=== PATIENT | female | born 1945 | race American Indian/Alaskan Native ===

== ENCOUNTER 2017-02-20 12:32 | Emergency (ER) | payer MEDICARE ==
[2017-02-20 12:32] VITALS: PULSE 91
[2017-02-20] MEDS ORDERED: Tetracaine 0.5% Ophth (OR ONLY) OD ONE (13:25)
[2017-02-20] MEDS ORDERED: Fluorescein 1 mg Ophthalmic Strip OD ONE (13:25)
[2017-02-20] MEDS ORDERED: Digoxin 125 mcg (0.125 mg) Tab PO STA (13:29)
[2017-02-20] MEDS ORDERED: diltiaZEM 60 mg ER Cap PO STA (13:30)
[2017-02-20] MEDS ORDERED: Fluorescein 1 mg Ophthalmic Strip ONE (13:34)
[2017-02-20] MEDS ORDERED: Tetracaine 0.5% Ophth (OR ONLY) ONE (13:34)
[2017-02-20 13:51] LABS: BASO % 0.3 % (0.0-2.0); EOS % 0.6 % (0.0-4.0); HEMATOCRIT 33.3 % (34.0-47.0); LYMPH # 0.8 K/uL (1.0-4.3); LYMPH % 18.2 % (20.0-40.0); MEAN CELL VOLUME 88.6 fL (81.0-99.0); MEAN CORPUSCULAR HEMOGLOBIN 28.8 pg (27.0-31.0); MEAN CORPUSCULAR HGB CONC 32.5 g/dL (33.0-37.0); MEAN PLATELET VOLUME 7.4 fL (7.2-11.7); MONO # 0.5 K/uL (0.0-0.8); MONO % 12.6 % (0.0-10.0); NRBC % 0.1 % (0.0-2.0); RED CELL DISTRIBUTION WIDTH 18.6 % (11.5-14.5); WHITE BLOOD COUNT 4.2 K/uL (4.8-10.8)
[2017-02-20 14:03] LABS: INR 1.2
[2017-02-20 14:04] LABS: CHLORIDE 86 mmol/L (98-107); POTASSIUM 4.8 mmol/L (3.6-5.2); SODIUM 134 mmol/L (132-148)
[2017-02-20 14:06] LABS: GFR AFRICAN-AMERICAN > 60
[2017-02-20 14:07] LABS: ALKALINE PHOSPHATASE 85 U/L (38-126); ALT/SGPT 16 U/L (9-52); AST/SGOT 21 U/L (14-36); BILIRUBIN,TOTAL 0.7 mg/dL (0.2-1.3); BLOOD UREA NITROGEN 20 mg/dL (7-17); CARBON DIOXIDE 37 mmol/L (22-30); GLUCOSE,RANDOM 124 mg/dL (65-105); TOTAL PROTEIN 8.1 g/dL (6.3-8.3)
[2017-02-20] MEDS ORDERED: Digoxin 125 mcg (0.125 mg) Tab ONE (14:26)
[2017-02-20 14:33] VITALS: O2SAT 98
--- NOTE | 2017-02-20 15:07 | C.PDOC ---
History Of Present Illness 72 y/o female presents to the ED accompanied by daughter for evaluation of 1 episode of nausea/ vomiting which occurred last night. As per daughter, patient has also been experiencing right eye pain. Patient has h/o bilateral cataracts and underwent surgery "many years ago." Patient also states she initially was using eye drops but discontinued use because her insurance no longer covered the cost. Patient does not recall the name of her mangle catcher. Patient has a history of Alzheimer's Dementia; as per daughter, she is currently at her baseline mental status. Daughter states patient did not receive her medications this morning. She denies fever/chills, cough, chest pain, shortness of breath, abdominal pain, dysuria/hematuria. Time Seen by Provider: 02/20/17 13:03 Chief Complaint (Nursing): Abdominal Pain History Per: Patient, Family History/Exam Limitations: no limitations Onset/Duration Of Symptoms: Hrs Current Symptoms Are (Timing): Better Severity: Mild Radiation Of Pain To:: None Associated Symptoms: Nausea, Vomiting. denies: Fever, Chills, Chest Pain, Urinary Symptoms (dysuria ) Exacerbating Factors: denies: Cough Last Bowel Movement: Today Additional History Per: Family Abnormal Vaginal Bleeding: No Past Medical History Reviewed: Historical Data, Nursing Documentation, Vital Signs Vital Signs: Last Vital Signs Temp 97.9 F 02/20/17 16:05 Pulse 100 H 02/20/17 16:05 Resp 16 02/20/17 16:05 BP 171/87 H 02/20/17 16:05 Pulse Ox 98 02/22/17 09:20 - Medical History PMH: Anemia, Atrial Fibrillation, Dementia, Emphysema, HTN, Hypercholesterolemia Surgical History: No Surg Hx - [facility] Procedures VACCINATION NEC (03/13/15) Family History: States: No Known Family Hx - Social History Hx Tobacco Use: No Hx Alcohol Use: No Hx Substance Use: No - Immunization History Hx Tetanus Toxoid Vaccination: No Hx Influenza Vaccination: Yes Hx Pneumococcal Vaccination: Yes Review Of Systems Except As Marked, All Systems Reviewed And Found Negative. Constitutional: Negative for: Fever, Chills Eyes: Positive for: Pain (right ) ENT: Positive for: Ear Pain Cardiovascular: Negative for: Chest Pain, Palpitations Respiratory: Negative for: Cough, Shortness of Breath Gastrointestinal: Positive for: Nausea, Vomiting. Negative for: Abdominal Pain , Diarrhea Genitourinary: Negative for: Dysuria Physical Exam - Physical Exam Appears: Non-toxic, No Acute Distress, Other (comfortable) Skin: Normal Color, Warm, Dry Head: Atraumatic, Normacephalic Eye(s): bilateral: Other (right eye: +scleral injection. pupil is 3-4mm and mildly sluggish. +cataracts bilaterally ), left: PERRL, EOMI Oral Mucosa: Moist Neck: Supple Cardiovascular: Rhythm Irregular, Other (+mildly tachycardic) Respiratory: Normal Breath Sounds, No Rales, No Rhonchi, No Wheezing Gastrointestinal/Abdominal: Normal Exam, Bowel Sounds, Soft, No Tenderness Back: Normal Inspection, No Vertebral Tenderness, No Paraspinal Tenderness Extremity: Normal ROM, No Pedal Edema, No Calf Tenderness Extremity: Bilateral: Atraumatic, Normal Color And Temperature, Normal ROM Neurological/Psych: Other (awake, alert, mildly confused ) Gait: Steady ED Course And Treatment - Laboratory Results Result Diagrams: 02/20/17 13:47 02/20/17 13:47 ECG: Interpreted By Me, Viewed By Me (NSR 100bpm, left axis deviation, no acute ST/T wave changes) ECG Interpretation: No Acute Changes O2 Sat by Pulse Oximetry: 98 (on RA) Pulse Ox Interpretation: Normal Progress Note: Blood work and EKG were ordered and reviewed. Patient given her PO meds - Caridizem, Digoxin, Zestril, Tetracaine instilled into B/L eyes, and fluorescein stain applied by me. Eyes examined under Wood's lamp. Pt has two corneal abrasions in right eye at 9 o'clock and 3 o'clock positions. Eye pressures are 21-22mmHg B/L. Patient unable to follow instructions for visual acuity test due to her baseline confusion. Reevaluation Time: 16:10 Reassessment Condition: Improved (On reassessment, patient is resting comfortably, in no current pain/distress. Daughter given Rx for Ofloxacin eye drops and Zofran ODT. She ws instructed to bring mother to PMD in 1-2 days, and see eye doctor within 1 week. Patient to be brought back to ED if symptoms return/worsen. Vitals improved with patient's usual PO meds.) Disposition Counseled Patient/Family Regarding: Diagnosis, Need For Followup, Rx Given - Disposition Referrals: Claritza Balderrama MD [Staff Provider] - Macho Horn MD [Staff Provider] - Disposition: HOME/ ROUTINE Disposition Time: 16:10 Condition: STABLE Additional Instructions: FOLLOW UP WITH EYE DOCTOR IN 1-2 DAYS RETURN TO ER IF SYMPTOMS WORSEN Prescriptions: Ofloxacin Ophth 0.3% [Ocuflox Ophth 0.3%] 1 drop GT Q4 #1 bottle Ondansetron [Zofran Odt] 4 mg PO Q8 PRN #10 odt PRN Reason: Nausea/Vomiting Instructions: Corneal Abrasion (ED) Print Language: IRISH - POA Present On Arrival: None - Clinical Impression Clinical Impression: Nausea & vomiting, Corneal abrasion, Cataract - Scribe Statement The provider has reviewed the documentation as recorded by the Scribe (Tiff Washington) Provider Attestation: All medical record entries made by the Scribe were at my direction and personally dictated by me. I have reviewed the chart and agree that the record accurately reflects my personal performance of the history, physical exam, medical decision making, and the department course for this patient. I have also personally directed, reviewed, and agree with the discharge instructions and disposition.
[2017-02-20] MEDS ORDERED: Ofloxacin 0.3% Ophth Soln OD STA (15:40)
[2017-02-20 16:17] VITALS: BP 171/87; PULSE 100; RESP 16; TEMP 97.9
--- NOTE | 2017-02-22 12:05 | CARD ---
APPROVED REPORT EKG Measurement Heart [id number] <Conclusion> Normal sinus rhythm Possible Left atrial enlargement Left axis deviation Abnormal ECG
== END 2017-02-20 16:42 | disposition home or self-care (01) ==
LOC: C.ER 12:32
DX: S05.01XA Injury of conjunctiva and corneal abrasion without foreign body, right eye, initial encounter (principal); X58.XXXA Exposure to other specified factors, initial encounter; R11.2 Nausea with vomiting, unspecified

== ENCOUNTER 2017-04-21 21:19 | Inpatient (IN) | payer MEDICARE ==
[2017-04-21 21:28] VITALS: BMI 17.7
[2017-04-21 21:52] LABS: BASO % 0.4 % (0.0-2.0); EOS % 0.1 % (0.0-4.0); HEMOGLOBIN 9.7 g/dL (11.0-16.0); LYMPH # 0.4 K/uL (1.0-4.3); LYMPH % 11.9 % (20.0-40.0); MEAN CELL VOLUME 89.2 fL (81.0-99.0); MEAN CORPUSCULAR HEMOGLOBIN 28.3 pg (27.0-31.0); MEAN CORPUSCULAR HGB CONC 31.7 g/dL (33.0-37.0); MEAN PLATELET VOLUME 7.6 fL (7.2-11.7); MONO # 0.3 K/uL (0.0-0.8); MONO % 9.2 % (0.0-10.0); NEUT # 2.7 K/uL (1.8-7.0); NEUT % 78.4 % (50.0-75.0); RBC 3.41 Mil/uL (3.80-5.20); RED CELL DISTRIBUTION WIDTH 18.4 % (11.5-14.5); WHITE BLOOD COUNT 3.4 K/uL (4.8-10.8)
[2017-04-21 21:59] LABS: ALBUMIN 3.9 g/dL (3.5-5.0)
[2017-04-21 22:00] LABS: INR 1.3; PROTHROMBIN TIME 14.9 SECONDS (9.7-12.2)
[2017-04-21 22:11] LABS: CK-MB 1.29 ng/mL (0.0-3.38)
[2017-04-21 22:15] LABS: TROPONIN I 0.054 ng/mL (0.00-0.120)
--- NOTE | 2017-04-21 22:23 | C.PDOC ---
History Of Present Illness 72 year old female was brought to the ED by ambulance for evaluation of abdominal pain, generalized weakness, and decreased PO intake beginning today ( as per daughter). Patient denies chest pain, SOB, fever, cough, vomiting, diarrhea, dysuria/hematruia. PMHx of anemia, atrial fibrillation, hyperlipidemia, HTN, COPD. Time Seen by Provider: 04/21/17 21:40 Chief Complaint (Nursing): Abdominal Pain History Per: Patient, Family (daughter ) History/Exam Limitations: no limitations Onset/Duration Of Symptoms: Hrs Current Symptoms Are (Timing): Still Present Severity: Mild Location Of Pain/Discomfort: Diffuse Radiation Of Pain To:: None Associated Symptoms: Other (generalized weakness and decreased PO intake ). denies: Fever, Chills, Nausea, Vomiting, Diarrhea Recent travel outside of the [place]: No Past Medical History Reviewed: Historical Data, Nursing Documentation, Vital Signs Vital Signs: Last Vital Signs Temp 98.4 F 04/29/17 04:00 Pulse 105 H 04/29/17 05:20 Resp 18 04/29/17 05:20 BP 113/70 04/29/17 04:14 Pulse Ox 100 04/29/17 05:20 - Medical History PMH: Anemia, Atrial Fibrillation, Dementia, Emphysema, HTN, Hypercholesterolemia - [facility] Procedures VACCINATION NEC (03/13/15) Family History: States: No Known Family Hx - Social History Hx Tobacco Use: No Hx Alcohol Use: No Hx Substance Use: No - Immunization History Hx Tetanus Toxoid Vaccination: No Hx Influenza Vaccination: Yes Hx Pneumococcal Vaccination: Yes Review Of Systems Except As Marked, All Systems Reviewed And Found Negative. Constitutional: Negative for: Fever, Chills Cardiovascular: Negative for: Chest Pain, Palpitations Respiratory: Negative for: Cough, Shortness of Breath Gastrointestinal: Positive for: Abdominal Pain. Negative for: Nausea, Vomiting , Diarrhea Genitourinary: Negative for: Dysuria, Hematuria Physical Exam - Physical Exam Appears: Non-toxic, No Acute Distress, Chronically Ill Skin: Normal Color, Warm, Dry Eye(s): bilateral: Normal Inspection Oral Mucosa: Moist Cardiovascular: Rhythm Irregular, Other (Mildly tachycardic, irregular occasionally ) Respiratory: No Decreased Breath Sounds, No Accessory Muscle Use, Rales (mild at bases B/L), No Rhonchi, No Wheezing, Other (mildly tachypnic) Gastrointestinal/Abdominal: Normal Exam, Bowel Sounds, Soft, No Tenderness, No Distention, No Guarding, No Rebound Extremity: Normal ROM, No Tenderness, No Pedal Edema, No Calf Tenderness, Other (+2 pitting edema of the legs bilaterally ) Neurological/Psych: Other (awake, alert, moving all 4 extremities spontaneously , slow to respond to questions, at baseline mental status as per daughter) ED Course And Treatment - Laboratory Results Result Diagrams: 04/29/17 06:46 04/29/17 06:46 ECG: Interpreted By Me, Viewed By Me (sinus tachycardia 113bpm, L axis deviation , LAFB, no acute ST/t wave changes) ECG Interpretation: Abnormal O2 Sat by Pulse Oximetry: 88 (RA) Pulse Ox Interpretation: Abnormal (COPD history) - Radiology CXR: Interpreted by Me, Viewed By Me CXR Interpretation: Yes: No Acute Disease. No: Infiltrates - CT Scan/US CT ABDOMEN/PELVIS WO Other Rad Studies (CT/US): Read By Radiologist, Radiology Report Reviewed CT/US Interpretation: IMPRESSION: Extremely limited study, noting that limitations are greatly increased by apparent anasarca and congestive failure, absence of intravenous contrast greatly limits evaluation of the parenchymal organs. The absence of oral contrast limits evaluation of the gastrointestinal tract. Correlation for biliary etiology of symptoms is recommended noting suggestion of ascites surrounding the gallbladder out of proportion to ascites elsewhere. Noting apparent large fibroid with limited visualization of the remainder of the uterus, depending on location of pain acute symptoms related to torsion of a fibroid in the differential. CT Head Without Intravenous Contrast Other Rad Studies (CT/US): Read By Radiologist, Radiology Report Reviewed CT/US Interpretation: IMPRESSION: No intracranial hemorrhage. In the absence of comparison, bilateral poor visualization of the basal ganglia is suspicious for acute stroke with embolic etiology possible. Left maxillary sinusitis. Please compare to previous regarding possibility of hydrocephalus. Note that basal cisterns and. fourth ventricle are patent. There no previous studies available for direct comparison, noting that previous reports indicate extensive white matter pathology and the findings on the study are not excluded to be chronic for this patient. Progress Note: Blood work, CXR, EKG, CT abd/pelvis, UA ordered and reviewed. IV Lasix given for elevated BNP, rales, edema on exam. K noted to be elevated - repeated and hyperkalemia persists. Hyperkalemia cocktail given - Calcium gluconate, albuterol, D50 + insulin. 12:30PM- called to bedside on admitted patient, she is nonverbal and not moving arms, mildly drooling (? due to removal of dentures). Concerned for CVA vs hypercapnic respiratory failure, code stroke called & CT head ordered. ABG drawn by me to evaluate CO2. 1:00am - Patient's CO2 critically high, she is drowsy and nonverbal - not Bipap candidate. As per roseann, patient's wishes are unknown and to her knowledge patient is full code. Patient emergently intubated by me - IV rocuronium and etomidte given. OG tube placed by me. ET tube and OG tube placement confirmed via postitubation CXR. Supervisor [employer] spoken with and agrees with ICU admission. Call placed to Dr. Balderrama to notify her of patient being upgraded to ICU. - Physician Consult Information Physician Contacted: Claritza Balderrama Critical Care Time - Critical Care Note Total Time (in mins): 50 Documented critical care: time excludes all time spent performing seperately billable procedures. NIHSS Stroke Scale - Date/Time Evaluation Performed Date Performed: 04/22/17 Time Performed: 00:20 When Was NIHSS Performed: Baseline - How Severe is the Stoke Level of Consciousness: 1=Drowsy LOC to Questions: 2=Neither correct LOC to commands: 2=Neither correct Best Gaze: 0=Normal Visual: 0=No visual loss Facial: 0=Normal Motor Arm - Left: 3=No effort against gravity (falls immediately) Motor Arm - Right: 2=Falls before 10 sec Motor Leg - Left: 1=Drift before 5 sec Motor Leg - Right: 1=Drift before 5 sec Limb Ataxia: 0=Absent Sensory: 0=Normal Best Language: 0=No aphasia Dysarthia: 0=Normal articulation Extinction & Inattention (Neglect): 0=Normal, no object Score: 12 Severity Of Stroke: 5-15= Moderate Stroke (patient drowsy and unable to respond to questions or follow commands) Disposition - Disposition Disposition: HOSPITALIZED Disposition Time: 01:18 Condition: CRITICAL - Clinical Impression Clinical Impression: CHF exacerbation, Hypercapnic respiratory failure, Hyperkalemia, Abdominal pain - Scribe Statement The provider has reviewed the documentation as recorded by the Scribrodrick Camargo All medical record entries made by the Scribe were at my direction and personally dictated by me. I have reviewed the chart and agree that the record accurately reflects my personal performance of the history, physical exam, medical decision making, and the department course for this patient. I have also personally directed, reviewed, and agree with the discharge instructions and disposition. Procedure: Intubation - Consent Obtained Consent obtained: Emergent consent implied - Performed By Performed by: Attending Physician - Indications Indication(s):: Respiratory failure, Hypercarbia - Method Method:: Oral-Laryngoscopy - Rapid Sequence Intubation Anesthetic:: Etomidate Paralytic:: Rocuronium - Tube type Tube type:: Endotracheal tube Tube size:: Cuffed Number of attempts:: 1 Depth measured at lip: cm: 22 - Confirmation Confirmation: Direct visual.of intubate, End-tidal CO2 positive, Bilat. breath sounds - Post-intubation CXR Post-intubation CXR: CM above [place] - Post-intubation O2 sat % Post-intubation O2 sat%:: 98
[2017-04-21 22:27] LABS: HCG,QUALITATIVE URINE NEGATIVE (NEGATIVE)
[2017-04-21 22:44] LABS: SQUAMOUS EPITHIAL 1 /hpf (0-5); URINE AMORPHOUS SEDIMENT FEW /ul (<OCC); URINE BACTERIA OCC (<OCC); URINE BILIRUBIN NEGATIVE (NEGATIVE); URINE BLOOD 1+ (NEGATIVE); URINE CLARITY Hazy (Clear); URINE COLOR Amber (YELLOW); URINE GLUCOSE (UA) 1+ mg/dL (Normal); URINE HYALINE CAST >20 /lpf (0-2); URINE LEUKOCYTE ESTERASE NEG Leu/uL (Negative); URINE NITRATE NEGATIVE (NEGATIVE); URINE PROTEIN 3+ mg/dL (NEGATIVE)
--- NOTE | 2017-04-21 23:22 | CT ---
EXAM: CT Abdomen and Pelvis Without Intravenous Contrast CLINICAL HISTORY: 72 years old, female; Pain; Abdominal pain; Generalized; Additional info: Severe abd pain, vomiting/diarrhea TECHNIQUE: Axial computed tomography images of the abdomen and pelvis without intravenous contrast. This CT exam was performed using one or more of the following dose reduction techniques: automated exposure control, adjustment of the mA and/or kV according to patient size, and/or use of iterative reconstruction technique. Coronal and sagittal reformatted images were created and reviewed. EXAM DATE/TIME: Exam ordered 04/21/2017 10:32 PM COMPARISON: No relevant prior studies available. FINDINGS: Lower thorax: There is severe cardiomegaly, it appears that this represents at least the right atrium and both ventricles, noting that the left atrium is minimally included and is evaluated. There are calcifications in keeping with coronary artery disease. Calcification adjacent to the aortic valve not clearly localized regarding whether it relates to the aortic valve and coronary arteries. Small right and trace left left pleural effusion. Marked prominence of the pulmonary vessels suggesting failure. Patchy groundglass opacity at the lung basis, this may also be related to failure or noting a slight central predominance, with other causes including infection/atelectatic change is not excluded as contributing factors. There is pelvic ascites, this may be related to heart failure and the overall edema, with other causes possibly contributing on this limited study. ABDOMEN: Liver: Unremarkable. Gallbladder and bile ducts: The gallbladder is poorly distinguished from adjacent structures, with no evidence of calcified stones. No ductal dilation. Pancreas: The pancreas is poorly distinguished from adjacent structures comment the duct cannot be evaluated. Spleen: Unremarkable. No splenomegaly. Adrenals: Unremarkable. No mass. Kidneys and ureters: There are bilateral renal calculi particularly within the left lower pole, noting the severe limitations of this study it is favored that there are no obstructing ureteral calculi and there is no obvious hydronephrosis. Stomach and bowel: It is not possible to evaluate the wall of the majority of small bowel comment noting absence of obvious dilatation, the noting very poor distinction of loops from one another and adjacent infiltrative fat. There are no definite dilated fluid-filled loops. The large intestine contains moderate formed fecal material. No mucosal thickening. Appendix: No findings to suggest acute appendicitis. PELVIS: Bladder: Bladder is partly collapsed limiting evaluation, noting further sagittal image 56 that it may be thickwalled and may contain some debris, correlation for infection is recommended. No stones. Reproductive: Enlarged uterus with multiple coarse calcifications favored to be related to fibroids, noting suggestion that there may be a dominant fibroid better appreciated sagittal image 50 and adjacent of approximately 5.5 cm, with poor visualization of the lower uterine segment, not excluded that this finding could be of non-gynecologic origin. ABDOMEN and PELVIS: Intraperitoneal space: See above. Bones/joints: Bony structures with no displaced fractures , minimal degenerative change of the spine. No dislocation. Soft tissues: There is extensive body wall edema in keeping with anasarca. Vasculature: There are scattered atherosclerotic calcifications. No abdominal aortic aneurysm. Lymph nodes: Unremarkable. No enlarged lymph nodes. Other findings: No prior images, no prior reports available. IMPRESSION: Extremely limited study, noting that limitations are greatly increased by apparent anasarca and congestive failure, absence of intravenous contrast greatly limits evaluation of the parenchymal organs. The absence of oral contrast limits evaluation of the gastrointestinal tract. Correlation for biliary etiology of symptoms is recommended noting suggestion of ascites surrounding the gallbladder out of proportion to ascites elsewhere. Noting apparent large fibroid with limited visualization of the remainder of the uterus, depending on location of pain acute symptoms related to torsion of a fibroid in the differential. Renal calculi. There is no definite pathology of bowel within the severe limitations of this examination, and laboratory correlation and consideration of repeat study with oral contrast and if patient can tolerate with intravenous contrast is recommended for better evaluation. Collapsed bladder with question debris, please correlate for urinary tract infection. Severe cardiomegaly, with changes of congestive failure in the lungs, severe anasarca, possibility of superimposed airspace disease.
[2017-04-21] MEDS ORDERED: Calcium Gluconate 4.65 MEQ in Dextrose 5% In Water 100 ML IV STA (23:26)
[2017-04-21] MEDS ORDERED: Dextrose 50% SYRINGE Inj (50 ml) IVP STA (23:27)
[2017-04-21] MEDS ORDERED: (Novolin R) Insulin Human Regular 100 units/ml vial IV STA (23:27)
[2017-04-21] MEDS ORDERED: Albuterol 0.083% Inhal Sol (2.5 mg/3 mL) UD IH STA (23:27)
[2017-04-21] MEDS ORDERED: Calcium Gluconate 4.65 mEq/10 ml Inj ONE (23:32)
[2017-04-21] MEDS ORDERED: Dextrose 50% SYRINGE Inj (50 ml) ONE (23:33)
[2017-04-21] MEDS ORDERED: (Novolin R) Insulin Human Regular 100 units/ml vial ONE (23:34)
[2017-04-22] MEDS ORDERED: Albuterol 0.083% Inhal Sol (2.5 mg/3 mL) UD ONE
[2017-04-22] MEDS ORDERED: Sod Polystyrene Sulf 15 gm/60 ml Oral Susp ONE (00:19)
[2017-04-22] MEDS ORDERED: Sod Polystyrene Sulf 15 gm/60 ml Oral Susp PO ONE (00:19)
[2017-04-22 00:46] LABS: ARTERIAL BLOOD GAS HCO3 29.3 mmol/L (21-28); ARTERIAL BLOOD GAS HEMOGLOBIN 9.3 g/dL (11.7-17.4); ARTERIAL BLOOD GAS O2 SAT 98.2 % (95-98); ARTERIAL BLOOD GAS PCO2 121 mm/Hg (35-45); ARTERIAL BLOOD GAS PO2 95 mm/Hg (80-100); ARTERIAL BLOOD GAS TCO2 41.3 mmol/L (22-28)
--- NOTE | 2017-04-22 01:03 | CT ---
EXAM: CT Head Without Intravenous Contrast CLINICAL HISTORY: 72 years old, female; Pain; Other: Not respond; Patient HX: 5-22-15; Additional info: R/O bleed TECHNIQUE: Axial computed tomography images of the head/brain without intravenous contrast. This CT exam was performed using one or more of the following dose reduction techniques: automated exposure control, adjustment of the mA and/or kV according to patient size, and/or use of iterative reconstruction technique. EXAM DATE/TIME: Exam ordered 04/22/2017 12:28 AM COMPARISON: No relevant prior studies available. FINDINGS: Brain: There is bilateral obscuration of the basal ganglia and acute stroke is a consideration in this context. There is no intracranial hemorrhage. Severe extensive white matter disease. Ventricles: The ventricles are prominent, but there are no previous for comparison, noting that the basal cisterns and fourth ventricle are patent. Bones/joints: The mastoid air cells are clear. There are no fractures of the calvarium. Soft tissues: Unremarkable. Sinuses: There is an air-fluid level in the left maxillary sinus, please correlate for trauma versus acute sinusitis. Other paranasal sinuses show no air-fluid levels. Mastoid air cells: Unremarkable as visualized. No mastoid effusion. IMPRESSION: No intracranial hemorrhage. In the absence of comparison, bilateral poor visualization of the basal ganglia is suspicious for acute stroke with embolic etiology possible. Left maxillary sinusitis. Please compare to previous regarding possibility of hydrocephalus. Note that basal cisterns and fourth ventricle are patent. There no previous studies available for direct comparison, noting that previous reports indicate extensive white matter pathology and the findings on the study are not excluded to be chronic for this patient.
[2017-04-22] MEDS ORDERED: Sod Polystyrene Sulf 15 gm/60 ml Oral Susp GT ONE (02:04)
[2017-04-22] MEDS ORDERED: Sodium Bicarbonate (8.4%) 50 Meq Syringe IVP STA (02:17)
[2017-04-22 02:48] LABS: ARTERIAL BLOOD GAS HCO3 29.8 mmol/L (21-28); ARTERIAL BLOOD GAS HEMOGLOBIN 9.1 g/dL (11.7-17.4); ARTERIAL BLOOD GAS O2 SAT 100.8 % (95-98); ARTERIAL BLOOD GAS PCO2 53 mm/Hg (35-45); ARTERIAL BLOOD GAS PH 7.39 (7.35-7.45); ARTERIAL BLOOD GAS PO2 276 mm/Hg (80-100); ARTERIAL BLOOD GAS TCO2 33.7 mmol/L (22-28)
--- NOTE | 2017-04-22 05:06 | CP.PCM.CON ---
History of Present Illness - History of Present Illness History of Present Illness: 72 year old female with h/o atrial fibrillation, HTN,Anemia,dementia,emphysema, hyperlipidemia was brought to the ED by ambulance with complaints of abdominal pain, generalized weakness, and decreased oral intake beginning today as per daughter. Patient denies chest pain, SOB, fever, cough, vomiting, and diarrhea. n Er patient found to be lethargic ,hypercapneic,intubated patient alert,Denies abdominal pain history from family,ER notes,patient Review of Systems - Review of Systems Systems not reviewed;Unavailable: Altered Mental Status - Constitutional Constitutional: Anorexia, Weakness - EENT Eyes: absent: Change in Vision Ears: absent: Dizziness - Cardiovascular Cardiovascular: Irregular Heart Rhythm, Leg Edema. absent: Chest Pain, Dyspnea - Respiratory Respiratory: absent: Dyspnea - Gastrointestinal Gastrointestinal: Abdominal Pain. absent: Change in Bowel Habits, Nausea, Vomiting - Genitourinary Genitourinary: Difficulty Urinating - Musculoskeletal Musculoskeletal: absent: Numbness - Integumentary Integumentary: absent: Bleeding Lesions - Neurological Neurological: Weakness. absent: Abnormal Movements - Endocrine Endocrine: absent: Excessive Sweating Past Patient History - Infectious Disease Hx of Infectious Diseases: None - Past Medical History & Family History Past Medical History?: Yes - Past Social History Smoking Status: Former Smoker Alcohol: None Drugs: Denies - CARDIAC Hx Atrial Fibrillation: Yes Hx Hypercholesterolemia: Yes Hx Hypertension: Yes - PULMONARY Hx Emphysema: Yes - NEUROLOGICAL Hx Dementia: Yes - HEENT Hx HEENT Problems: Yes Hx Cataracts: Yes (both eyes) - RENAL Hx Chronic Kidney Disease: No - ENDOCRINE/METABOLIC Hx Endocrine Disorders: No - HEMATOLOGICAL/ONCOLOGICAL Hx Anemia: Yes - INTEGUMENTARY Hx Dermatological Problems: No - MUSCULOSKELETAL/RHEUMATOLOGICAL Hx Falls: Yes - GASTROINTESTINAL Hx Gastrointestinal Disorders: No - GENITOURINARY/GYNECOLOGICAL Hx Genitourinary Disorders: Yes - PSYCHIATRIC Hx Substance Use: No - SURGICAL HISTORY Hx Surgeries: Yes Hx Cataract Extraction: Yes (2013) - ANESTHESIA Hx Anesthesia: Yes Hx Anesthesia Reactions: No Hx Malignant Hyperthermia: No Has any member of the family had a problem w/ anesthesia?: No Meds Allergies/Adverse Reactions: Allergies Allergy/AdvReac Type Severity Reaction Status Date / Time No Known Allergies Allergy Verified 04/21/17 21:24 - Medications Medications: Current Medications Digoxin (Lanoxin) 0.125 mg PO DAILY@1800 LEE Diltiazem HCl (Cardizem Cd) 120 mg PO DAILY [facility] Furosemide (Lasix) 40 mg IVP BID [facility] Calcium Gluconate 4.65 meq/ (Dextrose) 110 mls @ 1 drops/min IV STAT STA Stop: 04/23/17 02:55 Last Admin: 04/21/17 23:36 Dose: 1 drops/min Rivaroxaban (Xarelto) 15 mg PO DAILY [facility] Physical Exam - Constitutional Additional comments: orally intubated,comfortable at rest - Head Exam Head Exam: ATRAUMATIC, NORMOCEPHALIC - Eye Exam Eye Exam: EOMI, Normal appearance - ENT Exam ENT Exam: Mucous Membranes Moist - Neck Exam Neck exam: Positive for: Normal Inspection. Negative for: Lymphadenopathy - Respiratory Exam Respiratory Exam: Clear to Auscultation Bilateral - Cardiovascular Exam Cardiovascular Exam: Irregular Rhythm - GI/Abdominal Exam GI & Abdominal Exam: Normal Bowel Sounds, Soft. absent: Tenderness - Extremities Exam Extremities exam: Positive for: normal inspection, pedal edema - Back Exam Back exam: absent: CVA tenderness (L) - Neurological Exam Neurological exam: Alert - Skin Skin Exam: Dry, Normal Color Results - Vital Signs Recent Vital Signs: Last Vital Signs Temp 98.2 F 04/22/17 02:30 Pulse 79 04/22/17 04:10 Resp 18 04/22/17 04:10 BP 158/98 H 04/22/17 03:44 Pulse Ox 94 L 04/22/17 04:10 - Labs Result Diagrams: 04/21/17 21:48 04/21/17 23:01 Labs: Laboratory Results - last 24 hr 04/22/17 04/22/17 04/22/17 00:32 00:41 02:15 Puncture Site Na drawn by dr Oscar lopez pCO2 121 H* 53 H pO2 95 276 H HCO3 29.3 H 29.8 H ABG pH 7.10 L* 7.39 ABG Total CO2 41.3 H 33.7 H ABG O2 Saturation 98.2 H 100.8 H ABG Base Excess 5.7 H 6.2 H ABG Hemoglobin 9.3 L 9.1 L ABG Carboxyhemoglobin 2.7 H 2.1 H POC ABG HHb (Measured) 1.7 -0.8 L ABG Methemoglobin 1.1 0.8 Yaniv Test Na Na A-a O2 Difference 86.0 Respiratory Index 0.3 Hgb O2 Saturation 94.5 L 97.9 Mechanical Rate 18 FiO2 60.0 Tidal Volume 350 PEEP 5 Crit Value Called To Dr ellison Crit Value Called By Mónica schwartz rt Crit Value Read Back Y Blood Gas Notified Time 46 POC Glucose (mg/dL) 258 H - EKG Data EKG Interpreted by: Myself - Imaging and Cardiology Chest x-ray Status: Image reviewed by me Assessment & Plan - Assessment and Plan (Free Text) Assessment: 1Hypercapneic Respiratory failure on mechanical ventilation ?eitiology.H/O emphysema weanas tolerated 2.Electrolyte imbalance-hyponatremia and hyperkalemia-repeat lytes Hyperkalemia treated in ER 3.H/o HTN/Atrial fibrillation/?CHF-on Cardizem,digoxin and lasix 4.Elevated LFT/Abdominal pain -US to r/o Gallbladder pathology 5.Leucopenia and anemia-h/o anemia-f/u CBC stool occult blood
[2017-04-22 05:34] LABS: ABG ALLEN TEST POS; ARTERIAL BLOOD GAS HCO3 35.7 mmol/L (21-28); ARTERIAL BLOOD GAS HEMOGLOBIN 8.4 g/dL (11.7-17.4); ARTERIAL BLOOD GAS O2 SAT 100.3 % (95-98); ARTERIAL BLOOD GAS PCO2 48 mm/Hg (35-45); ARTERIAL BLOOD GAS PH 7.51 (7.35-7.45); ARTERIAL BLOOD GAS PO2 266 mm/Hg (80-100); ARTERIAL BLOOD GAS TCO2 39.8 mmol/L (22-28)
[2017-04-22 07:04] LABS: IRON 64 ug/dL (37-170); MAGNESIUM 2.1 mg/dL (1.6-2.3)
[2017-04-22 07:06] LABS: ALBUMIN 3.4 g/dL (3.5-5.0)
[2017-04-22 07:10] LABS: ALB/GLOB RATIO 0.9 (1.0-2.1)
[2017-04-22 07:14] LABS: % IRON SATURATION 22 (20-55); TOTAL IRON BINDING CAPACITY 290 ug/dL (250-450)
[2017-04-22 07:15] LABS: BASO % 0.4 % (0.0-2.0); EOS % 0.1 % (0.0-4.0); HEMOGLOBIN 8.7 g/dL (11.0-16.0); LYMPH # 0.8 K/uL (1.0-4.3); MEAN CELL VOLUME 88.5 fL (81.0-99.0); MEAN CORPUSCULAR HEMOGLOBIN 28.2 pg (27.0-31.0); MEAN CORPUSCULAR HGB CONC 31.9 g/dL (33.0-37.0); MEAN PLATELET VOLUME 7.9 fL (7.2-11.7); MONO # 0.6 K/uL (0.0-0.8); MONO % 11.4 % (0.0-10.0); NEUT # 3.5 K/uL (1.8-7.0); NEUT % 71.1 % (50.0-75.0); NRBC % 0.1 % (0.0-2.0); RBC 3.08 Mil/uL (3.80-5.20); RED CELL DISTRIBUTION WIDTH 18.5 % (11.5-14.5); WHITE BLOOD COUNT 4.9 K/uL (4.8-10.8)
--- NOTE | 2017-04-22 08:11 | CP.PCM.HP ---
History of Present Illness - History of Present Illness History of Present Illness: Admitted this 89 years old female from the ER because of "abdominal pains" which according to the daughter started today. Apparently when the patient was in the ER she was found to be lethargic with respiratory difficulty. patient is a known case of atrial fibrillation on Xarelto 15 mgm daily. Cat scan of the abdomen was suspicious of imflammatory process around the gallbladder area. patient blood dianne showed a very high CO2 and was intubated. Present on Admission - Present on Admission Any Indicators Present on Admission: No Review of Systems - Review of Systems Systems not reviewed;Unavailable: Acuity of Condition, Respiratory Distress, Altered Mental Status - Constitutional Constitutional: Lethargy, Weakness - Cardiovascular Cardiovascular: Irregular Heart Rhythm - Respiratory Respiratory: Dyspnea - Gastrointestinal Gastrointestinal: Abdominal Pain - Reproductive: Female Reproductive:Female: Menopausal - Menstruation Menstruation: Menopausal - Neurological Neurological: Weakness Past Patient History - Infectious Disease Hx of Infectious Diseases: None - Past Medical History & Family History Past Medical History?: Yes - Past Social History Smoking Status: Former Smoker Alcohol: None Drugs: Denies Home Situation {Lives}: With Family - CARDIAC Hx Atrial Fibrillation: Yes Hx Hypercholesterolemia: Yes Hx Hypertension: Yes - PULMONARY Hx Respiratory Disorders: Yes Hx Emphysema: Yes - NEUROLOGICAL Hx Dementia: Yes - HEENT Hx HEENT Problems: Yes Hx Cataracts: Yes (both eyes) - RENAL Hx Chronic Kidney Disease: No - ENDOCRINE/METABOLIC Hx Endocrine Disorders: No - HEMATOLOGICAL/ONCOLOGICAL Hx Blood Disorders: Yes Hx Anemia: Yes - INTEGUMENTARY Hx Dermatological Problems: No - MUSCULOSKELETAL/RHEUMATOLOGICAL Hx Falls: Yes - GASTROINTESTINAL Hx Gastrointestinal Disorders: No - GENITOURINARY/GYNECOLOGICAL Hx Genitourinary Disorders: No - PSYCHIATRIC Hx Psychophysiologic Disorder: No Hx Substance Use: No - SURGICAL HISTORY Hx Surgeries: Yes Hx Cataract Extraction: Yes (2013) - ANESTHESIA Hx Anesthesia: Yes Hx Anesthesia Reactions: No Hx Malignant Hyperthermia: No Has any member of the family had a problem w/ anesthesia?: No Meds Allergies/Adverse Reactions: Allergies Allergy/AdvReac Type Severity Reaction Status Date / Time No Known Allergies Allergy Verified 04/21/17 21:24 Physical Exam - Constitutional Appears: In Acute Distress Additional comments: Intubated. - ENT Exam ENT Exam: Normal External Ear Exam - Neck Exam Neck exam: Positive for: Normal Inspection - Respiratory Exam Respiratory Exam: Rales, Rhonchi - Cardiovascular Exam Cardiovascular Exam: Irregular Rhythm, +S1, +S2 - GI/Abdominal Exam GI & Abdominal Exam: Soft - Rectal Exam Rectal Exam: Deferred - Neurological Exam Neurological exam: Altered - Skin Skin Exam: Dry, Intact, Normal Color, Warm Results - Vital Signs Recent Vital Signs: Last Vital Signs Temp 98.2 F 04/22/17 02:30 Pulse 90 04/22/17 06:20 Resp 18 04/22/17 06:20 BP 144/85 04/22/17 06:14 Pulse Ox 100 04/22/17 06:20 - Labs Result Diagrams: 04/22/17 06:35 04/22/17 06:35 Labs: Laboratory Results - last 24 hr 04/22/17 04/22/17 04/22/17 00:32 00:41 02:15 WBC RBC Hgb Hct MCV MCH MCHC RDW Plt Count MPV Neut % (Auto) Lymph % (Auto) Lewis % (Auto) Eos % (Auto) Baso % (Auto) Neut # Lymph # Lewis # Eos # Baso # Puncture Site Na drawn by dr Oscar lopez pCO2 121 H* 53 H pO2 95 276 H HCO3 29.3 H 29.8 H ABG pH 7.10 L* 7.39 ABG Total CO2 41.3 H 33.7 H ABG O2 Saturation 98.2 H 100.8 H ABG Base Excess 5.7 H 6.2 H ABG Hemoglobin 9.3 L 9.1 L ABG Carboxyhemoglobin 2.7 H 2.1 H POC ABG HHb (Measured) 1.7 -0.8 L ABG Methemoglobin 1.1 0.8 Yaniv Test Na Na A-a O2 Difference 86.0 Respiratory Index 0.3 Hgb O2 Saturation 94.5 L 97.9 Mechanical Rate 18 FiO2 60.0 Tidal Volume 350 PEEP 5 Crit Value Called To Dr ellison Crit Value Called By Mónica schwartz rt Crit Value Read Back Y Blood Gas Notified Time 46 Sodium Potassium Chloride Carbon Dioxide Anion Gap BUN Creatinine Est GFR ( Amer) Est GFR (Non-Af Amer) POC Glucose (mg/dL) 258 H Random Glucose Calcium Phosphorus Magnesium Iron TIBC % Saturation Total Bilirubin AST ALT Alkaline Phosphatase Total Protein Albumin Globulin Albumin/Globulin Ratio Triglycerides Cholesterol LDL Cholesterol Direct HDL Cholesterol Digoxin 04/22/17 04/22/1717 03:25 06:35 06:35 WBC 4.9 RBC 3.08 L Hgb 8.7 L Hct 27.3 L MCV 88.5 MCH 28.2 MCHC 31.9 L RDW 18.5 H Plt Count 196 MPV 7.9 Neut % (Auto) 71.1 Lymph % (Auto) 17.0 L Lewis % (Auto) 11.4 H Eos % (Auto) 0.1 Baso % (Auto) 0.4 Neut # 3.5 Lymph # 0.8 L Lewis # 0.6 Eos # 0.0 Baso # 0.0 Puncture Site R rad pCO2 48 H pO2 266 H HCO3 35.7 H ABG pH 7.51 H ABG Total CO2 39.8 H ABG O2 Saturation 100.3 H ABG Base Excess 13.8 H ABG Hemoglobin 8.4 L ABG Carboxyhemoglobin 1.5 POC ABG HHb (Measured) -0.3 L ABG Methemoglobin 1.2 Yaniv Test Pos A-a O2 Difference 102.0 Respiratory Index 0.4 Hgb O2 Saturation 97.6 Mechanical Rate 18 FiO2 60.0 Tidal Volume 350 PEEP 5 Crit Value Called To Crit Value Called By Crit Value Read Back Blood Gas Notified Time Sodium 132 Potassium 5.5 H Chloride 87 L Carbon Dioxide 34 H Anion Gap 17 BUN 24 H Creatinine 1.3 H Est GFR ( Amer) 49 Est GFR (Non-Af Amer) 40 POC Glucose (mg/dL) Random Glucose 125 H Calcium 9.0 Phosphorus Magnesium Iron TIBC % Saturation Total Bilirubin 0.9 AST 324 H D ALT 199 H D Alkaline Phosphatase 100 Total Protein 7.2 Albumin 3.4 L Globulin 3.8 Albumin/Globulin Ratio 0.9 L Triglycerides Cholesterol LDL Cholesterol Direct HDL Cholesterol Digoxin 04/22/17 04/22/17 04/22/17 06:35 06:35 06:35 WBC RBC Hgb Hct MCV MCH MCHC RDW Plt Count MPV Neut % (Auto) Lymph % (Auto) Lewis % (Auto) Eos % (Auto) Baso % (Auto) Neut # Lymph # Lewis # Eos # Baso # Puncture Site pCO2 pO2 HCO3 ABG pH ABG Total CO2 ABG O2 Saturation ABG Base Excess ABG Hemoglobin ABG Carboxyhemoglobin POC ABG HHb (Measured) ABG Methemoglobin Yaniv Test A-a O2 Difference Respiratory Index Hgb O2 Saturation Mechanical Rate FiO2 Tidal Volume PEEP Crit Value Called To Crit Value Called By Crit Value Read Back Blood Gas Notified Time Sodium Potassium Chloride Carbon Dioxide Anion Gap BUN Creatinine Est GFR ( Amer) Est GFR (Non-Af Amer) POC Glucose (mg/dL) Random Glucose Calcium Phosphorus 4.9 H Magnesium 2.1 Iron 64 TIBC 290 % Saturation 22 Total Bilirubin AST ALT Alkaline Phosphatase Total Protein Albumin Globulin Albumin/Globulin Ratio Triglycerides 73 D Cholesterol 166 LDL Cholesterol Direct 69 HDL Cholesterol 61 Digoxin < 0.4 L Assessment & Plan (1) Abdominal pain Status: Acute (2) Hypercapnic respiratory failure Status: Acute (3) Hyperkalemia Status: Acute (4) Congestive heart failure (CHF) Status: Acute (5) Coronary heart disease Status: Acute (6) Cerebral embolism Status: Acute (7) Atrial fibrillation Status: Chronic - Assessment and Plan (Free Text) Plan: Plan: Respiratory Support. Continue iv Ca gluconate infusion for the hyperkalemia. Cardiology consult and neurology consult. Will start on IV antibiotics. Continue xarelto.
[2017-04-22] MEDS: MethylPREDNISolone 40 mg Vial IVP SCH (09:43)
[2017-04-22] MEDS: metroNIDAZOLE IV 500 mg/100 ml 500 MG/100 ML BAG IVPB SCH (09:43)
--- NOTE | 2017-04-22 09:58 | RAD ---
PROCEDURE: CHEST RADIOGRAPH, 1 VIEW HISTORY: Tachycardia COMPARISON: 10/18/2016. FINDINGS: LUNGS: The lungs are well inflated and clear. PLEURA: No pneumothorax or pleural fluid seen. CARDIOVASCULAR: There is persistent moderate cardiomegaly. Atherosclerotic aortic arch calcifications are present. . OSSEOUS STRUCTURES: No significant abnormalities. VISUALIZED UPPER ABDOMEN: Normal. OTHER FINDINGS: None. IMPRESSION: No active pulmonary disease.
[2017-04-22] MEDS ORDERED: diltiaZEM 120 mg/24 Hours CD Cap PO SCH (10:00)
[2017-04-22] MEDS ORDERED: Sod Polystyrene Sulf 15 gm/60 ml Oral Susp PO SCH (10:00)
--- NOTE | 2017-04-22 10:10 | RAD ---
HISTORY: post intubation, tube placement COMPARISON: 04/21/2017 FINDINGS: LUNGS: The endotracheal tube terminates approximately 1 cm proximal to the [place]. The nasogastric tube terminates in the stomach. There is pulmonary venous congestion and prominent central vasculature. PLEURA: Question of left pleural effusion. No pneumothorax. CARDIOVASCULAR: The heart is enlarged. OSSEOUS STRUCTURES: No significant abnormalities. VISUALIZED UPPER ABDOMEN: Normal. OTHER FINDINGS: None. IMPRESSION: Findings are most compatible with mild congestive heart failure with small left pleural effusion.
--- NOTE | 2017-04-22 10:16 | RAD ---
HISTORY: vented COMPARISON: 04/22/2017 at 1:21 a.m.. FINDINGS: The endotracheal tube terminates 2 cm proximal to the [place]. The nasogastric tube terminates in the stomach. LUNGS: The lungs are hyperinflated and there is peribronchial thickening with chronic changes in both lungs. There is also mild pulmonary venous congestion. No focal consolidation. PLEURA: Question of small left pleural effusion. No large pleural effusion. No pneumothorax. CARDIOVASCULAR: Normal. OSSEOUS STRUCTURES: No significant abnormalities. VISUALIZED UPPER ABDOMEN: Normal. OTHER FINDINGS: None. IMPRESSION: Endotracheal tube terminates 2 cm proximal to the [place]. The nasogastric tube terminates in the stomach. Question of mild congestive heart failure and small left pleural effusion. Background of COPD.
[2017-04-22] MEDS: Albuterol-Ipratrop 3 mg / 0.5 (3 ml) UD INH SCH ×2 (13:34→20:10)
[2017-04-22] MEDS ORDERED: Digoxin 250 mcg (0.25 mg) Tab PO SCH (18:00)
--- NOTE | 2017-04-22 20:14 | US ---
HISTORY: cholecystitis COMPARISON: None. TECHNIQUE: Grayscale and duplex Doppler imaging was performed. FINDINGS: LIVER: Measures 19.7 cm. There is diffuse increased echogenicity of the liver parenchyma. No mass. No intrahepatic bile duct dilatation. There is normal direction of flow and spectral waveform in the hepatic and portal veins. GALLBLADDER: Unremarkable. No gallstones. COMMON BILE DUCT: Measures 5.7 mm. No stones. No dilatation. PANCREAS: Unremarkable as visualized. No mass. No ductal dilatation. RIGHT KIDNEY: Measures 9.6cm. There is diffuse increased echogenicity. No calculus, mass, or hydronephrosis. LEFT KIDNEY: Measures 8.3cm. There is diffuse increased echogenicity. There is a 5 mm nonobstructing stone in the lower pole. No mass, or hydronephrosis. SPLEEN: Normal in size and contour. No mass. AORTA: No aneurysmal dilatation. IVC: Unremarkable. OTHER FINDINGS: There is small amount of free fluid in the Morison's pouch. IMPRESSION: Mild hepatomegaly. Diffuse increased echogenicity in the liver may reflect hepatic steatosis however parenchymal infectious/ inflammatory etiologies cannot be entirely excluded. Clinical and laboratory correlation is advised. . 5 mm nonobstructing stone in the lower pole of the left kidney. Medical renal disease. No cholelithiasis.
--- NOTE | 2017-04-22 21:27 | CP.PCM.CON ---
History of Present Illness - History of Present Illness History of Present Illness: 72 yo female was brought to the ED at complaining of abdominal pain. Subsequently, she developed a respiratory failure and had to be intubated and put on respirator. CXR revealed cardiomegaly and CHF. The patient is being treated for a chronic atrial fibrillation, with Digoxin and Xarelto. Review of the Echocardiogram done on 10/2015 revealed a normal LV systolic function with grade I diastolic dysfunction, mild MR, TR, AI and a mild pulmonary hypertension. Telemetry today discloses a multifocal atrial tachycardia. Hgb: 8.7 Pro-BNP and liver enzymes elevated and normal serum TNI.She is known to have an emphysema and is a former cigarette smoker. Review of Systems - Gastrointestinal Gastrointestinal: Abdominal Pain - Neurological Additional comments: Lethargy. Past Patient History - Infectious Disease Hx of Infectious Diseases: None - Past Medical History & Family History Past Medical History?: Yes - Past Social History Smoking Status: Former Smoker Alcohol: None Drugs: Denies Home Situation {Lives}: With Family - CARDIAC Hx Atrial Fibrillation: Yes Hx Hypercholesterolemia: Yes Hx Hypertension: Yes - PULMONARY Hx Respiratory Disorders: Yes Hx Emphysema: Yes - NEUROLOGICAL Hx Dementia: Yes - HEENT Hx HEENT Problems: Yes Hx Cataracts: Yes (both eyes) - RENAL Hx Chronic Kidney Disease: No - ENDOCRINE/METABOLIC Hx Endocrine Disorders: No - HEMATOLOGICAL/ONCOLOGICAL Hx Blood Disorders: Yes Hx Anemia: Yes - INTEGUMENTARY Hx Dermatological Problems: No - MUSCULOSKELETAL/RHEUMATOLOGICAL Hx Falls: Yes - GASTROINTESTINAL Hx Gastrointestinal Disorders: No - GENITOURINARY/GYNECOLOGICAL Hx Genitourinary Disorders: No - PSYCHIATRIC Hx Psychophysiologic Disorder: No Hx Substance Use: No - SURGICAL HISTORY Hx Surgeries: Yes Hx Cataract Extraction: Yes (2013) - ANESTHESIA Hx Anesthesia: Yes Hx Anesthesia Reactions: No Hx Malignant Hyperthermia: No Has any member of the family had a problem w/ anesthesia?: No Meds Allergies/Adverse Reactions: Allergies Allergy/AdvReac Type Severity Reaction Status Date / Time No Known Allergies Allergy Verified 04/21/17 21:24 - Medications Medications: Current Medications Albuterol/Ipratropium (Duoneb 3 Mg/0.5 Mg (3 Ml) Ud) 3 ml INH RQ6 [facility] Last Admin: 04/22/17 13:34 Dose: 3 ml Digoxin (Lanoxin) 0.125 mg PO DAILY@1800 [facility] Famotidine (Pepcid) 20 mg IVP Q12 [facility] Last Admin: 04/22/17 09:43 Dose: 20 mg Furosemide (Lasix) 40 mg IVP DAILY [facility] Last Admin: 04/22/17 09:42 Dose: 40 mg Calcium Gluconate 4.65 meq/ (Dextrose) 110 mls @ 1 drops/min IV STAT STA Stop: 04/23/17 02:55 Last Admin: 04/21/17 23:36 Dose: 1 drops/min Metronidazole (Flagyl) 500 mg in 100 mls @ 100 mls/hr IVPB Q8H [facility] Last Admin: 04/22/17 09:43 Dose: 100 mls/hr Methylprednisolone (Solu-Medrol) 40 mg IVP DAILY [facility] Last Admin: 04/22/17 09:43 Dose: 40 mg Rivaroxaban (Xarelto) 15 mg PO DAILY [facility] Last Admin: 04/22/17 09:43 Dose: 15 mg Physical Exam - Constitutional Appears: Chronically Ill - Head Exam Head Exam: NORMAL INSPECTION - Eye Exam Eye Exam: Normal appearance - ENT Exam ENT Exam: Normal Exam - Neck Exam Neck exam: Positive for: Normal Inspection - Respiratory Exam Additional comments: Rhonchi heard bilaterally. - Cardiovascular Exam Cardiovascular Exam: Irregular Rhythm, Systolic Murmur - GI/Abdominal Exam GI & Abdominal Exam: Normal Bowel Sounds, Soft - Rectal Exam Rectal Exam: Deferred - Extremities Exam Extremities exam: Positive for: normal inspection - Back Exam Back exam: NORMAL INSPECTION - Neurological Exam Additional comments: sedated. - Skin Skin Exam: Dry, Intact, Normal Color, Warm Results - Vital Signs Recent Vital Signs: Last Vital Signs Temp 99.6 F 04/22/17 20:00 Pulse 105 H 04/22/17 21:14 Resp 18 04/22/17 21:14 BP 107/67 04/22/17 21:14 Pulse Ox 100 04/22/17 21:14 - Labs Result Diagrams: 04/22/17 06:35 04/22/17 06:35 Labs: Laboratory Results - last 24 hr 04/22/17 04/22/17 04/22/17 00:32 00:41 02:15 WBC RBC Hgb Hct MCV MCH MCHC RDW Plt Count MPV Neut % (Auto) Lymph % (Auto) Mccreary % (Auto) Eos % (Auto) Baso % (Auto) Neut # Lymph # Mccreary # Eos # Baso # Puncture Site Na drawn by dr Oscar lopez pCO2 121 H* 53 H pO2 95 276 H HCO3 29.3 H 29.8 H ABG pH 7.10 L* 7.39 ABG Total CO2 41.3 H 33.7 H ABG O2 Saturation 98.2 H 100.8 H ABG Base Excess 5.7 H 6.2 H ABG Hemoglobin 9.3 L 9.1 L ABG Carboxyhemoglobin 2.7 H 2.1 H POC ABG HHb (Measured) 1.7 -0.8 L ABG Methemoglobin 1.1 0.8 Yaniv Test Na Na A-a O2 Difference 86.0 Respiratory Index 0.3 Hgb O2 Saturation 94.5 L 97.9 Mechanical Rate 18 FiO2 60.0 Tidal Volume 350 PEEP 5 Crit Value Called To Dr ellison Crit Value Called By Mónica schwartz rt Crit Value Read Back Y Blood Gas Notified Time 46 Sodium Potassium Chloride Carbon Dioxide Anion Gap BUN Creatinine Est GFR ( Amer) Est GFR (Non-Af Amer) POC Glucose (mg/dL) 258 H Random Glucose Calcium Phosphorus Magnesium Iron TIBC % Saturation Total Bilirubin AST ALT Alkaline Phosphatase Total Protein Albumin Globulin Albumin/Globulin Ratio Triglycerides Cholesterol LDL Cholesterol Direct HDL Cholesterol Procalcitonin Digoxin 04/22/17 04/22/17 04/22/17 03:25 06:35 06:35 WBC 4.9 RBC 3.08 L Hgb 8.7 L Hct 27.3 L MCV 88.5 MCH 28.2 MCHC 31.9 L RDW 18.5 H Plt Count 196 MPV 7.9 Neut % (Auto) 71.1 Lymph % (Auto) 17.0 L Mccreary % (Auto) 11.4 H Eos % (Auto) 0.1 Baso % (Auto) 0.4 Neut # 3.5 Lymph # 0.8 L Mccreary # 0.6 Eos # 0.0 Baso # 0.0 Puncture Site R rad pCO2 48 H pO2 266 H HCO3 35.7 H ABG pH 7.51 H ABG Total CO2 39.8 H ABG O2 Saturation 100.3 H ABG Base Excess 13.8 H ABG Hemoglobin 8.4 L ABG Carboxyhemoglobin 1.5 POC ABG HHb (Measured) -0.3 L ABG Methemoglobin 1.2 Yaniv Test Pos A-a O2 Difference 102.0 Respiratory Index 0.4 Hgb O2 Saturation 97.6 Mechanical Rate 18 FiO2 60.0 Tidal Volume 350 PEEP 5 Crit Value Called To Crit Value Called By Crit Value Read Back Blood Gas Notified Time Sodium 132 Potassium 5.5 H Chloride 87 L Carbon Dioxide 34 H Anion Gap 17 BUN 24 H Creatinine 1.3 H Est GFR ( Amer) 49 Est GFR (Non-Af Amer) 40 POC Glucose (mg/dL) Random Glucose 125 H Calcium 9.0 Phosphorus Magnesium Iron TIBC % Saturation Total Bilirubin 0.9 AST 324 H D ALT 199 H D Alkaline Phosphatase 100 Total Protein 7.2 Albumin 3.4 L Globulin 3.8 Albumin/Globulin Ratio 0.9 L Triglycerides Cholesterol LDL Cholesterol Direct HDL Cholesterol Procalcitonin Digoxin 04/22/17 04/22/17 04/22/17 06:35 06:35 06:35 WBC RBC Hgb Hct MCV MCH MCHC RDW Plt Count MPV Neut % (Auto) Lymph % (Auto) Mccreary % (Auto) Eos % (Auto) Baso % (Auto) Neut # Lymph # Mccreary # Eos # Baso # Puncture Site pCO2 pO2 HCO3 ABG pH ABG Total CO2 ABG O2 Saturation ABG Base Excess ABG Hemoglobin ABG Carboxyhemoglobin POC ABG HHb (Measured) ABG Methemoglobin Yaniv Test A-a O2 Difference Respiratory Index Hgb O2 Saturation Mechanical Rate FiO2 Tidal Volume PEEP Crit Value Called To Crit Value Called By Crit Value Read Back Blood Gas Notified Time Sodium Potassium Chloride Carbon Dioxide Anion Gap BUN Creatinine Est GFR ( Amer) Est GFR (Non-Af Amer) POC Glucose (mg/dL) Random Glucose Calcium Phosphorus 4.9 H Magnesium 2.1 Iron 64 TIBC 290 % Saturation 22 Total Bilirubin AST ALT Alkaline Phosphatase Total Protein Albumin Globulin Albumin/Globulin Ratio Triglycerides 73 D Cholesterol 166 LDL Cholesterol Direct 69 HDL Cholesterol 61 Procalcitonin Digoxin < 0.4 L 04/22/17 11:27 WBC RBC Hgb Hct MCV MCH MCHC RDW Plt Count MPV Neut % (Auto) Lymph % (Auto) Mccreary % (Auto) Eos % (Auto) Baso % (Auto) Neut # Lymph # Mccreary # Eos # Baso # Puncture Site pCO2 pO2 HCO3 ABG pH ABG Total CO2 ABG O2 Saturation ABG Base Excess ABG Hemoglobin ABG Carboxyhemoglobin POC ABG HHb (Measured) ABG Methemoglobin Yaniv Test A-a O2 Difference Respiratory Index Hgb O2 Saturation Mechanical Rate FiO2 Tidal Volume PEEP Crit Value Called To Crit Value Called By Crit Value Read Back Blood Gas Notified Time Sodium Potassium Chloride Carbon Dioxide Anion Gap BUN Creatinine Est GFR ( Amer) Est GFR (Non-Af Amer) POC Glucose (mg/dL) Random Glucose Calcium Phosphorus Magnesium Iron TIBC % Saturation Total Bilirubin AST ALT Alkaline Phosphatase Total Protein Albumin Globulin Albumin/Globulin Ratio Triglycerides Cholesterol LDL Cholesterol Direct HDL Cholesterol Procalcitonin 0.19 Digoxin Assessment & Plan (1) Acute diastolic (congestive) heart failure Assessment and Plan: To continue IV Lasix. Reorder an echocardiogram to assess LV function and cardiac valves. Status: Acute (2) CHF exacerbation Status: Acute (3) Acute respiratory failure Assessment and Plan: To continue vent support. Status: Acute
[2017-04-23] MEDS: Albuterol-Ipratrop 3 mg / 0.5 (3 ml) UD INH SCH ×4 (01:58→20:08)
[2017-04-23] MEDS: metroNIDAZOLE IV 500 mg/100 ml 500 MG/100 ML BAG IVPB SCH ×3 (02:30→17:30)
[2017-04-23 05:53] LABS: ABG ALLEN TEST POS; ARTERIAL BLOOD GAS O2 SAT 99.9 % (95-98); ARTERIAL BLOOD GAS PCO2 41 mm/Hg (35-45); ARTERIAL BLOOD GAS PH 7.57 (7.35-7.45); ARTERIAL BLOOD GAS PO2 188 mm/Hg (80-100); ARTERIAL BLOOD GAS TCO2 38.9 mmol/L (22-28)
[2017-04-23 06:30] LABS: BASO % 0.2 % (0.0-2.0); EOS % 0.1 % (0.0-4.0); HEMOGLOBIN 8.8 g/dL (11.0-16.0); LYMPH # 0.8 K/uL (1.0-4.3); LYMPH % 11.8 % (20.0-40.0); MEAN CELL VOLUME 87.3 fL (81.0-99.0); MEAN CORPUSCULAR HEMOGLOBIN 27.9 pg (27.0-31.0); MEAN CORPUSCULAR HGB CONC 31.9 g/dL (33.0-37.0); MEAN PLATELET VOLUME 8.1 fL (7.2-11.7); MONO # 0.5 K/uL (0.0-0.8); MONO % 8.1 % (0.0-10.0); NEUT # 5.4 K/uL (1.8-7.0); NEUT % 79.8 % (50.0-75.0); RBC 3.17 Mil/uL (3.80-5.20); RED CELL DISTRIBUTION WIDTH 18.3 % (11.5-14.5); WHITE BLOOD COUNT 6.7 K/uL (4.8-10.8)
[2017-04-23 06:44] LABS: ALBUMIN 2.9 g/dL (3.5-5.0)
[2017-04-23 06:47] LABS: ALB/GLOB RATIO 0.9 (1.0-2.1); CALCIUM 7.8 mg/dl (8.6-10.4); MAGNESIUM 1.8 mg/dL (1.6-2.3)
[2017-04-23] MEDS: MethylPREDNISolone 40 mg Vial IVP SCH (09:19)
--- NOTE | 2017-04-23 09:29 | CP.CCUPN ---
CCU Subjective - Physician Review Events Since Last Encounter (Free Text): 04/23/17 09:29 71-year-old female with history of atrial fibrillation hypertension dementia anemia emphysema hyperlipidemia admitted to the hospital after an abdominal pain , and general is to weakness, just decreased to poor intake. Patient developed lethargic, hypercapnia, and intubated. Acute respiratory failure with hypercapnic. Patient after the intubation, become more awake and responsive. Patient is not having any advanced directives Patient is currently agitated at times, otherwise comfortable. On ventilator. No distress noted. On examination: Vital signs reviewed No neck vein distention noted Chest good air entry bilaterally, no wheezing or rales noted CVS regular heart sound, no murmur noted Abdomen soft, nontender. Extremities no pedal edema Sedated Labs reviewed in X-ray reviewed Currently x-ray report pending Assessment and recommendation: 71-year-old female with history of atrial fibrillation hypertension anemia dementia emphysema hyperlipidemia admitted with hypercapnic respiratory failure , possible underlying COPD exacerbation. Currently on antibiotic broncho-dilators and corticosteroids. Continue the current treatment. Weaning process. We'll follow the patient. DVT and GI prophylaxis CCU Objective - Vital Signs / Intake & Output Vital Signs (Last 4 hours): Vital Signs Temp Pulse Resp BP Pulse Ox 04/23/17 09:19 155/85 H 04/23/17 09:00 140 H 17 100 04/23/17 08:55 141 H 13 148/88 99 04/23/17 08:50 123 H 97 04/23/17 08:40 112 H 18 96 04/23/17 08:30 108 H 18 95 04/23/17 08:20 112 H 19 99 04/23/17 08:14 113 H 17 149/82 93 L 04/23/17 08:10 129 H 18 99 04/23/17 08:00 98.1 F 104 H 18 97 04/23/17 07:50 112 H 18 99 04/23/17 07:44 96 H 18 148/92 H 97 04/23/17 07:40 101 H 17 100 04/23/17 07:30 112 H 18 97 04/23/17 07:20 123 H 16 98 04/23/17 07:14 131 H 18 153/90 H 100 04/23/17 07:10 102 H 18 99 04/23/17 07:00 103 H 17 99 04/23/17 06:50 102 H 18 98 04/23/17 06:45 106 H 18 133/80 99 04/23/17 06:40 100 H 18 100 04/23/17 06:30 112 H 18 100 04/23/17 06:20 124 H 18 100 04/23/17 06:13 115 H 137/99 H 04/23/17 06:10 111 H 04/23/17 06:00 123 H 13 04/23/17 05:50 92 H 18 04/23/17 05:43 110 H 19 147/90 04/23/17 05:40 103 H 17 04/23/17 05:30 95 H 18 Intake and Output (Last 8hrs): Intake & Output 04/22/17 04/23/17 04/23/17 22:59 06:59 14:59 Intake Total 0 100 70 Output Total 170 300 360 Balance -170 -200 -290 Intake: Intake, IV Amount 0 100 0 Right Antecubital 0 100 0 Tube Feeding 70 Output: Urine 170 300 360 Urethral (Brown) 170 300 360 - Medications Active Medications: Active Medications Generic Name Dose Route Start Last Admin Trade Name Freq PRN Reason Stop Dose Admin Albuterol/Ipratropium 3 ml 04/22/17 14:00 04/23/17 07:50 Duoneb 3 Mg/0.5 Mg (3 Ml) Ud INH 3 ml RQ6 [facility] Administration Digoxin 0.125 mg 04/22/17 18:00 Lanoxin PO DAILY@1800 [facility] Famotidine 20 mg 04/22/17 10:00 04/23/17 09:19 Pepcid IVP 20 mg Q12 [facility] Administration Furosemide 40 mg 04/22/17 10:00 04/23/17 09:19 Lasix IVP 40 mg DAILY [facility] Administration Metronidazole 500 mg in 100 mls @ 100 mls/hr 04/22/17 10:00 04/23/17 09:18 Flagyl IVPB 100 mls/hr Q8H [facility] Administration Methylprednisolone 40 mg 04/22/17 10:00 04/23/17 09:19 Solu-Medrol IVP 40 mg DAILY [facility] Administration Rivaroxaban 15 mg 04/22/17 10:00 04/23/17 09:19 Xarelto PO 15 mg DAILY [facility] Administration - Patient Studies Lab Studies: Lab Studies 04/23/17 04/23/1704/23/17 Range/Units 06:15 06:15 05:20 WBC 6.7 (4.8-10.8) K/uL RBC 3.17 L (3.80-5.20) Mil/uL Hgb 8.8 L (11.0-16.0) g/dL Hct 27.7 L (34.0-47.0) % MCV 87.3 (81.0-99.0) fL MCH 27.9 (27.0-31.0) pg MCHC 31.9 L (33.0-37.0) g/dL RDW 18.3 H (11.5-14.5) % Plt Count 218 (130-400) K/uL MPV 8.1 (7.2-11.7) fL Neut % (Auto) 79.8 H (50.0-75.0) % Lymph % (Auto) 11.8 L (20.0-40.0) % Boyd % (Auto) 8.1 (0.0-10.0) % Eos % (Auto) 0.1 (0.0-4.0) % Baso % (Auto) 0.2 (0.0-2.0) % Neut # 5.4 (1.8-7.0) K/uL Lymph # 0.8 L (1.0-4.3) K/uL Boyd # 0.5 (0.0-0.8) K/uL Eos # 0.0 (0.0-0.7) K/uL Baso # 0.0 (0.0-0.2) K/uL Puncture Site Rradial pCO2 41 (35-45) mm/Hg pO2 188 H (80-100) mm/Hg HCO3 36.0 H (21-28) mmol/L ABG pH 7.57 H (7.35-7.45) ABG Total CO2 38.9 H (22-28) mmol/L ABG O2 Saturation 99.9 H (95-98) % ABG Base Excess 14.1 H (-2.0-3.0) mmol/L Yaniv Test Pos A-a O2 Difference 117.0 mm/Hg Respiratory Index 0.6 Mechanical Rate 18 FiO2 50.0 % Tidal Volume 380 PEEP 5 Sodium 134 (132-148) mmol/L Potassium 3.7 (3.6-5.2) mmol/L Chloride 88 L (98-107) mmol/L Carbon Dioxide 31 H (22-30) mmol/L Anion Gap 19 (10-20) BUN 35 H (7-17) mg/dL Creatinine 1.6 H (0.7-1.2) MG/DL Est GFR ( Amer) 38 Est GFR (Non-Af Amer) 32 Random Glucose 136 H (65-105) mg/dL Calcium 7.8 L (8.6-10.4) mg/dl Phosphorus 4.3 (2.5-4.5) mg/dL Magnesium 1.8 (1.6-2.3) mg/dL Total Bilirubin 0.7 (0.2-1.3) mg/dL AST 232 H D (14-36) U/L ALT 229 H (9-52) U/L Alkaline Phosphatase 96 (38-126) U/L Total Protein 6.2 L (6.3-8.3) g/dL Albumin 2.9 L (3.5-5.0) g/dL Globulin 3.3 (2.2-3.9) gm/dL Albumin/Globulin Ratio 0.9 L (1.0-2.1) Procalcitonin (0.19-0.49) NG/ML 04/22/17 Range/Units 11:27 WBC (4.8-10.8) K/uL RBC (3.80-5.20) Mil/uL Hgb (11.0-16.0) g/dL Hct (34.0-47.0) % MCV (81.0-99.0) fL MCH (27.0-31.0) pg MCHC (33.0-37.0) g/dL RDW (11.5-14.5) % Plt Count (130-400) K/uL MPV (7.2-11.7) fL Neut % (Auto) (50.0-75.0) % Lymph % (Auto) (20.0-40.0) % Boyd % (Auto) (0.0-10.0) % Eos % (Auto) (0.0-4.0) % Baso % (Auto) (0.0-2.0) % Neut # (1.8-7.0) K/uL Lymph # (1.0-4.3) K/uL Boyd # (0.0-0.8) K/uL Eos # (0.0-0.7) K/uL Baso # (0.0-0.2) K/uL Puncture Site pCO2 (35-45) mm/Hg pO2 (80-100) mm/Hg HCO3 (21-28) mmol/L ABG pH (7.35-7.45) ABG Total CO2 (22-28) mmol/L ABG O2 Saturation (95-98) % ABG Base Excess (-2.0-3.0) mmol/L Yaniv Test A-a O2 Difference mm/Hg Respiratory Index Mechanical Rate FiO2 % Tidal Volume PEEP Sodium (132-148) mmol/L Potassium (3.6-5.2) mmol/L Chloride (98-107) mmol/L Carbon Dioxide (22-30) mmol/L Anion Gap (10-20) BUN (7-17) mg/dL Creatinine (0.7-1.2) MG/DL Est GFR ( Amer) Est GFR (Non-Af Amer) Random Glucose (65-105) mg/dL Calcium (8.6-10.4) mg/dl Phosphorus (2.5-4.5) mg/dL Magnesium (1.6-2.3) mg/dL Total Bilirubin (0.2-1.3) mg/dL AST (14-36) U/L ALT (9-52) U/L Alkaline Phosphatase (38-126) U/L Total Protein (6.3-8.3) g/dL Albumin (3.5-5.0) g/dL Globulin (2.2-3.9) gm/dL Albumin/Globulin Ratio (1.0-2.1) Procalcitonin 0.19 (0.19-0.49) NG/ML Laboratory Results - last 24 hr 04/22/17 04/23/17 04/23/17 11:27 05:20 06:15 WBC 6.7 RBC 3.17 L Hgb 8.8 L Hct 27.7 L MCV 87.3 MCH 27.9 MCHC 31.9 L RDW 18.3 H Plt Count 218 MPV 8.1 Neut % (Auto) 79.8 H Lymph % (Auto) 11.8 L Boyd % (Auto) 8.1 Eos % (Auto) 0.1 Baso % (Auto) 0.2 Neut # 5.4 Lymph # 0.8 L Boyd # 0.5 Eos # 0.0 Baso # 0.0 Puncture Site Rradial pCO2 41 pO2 188 H HCO3 36.0 H ABG pH 7.57 H ABG Total CO2 38.9 H ABG O2 Saturation 99.9 H ABG Base Excess 14.1 H Yaniv Test Pos A-a O2 Difference 117.0 Respiratory Index 0.6 Mechanical Rate 18 FiO2 50.0 Tidal Volume 380 PEEP 5 Sodium Potassium Chloride Carbon Dioxide Anion Gap BUN Creatinine Est GFR ( Amer) Est GFR (Non-Af Amer) Random Glucose Calcium Phosphorus Magnesium Total Bilirubin AST ALT Alkaline Phosphatase Total Protein Albumin Globulin Albumin/Globulin Ratio Procalcitonin 0.19 04/23/17 06:15 WBC RBC Hgb Hct MCV MCH MCHC RDW Plt Count MPV Neut % (Auto) Lymph % (Auto) Boyd % (Auto) Eos % (Auto) Baso % (Auto) Neut # Lymph # Boyd # Eos # Baso # Puncture Site pCO2 pO2 HCO3 ABG pH ABG Total CO2 ABG O2 Saturation ABG Base Excess Yaniv Test A-a O2 Difference Respiratory Index Mechanical Rate FiO2 Tidal Volume PEEP Sodium 134 Potassium 3.7 Chloride 88 L Carbon Dioxide 31 H Anion Gap 19 BUN 35 H Creatinine 1.6 H Est GFR ( Amer) 38 Est GFR (Non-Af Amer) 32 Random Glucose 136 H Calcium 7.8 L Phosphorus 4.3 Magnesium 1.8 Total Bilirubin 0.7 AST 232 H D ALT 229 H Alkaline Phosphatase 96 Total Protein 6.2 L Albumin 2.9 L Globulin 3.3 Albumin/Globulin Ratio 0.9 L Procalcitonin Fingerstick Blood Sugar Results: 258 Critical Care Progress Note - Nutrition Nutrition: Nutrition Category Date Time Status NPO Diet [DIET] Diets 04/22/17 Breakfast Active
[2017-04-23] MEDS ORDERED: Potassium Chloride 20 mEq/15 ml LIQ UD PO ONE ×2 (09:30→12:06)
--- NOTE | 2017-04-23 11:01 | RAD ---
HISTORY: intubated COMPARISON: 04/22/2017 FINDINGS: The endotracheal tube terminates 10 mm proximal to the [place]. The nasogastric tube terminates in the stomach. LUNGS: The lungs are hyperinflated and there is peribronchial thickening with chronic changes in both lungs. No focal consolidation. PLEURA: No significant pleural effusion identified, no pneumothorax apparent. CARDIOVASCULAR: Normal. OSSEOUS STRUCTURES: No significant abnormalities. VISUALIZED UPPER ABDOMEN: Normal. OTHER FINDINGS: None. IMPRESSION: No active pulmonary disease. COPD.
--- NOTE | 2017-04-23 15:04 | CP.PCM.PN ---
Subjective - Date & Time of Evaluation Date of Evaluation: 04/23/17 Time of Evaluation: 11:55 - Subjective Subjective: patient seen and examined. Afebrile. Intubated. On CPAP. Sleeping. HR 104/min. Diuresing vey well. Objective - Vital Signs/Intake and Output Vital Signs (last 24 hours): Temp Pulse Resp BP Pulse Ox 97.4 F L 143 H 22 103/79 100 04/23/17 12:00 04/23/17 12:20 04/23/17 12:20 04/23/17 12:13 04/23/17 12:20 Intake and Output: 04/23/17 04/23/17 06:59 18:59 Intake Total 100 285 Output Total 470 1060 Balance -370 -775 - Medications Medications: Current Medications Albuterol/Ipratropium (Duoneb 3 Mg/0.5 Mg (3 Ml) Ud) 3 ml INH RQ6 [facility] Last Admin: 04/23/17 13:20 Dose: 3 ml Digoxin (Lanoxin) 0.125 mg PO DAILY@1800 [facility] Famotidine (Pepcid) 20 mg IVP Q12 [facility] Last Admin: 04/23/17 09:19 Dose: 20 mg Furosemide (Lasix) 40 mg IVP DAILY [facility] Last Admin: 04/23/17 09:19 Dose: 40 mg Metronidazole (Flagyl) 500 mg in 100 mls @ 100 mls/hr IVPB Q8H [facility] Last Admin: 04/23/17 09:18 Dose: 100 mls/hr Methylprednisolone (Solu-Medrol) 40 mg IVP DAILY [facility] Last Admin: 04/23/17 09:19 Dose: 40 mg Rivaroxaban (Xarelto) 15 mg PO DAILY [facility] Last Admin: 04/23/17 09:19 Dose: 15 mg - Labs Labs: 04/23/17 06:15 04/23/17 06:15 PT 14.9 SECONDS (9.7-12.2) H 04/21/17 21:48 INR 1.3 04/21/17 21:48 APTT 35 SECONDS (21-34) H 04/21/17 21:48 - Constitutional Appears: Chronically Ill - Head Exam Head Exam: ATRAUMATIC, NORMAL INSPECTION, NORMOCEPHALIC - Eye Exam Eye Exam: Normal appearance Pupil Exam: PERRL - Respiratory Exam Respiratory Exam: Rales, Rhonchi - Cardiovascular Exam Cardiovascular Exam: Tachycardia, +S1, +S2 - GI/Abdominal Exam GI & Abdominal Exam: Soft - Rectal Exam Rectal Exam: Deferred - Neurological Exam Neurological Exam: Reflexes Normal Assessment and Plan (1) Abdominal pain Status: Acute (2) Hypercapnic respiratory failure Status: Acute (3) Hyperkalemia Status: Acute (4) Congestive heart failure (CHF) Status: Acute (5) Coronary heart disease Status: Acute (6) Cerebral embolism Status: Acute (7) Atrial fibrillation Status: Chronic - Assessment and Plan (Free Text) Plan: Plan: Continue respiratory support MRI IV F;lagyl.
[2017-04-23] MEDS: Digoxin 125 mcg (0.125 mg) Tab PO SCH (17:29)
[2017-04-24] MEDS: metroNIDAZOLE IV 500 mg/100 ml 500 MG/100 ML BAG IVPB SCH ×3 (01:12→18:16)
[2017-04-24 06:12] LABS: ABG ALLEN TEST POS; ARTERIAL BLOOD GAS O2 SAT 99.8 % (95-98); ARTERIAL BLOOD GAS PCO2 34 mm/Hg (35-45); ARTERIAL BLOOD GAS PH 7.65 (7.35-7.45); ARTERIAL BLOOD GAS PO2 164 mm/Hg (80-100); ARTERIAL BLOOD GAS TCO2 38.5 mmol/L (22-28)
[2017-04-24 06:50] LABS: ALBUMIN 2.7 g/dL (3.5-5.0)
[2017-04-24 06:53] LABS: ALB/GLOB RATIO 0.8 (1.0-2.1)
[2017-04-24 07:03] LABS: BASO % 0.3 % (0.0-2.0); HEMOGLOBIN 8.6 g/dL (11.0-16.0); LYMPH # 0.4 K/uL (1.0-4.3); LYMPH % 5.8 % (20.0-40.0); MEAN CELL VOLUME 86.5 fL (81.0-99.0); MEAN CORPUSCULAR HEMOGLOBIN 28.7 pg (27.0-31.0); MEAN CORPUSCULAR HGB CONC 33.1 g/dL (33.0-37.0); MEAN PLATELET VOLUME 8.5 fL (7.2-11.7); MONO # 0.7 K/uL (0.0-0.8); MONO % 10.1 % (0.0-10.0); NEUT # 6.2 K/uL (1.8-7.0); NEUT % 83.8 % (50.0-75.0); NRBC % 0.1 % (0.0-2.0); PLATELET COUNT 208 K/uL (130-400); RBC 3.01 Mil/uL (3.80-5.20); RED CELL DISTRIBUTION WIDTH 18.8 % (11.5-14.5); WHITE BLOOD COUNT 7.4 K/uL (4.8-10.8)
--- NOTE | 2017-04-24 07:20 | CP.PCM.PN ---
Objective - Vital Signs/Intake and Output Vital Signs (last 24 hours): Temp Pulse Resp BP Pulse Ox 98 F 97 H 21 122/83 100 04/24/17 04:00 04/24/17 06:10 04/24/17 06:10 04/24/17 05:43 04/24/17 06:10 Intake and Output: 04/24/17 04/24/17 06:59 18:59 Intake Total 420 Output Total 550 Balance -130 - Medications Medications: Current Medications Albuterol/Ipratropium (Duoneb 3 Mg/0.5 Mg (3 Ml) Ud) 3 ml INH RQ6 [facility] Last Admin: 04/23/17 20:08 Dose: 3 ml Digoxin (Lanoxin) 0.125 mg PO DAILY@1800 [facility] Last Admin: 04/23/17 17:29 Dose: 0.125 mg Famotidine (Pepcid) 20 mg IVP Q12 [facility] Last Admin: 04/23/17 22:02 Dose: 20 mg Furosemide (Lasix) 40 mg IVP DAILY [facility] Last Admin: 04/23/17 09:19 Dose: 40 mg Metronidazole (Flagyl) 500 mg in 100 mls @ 100 mls/hr IVPB Q8H [facility] Last Admin: 04/24/17 01:12 Dose: 100 mls/hr Methylprednisolone (Solu-Medrol) 40 mg IVP DAILY [facility] Last Admin: 04/23/17 09:19 Dose: 40 mg Rivaroxaban (Xarelto) 15 mg PO DAILY [facility] Last Admin: 04/23/17 09:19 Dose: 15 mg - Labs Labs: 04/24/17 06:33 04/24/17 06:33 PT 14.9 SECONDS (9.7-12.2) H 04/21/17 21:48 INR 1.3 04/21/17 21:48 APTT 35 SECONDS (21-34) H 04/21/17 21:48
--- NOTE | 2017-04-24 07:21 | CP.CCUPN ---
<Rebekah Demarco - Last Filed: 04/24/17 13:26> CCU Subjective - Physician Review Subjective (Free Text): 04/24/17 13:09 Patient examined at beside in the AM. Patient is on ventilator. No distress currently noted. CCU Objective - Vital Signs / Intake & Output Vital Signs (Last 4 hours): Vital Signs Temp Pulse Resp BP Pulse Ox 04/24/17 06:10 97 H 21 100 04/24/17 06:00 79 18 100 04/24/17 05:50 78 18 100 04/24/17 05:43 79 18 122/83 100 04/24/17 05:40 75 18 100 04/24/17 05:30 86 18 100 04/24/17 05:20 100 H 15 04/24/17 05:13 115 H 20 142/94 H 89 L 04/24/17 05:10 104 H 18 96 04/24/17 05:00 92 H 18 95 04/24/17 04:50 85 18 100 04/24/17 04:43 85 18 135/78 99 04/24/17 04:40 74 18 100 04/24/17 04:30 91 H 18 100 04/24/17 04:20 102 H 19 100 04/24/17 04:13 79 18 128/87 100 04/24/17 04:10 71 18 100 04/24/17 04:00 98 F 64 18 100 04/24/17 03:50 70 18 100 04/24/17 03:43 89 18 130/77 100 04/24/17 03:40 74 18 100 04/24/17 03:30 104 H 18 100 Intake and Output (Last 8hrs): Intake & Output 04/23/17 04/24/17 04/24/17 22:59 06:59 14:59 Intake Total 280 280 Output Total 370 380 Balance -90 -100 Intake: Tube Feeding 280 280 Output: Urine 370 380 Urethral (Brown) 370 380 Other: # Bowel Movements 0 - Physical Exam Physical Exam Limitations: Positive for: Other (Patient is currently on ventilator) Mouth: Positive for: Moist Mucous Membranes Respiratory/Chest: Positive for: Clear to Auscultation. Negative for: Rales Cardiovascular: Positive for: Regular Rate and Rhythm, Normal S1, S2 Abdomen: Positive for: Normal Bowel Sounds. Negative for: Distention Skin: Positive for: Warm, Dry, Normal Color Psychiatric: Positive for: Alert. Negative for: Oriented x 3 - Medications Active Medications: Active Medications Generic Name Dose Route Start Last Admin Trade Name Jyothi PRN Reason Stop Dose Admin Albuterol/Ipratropium 3 ml 04/22/17 14:00 04/23/17 20:08 Duoneb 3 Mg/0.5 Mg (3 Ml) Ud INH 3 ml RQ6 LEE Administration Digoxin 0.125 mg 04/23/17 18:00 04/23/17 17:29 Lanoxin PO 0.125 mg DAILY@1800 LEE Administration Famotidine 20 mg 04/22/17 10:00 04/23/17 22:02 Pepcid IVP 20 mg Q12 LEE Administration Furosemide 40 mg 04/22/17 10:00 04/23/17 09:19 Lasix IVP 40 mg DAILY LEE Administration Metronidazole 500 mg in 100 mls @ 100 mls/hr 04/22/17 10:00 04/24/17 01:12 Flagyl IVPB 100 mls/hr Q8H LEE Administration Methylprednisolone 40 mg 04/22/17 10:00 04/23/17 09:19 Solu-Medrol IVP 40 mg DAILY LEE Administration Rivaroxaban 15 mg 04/22/17 10:00 04/23/17 09:19 Xarelto PO 15 mg DAILY LEE Administration - Patient Studies Lab Studies: Microbiology Studies 04/22/17 02:37 MRSA Culture (Admit) - Final Nose MRSA NOT DETECTED Lab Studies 04/24/17 04/24/17 04/24/17 Range/Units 06:33 06:33 05:40 WBC 7.4 (4.8-10.8) K/uL RBC 3.01 L (3.80-5.20) Mil/uL Hgb 8.6 L (11.0-16.0) g/dL Hct 26.0 L (34.0-47.0) % MCV 86.5 (81.0-99.0) fL MCH 28.7 (27.0-31.0) pg MCHC 33.1 (33.0-37.0) g/dL RDW 18.8 H (11.5-14.5) % Plt Count 208 (130-400) K/uL MPV 8.5 (7.2-11.7) fL Neut % (Auto) 83.8 H (50.0-75.0) % Lymph % (Auto) 5.8 L (20.0-40.0) % [place] % (Auto) 10.1 H (0.0-10.0) % Eos % (Auto) 0.0 (0.0-4.0) % Baso % (Auto) 0.3 (0.0-2.0) % Neut # 6.2 (1.8-7.0) K/uL Lymph # 0.4 L (1.0-4.3) K/uL [place] # 0.7 (0.0-0.8) K/uL Eos # 0.0 (0.0-0.7) K/uL Baso # 0.0 (0.0-0.2) K/uL Puncture Site Rradial pCO2 34 L (35-45) mm/Hg pO2 164 H (80-100) mm/Hg HCO3 37.0 H (21-28) mmol/L ABG pH 7.65 H* (7.35-7.45) ABG Total CO2 38.5 H (22-28) mmol/L ABG O2 Saturation 99.8 H (95-98) % ABG Base Excess 15.5 H (-2.0-3.0) mmol/L ABG Hemoglobin 8.0 L (11.7-17.4) g/dL ABG Carboxyhemoglobin 1.3 (0.5-1.5) % POC ABG HHb (Measured) 0.2 (0.0-5.0) % ABG Methemoglobin 1.2 (0.0-3.0) % Yaniv Test Pos A-a O2 Difference 79.0 mm/Hg Respiratory Index 0.5 Hgb O2 Saturation 97.3 (95.0-98.0) % Mechanical Rate 18 FiO2 40.0 % Tidal Volume 380 PEEP 5 Crit Value Called To Dr. rojas Crit Value Called By Maggy nunez rcp Crit Value Read Back Y Blood Gas Notified Time 612 Sodium 136 (132-148) mmol/L Potassium 3.5 L (3.6-5.2) mmol/L Chloride 91 L (98-107) mmol/L Carbon Dioxide 36 H (22-30) mmol/L Anion Gap 13 (10-20) BUN 50 H (7-17) mg/dL Creatinine 1.7 H (0.7-1.2) MG/DL Est GFR ( Amer) 36 Est GFR (Non-Af Amer) 29 Random Glucose 190 H (65-105) mg/dL Hemoglobin A1c (4.2-6.5) % Calcium 8.0 L (8.6-10.4) mg/dl Phosphorus 3.7 (2.5-4.5) mg/dL Magnesium 2.0 (1.6-2.3) mg/dL Total Bilirubin 0.4 (0.2-1.3) mg/dL AST 169 H D (14-36) U/L ALT 242 H (9-52) U/L Alkaline Phosphatase 115 (38-126) U/L Total Protein 6.0 L (6.3-8.3) g/dL Albumin 2.7 L (3.5-5.0) g/dL Globulin 3.3 (2.2-3.9) gm/dL Albumin/Globulin Ratio 0.8 L (1.0-2.1) 04/22/17 Range/Units 06:35 WBC (4.8-10.8) K/uL RBC (3.80-5.20) Mil/uL Hgb (11.0-16.0) g/dL Hct (34.0-47.0) % MCV (81.0-99.0) fL MCH (27.0-31.0) pg MCHC (33.0-37.0) g/dL RDW (11.5-14.5) % Plt Count (130-400) K/uL MPV (7.2-11.7) fL Neut % (Auto) (50.0-75.0) % Lymph % (Auto) (20.0-40.0) % [place] % (Auto) (0.0-10.0) % Eos % (Auto) (0.0-4.0) % Baso % (Auto) (0.0-2.0) % Neut # (1.8-7.0) K/uL Lymph # (1.0-4.3) K/uL [place] # (0.0-0.8) K/uL Eos # (0.0-0.7) K/uL Baso # (0.0-0.2) K/uL Puncture Site pCO2 (35-45) mm/Hg pO2 (80-100) mm/Hg HCO3 (21-28) mmol/L ABG pH (7.35-7.45) ABG Total CO2 (22-28) mmol/L ABG O2 Saturation (95-98) % ABG Base Excess (-2.0-3.0) mmol/L ABG Hemoglobin (11.7-17.4) g/dL ABG Carboxyhemoglobin (0.5-1.5) % POC ABG HHb (Measured) (0.0-5.0) % ABG Methemoglobin (0.0-3.0) % Yaniv Test A-a O2 Difference mm/Hg Respiratory Index Hgb O2 Saturation (95.0-98.0) % Mechanical Rate FiO2 % Tidal Volume PEEP Crit Value Called To Crit Value Called By Crit Value Read Back Blood Gas Notified Time Sodium (132-148) mmol/L Potassium (3.6-5.2) mmol/L Chloride (98-107) mmol/L Carbon Dioxide (22-30) mmol/L Anion Gap (10-20) BUN (7-17) mg/dL Creatinine (0.7-1.2) MG/DL Est GFR ( Amer) Est GFR (Non-Af Amer) Random Glucose (65-105) mg/dL Hemoglobin A1c 6.8 H (4.2-6.5) % Calcium (8.6-10.4) mg/dl Phosphorus (2.5-4.5) mg/dL Magnesium (1.6-2.3) mg/dL Total Bilirubin (0.2-1.3) mg/dL AST (14-36) U/L ALT (9-52) U/L Alkaline Phosphatase (38-126) U/L Total Protein (6.3-8.3) g/dL Albumin (3.5-5.0) g/dL Globulin (2.2-3.9) gm/dL Albumin/Globulin Ratio (1.0-2.1) Laboratory Results - last 24 hr 04/22/17 04/24/17 04/24/17 06:35 05:40 06:33 WBC 7.4 RBC 3.01 L Hgb 8.6 L Hct 26.0 L MCV 86.5 MCH 28.7 MCHC 33.1 RDW 18.8 H Plt Count 208 MPV 8.5 Neut % (Auto) 83.8 H Lymph % (Auto) 5.8 L [place] % (Auto) 10.1 H Eos % (Auto) 0.0 Baso % (Auto) 0.3 Neut # 6.2 Lymph # 0.4 L [place] # 0.7 Eos # 0.0 Baso # 0.0 Puncture Site Rradial pCO2 34 L pO2 164 H HCO3 37.0 H ABG pH 7.65 H* ABG Total CO2 38.5 H ABG O2 Saturation 99.8 H ABG Base Excess 15.5 H ABG Hemoglobin 8.0 L ABG Carboxyhemoglobin 1.3 POC ABG HHb (Measured) 0.2 ABG Methemoglobin 1.2 Yaniv Test Pos A-a O2 Difference 79.0 Respiratory Index 0.5 Hgb O2 Saturation 97.3 Mechanical Rate 18 FiO2 40.0 Tidal Volume 380 PEEP 5 Crit Value Called To Dr. rojas Crit Value Called By Maggy nunez rcp Crit Value Read Back Y Blood Gas Notified Time 612 Sodium Potassium Chloride Carbon Dioxide Anion Gap BUN Creatinine Est GFR ( Amer) Est GFR (Non-Af Amer) Random Glucose Hemoglobin A1c 6.8 H Calcium Phosphorus Magnesium Total Bilirubin AST ALT Alkaline Phosphatase Total Protein Albumin Globulin Albumin/Globulin Ratio 04/24/17 06:33 WBC RBC Hgb Hct MCV MCH MCHC RDW Plt Count MPV Neut % (Auto) Lymph % (Auto) [place] % (Auto) Eos % (Auto) Baso % (Auto) Neut # Lymph # [place] # Eos # Baso # Puncture Site pCO2 pO2 HCO3 ABG pH ABG Total CO2 ABG O2 Saturation ABG Base Excess ABG Hemoglobin ABG Carboxyhemoglobin POC ABG HHb (Measured) ABG Methemoglobin Yaniv Test A-a O2 Difference Respiratory Index Hgb O2 Saturation Mechanical Rate FiO2 Tidal Volume PEEP Crit Value Called To Crit Value Called By Crit Value Read Back Blood Gas Notified Time Sodium 136 Potassium 3.5 L Chloride 91 L Carbon Dioxide 36 H Anion Gap 13 BUN 50 H Creatinine 1.7 H Est GFR ( Amer) 36 Est GFR (Non-Af Amer) 29 Random Glucose 190 H Hemoglobin A1c Calcium 8.0 L Phosphorus 3.7 Magnesium 2.0 Total Bilirubin 0.4 AST 169 H D ALT 242 H Alkaline Phosphatase 115 Total Protein 6.0 L Albumin 2.7 L Globulin 3.3 Albumin/Globulin Ratio 0.8 L Fingerstick Blood Sugar Results: 258 Review of Systems - Review of Systems Systems not reviewed;Unavailable: Intubated (patient is currently on ventilator) Critical Care Progress Note - Nutrition Nutrition: Nutrition Category Date Time Status NPO Diet [DIET] Diets 04/22/17 Breakfast Active Assessment/Plan - Assessment and Plan (Free Text) Assessment: 71-year-old female with history of atrial fibrillation hypertension dementia anemia emphysema hyperlipidemia admitted to the hospital after an abdominal pain , and general is to weakness, just decreased to poor intake. Plan: Neuro: - No acute issues - Alert not oriented - On Ventilator - f/u brain MRI without contrast - CPAP Procedure - Neurology Consult: Dr. Pérez Arce: - On ventilator - Methylprednisolone 20mg IVP daily - Chest X-ray CV: - Digoxin 0.125mg PO daily - Digoxin level (04/24/17): 0.7 - Cardiology Consult: Dr. Tyler - f/u ECHO Heme: - H/H (04/24): 8.6/26.0 - Xarelto 15mg PO Daily Renal: BUN/Cr: 50/1.7 GI: - Pepcid 20mg PO daily - Tube Feeding - f/u occult blood stool ID: - Metronidazole 500mg started on 04/22/17 - f/u blood culture - urine culture: no growth - Nose: MRSA not detected DVT proph - SCDs, Xarelto 15mg PO Daily GI proph - Pepcid 20mg PO daily PT Code status - full code Case discussed with Dr. Virginia Demarco PGY-1 <Oksana Coleman - Last Filed: 05/01/17 19:35> CCU Objective - Vital Signs / Intake & Output Intake and Output (Last 8hrs): Intake & Output 05/01/17 05/01/17 05/01/17 06:59 14:59 22:59 Intake Total 240 300 Balance 240 300 Intake: Oral 240 300 - Medications Active Medications: Active Medications Generic Name Dose Route Start Last Admin Trade Name Freq PRN Reason Stop Dose Admin Albuterol/Ipratropium 3 ml 04/22/17 14:00 05/01/17 07:47 Duoneb 3 Mg/0.5 Mg (3 Ml) Ud INH 3 ml RQ6 LEE Administration Digoxin 0.125 mg 04/26/17 18:00 05/01/17 18:29 Lanoxin PO 0.125 mg DAILY@1800 LEE Administration Famotidine 20 mg 05/01/17 12:30 05/01/17 13:02 Pepcid PO Not Given DAILY LEE Furosemide 20 mg 04/26/17 10:00 05/01/17 10:55 Lasix PO 20 mg DAILY LEE Administration Hydralazine HCl 10 mg 04/27/17 10:00 05/01/17 18:29 Apresoline PO 10 mg BID LEE Administration Lorazepam 0.5 mg 04/28/17 11:37 04/30/17 11:18 Ativan IVP 0.5 mg Q6H PRN Administration Anxiety Zolpidem Tartrate 5 mg 04/29/17 16:09 04/29/17 21:15 Ambien PO 5 mg HS PRN Administration Insomnia Critical Care Progress Note - Nutrition Nutrition: Nutrition Category Date Time Status Pureed [Dysphagia/Modified Consistency Diet] [DIET] Diets 04/26/17 Lunch Active Attending/Attestation - Attestation I have personally seen and examined this patient.: Yes I have fully participated in the care of the patient.: Yes I have reviewed all pertinent clinical information: Yes Notes (Text): 05/01/17 19:35 agree with above note during rounds in the am pt was examined and clinical decision was made and discussed with icu team
[2017-04-24] MEDS: Albuterol-Ipratrop 3 mg / 0.5 (3 ml) UD INH SCH ×3 (07:36→19:37)
[2017-04-24 08:14] LABS: ANISOCYTOSIS SLIGHT; BANDS 1 % (0-2); HYPOCHROMIC SLIGHT; LYMPHOCYTE 7 % (20-40); MONOCYTE 5 % (0-10); NEUTROPHIL 87 % (50-75); PLATELET ESTIMATE NORMAL (NORMAL); TOTAL CELLS COUNTED 100
[2017-04-24 08:15] LABS: POIKILOCYTOSIS SLIGHT
[2017-04-24] MEDS: MethylPREDNISolone 40 mg Vial IVP SCH (09:12)
--- NOTE | 2017-04-24 10:32 | RAD ---
HISTORY: vented COMPARISON: 04/23/2017 FINDINGS: LUNGS: No pulmonary infiltrate. PLEURA: No significant pleural effusion identified, no pneumothorax apparent. CARDIOVASCULAR: Normal heart size. Endotracheal tube unchanged in position, approximately 2 cm above the tracheal [place]. Nasogastric tube unchanged, extending to left abdomen. OSSEOUS STRUCTURES: No significant abnormalities. VISUALIZED UPPER ABDOMEN: Normal. OTHER FINDINGS: None. IMPRESSION: No acute infiltrate. Lines and tubes unchanged.
[2017-04-24 11:48] LABS: ABG ALLEN TEST POS; ARTERIAL BLOOD GAS HCO3 33.9 mmol/L (21-28); ARTERIAL BLOOD GAS HEMOGLOBIN 8.3 g/dL (11.7-17.4); ARTERIAL BLOOD GAS O2 SAT 99.7 % (95-98); ARTERIAL BLOOD GAS PCO2 41 mm/Hg (35-45); ARTERIAL BLOOD GAS PH 7.54 (7.35-7.45); ARTERIAL BLOOD GAS PO2 175 mm/Hg (80-100); ARTERIAL BLOOD GAS TCO2 36.4 mmol/L (22-28)
--- NOTE | 2017-04-24 12:27 | CP.PCM.PN ---
Subjective - Date & Time of Evaluation Date of Evaluation: 04/24/17 Time of Evaluation: 12:25 - Subjective Subjective: Awake. Intubated. Patient non verbal. Does not seem to recognize me. Output is goos. HGG. 8. Objective - Vital Signs/Intake and Output Vital Signs (last 24 hours): Temp Pulse Resp BP Pulse Ox 98 F 148 H 16 135/85 100 04/24/17 04:00 04/24/17 11:20 04/24/17 11:20 04/24/17 11:14 04/24/17 11:20 Intake and Output: 04/24/17 04/24/17 06:59 18:59 Intake Total 420 70 Output Total 550 745 Balance -130 -675 - Medications Medications: Current Medications Albuterol/Ipratropium (Duoneb 3 Mg/0.5 Mg (3 Ml) Ud) 3 ml INH RQ6 [facility] Last Admin: 04/24/17 07:36 Dose: 3 ml Digoxin (Lanoxin) 0.125 mg PO DAILY@1800 [facility] Last Admin: 04/23/17 17:29 Dose: 0.125 mg Famotidine (Pepcid) 20 mg IVP Q12 [facility] Last Admin: 04/24/17 09:12 Dose: 20 mg Metronidazole (Flagyl) 500 mg in 100 mls @ 100 mls/hr IVPB Q8H [facility] Last Admin: 04/24/17 09:12 Dose: 100 mls/hr Methylprednisolone (Solu-Medrol) 20 mg IVP DAILY [facility] Rivaroxaban (Xarelto) 15 mg PO DAILY [facility] Last Admin: 04/24/17 09:11 Dose: 15 mg - Labs Labs: 04/24/17 06:33 04/24/17 06:33 PT 14.9 SECONDS (9.7-12.2) H 04/21/17 21:48 INR 1.3 04/21/17 21:48 APTT 35 SECONDS (21-34) H 04/21/17 21:48 - Constitutional Appears: Non-toxic - Head Exam Head Exam: ATRAUMATIC, NORMAL INSPECTION, NORMOCEPHALIC - Eye Exam Pupil Exam: PERRL - Neck Exam Neck Exam: Tenderness - Respiratory Exam Respiratory Exam: Clear to Ausculation Bilateral, Rhonchi - Cardiovascular Exam Cardiovascular Exam: Tachycardia, +S1, +S2 - GI/Abdominal Exam GI & Abdominal Exam: Soft - Extremities Exam Extremities Exam: Normal Inspection - Back Exam Back Exam: Full ROM - Skin Skin Exam: Dry, Intact, Warm Assessment and Plan (1) Abdominal pain Status: Acute (2) Hypercapnic respiratory failure Status: Acute (3) Hyperkalemia Status: Acute (4) Congestive heart failure (CHF) Status: Acute (5) Coronary heart disease Status: Acute (6) Cerebral embolism Status: Acute (7) Atrial fibrillation Status: Chronic (8) Anemia Status: Chronic - Assessment and Plan (Free Text) Plan: Plan: For extubation today. MRI brain. Continue Lasia,digoxin and IV Flagyl.
--- NOTE | 2017-04-24 14:05 | CARD ---
APPROVED REPORT EKG Measurement Heart [id number] <Conclusion> Sinus tachycardia with premature atrial complexes Left anterior fascicular block Anterior infarct, age undetermined Abnormal ECG
[2017-04-24] MEDS ORDERED: Digoxin 500 mcg/2ml (0.5 mg/2ml) Inj IVP ONE (14:08)
--- NOTE | 2017-04-24 14:20 | CARD ---
APPROVED REPORT EXAM: Two-dimensional and M-mode echocardiogram with Doppler and color Doppler. Other Information Quality : GoodRhythm : NSR INDICATION Dyspnea Atrial Fibrillation Congestive Heart Failure Hyperkalemia RISK FACTORS Hypertension M-Mode DIMENSIONS RVDd2.09 (2.1-3.2cm)Left Atrium (MM)2.28 (2.5-4.0cm) IVSd0.93 (0.7-1.1cm)Aortic Root3.05 (2.2-3.7cm) LVDd4.03 (4.0-5.6cm)Aortic Cusp Exc.1.49 (1.5-2.0cm) PWd1.10 (0.7-1.1cm)FS (%) 21 % LVDs3.19 (2.0-3.8cm)LVEF (%)43 (>50%) Aortic Valve AI P 1/2 [id number] Mitral Valve MV E Tryztvvf938.1cm/sE/A ratio0.0 TDI E/Lateral E'0.0E/Medial E'0.0 Tricuspid Valve TR Peak [id number]/sTR Peak [id number] LEFT VENTRICLE The left ventricle is normal size. There is normal left ventricular wall thickness. The left ventricular function is markedly reduced, with diffuse hypokinesis. The left ventricular ejection fraction is about 30%. No regional wall motion abnormalities noted. No left ventricle thrombus noted on this study. There is no ventricular septal defect visualized. There is no left ventricular aneurysm. There is no mass noted in the left ventricle. RIGHT VENTRICLE The right ventricle is normal size. There is normal right ventricular wall thickness. The right ventricular systolic function is markedly reduced. ATRIA The left atrial size was not measured by volume.. Normal AP diameter. The right atrium size is normal. The interatrial septum is intact with no evidence for an atrial septal defect. AORTIC VALVE The aortic valve is normal in structure and function. Mild aortic regurgitation is present. There is no aortic valvular stenosis. There is no aortic valvular vegetation. MITRAL VALVE The mitral valve is normal in structure and function. There is no evidence of mitral valve prolapse. There is no mitral valve stenosis. There is mild mitral valve regurgitation noted. TRICUSPID VALVE The tricuspid valve is normal in structure and function. There is nmild tricuspid valve regurgitation noted. Estiamted PA systolic pressure is 65 mm Hg. There is no tricuspid valve prolapse or vegetation. There is no tricuspid valve stenosis. PULMONIC VALVE The pulmonary valve is normal in structure and function. There is mild pulmonic valvular regurgitation. There is no pulmonic valvular stenosis. GREAT VESSELS The aortic root is normal in size. The ascending aorta is normal in size. The pulmonary artery is normal. The IVC is dilated and collapses <50% with inspiration. PERICARDIAL EFFUSION The pericardium appears normal. There is a left pleural effusion. <Conclusion> Mmarkedly reduced LV systolic function, diffuse. There is a left pleural effusion. Moderate pulmonary HTN Small RV, with markedly reduced RV function. Mild MR, mild AI.
[2017-04-24] MEDS: Digoxin 125 mcg (0.125 mg) Tab PO SCH (18:17)
[2017-04-25] MEDS: metroNIDAZOLE IV 500 mg/100 ml 500 MG/100 ML BAG IVPB SCH ×3 (01:07→17:04)
[2017-04-25] MEDS: Albuterol-Ipratrop 3 mg / 0.5 (3 ml) UD INH SCH ×4 (01:24→20:04)
[2017-04-25 06:56] LABS: BASO % 0.1 % (0.0-2.0); HEMOGLOBIN 8.5 g/dL (11.0-16.0); LYMPH # 0.2 K/uL (1.0-4.3); LYMPH % 2.9 % (20.0-40.0); MEAN CELL VOLUME 88.9 fL (81.0-99.0); MEAN CORPUSCULAR HEMOGLOBIN 28.4 pg (27.0-31.0); MEAN CORPUSCULAR HGB CONC 31.9 g/dL (33.0-37.0); MEAN PLATELET VOLUME 8.3 fL (7.2-11.7); MONO # 0.7 K/uL (0.0-0.8); NEUT # 7.2 K/uL (1.8-7.0); PLATELET COUNT 213 K/uL (130-400); RED CELL DISTRIBUTION WIDTH 18.9 % (11.5-14.5); WHITE BLOOD COUNT 8.2 K/uL (4.8-10.8)
[2017-04-25 07:09] LABS: ALBUMIN 2.9 g/dL (3.5-5.0)
[2017-04-25 07:12] LABS: ALB/GLOB RATIO 0.8 (1.0-2.1); CALCIUM 8.4 mg/dl (8.6-10.4); MAGNESIUM 2.1 mg/dL (1.6-2.3)
[2017-04-25 08:16] LABS: ABG ALLEN TEST POS; ARTERIAL BLOOD GAS HCO3 35.5 mmol/L (21-28); ARTERIAL BLOOD GAS HEMOGLOBIN 9.3 g/dL (11.7-17.4); ARTERIAL BLOOD GAS O2 SAT 99.5 % (95-98); ARTERIAL BLOOD GAS PCO2 69 mm/Hg (35-45); ARTERIAL BLOOD GAS PH 7.38 (7.35-7.45); ARTERIAL BLOOD GAS PO2 129 mm/Hg (80-100); ARTERIAL BLOOD GAS TCO2 42.9 mmol/L (22-28)
[2017-04-25] MEDS: MethylPREDNISolone 40 mg Vial IVP SCH (09:43)
[2017-04-25 10:06] LABS: LYMPHOCYTE 3 % (20-40); MONOCYTE 8 % (0-10); NEUTROPHIL 89 % (50-75); PLATELET ESTIMATE NORMAL (NORMAL); TOTAL CELLS COUNTED 100
[2017-04-25 10:07] LABS: ANISOCYTOSIS MODERATE; HYPOCHROMIC SLIGHT; OVALOCYTES SLIGHT; POIKILOCYTOSIS SLIGHT; POLYCHROMIC SLIGHT; SCHISTOCYTES SLIGHT
[2017-04-25 10:08] LABS: BURR CELLS SLIGHT; TARGET CELLS SLIGHT; TOXIC GRANULATION PRESENT
[2017-04-25 10:09] LABS: LARGE PLATELETS PRESENT
--- NOTE | 2017-04-25 10:11 | CP.PCM.PN ---
Subjective - Date & Time of Evaluation Date of Evaluation: 04/25/17 Time of Evaluation: 10:05 - Subjective Subjective: Patient was extubated. Awake, alert. Does not remember what happened to her and why she is in the hospital. Vital signs stable expect foe a high pulse rate. Objective - Vital Signs/Intake and Output Vital Signs (last 24 hours): Temp Pulse Resp BP Pulse Ox 98.3 F 92 H 16 140/71 73 L 04/25/17 08:00 04/25/17 10:00 04/25/17 10:00 04/25/17 09:44 04/25/17 10:00 Intake and Output: 04/25/17 04/25/17 06:59 18:59 Intake Total 300 440 Output Total 490 195 Balance -190 245 - Medications Medications: Current Medications Albuterol/Ipratropium (Duoneb 3 Mg/0.5 Mg (3 Ml) Ud) 3 ml INH RQ6 [facility] Last Admin: 04/25/17 07:13 Dose: 3 ml Digoxin (Lanoxin) 0.125 mg PO DAILY@1800 [facility] Last Admin: 04/24/17 18:17 Dose: 0.125 mg Famotidine (Pepcid) 20 mg IVP Q12 [facility] Last Admin: 04/25/17 09:43 Dose: 20 mg Metronidazole (Flagyl) 500 mg in 100 mls @ 100 mls/hr IVPB Q8H [facility] Last Admin: 04/25/17 09:44 Dose: 100 mls/hr Methylprednisolone (Solu-Medrol) 20 mg IVP DAILY [facility] Last Admin: 04/25/17 09:43 Dose: 20 mg Rivaroxaban (Xarelto) 15 mg PO DAILY [facility] Last Admin: 04/25/17 09:43 Dose: 15 mg - Labs Labs: 04/25/17 06:51 04/25/17 06:51 PT 14.9 SECONDS (9.7-12.2) H 04/21/17 21:48 INR 1.3 04/21/17 21:48 APTT 35 SECONDS (21-34) H 04/21/17 21:48 - Constitutional Appears: No Acute Distress, Cachectic - Head Exam Head Exam: ATRAUMATIC, NORMAL INSPECTION, NORMOCEPHALIC - Eye Exam Pupil Exam: PERRL - ENT Exam ENT Exam: Mucous Membranes Moist - Neck Exam Neck Exam: Full ROM, Normal Inspection - Respiratory Exam Respiratory Exam: Clear to Ausculation Bilateral, NORMAL BREATHING PATTERN - Cardiovascular Exam Cardiovascular Exam: Tachycardia, +S1, +S2 - GI/Abdominal Exam GI & Abdominal Exam: Soft - Rectal Exam Rectal Exam: Deferred - Back Exam Back Exam: Full ROM, NORMAL INSPECTION - Neurological Exam Neurological Exam: Alert, Awake, CN II-XII Intact - Psychiatric Exam Psychiatric exam: Normal Affect, Normal Mood - Skin Skin Exam: Dry, Intact, Normal Color, Warm Assessment and Plan (1) Abdominal pain Status: Resolved (2) Hypercapnic respiratory failure Status: Resolved (3) Hyperkalemia Status: Resolved (4) Congestive heart failure (CHF) Status: Acute (5) Coronary heart disease Status: Chronic (6) Cerebral embolism Status: Acute (7) Atrial fibrillation Status: Chronic (8) Anemia Status: Chronic - Assessment and Plan (Free Text) Plan: Plan: Will transfer to telemetry. Well rsume digoxin Cotinue Lasix PO
--- NOTE | 2017-04-25 15:31 | CP.CCUPN ---
CCU Subjective - Physician Review Events Since Last Encounter (Free Text): 04/25/17 15:29 patient seen and examined in the intensive care unit. Case discussed with house staff in the morning rounds. 71-year-old female with history of atrial fibrillation hypertension dementia anemia emphysema hyperlipidemia admitted to the hospital after an abdominal pain , and weakness. Extubated yesterday in no respiratory distress Patient is awake but confused Seen by neurology CCU Objective - Vital Signs / Intake & Output Vital Signs (Last 4 hours): Vital Signs Temp Pulse Resp BP Pulse Ox 04/25/17 15:20 101 H 15 95 04/25/17 15:10 96 H 23 97 04/25/17 15:04 94 H 20 139/74 98 04/25/17 15:00 99 H 21 100 04/25/17 14:50 92 H 20 100 04/25/17 14:40 94 H 20 100 04/25/17 14:30 93 H 21 100 04/25/17 14:20 105 H 22 100 04/25/17 14:10 87 20 98 04/25/17 14:00 101 H 26 H 100 04/25/17 13:50 126 H 22 97 04/25/17 13:40 94 H 28 H 04/25/17 13:30 107 H 22 100 04/25/17 13:20 110 H 20 04/25/17 13:10 102 H 15 99 04/25/17 13:00 85 15 100 04/25/17 12:50 76 14 100 04/25/17 12:43 78 13 133/74 100 04/25/17 12:40 72 12 100 04/25/17 12:30 77 13 100 04/25/17 12:20 80 15 100 04/25/17 12:13 72 13 132/66 100 04/25/17 12:10 80 13 100 04/25/17 12:00 97.3 F L 70 14 98 04/25/17 11:50 86 15 100 04/25/17 11:44 98 H 21 130/75 99 04/25/17 11:40 77 20 100 04/25/17 11:30 78 20 100 Intake and Output (Last 8hrs): Intake & Output 04/25/17 04/25/17 04/25/17 06:59 14:59 22:59 Intake Total 200 620 Output Total 305 345 Balance -105 275 Intake: Intake, IV Amount 100 100 Left Forearm 100 Right Antecubital 100 Oral 100 520 Output: Urine 305 345 Urethral (Brown) 305 195 Urine, Voided 150 Other: # Bowel Movements 0 0 - Physical Exam Head: Positive for: Atraumatic, Normocephalic Mouth: Positive for: Moist Mucous Membranes Respiratory/Chest: Positive for: Clear to Auscultation. Negative for: Rales Cardiovascular: Positive for: Regular Rate and Rhythm, Normal S1, S2 Abdomen: Positive for: Normal Bowel Sounds. Negative for: Distention Skin: Positive for: Warm, Dry, Normal Color Psychiatric: Positive for: Alert. Negative for: Oriented x 3 - Medications Active Medications: Active Medications Generic Name Dose Route Start Last Admin Trade Name Freq PRN Reason Stop Dose Admin Albuterol/Ipratropium 3 ml 04/22/17 14:00 04/25/17 13:31 Duoneb 3 Mg/0.5 Mg (3 Ml) Ud INH 3 ml RQ6 [facility] Administration Digoxin 0.125 mg 04/25/17 18:00 Lanoxin PO DAILY@1800 [facility] Famotidine 20 mg 04/22/17 10:00 04/25/17 09:43 Pepcid IVP 20 mg Q12 [facility] Administration Furosemide 20 mg 04/26/17 10:00 Lasix PO DAILY [facility] Metronidazole 500 mg in 100 mls @ 100 mls/hr 04/22/17 10:00 04/25/17 09:44 Flagyl IVPB 100 mls/hr Q8H [facility] Administration Methylprednisolone 20 mg 04/24/17 10:14 04/25/17 09:43 Solu-Medrol IVP 20 mg DAILY [facility] Administration Rivaroxaban 15 mg 04/22/17 10:00 04/25/17 09:43 Xarelto PO 15 mg DAILY [facility] Administration - Patient Studies Lab Studies: Lab Studies 04/25/17 04/25/17 04/25/17 Range/Units 08:13 06:51 06:51 WBC 8.2 (4.8-10.8) K/uL RBC 3.00 L (3.80-5.20) Mil/uL Hgb 8.5 L (11.0-16.0) g/dL Hct 26.7 L (34.0-47.0) % MCV 88.9 D (81.0-99.0) fL MCH 28.4 (27.0-31.0) pg MCHC 31.9 L (33.0-37.0) g/dL RDW 18.9 H (11.5-14.5) % Plt Count 213 (130-400) K/uL MPV 8.3 (7.2-11.7) fL Neut % (Auto) 88.0 H (50.0-75.0) % Lymph % (Auto) 2.9 L (20.0-40.0) % Whitman % (Auto) 9.0 (0.0-10.0) % Eos % (Auto) 0.0 (0.0-4.0) % Baso % (Auto) 0.1 (0.0-2.0) % Neut # 7.2 H (1.8-7.0) K/uL Lymph # 0.2 L (1.0-4.3) K/uL [place] # 0.7 (0.0-0.8) K/uL Eos # 0.0 (0.0-0.7) K/uL Baso # 0.0 (0.0-0.2) K/uL Neutrophils % (Manual) 89 H (50-75) % Lymphocytes % (Manual) 3 L (20-40) % Monocytes % (Manual) 8 (0-10) % Toxic Granulation Present Platelet Estimate Normal (NORMAL) Large Platelets Present Polychromasia Slight Hypochromasia (manual) Slight Poikilocytosis (manual Slight Anisocytosis (manual) Moderate Target Cells Slight Ovalocytes Slight Earle Cells Slight Schistocytes Slight Puncture Site Rr pCO2 69 H (35-45) mm/Hg pO2 129 H (80-100) mm/Hg HCO3 35.5 H (21-28) mmol/L ABG pH 7.38 (7.35-7.45) ABG Total CO2 42.9 H (22-28) mmol/L ABG O2 Saturation 99.5 H (95-98) % ABG Base Excess 13.6 H (-2.0-3.0) mmol/L ABG Hemoglobin 9.3 L (11.7-17.4) g/dL ABG Carboxyhemoglobin 1.7 H (0.5-1.5) % POC ABG HHb (Measured) 0.5 (0.0-5.0) % ABG Methemoglobin 1.1 (0.0-3.0) % Yaniv Test Pos A-a O2 Difference -1.0 mm/Hg Respiratory Index 0 Hgb O2 Saturation 96.7 (95.0-98.0) % Liter Flow 3.0 FiO2 30.0 % Sodium 139 (132-148) mmol/L Potassium 4.3 (3.6-5.2) mmol/L Chloride 92 L (98-107) mmol/L Carbon Dioxide 39 H (22-30) mmol/L Anion Gap 12 (10-20) BUN 50 H (7-17) mg/dL Creatinine 1.4 H (0.7-1.2) MG/DL Est GFR ( Amer) 45 Est GFR (Non-Af Amer) 37 Random Glucose 153 H (65-105) mg/dL Calcium 8.4 L (8.6-10.4) mg/dl Phosphorus 5.7 H (2.5-4.5) mg/dL Magnesium 2.1 (1.6-2.3) mg/dL Total Bilirubin 0.6 (0.2-1.3) mg/dL AST 118 H D (14-36) U/L ALT 224 H (9-52) U/L Alkaline Phosphatase 86 (38-126) U/L Total Protein 6.5 (6.3-8.3) g/dL Albumin 2.9 L (3.5-5.0) g/dL Globulin 3.5 (2.2-3.9) gm/dL Albumin/Globulin Ratio 0.8 L (1.0-2.1) Laboratory Results - last 24 hr 04/25/17 04/25/17 04/25/17 06:51 06:51 08:13 WBC 8.2 RBC 3.00 L Hgb 8.5 L Hct 26.7 L MCV 88.9 D MCH 28.4 MCHC 31.9 L RDW 18.9 H Plt Count 213 MPV 8.3 Neut % (Auto) 88.0 H Lymph % (Auto) 2.9 L [place] % (Auto) 9.0 Eos % (Auto) 0.0 Baso % (Auto) 0.1 Neut # 7.2 H Lymph # 0.2 L [place] # 0.7 Eos # 0.0 Baso # 0.0 Neutrophils % (Manual) 89 H Lymphocytes % (Manual) 3 L Monocytes % (Manual) 8 Toxic Granulation Present Platelet Estimate Normal Large Platelets Present Polychromasia Slight Hypochromasia (manual) Slight Poikilocytosis (manual Slight Anisocytosis (manual) Moderate Target Cells Slight Ovalocytes Slight Earle Cells Slight Schistocytes Slight Puncture Site Rr pCO2 69 H pO2 129 H HCO3 35.5 H ABG pH 7.38 ABG Total CO2 42.9 H ABG O2 Saturation 99.5 H ABG Base Excess 13.6 H ABG Hemoglobin 9.3 L ABG Carboxyhemoglobin 1.7 H POC ABG HHb (Measured) 0.5 ABG Methemoglobin 1.1 Yaniv Test Pos A-a O2 Difference -1.0 Respiratory Index 0 Hgb O2 Saturation 96.7 Liter Flow 3.0 FiO2 30.0 Sodium 139 Potassium 4.3 Chloride 92 L Carbon Dioxide 39 H Anion Gap 12 BUN 50 H Creatinine 1.4 H Est GFR ( Amer) 45 Est GFR (Non-Af Amer) 37 Random Glucose 153 H Calcium 8.4 L Phosphorus 5.7 H Magnesium 2.1 Total Bilirubin 0.6 AST 118 H D ALT 224 H Alkaline Phosphatase 86 Total Protein 6.5 Albumin 2.9 L Globulin 3.5 Albumin/Globulin Ratio 0.8 L Fingerstick Blood Sugar Results: 258 Review of Systems - Review of Systems Systems not reviewed;Unavailable: Altered Mental Status Critical Care Progress Note - Nutrition Nutrition: Nutrition Category Date Time Status Mechanically altered [Dysphagia/Modified Consistency Diets 04/24/17 Dinner Active Diet] [DIET] Assessment/Plan (1) Acute respiratory failure Current Visit: Yes Status: Acute Comment: acute respiratory failure secondary to CHF and COPD extubated in no respiratory distress Continue nebulizer treatment Continue diuretics as needed Followup ABG Consider BiPAP at night and as needed for shortness of breath Neurology followup For MRI of brain (2) CHF exacerbation Current Visit: Yes Status: Acute (3) Atrial fibrillation Current Visit: Yes Status: Chronic
[2017-04-25] MEDS: Digoxin 125 mcg (0.125 mg) Tab PO SCH (17:04)
--- NOTE | 2017-04-25 20:50 | CP.PCM.PN ---
Subjective - Date & Time of Evaluation Date of Evaluation: 04/25/17 Time of Evaluation: 20:46 - Subjective Subjective: Patient extubated, alert, slightly confused, in no respiratory distress. Echo reveals a global LV hypokinesia, with LVRF: 30%, and a moderate pulmonary hypertension. Objective - Vital Signs/Intake and Output Vital Signs (last 24 hours): Temp Pulse Resp BP Pulse Ox 99 F 130 H 28 H 131/97 H 100 04/25/17 20:00 04/25/17 20:30 04/25/17 20:30 04/25/17 20:04 04/25/17 20:30 Intake and Output: 04/25/17 04/26/17 18:59 06:59 Intake Total 920 Output Total 495 Balance 425 - Medications Medications: Current Medications Albuterol/Ipratropium (Duoneb 3 Mg/0.5 Mg (3 Ml) Ud) 3 ml INH RQ6 [facility] Last Admin: 04/25/17 20:04 Dose: 3 ml Digoxin (Lanoxin) 0.125 mg PO DAILY@1800 [facility] Last Admin: 04/25/17 17:04 Dose: 0.125 mg Famotidine (Pepcid) 20 mg IVP Q12 [facility] Last Admin: 04/25/17 09:43 Dose: 20 mg Furosemide (Lasix) 20 mg PO DAILY [facility] Metronidazole (Flagyl) 500 mg in 100 mls @ 100 mls/hr IVPB Q8H [facility] Last Admin: 04/25/17 17:04 Dose: 100 mls/hr Methylprednisolone (Solu-Medrol) 20 mg IVP DAILY [facility] Last Admin: 04/25/17 09:43 Dose: 20 mg Rivaroxaban (Xarelto) 15 mg PO DAILY [facility] Last Admin: 04/25/17 09:43 Dose: 15 mg - Labs Labs: 04/25/17 06:51 04/25/17 06:51 PT 14.9 SECONDS (9.7-12.2) H 04/21/17 21:48 INR 1.3 04/21/17 21:48 APTT 35 SECONDS (21-34) H 04/21/17 21:48 - Constitutional Appears: Chronically Ill - Head Exam Head Exam: NORMAL INSPECTION - Eye Exam Eye Exam: Normal appearance - ENT Exam ENT Exam: Normal Exam - Neck Exam Neck Exam: Normal Inspection - Respiratory Exam Respiratory Exam: Clear to Ausculation Bilateral - Cardiovascular Exam Cardiovascular Exam: Irregular Rhythm - GI/Abdominal Exam GI & Abdominal Exam: Soft, Normal Bowel Sounds - Rectal Exam Rectal Exam: Deferred - Extremities Exam Extremities Exam: Calf Tenderness - Back Exam Back Exam: NORMAL INSPECTION - Neurological Exam Neurological Exam: Alert, Awake - Psychiatric Exam Psychiatric exam: Agitated - Skin Skin Exam: Dry, Intact, Normal Color, Warm Assessment and Plan (1) Acute diastolic (congestive) heart failure Status: Acute (2) CHF exacerbation Status: Acute (3) Acute respiratory failure Status: Resolved
[2017-04-26] MEDS: Albuterol-Ipratrop 3 mg / 0.5 (3 ml) UD INH SCH ×4 (01:42→19:33)
[2017-04-26] MEDS: metroNIDAZOLE IV 500 mg/100 ml 500 MG/100 ML BAG IVPB SCH ×2 (02:05→09:39)
[2017-04-26 06:41] LABS: BASO % 0.2 % (0.0-2.0); HEMOGLOBIN 8.2 g/dL (11.0-16.0); LYMPH # 0.4 K/uL (1.0-4.3); LYMPH % 7.4 % (20.0-40.0); MEAN CELL VOLUME 89.9 fL (81.0-99.0); MEAN CORPUSCULAR HEMOGLOBIN 28.6 pg (27.0-31.0); MEAN CORPUSCULAR HGB CONC 31.9 g/dL (33.0-37.0); MEAN PLATELET VOLUME 8.3 fL (7.2-11.7); MONO # 0.6 K/uL (0.0-0.8); MONO % 10.1 % (0.0-10.0); NEUT # 4.8 K/uL (1.8-7.0); NEUT % 82.3 % (50.0-75.0); NRBC % 0.1 % (0.0-2.0); PLATELET COUNT 221 K/uL (130-400); RBC 2.88 Mil/uL (3.80-5.20); RED CELL DISTRIBUTION WIDTH 18.8 % (11.5-14.5); WHITE BLOOD COUNT 5.8 K/uL (4.8-10.8)
[2017-04-26 06:46] LABS: ALBUMIN 2.8 g/dL (3.5-5.0)
[2017-04-26 06:49] LABS: ALB/GLOB RATIO 0.8 (1.0-2.1); CALCIUM 8.3 mg/dl (8.6-10.4)
[2017-04-26 06:50] LABS: MAGNESIUM 2.3 mg/dL (1.6-2.3)
[2017-04-26 07:12] LABS: IRON 38 ug/dL (37-170)
[2017-04-26 07:21] LABS: % IRON SATURATION 16 (20-55); TOTAL IRON BINDING CAPACITY 238 ug/dL (250-450)
[2017-04-26 07:25] LABS: FERRITIN 61.8 ng/mL
[2017-04-26 07:59] LABS: ANISOCYTOSIS SLIGHT; BANDS 1 % (0-2); HYPOCHROMIC SLIGHT; LYMPHOCYTE 13 % (20-40); MONOCYTE 3 % (0-10); NEUTROPHIL 83 % (50-75); PLATELET ESTIMATE NORMAL (NORMAL); POLYCHROMIC SLIGHT; TARGET CELLS SLIGHT; TOTAL CELLS COUNTED 100
[2017-04-26 08:00] LABS: OVALOCYTES SLIGHT
[2017-04-26] MEDS: MethylPREDNISolone 40 mg Vial IVP SCH (09:40)
[2017-04-26] MEDS ORDERED: Magnesium Hydroxide Susp 30 ml UD PO ONE ×2 (10:36→19:15)
--- NOTE | 2017-04-26 10:47 | CP.PCM.PN ---
Subjective - Date & Time of Evaluation Date of Evaluation: 04/26/17 Time of Evaluation: 10:40 - Subjective Subjective: Patient is awake but confused. She is alert, and not eating. Her pco is increasing. Chest x-ray showed sere severe COPD. CHF have receded.HGb is 8.2, Iron is normal, Ferritine level is normal, TIBC is normal Iron is low, Retic count is 2.2. B12 is normal This is myelodysplasia . She will be transfused with 2 units of PRBC 1 today and 1 in AM. Objective - Vital Signs/Intake and Output Vital Signs (last 24 hours): Temp Pulse Resp BP Pulse Ox 98.2 F 99 H 14 165/88 H 100 04/26/17 07:47 04/26/17 07:50 04/26/17 07:50 04/26/17 10:04 04/26/17 07:50 Intake and Output: 04/26/17 04/26/17 06:59 18:59 Intake Total 440 Output Total 300 200 Balance 140 -200 - Medications Medications: Current Medications Albuterol/Ipratropium (Duoneb 3 Mg/0.5 Mg (3 Ml) Ud) 3 ml INH RQ6 [facility] Last Admin: 04/26/17 07:32 Dose: 3 ml Digoxin (Lanoxin) 0.125 mg PO DAILY@1800 [facility] Last Admin: 04/25/17 17:04 Dose: 0.125 mg Digoxin (Lanoxin) 0.125 mg PO DAILY@1800 [facility] Famotidine (Pepcid) 20 mg IVP Q12 [facility] Last Admin: 04/26/17 09:41 Dose: 20 mg Furosemide (Lasix) 20 mg PO DAILY [facility] Last Admin: 04/26/17 10:04 Dose: 20 mg Metronidazole (Flagyl) 500 mg in 100 mls @ 100 mls/hr IVPB Q8H [facility] Last Admin: 04/26/17 09:39 Dose: 100 mls/hr Methylprednisolone (Solu-Medrol) 20 mg IVP DAILY [facility] Last Admin: 04/26/17 09:40 Dose: 20 mg Rivaroxaban (Xarelto) 15 mg PO DAILY [facility] Last Admin: 04/26/17 09:41 Dose: 15 mg - Labs Labs: 04/26/17 06:27 04/26/17 06:27 PT 14.9 SECONDS (9.7-12.2) H 04/21/17 21:48 INR 1.3 04/21/17 21:48 APTT 35 SECONDS (21-34) H 04/21/17 21:48 - Constitutional Appears: Non-toxic, Confused, Chronically Ill - Head Exam Head Exam: ATRAUMATIC, NORMAL INSPECTION, NORMOCEPHALIC - Eye Exam Pupil Exam: PERRL - ENT Exam ENT Exam: Mucous Membranes Moist - Neck Exam Neck Exam: Full ROM, Normal Inspection - Respiratory Exam Respiratory Exam: Decreased Breath Sounds, Prolonged Expiratory Phase - Cardiovascular Exam Cardiovascular Exam: Tachycardia, Irregular Rhythm, +S1, +S2 - GI/Abdominal Exam GI & Abdominal Exam: Soft - Rectal Exam Rectal Exam: Deferred - Back Exam Back Exam: Full ROM, NORMAL INSPECTION - Neurological Exam Neurological Exam: Alert, Awake - Psychiatric Exam Psychiatric exam: Flat Affect - Skin Skin Exam: Dry, Intact, Normal Color Assessment and Plan (1) Abdominal pain Status: Resolved (2) Hypercapnic respiratory failure Status: Resolved (3) Hyperkalemia Status: Resolved (4) Congestive heart failure (CHF) Status: Acute (5) Coronary heart disease Status: Chronic (6) Cerebral embolism Status: Acute (7) Atrial fibrillation Status: Chronic (8) Anemia Status: Chronic (9) COPD (chronic obstructive pulmonary disease) Status: Chronic - Assessment and Plan (Free Text) Plan: Plan: Continue Lasix, digoxin. MRI today. For blood transfusion 1 unit today and 1 unit in AM.
[2017-04-26 11:00] LABS: ABG ALLEN TEST POS; ARTERIAL BLOOD GAS HCO3 20.5 mmol/L (21-28); ARTERIAL BLOOD GAS HEMOGLOBIN 11.9 g/dL (11.7-17.4); ARTERIAL BLOOD GAS O2 SAT 99.2 % (95-98); ARTERIAL BLOOD GAS PCO2 29 mm/Hg (35-45); ARTERIAL BLOOD GAS PO2 165 mm/Hg (80-100); ARTERIAL BLOOD GAS TCO2 18.9 mmol/L (22-28)
[2017-04-26] MEDS ORDERED: Metoprolol 1 mg/ml Inj IVP ONE (12:26)
[2017-04-26] MEDS: Digoxin 125 mcg (0.125 mg) Tab PO SCH ×3 (12:46→18:00)
--- NOTE | 2017-04-26 17:28 | CP.PCM.CON ---
History of Present Illness - History of Present Illness History of Present Illness: Reason for consultation: hypercapnic respiratory failure/shortness of breath 72 year old female with h/o atrial fibrillation, HTN,Anemia,dementia,emphysema, hyperlipidemia was brought to the ED with complaints of abdominal pain, generalized weakness, and decreased oral intake.Patient was intubated in the emergency room for lethargy and hypercapnic respiratory failure and put on ventilatory support. Patient was extubated after weaning trial. Complaining off on and off shortness of breathand cough. Today patient went into flutter fib. Review of Systems - Review of Systems All systems: reviewed and no additional remarkable complaints except (shortness of breath and cough) Past Patient History - Infectious Disease Hx of Infectious Diseases: None - Past Medical History & Family History Past Medical History?: Yes - Past Social History Smoking Status: Former Smoker Alcohol: None Drugs: Denies Home Situation {Lives}: With Family - CARDIAC Hx Hypercholesterolemia: Yes Hx Hypertension: Yes - PULMONARY Hx Respiratory Disorders: Yes Hx Emphysema: Yes - NEUROLOGICAL Hx Dementia: Yes - HEENT Hx HEENT Problems: Yes Hx Cataracts: Yes (both eyes) - RENAL Hx Chronic Kidney Disease: No - ENDOCRINE/METABOLIC Hx Endocrine Disorders: No - HEMATOLOGICAL/ONCOLOGICAL Hx Blood Disorders: Yes Hx Anemia: Yes - INTEGUMENTARY Hx Dermatological Problems: No - MUSCULOSKELETAL/RHEUMATOLOGICAL Hx Falls: Yes - GASTROINTESTINAL Hx Gastrointestinal Disorders: No - GENITOURINARY/GYNECOLOGICAL Hx Genitourinary Disorders: No - PSYCHIATRIC Hx Psychophysiologic Disorder: No Hx Substance Use: No - SURGICAL HISTORY Hx Surgeries: Yes Hx Cataract Extraction: Yes (2013) - ANESTHESIA Hx Anesthesia: Yes Hx Anesthesia Reactions: No Hx Malignant Hyperthermia: No Has any member of the family had a problem w/ anesthesia?: No Meds Allergies/Adverse Reactions: Allergies Allergy/AdvReac Type Severity Reaction Status Date / Time No Known Allergies Allergy Verified 04/21/17 21:24 - Medications Medications: Current Medications Albuterol/Ipratropium (Duoneb 3 Mg/0.5 Mg (3 Ml) Ud) 3 ml INH RQ6 [facility] Last Admin: 04/26/17 13:04 Dose: 3 ml Digoxin (Lanoxin) 0.125 mg PO DAILY@1800 [facility] Last Admin: 04/26/17 12:46 Dose: 0.125 mg Digoxin (Lanoxin) 0.125 mg PO DAILY@1800 [facility] Famotidine (Pepcid) 20 mg IVP DAILY [facility] Furosemide (Lasix) 20 mg PO DAILY [facility] Last Admin: 04/26/17 10:04 Dose: 20 mg Methylprednisolone (Solu-Medrol) 20 mg IVP DAILY [facility] Last Admin: 04/26/17 09:40 Dose: 20 mg Rivaroxaban (Xarelto) 15 mg PO DAILY [facility] Last Admin: 04/26/17 09:41 Dose: 15 mg Physical Exam - Head Exam Head Exam: ATRAUMATIC, NORMOCEPHALIC - Eye Exam Eye Exam: Normal appearance - ENT Exam ENT Exam: Mucous Membranes Moist - Neck Exam Neck exam: Positive for: Normal Inspection - Respiratory Exam Respiratory Exam: Decreased Breath Sounds - Cardiovascular Exam Cardiovascular Exam: Irregular Rhythm - GI/Abdominal Exam GI & Abdominal Exam: Normal Bowel Sounds, Soft - Extremities Exam Extremities exam: Positive for: normal inspection Results - Vital Signs Recent Vital Signs: Last Vital Signs Temp 98.1 F 04/26/17 17:16 Pulse 98 H 04/26/17 17:16 Resp 166 H 04/26/17 17:16 BP 115/74 04/26/17 17:16 Pulse Ox 98 04/26/17 16:20 - Labs Result Diagrams: 04/26/17 06:27 04/26/17 06:27 Labs: Laboratory Results - last 24 hr 04/26/17 04/26/17 04/26/17 06:27 06:27 06:27 WBC 5.8 RBC 2.88 L Hgb 8.2 L Hct 25.9 L MCV 89.9 MCH 28.6 MCHC 31.9 L RDW 18.8 H Plt Count 221 MPV 8.3 Neut % (Auto) 82.3 H Lymph % (Auto) 7.4 L [place] % (Auto) 10.1 H Eos % (Auto) 0.0 Baso % (Auto) 0.2 Neut # 4.8 Lymph # 0.4 L [place] # 0.6 Eos # 0.0 Baso # 0.0 Neutrophils % (Manual) 83 H Band Neutrophils % 1 Lymphocytes % (Manual) 13 L Monocytes % (Manual) 3 Platelet Estimate Normal Polychromasia Slight Hypochromasia (manual) Slight Anisocytosis (manual) Slight Target Cells Slight Ovalocytes Slight Retic Count Puncture Site pCO2 pO2 HCO3 ABG pH ABG Total CO2 ABG O2 Saturation ABG Base Excess ABG Hemoglobin ABG Carboxyhemoglobin POC ABG HHb (Measured) ABG Methemoglobin Yaniv Test A-a O2 Difference Respiratory Index Hgb O2 Saturation Liter Flow FiO2 Sodium 140 Potassium 4.7 Chloride 95 L Carbon Dioxide 40 H* Anion Gap 10 BUN 49 H Creatinine 1.4 H Est GFR ( Amer) 45 Est GFR (Non-Af Amer) 37 Random Glucose 150 H Calcium 8.3 L Phosphorus 3.7 Magnesium 2.3 Iron 38 TIBC 238 L % Saturation 16 L Ferritin 61.8 Total Bilirubin 0.5 AST 62 H D ALT 179 H D Alkaline Phosphatase 84 Total Protein 6.3 Albumin 2.8 L Globulin 3.5 Albumin/Globulin Ratio 0.8 L Vitamin B12 561 Blood Type Antibody Screen 04/26/17 04/26/17 04/26/17 06:27 10:55 12:15 WBC RBC Hgb Hct MCV MCH MCHC RDW Plt Count MPV Neut % (Auto) Lymph % (Auto) [place] % (Auto) Eos % (Auto) Baso % (Auto) Neut # Lymph # [place] # Eos # Baso # Neutrophils % (Manual) Band Neutrophils % Lymphocytes % (Manual) Monocytes % (Manual) Platelet Estimate Polychromasia Hypochromasia (manual) Anisocytosis (manual) Target Cells Ovalocytes Retic Count 2.2 H Puncture Site Ra pCO2 29 L pO2 165 H HCO3 20.5 L ABG pH 7.40 ABG Total CO2 18.9 L ABG O2 Saturation 99.2 H ABG Base Excess -5.7 L ABG Hemoglobin 11.9 ABG Carboxyhemoglobin 1.4 POC ABG HHb (Measured) 0.8 ABG Methemoglobin 1.0 Yaniv Test Pos A-a O2 Difference 55.0 Respiratory Index 0.3 Hgb O2 Saturation 96.7 Liter Flow 4.0 FiO2 36.0 Sodium Potassium Chloride Carbon Dioxide Anion Gap BUN Creatinine Est GFR ( Amer) Est GFR (Non-Af Amer) Random Glucose Calcium Phosphorus Magnesium Iron TIBC % Saturation Ferritin Total Bilirubin AST ALT Alkaline Phosphatase Total Protein Albumin Globulin Albumin/Globulin Ratio Vitamin B12 Blood Type O POSITIVE Antibody Screen Negative Assessment & Plan (1) Acute respiratory failure Assessment and Plan: secondary to COPD/CHF Continue IV steroids, nebulizer treatment and diuretics as needed Continue digoxin BiPAP as needed Status: Resolved (2) CHF exacerbation Status: Acute (3) Atrial fibrillation Status: Chronic
--- NOTE | 2017-04-26 21:27 | CP.PCM.PN ---
Subjective - Date & Time of Evaluation Date of Evaluation: 04/26/17 Time of Evaluation: 20:00 - Subjective Subjective: Patient awake, confused, in no respiratory distress. Has no complaint now. BP: 120/60 HR 77 irregular. Telemetry : RSR with frequent PAC's. BUN: 49 creatinine:1.4 Objective - Vital Signs/Intake and Output Vital Signs (last 24 hours): Temp Pulse Resp BP Pulse Ox 98.2 F 79 19 127/70 100 04/26/17 18:11 04/26/17 20:00 04/26/17 20:00 04/26/17 20:00 04/26/17 20:00 Intake and Output: 04/26/17 04/27/17 18:59 06:59 Intake Total 325 Output Total 720 Balance -395 - Medications Medications: Current Medications Albuterol/Ipratropium (Duoneb 3 Mg/0.5 Mg (3 Ml) Ud) 3 ml INH RQ6 [facility] Last Admin: 04/26/17 19:33 Dose: 3 ml Digoxin (Lanoxin) 0.125 mg PO DAILY@1800 [facility] Last Admin: 04/26/17 18:00 Dose: Not Given Famotidine (Pepcid) 20 mg IVP DAILY [facility] Furosemide (Lasix) 20 mg PO DAILY [facility] Last Admin: 04/26/17 10:04 Dose: 20 mg Methylprednisolone (Solu-Medrol) 20 mg IVP DAILY [facility] Last Admin: 04/26/17 09:40 Dose: 20 mg Rivaroxaban (Xarelto) 15 mg PO DAILY [facility] Last Admin: 04/26/17 09:41 Dose: 15 mg - Labs Labs: 04/26/17 06:27 04/26/17 06:27 PT 14.9 SECONDS (9.7-12.2) H 04/21/17 21:48 INR 1.3 04/21/17 21:48 APTT 35 SECONDS (21-34) H 04/21/17 21:48 - Constitutional Appears: No Acute Distress, Chronically Ill - Head Exam Head Exam: NORMAL INSPECTION - Eye Exam Eye Exam: Normal appearance - ENT Exam ENT Exam: Normal Exam - Neck Exam Neck Exam: Normal Inspection - Respiratory Exam Respiratory Exam: Clear to Ausculation Bilateral - Cardiovascular Exam Cardiovascular Exam: Irregular Rhythm - GI/Abdominal Exam GI & Abdominal Exam: Soft, Normal Bowel Sounds - Rectal Exam Rectal Exam: Deferred - Extremities Exam Extremities Exam: Normal Inspection - Back Exam Back Exam: NORMAL INSPECTION - Neurological Exam Neurological Exam: Alert, Awake - Psychiatric Exam Psychiatric exam: Anxious - Skin Skin Exam: Dry, Intact, Normal Color, Warm Assessment and Plan (1) Acute diastolic (congestive) heart failure Status: Resolved (2) CHF exacerbation Assessment & Plan: Add Hydralazine. Status: Resolved (3) Acute respiratory failure Status: Resolved
[2017-04-27] MEDS: Albuterol-Ipratrop 3 mg / 0.5 (3 ml) UD INH SCH ×4 (01:14→19:19)
--- NOTE | 2017-04-27 11:10 | CP.PCM.PN ---
Subjective - Date & Time of Evaluation Date of Evaluation: 04/27/17 Time of Evaluation: 11:05 - Subjective Subjective: Patient awake and confused. Undergoing blood transfusion. For MRI post transfusion. More comfortable today. Objective - Vital Signs/Intake and Output Vital Signs (last 24 hours): Temp Pulse Resp BP Pulse Ox 97.6 F 92 H 16 126/63 100 04/27/17 09:30 04/27/17 09:30 04/27/17 09:30 04/27/17 09:30 04/27/17 04:00 Intake and Output: 04/27/17 04/27/17 06:59 18:59 Intake Total 0 Output Total 150 Balance -150 0 - Medications Medications: Current Medications Albuterol/Ipratropium (Duoneb 3 Mg/0.5 Mg (3 Ml) Ud) 3 ml INH RQ6 [facility] Last Admin: 04/27/17 07:52 Dose: 3 ml Alprazolam (Xanax) 0.25 mg PO STAT [facility] Stop: 04/27/17 11:05 Digoxin (Lanoxin) 0.125 mg PO DAILY@1800 [facility] Last Admin: 04/26/17 18:00 Dose: Not Given Famotidine (Pepcid) 20 mg IVP DAILY [facility] Furosemide (Lasix) 20 mg PO DAILY [facility] Last Admin: 04/26/17 10:04 Dose: 20 mg Hydralazine HCl (Apresoline) 10 mg PO BID [facility] Rivaroxaban (Xarelto) 15 mg PO DAILY [facility] Last Admin: 04/26/17 09:41 Dose: 15 mg - Labs Labs: 04/26/17 06:27 04/26/17 06:27 PT 14.9 SECONDS (9.7-12.2) H 04/21/17 21:48 INR 1.3 04/21/17 21:48 APTT 35 SECONDS (21-34) H 04/21/17 21:48 - Constitutional Appears: Non-toxic, No Acute Distress, Chronically Ill - Head Exam Head Exam: ATRAUMATIC, NORMAL INSPECTION, NORMOCEPHALIC - Eye Exam Eye Exam: Normal appearance Pupil Exam: PERRL - ENT Exam ENT Exam: Normal Exam - Neck Exam Neck Exam: Full ROM, Normal Inspection - Respiratory Exam Respiratory Exam: Decreased Breath Sounds, Prolonged Expiratory Phase, NORMAL BREATHING PATTERN - Cardiovascular Exam Cardiovascular Exam: Irregular Rhythm, +S1, +S2 - GI/Abdominal Exam GI & Abdominal Exam: Soft, Normal Bowel Sounds - Rectal Exam Rectal Exam: Deferred - Neurological Exam Neurological Exam: Altered, Awake - Skin Skin Exam: Dry, Intact, Normal Color, Warm Assessment and Plan (1) Abdominal pain Status: Resolved (2) Hypercapnic respiratory failure Status: Resolved (3) Hyperkalemia Status: Resolved (4) Congestive heart failure (CHF) Status: Acute (5) Coronary heart disease Status: Chronic (6) Cerebral embolism Status: Acute (7) Atrial fibrillation Status: Chronic (8) Anemia Status: Chronic (9) COPD (chronic obstructive pulmonary disease) Status: Chronic - Assessment and Plan (Free Text) Assessment: Status : Acute Assessment: Acute respiratory failure Acute congestive heart failure Coronary heart disease. Atrial fibrillation Anemia. Possible cerebral embolism/infarction. COPD HTN Plan: Plan: MRI.of the head. Continue respiratory support Continue Lasix, Hydralazine, Digoxin.
--- NOTE | 2017-04-27 11:52 | CP.PCM.PN ---
Subjective - Date & Time of Evaluation Date of Evaluation: 04/27/17 Time of Evaluation: 10:30 - Subjective Subjective: patient seen and examined. denies shortness of breath, denies cough Patient depressed and crying Getting packed RED BLOOD CELLS Objective - Vital Signs/Intake and Output Vital Signs (last 24 hours): Temp Pulse Resp BP Pulse Ox 97.9 F 84 16 149/98 H 100 04/27/17 11:44 04/27/17 11:44 04/27/17 11:44 04/27/17 11:44 04/27/17 04:00 Intake and Output: 04/27/17 04/27/17 06:59 18:59 Intake Total 335 Output Total 150 Balance -150 335 - Medications Medications: Current Medications Albuterol/Ipratropium (Duoneb 3 Mg/0.5 Mg (3 Ml) Ud) 3 ml INH RQ6 [facility] Last Admin: 04/27/17 07:52 Dose: 3 ml Digoxin (Lanoxin) 0.125 mg PO DAILY@1800 [facility] Last Admin: 04/26/17 18:00 Dose: Not Given Famotidine (Pepcid) 20 mg IVP DAILY [facility] Last Admin: 04/27/17 11:21 Dose: 20 mg Furosemide (Lasix) 20 mg PO DAILY [facility] Last Admin: 04/27/17 11:20 Dose: 20 mg Hydralazine HCl (Apresoline) 10 mg PO BID [facility] Last Admin: 04/27/17 11:21 Dose: 10 mg Rivaroxaban (Xarelto) 15 mg PO DAILY [facility] Last Admin: 04/27/17 11:21 Dose: 15 mg - Labs Labs: 04/26/17 06:27 04/26/17 06:27 PT 14.9 SECONDS (9.7-12.2) H 04/21/17 21:48 INR 1.3 04/21/17 21:48 APTT 35 SECONDS (21-34) H 04/21/17 21:48 - Head Exam Head Exam: ATRAUMATIC, NORMOCEPHALIC - ENT Exam ENT Exam: Mucous Membranes Moist - Neck Exam Neck Exam: Normal Inspection - Respiratory Exam Respiratory Exam: Decreased Breath Sounds - Cardiovascular Exam Cardiovascular Exam: REGULAR RHYTHM - GI/Abdominal Exam GI & Abdominal Exam: Soft Assessment and Plan (1) COPD (chronic obstructive pulmonary disease) Assessment & Plan: CONTINUE NEBULIZER TREATMEN< Followup ABG, steroids Getting PRBCs and follow up CBC Status: Chronic (2) CHF exacerbation Status: Resolved (3) Atrial fibrillation Status: Chronic
--- NOTE | 2017-04-27 14:20 | MRI ---
PROCEDURE: MRI BRAIN WITHOUT CONTRAST HISTORY: Altered mental status COMPARISON: Noncontrast head CT from 04/22/2017 seen and MRI brain from 03/14/2015 TECHNIQUE: Multiplanar, multisequence MR images of the brain were obtained without intravenous contrast enhancement. FINDINGS: HEMORRHAGE: None DWI: No evidence of an acute or early subacute infarction. BRAIN PARENCHYMA: There are severe chronic microangiopathic changes. There is an old lacunar infarction in the right very frontal white matter. There is no mass, mass effect or abnormal extra-axial fluid collection. The midline sagittal structures are normal. VENTRICLES: There is moderate age-related global parenchymal volume loss and proportionate enlargement of the ventricles and cortical sulci. CRANIUM: There is normal bone marrow signal pattern. ORBITS: Grossly unremarkable. PARANASAL SINUSES/MASTOIDS: There is fluid level in the left maxillary sinus. The remaining included paranasal sinuses are clear. There is a right mastoid effusion. The left mastoid air cells are predominantly clear. VASCULAR SYSTEM: There are normal signal voids in the larger intracranial arteries. OTHER FINDINGS: None. IMPRESSION: 1. No acute intracranial abnormality. 2. Severe chronic microangiopathic changes and moderate age-related global parenchymal volume loss. 3. Fluid level in the left maxillary sinus could represent acute sinusitis in the appropriate clinical setting.
[2017-04-27] MEDS: Digoxin 125 mcg (0.125 mg) Tab PO SCH (17:47)
[2017-04-27 18:12] LABS: BASO % 0.3 % (0.0-2.0); EOS # 0.1 K/uL (0.0-0.7); HEMOGLOBIN 12.6 g/dL (11.0-16.0); LYMPH # 0.8 K/uL (1.0-4.3); LYMPH % 11.4 % (20.0-40.0); MEAN CELL VOLUME 87.4 fL (81.0-99.0); MEAN CORPUSCULAR HEMOGLOBIN 27.7 pg (27.0-31.0); MEAN CORPUSCULAR HGB CONC 31.7 g/dL (33.0-37.0); MEAN PLATELET VOLUME 7.8 fL (7.2-11.7); MONO # 0.8 K/uL (0.0-0.8); MONO % 11.2 % (0.0-10.0); NEUT # 5.6 K/uL (1.8-7.0); NEUT % 76.1 % (50.0-75.0); RBC 4.54 Mil/uL (3.80-5.20); RED CELL DISTRIBUTION WIDTH 18.6 % (11.5-14.5); WHITE BLOOD COUNT 7.4 K/uL (4.8-10.8)
[2017-04-27 18:18] LABS: ALBUMIN 3.4 g/dL (3.5-5.0)
[2017-04-27 18:21] LABS: ALB/GLOB RATIO 0.9 (1.0-2.1)
[2017-04-27 18:22] LABS: CALCIUM 9.5 mg/dl (8.6-10.4); MAGNESIUM 2.4 mg/dL (1.6-2.3)
[2017-04-27] MEDS ORDERED: Sod Polystyrene Sulf 15 gm/60 ml Oral Susp PO ONE (18:45)
--- NOTE | 2017-04-27 19:29 | CP.PCM.CON ---
History of Present Illness - History of Present Illness History of Present Illness: This is a case of 72 yr old female admited for exacerbation of CHF and hyperkalemia. Patient has hx of dementia and has been constantly calling staff asking to go home and aslo looking fo rher family. Patient referred by Dr. Balderrama. Patient currently in ICU bed #17 and looking fo her daughter to take her home. Patient cannot remember if her family did visit her today. Staff reports her BP gets elevated when she gets anxious and asking for this MD to give her mild sedative to calm her down. Past psych hx- hx of dementia Medical hx- hx of CHF, Respiratory failure, HTN, Drug and alcohol hx- denies any Psychosocial hx- pt lives with family. MSE_ frail looking female, skinny looking, oriented x person only, still confused and wants to go home. Mood is anxious, restless, affect is reactive. sppech is spontaneous. TP- confused. TC- no si or hi, no psychosis. Attention/ Memory- limited. Insight and Judgment limited. Impulse control guarded. Review of Systems - Review of Systems Systems not reviewed;Unavailable: Dementia, Altered Mental Status, Uncooperative - Constitutional Constitutional: Weakness - EENT Additional comments: no headache or blurring of vision - Cardiovascular Additional comments: no chest pain - Respiratory Additional comments: no dyspnea - Gastrointestinal Additional comments: no abdominal pain, no nausea - Genitourinary Additional comments: no dysuria - Neurological Neurological: Behavioral Changes, Weakness - Psychiatric Psychiatric: Anxiety, Behavioral Changes, Confusion, Memory Loss Past Patient History - Infectious Disease Hx of Infectious Diseases: None - Past Medical History & Family History Past Medical History?: Yes - Past Social History Smoking Status: Former Smoker Alcohol: None Drugs: Denies Home Situation {Lives}: With Family - CARDIAC Hx Hypercholesterolemia: Yes Hx Hypertension: Yes - PULMONARY Hx Respiratory Disorders: Yes Hx Emphysema: Yes - NEUROLOGICAL Hx Dementia: Yes - HEENT Hx HEENT Problems: Yes Hx Cataracts: Yes (both eyes) - RENAL Hx Chronic Kidney Disease: No - ENDOCRINE/METABOLIC Hx Endocrine Disorders: No - HEMATOLOGICAL/ONCOLOGICAL Hx Blood Disorders: Yes Hx Anemia: Yes - INTEGUMENTARY Hx Dermatological Problems: No - MUSCULOSKELETAL/RHEUMATOLOGICAL Hx Falls: Yes - GASTROINTESTINAL Hx Gastrointestinal Disorders: No - GENITOURINARY/GYNECOLOGICAL Hx Genitourinary Disorders: No - PSYCHIATRIC Hx Psychophysiologic Disorder: No Hx Substance Use: No - SURGICAL HISTORY Hx Surgeries: Yes Hx Cataract Extraction: Yes (2013) - ANESTHESIA Hx Anesthesia: Yes Hx Anesthesia Reactions: No Hx Malignant Hyperthermia: No Has any member of the family had a problem w/ anesthesia?: No Meds Allergies/Adverse Reactions: Allergies Allergy/AdvReac Type Severity Reaction Status Date / Time No Known Allergies Allergy Verified 04/21/17 21:24 - Medications Medications: Current Medications Albuterol/Ipratropium (Duoneb 3 Mg/0.5 Mg (3 Ml) Ud) 3 ml INH RQ6 [facility] Last Admin: 04/27/17 19:19 Dose: 3 ml Alprazolam (Xanax) 0.25 mg PO Q8H PRN PRN Reason: Anxiety Stop: 05/04/17 19:22 Digoxin (Lanoxin) 0.125 mg PO DAILY@1800 [facility] Last Admin: 04/27/17 17:47 Dose: 0.125 mg Famotidine (Pepcid) 20 mg IVP DAILY [facility] Last Admin: 04/27/17 11:21 Dose: 20 mg Furosemide (Lasix) 20 mg PO DAILY [facility] Last Admin: 04/27/17 11:20 Dose: 20 mg Hydralazine HCl (Apresoline) 10 mg PO BID [facility] Last Admin: 04/27/17 17:47 Dose: 10 mg Rivaroxaban (Xarelto) 15 mg PO DAILY [facility] Last Admin: 04/27/17 11:21 Dose: 15 mg Results - Vital Signs Recent Vital Signs: Last Vital Signs Temp 97.9 F 04/27/17 11:44 Pulse 84 04/27/17 11:44 Resp 16 04/27/17 11:44 BP 149/98 H 04/27/17 11:44 Pulse Ox 100 04/27/17 07:30 - Labs Result Diagrams: 04/27/17 18:07 04/27/17 18:07 Labs: Laboratory Results - last 24 hr 04/26/17 04/26/17 04/27/17 09:53 12:15 18:07 WBC 7.4 RBC 4.54 Hgb 12.6 D Hct 39.6 MCV 87.4 D MCH 27.7 MCHC 31.7 L RDW 18.6 H Plt Count 295 MPV 7.8 Neut % (Auto) 76.1 H Lymph % (Auto) 11.4 L [place] % (Auto) 11.2 H Eos % (Auto) 1.0 Baso % (Auto) 0.3 Neut # 5.6 Lymph # 0.8 L [place] # 0.8 Eos # 0.1 Baso # 0.0 Sodium Potassium Chloride Carbon Dioxide Anion Gap BUN Creatinine Est GFR ( Amer) Est GFR (Non-Af Amer) Random Glucose Calcium Phosphorus Magnesium Total Bilirubin AST ALT Alkaline Phosphatase Total Protein Albumin Globulin Albumin/Globulin Ratio RBC Folate 334 Blood Type O POSITIVE Antibody Screen Negative 04/27/17 18:07 WBC RBC Hgb Hct MCV MCH MCHC RDW Plt Count MPV Neut % (Auto) Lymph % (Auto) [place] % (Auto) Eos % (Auto) Baso % (Auto) Neut # Lymph # [place] # Eos # Baso # Sodium 142 Potassium 5.3 H Chloride 95 L Carbon Dioxide 41 H* Anion Gap 12 BUN 45 H Creatinine 1.1 Est GFR ( Amer) 59 Est GFR (Non-Af Amer) 49 Random Glucose 119 H Calcium 9.5 Phosphorus 1.9 L Magnesium 2.4 H Total Bilirubin 0.7 AST 33 ALT 149 H Alkaline Phosphatase 105 Total Protein 7.4 Albumin 3.4 L D Globulin 4.0 H Albumin/Globulin Ratio 0.9 L RBC Folate Blood Type Antibody Screen Assessment & Plan - Assessment and Plan (Free Text) Assessment: Dementia Metabolic encephalopathy Delirium Respiratory failure CHF Plan: May have Xanax 0.25 mg po q 8h prn for anxiety. Continue tx plan as ordered. - Date & Time Date: 04/27/17 Time: 19:37
[2017-04-27] MEDS ORDERED: Digoxin 500 mcg/2ml (0.5 mg/2ml) Inj IVP ONE (23:20)
[2017-04-28] MEDS ORDERED: Metoprolol 1 mg/ml Inj IVP ONE ×2 (00:06→00:10)
[2017-04-28] MEDS: Albuterol-Ipratrop 3 mg / 0.5 (3 ml) UD INH SCH ×4 (02:38→19:29)
[2017-04-28 07:21] LABS: ALBUMIN 3.1 g/dL (3.5-5.0)
[2017-04-28 07:24] LABS: ALB/GLOB RATIO 0.8 (1.0-2.1); AST/SGOT 41 U/L (14-36); GFR AFRICAN-AMERICAN > 60; GFR NON-AFRICAN AMERICAN > 60
[2017-04-28 07:25] LABS: ALT/SGPT 106 U/L (9-52); BLOOD UREA NITROGEN 37 mg/dL (7-17); CALCIUM 8.7 mg/dl (8.6-10.4)
[2017-04-28 07:26] LABS: MAGNESIUM 2.3 mg/dL (1.6-2.3)
[2017-04-28 07:46] LABS: BASO % 0.2 % (0.0-2.0); EOS # 0.1 K/uL (0.0-0.7); HEMOGLOBIN 12.3 g/dL (11.0-16.0); LYMPH # 0.5 K/uL (1.0-4.3); MEAN CORPUSCULAR HEMOGLOBIN 28.2 pg (27.0-31.0); MEAN PLATELET VOLUME 7.9 fL (7.2-11.7); MONO # 0.7 K/uL (0.0-0.8); MONO % 10.5 % (0.0-10.0); NEUT # 5.4 K/uL (1.8-7.0); NEUT % 81.3 % (50.0-75.0); PLATELET COUNT 276 K/uL (130-400); RBC 4.36 Mil/uL (3.80-5.20); RED CELL DISTRIBUTION WIDTH 18.5 % (11.5-14.5); WHITE BLOOD COUNT 6.6 K/uL (4.8-10.8)
[2017-04-28 08:34] LABS: BANDS 1 % (0-2); EOSINOPHIL 1 % (0-4); LYMPHOCYTE 10 % (20-40); MONOCYTE 11 % (0-10); NEUTROPHIL 76 % (50-75); PLATELET ESTIMATE NORMAL (NORMAL); REACTIVE LYMPHOCYTES 1 % (0-0); TOTAL CELLS COUNTED 100
[2017-04-28 08:35] LABS: ANISOCYTOSIS SLIGHT
--- NOTE | 2017-04-28 11:10 | CP.PCM.PN ---
Subjective - Date & Time of Evaluation Date of Evaluation: 04/28/17 Time of Evaluation: 11:05 - Subjective Subjective: Patient was very confused and disoriented yesterday. Given Xana, the Haldol, and fially Ativan 0.5 mgm which helped her anxiety. MRI of the brain did not show an acute infacrt, but showed chronic angiopathic changes and an old lacunar infarct. Hgb done post transfusion with 2 units of PRBC was 12 from 8? K was elevated again and given Kayexelate whiich dropped the K to 4. Objective - Vital Signs/Intake and Output Vital Signs (last 24 hours): Temp Pulse Resp BP Pulse Ox 98.8 F 88 20 131/89 99 04/28/17 08:00 04/28/17 08:20 04/28/17 08:00 04/28/17 08:00 04/28/17 08:00 Intake and Output: 04/28/17 04/28/17 06:59 18:59 Intake Total 20 Output Total 250 Balance -250 20 - Medications Medications: Current Medications Albuterol/Ipratropium (Duoneb 3 Mg/0.5 Mg (3 Ml) Ud) 3 ml INH RQ6 [facility] Last Admin: 04/28/17 07:38 Dose: 3 ml Alprazolam (Xanax) 0.25 mg PO Q8H PRN PRN Reason: Anxiety Stop: 05/04/17 19:22 Last Admin: 04/27/17 20:30 Dose: 0.25 mg Digoxin (Lanoxin) 0.125 mg PO DAILY@1800 [facility] Last Admin: 04/27/17 17:47 Dose: 0.125 mg Famotidine (Pepcid) 20 mg IVP DAILY [facility] Last Admin: 04/28/17 09:57 Dose: 20 mg Furosemide (Lasix) 20 mg PO DAILY [facility] Last Admin: 04/27/17 11:20 Dose: 20 mg Hydralazine HCl (Apresoline) 10 mg PO BID [facility] Last Admin: 04/27/17 17:47 Dose: 10 mg Rivaroxaban (Xarelto) 15 mg PO DAILY [facility] Last Admin: 04/27/17 11:21 Dose: 15 mg - Labs Labs: 04/28/17 07:42 04/28/17 06:45 PT 14.9 SECONDS (9.7-12.2) H 04/21/17 21:48 INR 1.3 04/21/17 21:48 APTT 35 SECONDS (21-34) H 04/21/17 21:48 - Constitutional Appears: No Acute Distress, Agitated, Confused, Chronically Ill - Head Exam Head Exam: ATRAUMATIC, NORMAL INSPECTION, NORMOCEPHALIC - Eye Exam Eye Exam: EOMI, Normal appearance Pupil Exam: NORMAL ACCOMODATION, PERRL - ENT Exam ENT Exam: Mucous Membranes Moist - Neck Exam Neck Exam: Full ROM - Respiratory Exam Respiratory Exam: Decreased Breath Sounds, Prolonged Expiratory Phase - Cardiovascular Exam Cardiovascular Exam: Tachycardia, Irregular Rhythm, +S1, +S2 - GI/Abdominal Exam GI & Abdominal Exam: Soft, Normal Bowel Sounds - Rectal Exam Rectal Exam: Deferred - Extremities Exam Extremities Exam: Full ROM - Back Exam Back Exam: NORMAL INSPECTION - Neurological Exam Neurological Exam: Altered - Psychiatric Exam Psychiatric exam: Agitated, Anxious - Skin Skin Exam: Dry, Intact, Normal Color Assessment and Plan (1) Abdominal pain Status: Resolved (2) Hypercapnic respiratory failure Status: Resolved (3) Hyperkalemia Status: Resolved (4) Congestive heart failure (CHF) Status: Acute (5) Coronary heart disease Status: Chronic (6) Cerebral embolism Status: Acute (7) Atrial fibrillation Status: Chronic (8) Anemia Status: Chronic (9) COPD (chronic obstructive pulmonary disease) Status: Chronic (10) Dementia Status: Acute - Assessment and Plan (Free Text) Assessment: Status---Acute Assessment: Acute respiratory failure CAD Acute diastolic heart failure. COPD, severe Hypertension. Pre diabetes Anemia. Atrial fibrillation Dementia. Plan: plan: Respiratory support. Xanax PRN. Continue Xarelto, Digoxin, Lasix .
--- NOTE | 2017-04-28 13:37 | CP.PCM.PN ---
Subjective - Date & Time of Evaluation Date of Evaluation: 04/28/17 Time of Evaluation: 13:34 - Subjective Subjective: Patient noted to be very drowsy today after being given Ativan 0.5 mg IV x 1 and Ambien 5 mg x 1 lst night. Patient still confused. MSE- elderly female, still confused , drowsy, oriented x 1. speech is slow. affect is restricted. mood is calm. TP- confused. TC- no si or hi, no psychosis. Attention/ Memory limited. Insight and judgment limited. Impulse control guarded. Objective - Vital Signs/Intake and Output Vital Signs (last 24 hours): Temp Pulse Resp BP Pulse Ox 97.7 F 84 17 123/70 98 04/28/17 12:00 04/28/17 12:00 04/28/17 12:00 04/28/17 12:00 04/28/17 12:00 Intake and Output: 04/28/17 04/28/17 06:59 18:59 Intake Total 20 Output Total 250 Balance -250 20 - Medications Medications: Current Medications Albuterol/Ipratropium (Duoneb 3 Mg/0.5 Mg (3 Ml) Ud) 3 ml INH RQ6 [facility] Last Admin: 04/28/17 13:33 Dose: 3 ml Digoxin (Lanoxin) 0.125 mg PO DAILY@1800 [facility] Last Admin: 04/27/17 17:47 Dose: 0.125 mg Famotidine (Pepcid) 20 mg IVP DAILY [facility] Last Admin: 04/28/17 09:57 Dose: 20 mg Furosemide (Lasix) 20 mg PO DAILY [facility] Last Admin: 04/28/17 10:00 Dose: Not Given Hydralazine HCl (Apresoline) 10 mg PO BID [facility] Last Admin: 04/28/17 10:00 Dose: Not Given Lorazepam (Ativan) 0.5 mg IVP Q6H PRN PRN Reason: Anxiety Rivaroxaban (Xarelto) 15 mg PO DAILY [facility] Last Admin: 04/28/17 10:00 Dose: Not Given - Labs Labs: 04/28/17 07:42 04/28/17 06:45 PT 14.9 SECONDS (9.7-12.2) H 04/21/17 21:48 INR 1.3 04/21/17 21:48 APTT 35 SECONDS (21-34) H 04/21/17 21:48 - Constitutional Appears: No Acute Distress, Confused, Cachectic - Head Exam Head Exam: NORMOCEPHALIC - Eye Exam Eye Exam: Normal appearance - ENT Exam ENT Exam: Normal Exam - Neck Exam Neck Exam: Full ROM - Respiratory Exam Respiratory Exam: NORMAL BREATHING PATTERN - Cardiovascular Exam Additional comments: no chest pain - GI/Abdominal Exam Additional comments: no abdominal pain - Exam Additional comments: no dysuria - Extremities Exam Extremities Exam: Full ROM - Neurological Exam Additional comments: very drowsy - Psychiatric Exam Psychiatric exam: Normal Affect, Normal Mood - Skin Skin Exam: Normal Color Assessment and Plan - Assessment and Plan (Free Text) Assessment: Dementia Delirium CHF COPD Plan: D/c Xanax prn May have Ativan 0.5 mg IV q 6hrs prn agitation Continue tx plan
--- NOTE | 2017-04-28 17:25 | CP.PCM.PN ---
Subjective - Date & Time of Evaluation Date of Evaluation: 04/28/17 Time of Evaluation: 10:00 - Subjective Subjective: Patient seen and examined. Status post transfusion of 2 units packed RBCs MRI showed no acute infarct Breathing better Objective - Vital Signs/Intake and Output Vital Signs (last 24 hours): Temp Pulse Resp BP Pulse Ox 97.8 F 86 18 125/84 100 04/28/17 16:00 04/28/17 16:58 04/28/17 16:00 04/28/17 16:00 04/28/17 16:00 Intake and Output: 04/28/17 04/28/17 06:59 18:59 Intake Total 20 Output Total 250 Balance -250 20 - Medications Medications: Current Medications Albuterol/Ipratropium (Duoneb 3 Mg/0.5 Mg (3 Ml) Ud) 3 ml INH RQ6 [facility] Last Admin: 04/28/17 13:33 Dose: 3 ml Digoxin (Lanoxin) 0.125 mg PO DAILY@1800 [facility] Last Admin: 04/27/17 17:47 Dose: 0.125 mg Famotidine (Pepcid) 20 mg IVP DAILY [facility] Last Admin: 04/28/17 09:57 Dose: 20 mg Furosemide (Lasix) 20 mg PO DAILY [facility] Last Admin: 04/28/17 10:00 Dose: Not Given Hydralazine HCl (Apresoline) 10 mg PO BID [facility] Last Admin: 04/28/17 10:00 Dose: Not Given Lorazepam (Ativan) 0.5 mg IVP Q6H PRN PRN Reason: Anxiety Rivaroxaban (Xarelto) 15 mg PO DAILY [facility] Last Admin: 04/28/17 10:00 Dose: Not Given - Labs Labs: 04/28/17 07:42 04/28/17 06:45 PT 14.9 SECONDS (9.7-12.2) H 04/21/17 21:48 INR 1.3 04/21/17 21:48 APTT 35 SECONDS (21-34) H 04/21/17 21:48 - Head Exam Head Exam: ATRAUMATIC, NORMOCEPHALIC - Eye Exam Eye Exam: Normal appearance - ENT Exam ENT Exam: Mucous Membranes Moist - Neck Exam Neck Exam: Normal Inspection - Respiratory Exam Respiratory Exam: Decreased Breath Sounds - Cardiovascular Exam Cardiovascular Exam: REGULAR RHYTHM Assessment and Plan (1) COPD (chronic obstructive pulmonary disease) Assessment & Plan: Continue nebulizer treatment Follow-up ABG Status post transfusion of packed RBCs with normal H&H Continues XARELTO Status: Chronic (2) CHF exacerbation Status: Resolved (3) Atrial fibrillation Status: Chronic
[2017-04-28] MEDS: Digoxin 125 mcg (0.125 mg) Tab PO SCH (18:15)
[2017-04-29] MEDS: Albuterol-Ipratrop 3 mg / 0.5 (3 ml) UD INH SCH ×4 (01:15→19:11)
[2017-04-29 06:54] LABS: BASO # 0.1 K/uL (0.0-0.2); BASO % 1.8 % (0.0-2.0); EOS # 0.1 K/uL (0.0-0.7); EOS % 1.7 % (0.0-4.0); HEMOGLOBIN 12.2 g/dL (11.0-16.0); LYMPH # 0.4 K/uL (1.0-4.3); LYMPH % 7.7 % (20.0-40.0); MEAN CELL VOLUME 88.7 fL (81.0-99.0); MEAN CORPUSCULAR HEMOGLOBIN 27.9 pg (27.0-31.0); MEAN CORPUSCULAR HGB CONC 31.4 g/dL (33.0-37.0); MEAN PLATELET VOLUME 7.8 fL (7.2-11.7); MONO # 0.5 K/uL (0.0-0.8); MONO % 9.2 % (0.0-10.0); NEUT # 4.1 K/uL (1.8-7.0); NEUT % 79.6 % (50.0-75.0); NRBC % 0.1 % (0.0-2.0); PLATELET COUNT 263 K/uL (130-400); RBC 4.37 Mil/uL (3.80-5.20); RED CELL DISTRIBUTION WIDTH 18.3 % (11.5-14.5); WHITE BLOOD COUNT 5.2 K/uL (4.8-10.8)
[2017-04-29 07:05] LABS: ALBUMIN 2.8 g/dL (3.5-5.0)
[2017-04-29 07:08] LABS: ALB/GLOB RATIO 0.8 (1.0-2.1); ALT/SGPT 87 U/L (9-52); AST/SGOT 22 U/L (14-36); BLOOD UREA NITROGEN 38 mg/dL (7-17); GFR AFRICAN-AMERICAN > 60; GFR NON-AFRICAN AMERICAN 54
[2017-04-29 07:09] LABS: CALCIUM 8.4 mg/dl (8.6-10.4); MAGNESIUM 2.3 mg/dL (1.6-2.3)
--- NOTE | 2017-04-29 07:40 | CP.PCM.PN ---
Subjective - Date & Time of Evaluation Date of Evaluation: 04/29/17 Time of Evaluation: 07:35 - Subjective Subjective: Very agitated. Patient has to be given Ativan 0.5 mgm to calm her down. Very confused, and agitated. Objective - Vital Signs/Intake and Output Vital Signs (last 24 hours): Temp Pulse Resp BP Pulse Ox 98.4 F 105 H 18 113/70 100 04/29/17 04:00 04/29/17 05:20 04/29/17 05:20 04/29/17 04:14 04/29/17 05:20 Intake and Output: 04/29/17 04/29/17 06:59 18:59 Intake Total 420 Output Total 350 Balance 70 - Medications Medications: Current Medications Albuterol/Ipratropium (Duoneb 3 Mg/0.5 Mg (3 Ml) Ud) 3 ml INH RQ6 [facility] Last Admin: 04/29/17 01:15 Dose: Not Given Digoxin (Lanoxin) 0.125 mg PO DAILY@1800 [facility] Last Admin: 04/28/17 18:15 Dose: Not Given Famotidine (Pepcid) 20 mg IVP DAILY [facility] Last Admin: 04/28/17 09:57 Dose: 20 mg Furosemide (Lasix) 20 mg PO DAILY [facility] Last Admin: 04/28/17 10:00 Dose: Not Given Hydralazine HCl (Apresoline) 10 mg PO BID [facility] Last Admin: 04/28/17 18:15 Dose: Not Given Lorazepam (Ativan) 0.5 mg IVP Q6H PRN PRN Reason: Anxiety Last Admin: 04/28/17 23:52 Dose: 0.5 mg Rivaroxaban (Xarelto) 15 mg PO DAILY [facility] Last Admin: 04/28/17 10:00 Dose: Not Given - Labs Labs: 04/29/17 06:46 04/29/17 06:46 PT 14.9 SECONDS (9.7-12.2) H 04/21/17 21:48 INR 1.3 04/21/17 21:48 APTT 35 SECONDS (21-34) H 04/21/17 21:48 - Constitutional Appears: No Acute Distress, Chronically Ill - Head Exam Head Exam: ATRAUMATIC, NORMAL INSPECTION, NORMOCEPHALIC - Eye Exam Pupil Exam: PERRL - Neck Exam Neck Exam: Full ROM - Respiratory Exam Respiratory Exam: Decreased Breath Sounds, Prolonged Expiratory Phase - Cardiovascular Exam Cardiovascular Exam: Tachycardia, +S1, +S2 - GI/Abdominal Exam GI & Abdominal Exam: Normal Bowel Sounds - Rectal Exam Rectal Exam: Deferred - Extremities Exam Extremities Exam: Full ROM - Back Exam Back Exam: NORMAL INSPECTION - Neurological Exam Neurological Exam: Altered, Awake - Psychiatric Exam Psychiatric exam: Agitated, Anxious - Skin Skin Exam: Dry, Intact, Normal Color, Warm Assessment and Plan (1) Abdominal pain Status: Resolved (2) Hypercapnic respiratory failure Status: Resolved (3) Hyperkalemia Status: Resolved (4) Congestive heart failure (CHF) Status: Acute (5) Coronary heart disease Status: Chronic (6) Cerebral embolism Status: Acute (7) Atrial fibrillation Status: Chronic (8) Anemia Status: Chronic (9) COPD (chronic obstructive pulmonary disease) Status: Chronic (10) Dementia Status: Acute - Assessment and Plan (Free Text) Assessment: Status--Acute. Plan: Plan: Continue Lasix, Ativan, Digoxin, Cardiac monitoring.
[2017-04-29 08:46] LABS: ANISOCYTOSIS SLIGHT; EOSINOPHIL 1 % (0-4); HYPOCHROMIC SLIGHT; LYMPHOCYTE 9 % (20-40); MICROCYTOSIS SLIGHT; MONOCYTE 8 % (0-10); NEUTROPHIL 81 % (50-75); PLATELET ESTIMATE NORMAL (NORMAL); POIKILOCYTOSIS SLIGHT; REACTIVE LYMPHOCYTES 1 % (0-0); TOTAL CELLS COUNTED 100
[2017-04-29 08:47] LABS: OVALOCYTES SLIGHT
--- NOTE | 2017-04-29 16:05 | CP.PCM.PN ---
Subjective - Date & Time of Evaluation Date of Evaluation: 04/29/17 Time of Evaluation: 16:01 - Subjective Subjective: Patient seen in ICU, still very confused and wants to go home. Patient cannot even remember her own name when asked. She is looking for her daughter. Patient was given Ativan prn for control of agitation. MSE_ elderly female, still very confused and screaming, oriented only to person , affect is restricted, mood is dysphoric, anxious, speech is spontaneous. TP- still very confused TC- no si or hi. wants to go home. Attention and memory limited. Insight and Judgment limited. Impulse control guarded. Objective - Vital Signs/Intake and Output Vital Signs (last 24 hours): Temp Pulse Resp BP Pulse Ox 98.1 F 93 H 32 H 129/84 100 04/29/17 12:00 04/29/17 15:00 04/29/17 13:00 04/29/17 12:14 04/29/17 15:00 Intake and Output: 04/29/17 04/29/17 06:59 18:59 Intake Total 420 Output Total 350 Balance 70 - Medications Medications: Current Medications Albuterol/Ipratropium (Duoneb 3 Mg/0.5 Mg (3 Ml) Ud) 3 ml INH RQ6 [facility] Last Admin: 04/29/17 13:10 Dose: 3 ml Digoxin (Lanoxin) 0.125 mg PO DAILY@1800 [facility] Last Admin: 04/28/17 18:15 Dose: Not Given Famotidine (Pepcid) 20 mg IVP DAILY [facility] Last Admin: 04/29/17 10:52 Dose: 20 mg Furosemide (Lasix) 20 mg PO DAILY [facility] Last Admin: 04/29/17 10:42 Dose: 20 mg Hydralazine HCl (Apresoline) 10 mg PO BID [facility] Last Admin: 04/29/17 10:42 Dose: 10 mg Lorazepam (Ativan) 0.5 mg IVP Q6H PRN PRN Reason: Anxiety Last Admin: 04/28/17 23:52 Dose: 0.5 mg - Labs Labs: 04/29/17 06:46 04/29/17 06:46 PT 14.9 SECONDS (9.7-12.2) H 04/21/17 21:48 INR 1.3 04/21/17 21:48 APTT 35 SECONDS (21-34) H 04/21/17 21:48 - Constitutional Appears: No Acute Distress, Agitated, Confused, Chronically Ill - Head Exam Head Exam: NORMOCEPHALIC - Eye Exam Eye Exam: Normal appearance Pupil Exam: NORMAL ACCOMODATION - ENT Exam ENT Exam: Normal Exam - Neck Exam Neck Exam: Full ROM - Respiratory Exam Respiratory Exam: NORMAL BREATHING PATTERN - Cardiovascular Exam Additional comments: no chest pain - GI/Abdominal Exam Additional comments: no abdominal pain, appetite is variable - Exam Additional comments: no dysuria - Extremities Exam Extremities Exam: Full ROM - Back Exam Additional comments: no back pain - Neurological Exam Neurological Exam: Abnormal Gait, Altered - Psychiatric Exam Psychiatric exam: Agitated, Anxious - Skin Skin Exam: Normal Color Assessment and Plan - Assessment and Plan (Free Text) Assessment: Dementia Delirium metabolic encephalopathy CHF, COPD Plan: May continue Ativan prn as ordered for agitation. May have Ambien 5 mg po hs prn for insomnia. Continue tx plan as outlined.
[2017-04-29] MEDS: Digoxin 125 mcg (0.125 mg) Tab PO SCH (18:00)
[2017-04-30] MEDS: Albuterol-Ipratrop 3 mg / 0.5 (3 ml) UD INH SCH ×4 (01:51→19:18)
[2017-04-30 06:32] LABS: BASO % 0.2 % (0.0-2.0); EOS # 0.1 K/uL (0.0-0.7); EOS % 3.2 % (0.0-4.0); HEMOGLOBIN 11.6 g/dL (11.0-16.0); LYMPH # 0.4 K/uL (1.0-4.3); LYMPH % 11.6 % (20.0-40.0); MEAN CELL VOLUME 88.2 fL (81.0-99.0); MEAN CORPUSCULAR HEMOGLOBIN 28.2 pg (27.0-31.0); MEAN PLATELET VOLUME 7.7 fL (7.2-11.7); MONO # 0.5 K/uL (0.0-0.8); MONO % 14.4 % (0.0-10.0); NEUT # 2.6 K/uL (1.8-7.0); NEUT % 70.6 % (50.0-75.0); NRBC % 0.1 % (0.0-2.0); RBC 4.13 Mil/uL (3.80-5.20); RED CELL DISTRIBUTION WIDTH 17.6 % (11.5-14.5); WHITE BLOOD COUNT 3.7 K/uL (4.8-10.8)
[2017-04-30 06:35] LABS: ALBUMIN 2.7 g/dL (3.5-5.0)
[2017-04-30 06:38] LABS: ALB/GLOB RATIO 0.8 (1.0-2.1); CALCIUM 8.5 mg/dl (8.6-10.4)
[2017-04-30 06:39] LABS: MAGNESIUM 2.3 mg/dL (1.6-2.3)
--- NOTE | 2017-04-30 11:07 | CP.PCM.DIS ---
Provider - Provider Date of Admission: 04/22/17 00:00 Attending physician: Claritza Balderrama MD Time Spent in preparation of Discharge (in minutes): 60 Diagnosis - Discharge Diagnosis (1) Abdominal pain Status: Resolved (2) Hypercapnic respiratory failure Status: Resolved (3) Hyperkalemia Status: Resolved (4) Congestive heart failure (CHF) Status: Acute (5) Coronary heart disease Status: Chronic (6) Cerebral embolism Status: Acute (7) Atrial fibrillation Status: Chronic (8) Anemia Status: Chronic (9) COPD (chronic obstructive pulmonary disease) Status: Chronic (10) Dementia Status: Acute Hospital Course - Lab Results Lab Results: Micro Results 04/22/17 02:37 Nose MRSA Culture (Admit) - Final MRSA NOT DETECTED Most Recent Lab Values WBC 3.7 K/uL (4.8-10.8) L 04/30/17 06:15 RBC 4.13 Mil/uL (3.80-5.20) 04/30/17 06:15 Hgb 11.6 g/dL (11.0-16.0) 04/30/17 06:15 Hct 36.4 % (34.0-47.0) 04/30/17 06:15 MCV 88.2 fL (81.0-99.0) 04/30/17 06:15 MCH 28.2 pg (27.0-31.0) 04/30/17 06:15 MCHC 32.0 g/dL (33.0-37.0) L 04/30/17 06:15 RDW 17.6 % (11.5-14.5) H 04/30/17 06:15 Plt Count 269 K/uL (130-400) 04/30/17 06:15 MPV 7.7 fL (7.2-11.7) 04/30/17 06:15 Neut % (Auto) 70.6 % (50.0-75.0) 04/30/17 06:15 Lymph % (Auto) 11.6 % (20.0-40.0) L 04/30/17 06:15 Geary % (Auto) 14.4 % (0.0-10.0) H 04/30/17 06:15 Eos % (Auto) 3.2 % (0.0-4.0) 04/30/17 06:15 Baso % (Auto) 0.2 % (0.0-2.0) 04/30/17 06:15 Neut # 2.6 K/uL (1.8-7.0) 04/30/17 06:15 Lymph # 0.4 K/uL (1.0-4.3) L 04/30/17 06:15 Geary # 0.5 K/uL (0.0-0.8) 04/30/17 06:15 Eos # 0.1 K/uL (0.0-0.7) 04/30/17 06:15 Baso # 0.0 K/uL (0.0-0.2) 04/30/17 06:15 Neutrophils % (Manual) 81 % (50-75) H 04/29/17 06:46 Band Neutrophils % 1 % (0-2) 04/28/17 07:42 Lymphocytes % (Manual) 9 % (20-40) L 04/29/17 06:46 Reactive Lymphs % 1 % (0-0) H 04/29/17 06:46 Monocytes % (Manual) 8 % (0-10) 04/29/17 06:46 Eosinophils % (Manual) 1 % (0-4) 04/29/17 06:46 Toxic Granulation Present 04/25/17 06:51 Platelet Estimate Normal (NORMAL) 04/29/17 06:46 Large Platelets Present 04/25/17 06:51 Polychromasia Slight 04/26/17 06:27 Hypochromasia (manual) Slight 04/29/17 06:46 Poikilocytosis (manual Slight 04/29/17 06:46 Anisocytosis (manual) Slight 04/29/17 06:46 Microcytosis (manual) Slight 04/29/17 06:46 Macrocytosis (manual) Slight 04/29/17 06:46 Target Cells Slight 04/26/17 06:27 Ovalocytes Slight 04/29/17 06:46 Racheal Cells Slight 04/25/17 06:51 Schistocytes Slight 04/25/17 06:51 Retic Count 2.2 % (0.5-1.5) H 04/26/17 06:27 PT 14.9 SECONDS (9.7-12.2) H 04/21/17 21:48 INR 1.3 04/21/17 21:48 APTT 35 SECONDS (21-34) H 04/21/17 21:48 Puncture Site Ra 04/26/17 10:55 pCO2 29 mm/Hg (35-45) L 04/26/17 10:55 pO2 165 mm/Hg (80-100) H 04/26/17 10:55 HCO3 20.5 mmol/L (21-28) L 04/26/17 10:55 ABG pH 7.40 (7.35-7.45) 04/26/17 10:55 ABG Total CO2 18.9 mmol/L (22-28) L 04/26/17 10:55 ABG O2 Saturation 99.2 % (95-98) H 04/26/17 10:55 ABG Base Excess -5.7 mmol/L (-2.0-3.0) L 04/26/17 10:55 ABG Hemoglobin 11.9 g/dL (11.7-17.4) 04/26/17 10:55 ABG Carboxyhemoglobin 1.4 % (0.5-1.5) 04/26/17 10:55 POC ABG HHb (Measured) 0.8 % (0.0-5.0) 04/26/17 10:55 ABG Methemoglobin 1.0 % (0.0-3.0) 04/26/17 10:55 Yaniv Test Pos 04/26/17 10:55 A-a O2 Difference 55.0 mm/Hg 04/26/17 10:55 Respiratory Index 0.3 04/26/17 10:55 Hgb O2 Saturation 96.7 % (95.0-98.0) 04/26/17 10:55 Liter Flow 4.0 04/26/17 10:55 Mechanical Rate 18 04/24/17 05:40 FiO2 36.0 % 04/26/17 10:55 Tidal Volume 380 04/24/17 05:40 PEEP 5 04/24/17 05:40 Pressure Support 15 04/24/17 11:40 CPAP 5 04/24/17 11:40 Crit Value Called To Dr. rojas 04/24/17 05:40 Crit Value Called By Maggy nunez rcp 04/24/17 05:40 Crit Value Read Back Y 04/24/17 05:40 Blood Gas Notified Time 612 04/24/17 05:40 Sodium 140 mmol/L (132-148) 04/30/17 06:15 Potassium 3.8 mmol/L (3.6-5.2) 04/30/17 06:15 Chloride 91 mmol/L (98-107) L 04/30/17 06:15 Carbon Dioxide 45 mmol/L (22-30) H* 04/30/17 06:15 Anion Gap 8 (10-20) L 04/30/17 06:15 BUN 41 mg/dL (7-17) H 04/30/17 06:15 Creatinine 1.1 MG/DL (0.7-1.2) 04/30/17 06:15 Est GFR ( Amer) 59 04/30/17 06:15 Est GFR (Non-Af Amer) 49 04/30/17 06:15 POC Glucose (mg/dL) 258 mg/dL (65-110) H 04/22/17 00:32 Random Glucose 111 mg/dL (65-105) H 04/30/17 06:15 Hemoglobin A1c 6.8 % (4.2-6.5) H 04/29/17 06:46 Calcium 8.5 mg/dl (8.6-10.4) L 04/30/17 06:15 Phosphorus 3.9 mg/dL (2.5-4.5) 04/30/17 06:15 Magnesium 2.3 mg/dL (1.6-2.3) 04/30/17 06:15 Iron 38 ug/dL (37-170) 04/26/17 06:27 TIBC 238 ug/dL (250-450) L 04/26/17 06:27 % Saturation 16 (20-55) L 04/26/17 06:27 Ferritin 61.8 ng/mL 04/26/17 06:27 Total Bilirubin 0.5 mg/dL (0.2-1.3) 04/30/17 06:15 AST 18 U/L (14-36) 04/30/17 06:15 ALT 70 U/L (9-52) H 04/30/17 06:15 Alkaline Phosphatase 78 U/L (38-126) 04/30/17 06:15 Total Creatine Kinase 43 U/L (30-135) 04/21/17 21:48 CK-MB (Mass) 1.29 ng/mL (0.0-3.38) 04/21/17 21:48 Troponin I 0.0540 ng/mL (0.00-0.120) 04/21/17 21:48 NT-Pro-B Natriuret Pep 08134 pg/mL (0-900) H 04/21/17 21:48 Total Protein 6.0 g/dL (6.3-8.3) L 04/30/17 06:15 Albumin 2.7 g/dL (3.5-5.0) L 04/30/17 06:15 Globulin 3.3 gm/dL (2.2-3.9) 04/30/17 06:15 Albumin/Globulin Ratio 0.8 (1.0-2.1) L 04/30/17 06:15 Triglycerides 73 mg/dL (0-149) D 04/22/17 06:35 Cholesterol 166 mg/dL (0-199) 04/22/17 06:35 LDL Cholesterol Direct 69 mg/dL (0-129) 04/22/17 06:35 HDL Cholesterol 61 mg/dL (30-70) 04/22/17 06:35 Lipase 113 U/L (23-300) 04/21/17 21:48 Vitamin B12 561 pg/mL (239-931) 04/26/17 06:27 RBC Folate 334 ng/mL RBC (>280) 04/26/17 09:53 Procalcitonin 0.19 NG/ML (0.19-0.49) 04/22/17 11:27 Urine Color Wilma (YELLOW) 04/21/17 22:22 Urine Clarity Hazy (Clear) 04/21/17 22:22 Urine pH 5.0 (5.0-8.0) 04/21/17 22:22 Ur Specific [place] 1.024 (1.003-1.030) 04/21/17 22:22 Urine Protein 3+ mg/dL (NEGATIVE) H 04/21/17 22:22 Urine Glucose (UA) 1+ mg/dL (Normal) 04/21/17 22:22 Urine Ketones Negative mg/dL (NEGATIVE) 04/21/17 22:22 Urine Blood 1+ (NEGATIVE) H 04/21/17 22:22 Urine Nitrate Negative (NEGATIVE) 04/21/17 22:22 Urine Bilirubin Negative (NEGATIVE) 04/21/17 22:22 Urine Urobilinogen 4.0 mg/dL (0.2-1.0) H 04/21/17 22:22 Ur Leukocyte Esterase Neg Jose/uL (Negative) 04/21/17 22:22 Urine RBC (Auto) 9 /hpf (0-3) H 04/21/17 22:22 Ur Squamous Epith Cells 1 /hpf (0-5) 04/21/17 22:22 Amorphous Sediment Few /ul (<OCC) H 04/21/17 22:22 Urine Bacteria Occ (<OCC) H 04/21/17 22:22 Hyaline Casts >20 /lpf (0-2) H 04/21/17 22:22 Urine HCG, Qual Negative (NEGATIVE) 04/21/17 22:22 Digoxin 0.7 ng/mL (0.8-2.0) L 04/24/17 11:21 Blood Type O POSITIVE 04/26/17 12:15 Antibody Screen Negative 04/26/17 12:15 - Hospital Course Hospital Course: Patient is very confused. Wants to go home. SOB is better. Heart rate is still in the 80's and 90's. BP is stable. Patient can be discharged today and to have PT as an outpatient. and to see me in the office and DR. Orantes and Dr. Dr. Gomez. - Date & Time of H&P Date of H&P: 04/30/17 Time of H&P: 11:05 Discharge Exam - Head Exam Head Exam: ATRAUMATIC, NORMOCEPHALIC - Eye Exam Eye Exam: Normal appearance Pupil Exam: NORMAL ACCOMODATION, PERRL - Neck Exam Neck exam: Full Rom - Respiratory Exam Respiratory Exam: Decreased Breath Sounds, Prolonged Expiratory Phase, NORMAL BREATHING PATTERN - Cardiovascular Exam Cardiovascular Exam: Tachycardia, Irregular Rhythm, +S1, +S2 - GI/Abdominal Exam GI & Abdominal Exam: Normal Bowel Sounds, Unremarkable - Rectal Exam Rectal Exam: Deferred - Extremities Exam Extremities exam: full ROM - Neurological Exam Neurological exam: Altered - Psychiatric Exam Psychiatric exam: Agitated, Anxious - Skin Skin Exam: Dry, Intact Discharge Plan - Follow Up Plan Condition: FAIR Disposition: HOME/ ROUTINE Patient education suggested?: No Clinical Quality Measures - CQM - Stroke Antithrombotic Prescribed: Yes Anticoagulation Prescribed for Atrial Flutter, Atrial Fibrillation and History of:: Yes Statin prescribed: Yes - CQM - VTE Did patient receive overlap therapy during hosptialization?: No - CQM - Heart Failure Ejection Fraction: 40 % or Greater Left Ventricular Function to be assessed after discharge: Yes SHARMILA Inhibitor Prescribed: Yes Beta-Stepan Prescribed: None Contraindication/Reason for not providing: Patient on Digoxin and cardizem Angiotensin II Receptor Stepan Prescribed: Yes AnticoagulationTherapy for Atrial Fibrillation/Atrialflutter: Yes Aldosterone Antagonist Prescribed: No Contraindication/Reason for not providing: Patient on Lasix and hydralazine. Hydralazine Nitrate Prescribed: Yes Implantable Cardioverter Defibrillator Therapy: No Contraindication/Reason for not providing: No need for this. Cardiac Resynchronization Therapy Prescribed: No Contraindication/Reason for not providing: Patient not a candidate. Will be discharged to: Home Follow Up Date (must be within 7 days from discharge): 04/30/17 Follow Up Time: 09:00
[2017-04-30] MEDS: Digoxin 125 mcg (0.125 mg) Tab PO SCH (17:50)
[2017-05-01] MEDS: Albuterol-Ipratrop 3 mg / 0.5 (3 ml) UD INH SCH ×2 (01:47→07:47)
--- NOTE | 2017-05-01 15:21 | CP.PCM.PN ---
Subjective - Date & Time of Evaluation Date of Evaluation: 05/01/17 Time of Evaluation: 15:17 - Subjective Subjective: Patient seen for follow-up.Patient's family refusing to take pt home and refusing to answer phone calls from staff. Still confused and restless and now transferred to . MSE- elderly female seen in her room, drowsy but still confused, oriented x 1 ( person) only. Speech is slow. Affect is reactive. Mood is dysphoric. TP- still confused off and on. TC- no si or hi, no overt psychosis. Attention and memory limited. Insight and Judgment limited. Impulse control guarded. Objective - Vital Signs/Intake and Output Vital Signs (last 24 hours): Temp Pulse Resp BP Pulse Ox 98.9 F 112 H 18 149/90 95 05/01/17 09:13 05/01/17 12:28 05/01/17 09:13 05/01/17 10:56 05/01/17 12:28 Intake and Output: 05/01/17 05/01/17 06:59 18:59 Intake Total 240 Balance 240 - Medications Medications: Current Medications Albuterol/Ipratropium (Duoneb 3 Mg/0.5 Mg (3 Ml) Ud) 3 ml INH RQ6 [facility] Last Admin: 05/01/17 07:47 Dose: 3 ml Digoxin (Lanoxin) 0.125 mg PO DAILY@1800 [facility] Last Admin: 04/30/17 17:50 Dose: 0.125 mg Famotidine (Pepcid) 20 mg PO DAILY [facility] Last Admin: 05/01/17 13:02 Dose: Not Given Furosemide (Lasix) 20 mg PO DAILY [facility] Last Admin: 05/01/17 10:55 Dose: 20 mg Hydralazine HCl (Apresoline) 10 mg PO BID [facility] Last Admin: 05/01/17 10:55 Dose: 10 mg Lorazepam (Ativan) 0.5 mg IVP Q6H PRN PRN Reason: Anxiety Last Admin: 04/30/17 11:18 Dose: 0.5 mg Zolpidem Tartrate (Ambien) 5 mg PO HS PRN PRN Reason: Insomnia Last Admin: 04/29/17 21:15 Dose: 5 mg - Labs Labs: 04/30/17 06:15 04/30/17 06:15 PT 14.9 SECONDS (9.7-12.2) H 04/21/17 21:48 INR 1.3 04/21/17 21:48 APTT 35 SECONDS (21-34) H 04/21/17 21:48 - Constitutional Appears: No Acute Distress, Agitated, Confused, Cachectic, Chronically Ill - Head Exam Head Exam: NORMOCEPHALIC - Eye Exam Eye Exam: Normal appearance - ENT Exam ENT Exam: Normal Exam - Neck Exam Neck Exam: Full ROM - Respiratory Exam Respiratory Exam: NORMAL BREATHING PATTERN - Cardiovascular Exam Cardiovascular Exam: REGULAR RHYTHM - GI/Abdominal Exam Additional comments: appetite is variable, no abdominal pain - Extremities Exam Extremities Exam: Full ROM - Back Exam Additional comments: no back pain - Neurological Exam Neurological Exam: Altered - Psychiatric Exam Psychiatric exam: Normal Affect, Normal Mood - Skin Skin Exam: Dry, Normal Color Assessment and Plan - Assessment and Plan (Free Text) Assessment: Delirium Metabolic encephalopathy CHF, COPD, HTN, AF Dementia Plan: Put pt in a 4 bedded room for closer monitoring as pt gets confused at night and maybe . Continue Ativan prn and Ambien prn as ordered. Patient may need TALI if pt's family will not take her home as pt has dementia and delirium and will need 24 hour care if sent home.Patient may benefit from TALI for reconditioning
--- NOTE | 2017-05-01 17:55 | CP.PCM.PN ---
Subjective - Date & Time of Evaluation Date of Evaluation: 05/01/17 Time of Evaluation: 08:30 - Subjective Subjective: Patient seen and examined. Lying comfortably in no acute distress Poor appetite denies cough, denies fever clls, denies chest pain Continue nebulizer treatment Objective - Vital Signs/Intake and Output Vital Signs (last 24 hours): Temp Pulse Resp BP Pulse Ox 98.9 F 112 H 18 149/90 95 05/01/17 09:13 05/01/17 12:28 05/01/17 09:13 05/01/17 10:56 05/01/17 12:28 Intake and Output: 05/01/17 05/01/17 06:59 18:59 Intake Total 240 300 Balance 240 300 - Medications Medications: Current Medications Albuterol/Ipratropium (Duoneb 3 Mg/0.5 Mg (3 Ml) Ud) 3 ml INH RQ6 [facility] Last Admin: 05/01/17 07:47 Dose: 3 ml Digoxin (Lanoxin) 0.125 mg PO DAILY@1800 [facility] Last Admin: 04/30/17 17:50 Dose: 0.125 mg Famotidine (Pepcid) 20 mg PO DAILY [facility] Last Admin: 05/01/17 13:02 Dose: Not Given Furosemide (Lasix) 20 mg PO DAILY [facility] Last Admin: 05/01/17 10:55 Dose: 20 mg Hydralazine HCl (Apresoline) 10 mg PO BID [facility] Last Admin: 05/01/17 10:55 Dose: 10 mg Lorazepam (Ativan) 0.5 mg IVP Q6H PRN PRN Reason: Anxiety Last Admin: 04/30/17 11:18 Dose: 0.5 mg Zolpidem Tartrate (Ambien) 5 mg PO HS PRN PRN Reason: Insomnia Last Admin: 04/29/17 21:15 Dose: 5 mg - Labs Labs: 04/30/17 06:15 04/30/17 06:15 PT 14.9 SECONDS (9.7-12.2) H 04/21/17 21:48 INR 1.3 04/21/17 21:48 APTT 35 SECONDS (21-34) H 04/21/17 21:48 Assessment and Plan (1) COPD (chronic obstructive pulmonary disease) Status: Chronic (2) CHF exacerbation Status: Resolved (3) Atrial fibrillation Status: Chronic
[2017-05-01 18:19] VITALS: BP 164/97; PULSE 94; RESP 20; TEMP 98; O2SAT 98
[2017-05-01 18:29] VITALS: PULSE 94
[2017-05-01] MEDS: Digoxin 125 mcg (0.125 mg) Tab PO SCH (18:29)
--- NOTE | 2017-05-01 19:10 | PCM.HF ---
Heart Failure Core Measure - Heart Failure Ejection Fraction: 40 % or Greater (ef 43%) SHARMILA Inhibitor Prescribed: Yes Beta-Stepan Prescribed: None Contraindication/Reason for not providing: copd Angiotensin II Receptor Stepan Prescribed: No Contraindication/Reason for not providing: on sharmila AnticoagulationTherapy for Atrial Fibrillation/Atrialflutter: Yes Aldosterone Antagonist Prescribed: No Contraindication/Reason for not providing: renal dysfunction Hydralazine Nitrate Prescribed: No Contraindication/Reason for not providing: ef >40% Implantable Cardioverter Defibrillator Therapy: No Contraindication/Reason for not providing: ef >40% Cardiac Resynchronization Therapy Prescribed: No Contraindication/Reason for not providing: ef >40% - Follow up Will be discharged to: Home Follow Up Date (must be within 7 days from discharge): 05/05/17 Follow Up Time: 09:00
== END 2017-05-01 20:20 | disposition home or self-care (01) | DRG 291 ==
LOC: C.ER 21:19 → C.6T 04-22 → C.9E 04-22 → C.9I 04-22 01:18 → C.6T 04-30 21:17 → C.3T 05-01 14:14
PROVIDERS: ADMIT Legal Medicine; ATTEND Legal Medicine
PROC: 5A1945Z Respiratory Ventilation, 24-96 Consecutive Hours (ICD-10-PCS; 2017-04-22)
PROC: 0BH17EZ Insertion of Endotracheal Airway into Trachea, Via Natural or Artificial Opening (ICD-10-PCS; 2017-04-22)
PROC: 5A09457 Assistance with Respiratory Ventilation, 24-96 Consecutive Hours, Continuous Positive Airway Pressure (ICD-10-PCS; principal; 2017-04-26)
DX: I11.0 Hypertensive heart disease with heart failure (principal); J96.02 Acute respiratory failure with hypercapnia; G93.41 Metabolic encephalopathy; J44.9 Chronic obstructive pulmonary disease, unspecified; E87.1 Hypo-osmolality and hyponatremia; F05 Delirium due to known physiological condition; I47.1 Supraventricular tachycardia; I50.31 Acute diastolic (congestive) heart failure; E87.5 Hyperkalemia; R10.9 Unspecified abdominal pain; I48.2 Chronic atrial fibrillation; D64.9 Anemia, unspecified; F03.90 Unspecified dementia, unspecified severity, without behavioral disturbance, psychotic disturbance, mood disturbance, and anxiety; E78.5 Hyperlipidemia, unspecified; Z87.891 Personal history of nicotine dependence; I25.10 Atherosclerotic heart disease of native coronary artery without angina pectoris; I27.2 Other secondary pulmonary hypertension; R74.8 Abnormal levels of other serum enzymes; E78.00 Pure hypercholesterolemia, unspecified; F41.9 Anxiety disorder, unspecified; R73.03 Prediabetes; Z86.73 Personal history of transient ischemic attack (TIA), and cerebral infarction without residual deficits

== ENCOUNTER 2017-06-27 14:38 | Inpatient (IN) | payer MEDICARE ==
[2017-06-27 15:02] VITALS: BMI 17.2
[2017-06-27] MEDS ORDERED: Sodium Chloride 0.9% 1,000 ML IV ONE ×2 (15:45→19:59)
--- NOTE | 2017-06-27 15:50 | C.PDOC ---
History Of Present Illness 72 y/o female brought in by family members with c/o declining mental status and health for 2 weeks. Patient has reportedly not been taking PO fluids or food. Denies cough. Patient is reportedly very confused at baseline mental status. Time Seen by Provider: 06/27/17 15:13 Chief Complaint (Nursing): Weakness/Neurological Deficit History Per: Family History/Exam Limitations: clinical condition Current Symptoms Are (Timing): Still Present Fall Associated With With Symptoms: No Recent travel outside of the [place]: No Past Medical History Reviewed: Historical Data, Nursing Documentation, Vital Signs Vital Signs: Last Vital Signs Temp 97.8 F 06/27/17 18:53 Pulse 74 06/27/17 18:53 Resp 18 06/27/17 18:53 BP 112/67 06/27/17 18:53 Pulse Ox 99 06/27/17 18:53 - Medical History PMH: Anemia, Atrial Fibrillation, Dementia, Emphysema, HTN, Hypercholesterolemia - [facility] Procedures ASSISTANCE WITH RESPIRATORY VENTILATION, 24-96 HRS, CPAP (04/22/17) INSERTION OF ENDOTRACHEAL AIRWAY INTO TRACHEA, VIA OPENING (04/22/17) RESPIRATORY VENTILATION, 24-96 CONSECUTIVE HOURS (04/22/17) VACCINATION NEC (03/13/15) Family History: States: Unknown Family Hx - Social History Hx Tobacco Use: No Hx Alcohol Use: No Hx Substance Use: No - Immunization History Hx Tetanus Toxoid Vaccination: No Hx Influenza Vaccination: Yes (2016) Hx Pneumococcal Vaccination: No Review Of Systems Except As Marked, All Systems Reviewed And Found Negative. Constitutional: Negative for: Fever Respiratory: Negative for: Cough, Shortness of Breath Gastrointestinal: Negative for: Vomiting, Diarrhea Skin: Negative for: Rash Neurological: Positive for: Confusion, Altered Mental Status Physical Exam - Physical Exam Appears: Chronically Ill, Other (skeletal, cachectic) Skin: Warm, Dry, Other ((+) skin tenting) Head: Atraumatic, Normacephalic Teeth: Edentulous Chest: Symmetrical Cardiovascular: Rhythm Regular Respiratory: Normal Breath Sounds, No Accessory Muscle Use, No Rales, No Rhonchi , No Wheezing Gastrointestinal/Abdominal: Soft, No Tenderness, No Guarding, No Rebound Back: Normal Inspection Extremity: Normal ROM, Capillary Refill (< 2 sec.) ED Course And Treatment - Laboratory Results Result Diagrams: 06/27/17 16:18 06/27/17 16:18 Lab Interpretation: Abnormal (hyperkalemia, elev bun/creat,glu) ECG: Interpreted By Me ECG Rhythm: Sinus Rhythm ECG Interpretation: Normal (no peaked T^'s) O2 Sat by Pulse Oximetry: 97 (RA) Pulse Ox Interpretation: Normal - Radiology CXR: Interpreted by Me CXR Interpretation: Yes: No Acute Disease Progress Note: CT Head, EKG, CxR, bloodwork ordered. Treated with IV fluids. Kayexylate, insulin, D50 Reevaluation Time: 20:00 Reassessment Condition: Improved - Physician Consult Information Outcome Of Conversation: 1899: d/w Dr. Conchis huerta to tele obs Medical Decision Making Medical Decision Making: prob prerenal renal insufficiency, hyperkalemia empirically treated with Kayexylate, insulin/D50, no acute EKG changes. Disposition Doctor Will See Patient In The: Hospital Counseled Patient/Family Regarding: Studies Performed, Diagnosis - Disposition Disposition: HOSPITALIZED Disposition Time: 20:01 Condition: GOOD - Clinical Impression Clinical Impression: Acute renal insufficiency, Dehydration, Hyperkalemia - Scribe Statement The provider has reviewed the documentation as recorded by the Scribe SM All medical record entries made by the Scribe were at my direction and personally dictated by me. I have reviewed the chart and agree that the record accurately reflects my personal performance of the history, physical exam, medical decision making, and the department course for this patient. I have also personally directed, reviewed, and agree with the discharge instructions and disposition.
[2017-06-27 16:24] LABS: BASO % 0.2 % (0.0-2.0); EOS % 0.3 % (0.0-4.0); HEMATOCRIT 36.7 % (34.0-47.0); LYMPH # 0.7 K/uL (1.0-4.3); LYMPH % 14.8 % (20.0-40.0); MEAN CELL VOLUME 86.6 fL (81.0-99.0); MEAN CORPUSCULAR HEMOGLOBIN 29.1 pg (27.0-31.0); MEAN CORPUSCULAR HGB CONC 33.6 g/dL (33.0-37.0); MEAN PLATELET VOLUME 7.7 fL (7.2-11.7); MONO # 0.3 K/uL (0.0-0.8); NRBC % 0.1 % (0.0-2.0); RED CELL DISTRIBUTION WIDTH 21.5 % (11.5-14.5); WHITE BLOOD COUNT 4.7 K/uL (4.8-10.8)
--- NOTE | 2017-06-27 16:42 | RAD ---
HISTORY: SOB COMPARISON: Chest x-ray performed 04/24/17 TECHNIQUE: Chest, one view. FINDINGS: LUNGS: Hyperinflation. No focal consolidation. Bilateral hilar adenopathy. Biapical pleural thickening. PLEURA: No significant pleural effusion identified. No definite pneumothorax . CARDIOVASCULAR: Borderline cardiomegaly. Atherosclerotic calcifications of the aortic knob. OSSEOUS STRUCTURES: No acute osseous abnormality identified. VISUALIZED UPPER ABDOMEN: Unremarkable. OTHER FINDINGS: None. IMPRESSION: Hyperinflation may be seen in the setting of COPD. Bilateral hilar prominence. Biapical pleural thickening. Borderline cardiomegaly. Atherosclerotic calcifications.
[2017-06-27 16:48] LABS: POTASSIUM 5.8 mmol/L (3.6-5.2)
[2017-06-27 16:49] LABS: BILIRUBIN,TOTAL 0.5 mg/dL (0.2-1.3)
[2017-06-27 16:50] LABS: ALB/GLOB RATIO 0.9 (1.0-2.1); CALCIUM 8.8 mg/dl (8.6-10.4); TOTAL PROTEIN 7.8 g/dL (6.3-8.3)
[2017-06-27 17:00] LABS: TROPONIN I 0.018 ng/mL (0.00-0.120)
[2017-06-27] MEDS ORDERED: Dextrose 50% SYRINGE Inj (50 ml) IV STA (17:53)
[2017-06-27] MEDS ORDERED: (Novolin R) Insulin Human Regular 100 units/ml vial IV STA (17:53)
[2017-06-27] MEDS ORDERED: Sod Polystyrene Sulf 15 gm/60 ml Oral Susp PO ONE (17:53)
--- NOTE | 2017-06-27 17:58 | CT ---
PROCEDURE: CT HEAD WITHOUT CONTRAST. HISTORY: change of MS, AF COMPARISON: None available. TECHNIQUE: Axial computed tomography images were obtained through the head/brain without intravenous contrast. Radiation dose: Total exam DLP = 927.00 mGy-cm. This CT exam was performed using one or more of the following dose reduction techniques: Automated exposure control, adjustment of the mA and/or kV according to patient size, and/or use of iterative reconstruction technique. FINDINGS: HEMORRHAGE: No intracranial hemorrhage. BRAIN: There are mild chronic microangiopathic changes. There is no mass, mass effect or abnormal extra-axial fluid collection.There are coarse atherosclerotic calcifications in the cavernous carotid arteries. VENTRICLES: There is moderate age-related global parenchymal volume loss and proportionate enlargement of the ventricles and cortical sulci. CALVARIUM: The skull base and calvarium are normal. PARANASAL SINUSES: Predominantly clear. MASTOID AIR CELLS: Predominantly clear. OTHER FINDINGS: None. IMPRESSION: No acute intracranial abnormality. Mild chronic microangiopathic changes and moderate age-related global parenchymal volume loss.
[2017-06-27] MEDS ORDERED: Sod Polystyrene Sulf 15 gm/60 ml Oral Susp ONE (18:16)
[2017-06-27] MEDS ORDERED: (Novolin R) Insulin Human Regular 100 units/ml vial ONE (18:17)
[2017-06-27] MEDS ORDERED: Dextrose 50% SYRINGE Inj (50 ml) ONE (18:18)
[2017-06-27] MEDS ORDERED: Sodium Chloride 0.9% 1,000 ML ONE ×2 (20:43→21:53)
[2017-06-27] MEDS: Sodium Chloride 0.9% 1,000 ML IV SCH (20:50)
[2017-06-27 22:31] LABS: RBC URINE 28 /hpf (0-3); URINE BACTERIA MANY (<OCC); URINE BILIRUBIN NEGATIVE (NEGATIVE); URINE BLOOD 2+ (NEGATIVE); URINE COLOR Yellow (YELLOW); URINE GLUCOSE (UA) 2+ mg/dL (Normal); URINE KETONE NEGATIVE (NEGATIVE); URINE LEUKOCYTE ESTERASE 3+ Leu/uL (Negative); URINE PROTEIN 2+ mg/dL (NEGATIVE); URINE UROBILINOGEN NORMAL mg/dL (0.2-1.0); WBC CLUMPS MANY /hpf; WBC URINE 4595 /hpf (0-5)
[2017-06-28] MEDS: Sodium Chloride 0.9% 1,000 ML IV SCH ×5 (00:15→16:00)
[2017-06-28 07:59] LABS: BASO % 0.2 % (0.0-2.0); EOS % 0.1 % (0.0-4.0); HEMATOCRIT 32.2 % (34.0-47.0); LYMPH # 0.7 K/uL (1.0-4.3); LYMPH % 12.1 % (20.0-40.0); MEAN CELL VOLUME 85.9 fL (81.0-99.0); MEAN CORPUSCULAR HEMOGLOBIN 28.2 pg (27.0-31.0); MEAN CORPUSCULAR HGB CONC 32.8 g/dL (33.0-37.0); MEAN PLATELET VOLUME 8.4 fL (7.2-11.7); MONO # 0.3 K/uL (0.0-0.8); MONO % 6.3 % (0.0-10.0); RED CELL DISTRIBUTION WIDTH 21.3 % (11.5-14.5); WHITE BLOOD COUNT 5.4 K/uL (4.8-10.8)
[2017-06-28 08:18] LABS: POTASSIUM 3.9 mmol/L (3.6-5.2)
[2017-06-28 08:21] LABS: CALCIUM 7.6 mg/dl (8.6-10.4)
--- NOTE | 2017-06-28 11:03 | CP.PCM.HP ---
History of Present Illness - History of Present Illness History of Present Illness: History taken from the patient's grandson. patient apparently was not eating for about 2 weeks now. She was taking Ensure Plus but was not drinking enough fluids po. Patient was brought to the ER in a very dehydrated state. Present on Admission - Present on Admission Any Indicators Present on Admission: No Review of Systems - Review of Systems Systems not reviewed;Unavailable: Dementia Review of Systems: patient is non cherent. Always whining and C/O of pain when being touched. - Constitutional Constitutional: As Per HPI, Anorexia, Lethargy, Weight Loss, Weakness - EENT Nose/Mouth/Throat: Dry Mouth - Cardiovascular Cardiovascular: Irregular Heart Rhythm - Gastrointestinal Additional comments: Very anorectic. - Menstruation Menstruation: Post Menopausal - Musculoskeletal Musculoskeletal: Muscle Weakness - Neurological Neurological: Memory Loss, Weakness - Psychiatric Psychiatric: Confusion, Memory Loss Past Patient History - Infectious Disease Hx of Infectious Diseases: None - Tetanus Immunizations Tetanus Immunization: Unknown - Past Medical History & Family History Past Medical History?: Yes - Past Social History Smoking Status: Former Smoker Chewing Tobacco Use: No Cigar Use: No Alcohol: None Drugs: Denies Home Situation {Lives}: With Family - CARDIAC Hx Cardiac Disorders: Yes Hx Atrial Fibrillation: Yes Hx Cardia Arrhythmia: Yes Hx Congestive Heart Failure: Yes Hx Hypercholesterolemia: Yes Hx Hypertension: Yes - PULMONARY Hx Respiratory Disorders: Yes Hx Emphysema: Yes - NEUROLOGICAL Hx Neurological Disorder: Yes Hx Dementia: Yes - HEENT Hx HEENT Problems: Yes Hx Cataracts: Yes (both eyes) - RENAL Hx Chronic Kidney Disease: No - ENDOCRINE/METABOLIC Hx Endocrine Disorders: No - HEMATOLOGICAL/ONCOLOGICAL Hx Blood Disorders: Yes Hx Anemia: Yes - INTEGUMENTARY Hx Dermatological Problems: No - MUSCULOSKELETAL/RHEUMATOLOGICAL Hx Musculoskeletal Disorders: Yes Hx Falls: Yes Hx Unsteady Gait: Yes - GASTROINTESTINAL Hx Gastrointestinal Disorders: Yes Other/Comment: patient is very anorectic. - GENITOURINARY/GYNECOLOGICAL Hx Genitourinary Disorders: No - PSYCHIATRIC Hx Psychophysiologic Disorder: No Hx Substance Use: No - SURGICAL HISTORY Hx Surgeries: Yes Hx Cataract Extraction: Yes (2013) - ANESTHESIA Hx Anesthesia: Yes Hx Anesthesia Reactions: No Hx Malignant Hyperthermia: No Meds Allergies/Adverse Reactions: Allergies Allergy/AdvReac Type Severity Reaction Status Date / Time No Known Allergies Allergy Verified 06/27/17 15:11 Physical Exam - Constitutional Appears: Confused, Cachectic, Chronically Ill - Head Exam Head Exam: ATRAUMATIC, NORMAL INSPECTION, NORMOCEPHALIC - Eye Exam Eye Exam: Normal appearance Pupil Exam: PERRL - ENT Exam ENT Exam: Mucous Membranes Dry - Neck Exam Neck exam: Positive for: Full Rom - Respiratory Exam Respiratory Exam: Clear to Auscultation Bilateral, Prolonged Expiratory Phase, NORMAL BREATHING PATTERN - Cardiovascular Exam Cardiovascular Exam: Tachycardia, Irregular Rhythm, +S1, +S2 - GI/Abdominal Exam GI & Abdominal Exam: Normal Bowel Sounds, Soft - Rectal Exam Rectal Exam: Deferred - Extremities Exam Extremities exam: Positive for: full ROM, normal inspection - Back Exam Back exam: FULL ROM, NORMAL INSPECTION - Neurological Exam Neurological exam: Altered - Psychiatric Exam Psychiatric exam: Agitated - Skin Skin Exam: Dry, Warm Results - Vital Signs Recent Vital Signs: Last Vital Signs Temp 97.5 F L 06/28/17 07:30 Pulse 102 H 06/28/17 07:30 Resp 20 06/28/17 07:30 BP 120/74 06/28/17 07:30 Pulse Ox 95 06/28/17 07:30 - Labs Result Diagrams: 06/28/17 07:32 06/28/17 07:32 Labs: Laboratory Results - last 24 hr 06/27/17 06/28/17 06/28/17 22:18 07:32 07:32 WBC 5.4 RBC 3.74 L Hgb 10.5 L Hct 32.2 L MCV 85.9 MCH 28.2 MCHC 32.8 L RDW 21.3 H Plt Count 152 MPV 8.4 Neut % (Auto) 81.3 H Lymph % (Auto) 12.1 L [place] % (Auto) 6.3 Eos % (Auto) 0.1 Baso % (Auto) 0.2 Neut # 4.4 Lymph # 0.7 L [place] # 0.3 Eos # 0.0 Baso # 0.0 Sodium 141 Potassium 3.9 Chloride 108 H Carbon Dioxide 23 Anion Gap 14 BUN 139 H* D Creatinine 1.9 H Est GFR ( Amer) 31 Est GFR (Non-Af Amer) 26 Random Glucose 104 Calcium 7.6 L Urine Color Yellow Urine Clarity Turbid Urine pH 5.0 Ur Specific [place] 1.011 Urine Protein 2+ H Urine Glucose (UA) 2+ H Urine Ketones Negative Urine Blood 2+ H Urine Nitrate Negative Urine Bilirubin Negative Urine Urobilinogen Normal Ur Leukocyte Esterase 3+ H Urine WBC (Auto) 4595 H Urine RBC (Auto) 28 H Urine WBC Clumps (Auto) Many H Urine Bacteria Many H Assessment & Plan (1) Weakness Status: Acute (2) Acute renal failure (ARF) Status: Acute (3) Malnutrition compromising bodily function Status: Acute (4) Advanced dementia Status: Chronic (5) Dehydration, severe Status: Acute (6) Coronary heart disease Status: Chronic - Assessment and Plan (Free Text) Assessment: Status--Acute Assessment: Acute renal faliure most probably prerenal sec to dehydration. Severe dehydration Dementia moderate. Severe anorexia. CAD Cardiac arrythmia. Malnutrition Plan: plan: Continue IV fluids at 150 cc/hourly. Continue Xarelto Cardiology consult.
[2017-06-28] MEDS ORDERED: Sodium Chloride 0.9% 1,000 ML IV SCH (19:47)
--- NOTE | 2017-06-28 20:10 | CP.PCM.CON ---
History of Present Illness - History of Present Illness History of Present Illness: 72 years old Female brought by the family to the ED because of increasing confusion and lethargy. She was found to have a BUN: 183, a creatinine of 3.1 and a K+: 5.8. She was given IV NS at 150 ml/ hr. In April 2017, she was intubated and put on respirator for an acute respiratory failure due to an acute systolic heart failure. An echocardiogram at that time revealed a marked global hypokinesia of the LV with an LVEF around 30%. She is also known to have a COPD( she is a former cigarette smoker), a hypertension and an intermittent atrial fibrillation. Her. medications include Lisinopril, Digoxin, Xarelto, Lasix, Digoxin, Cardizem, Apresoline, Pravastatin. Review of Systems - Constitutional Constitutional: Anorexia, Lethargy, Weakness - Neurological Neurological: Confusion, Weakness - Psychiatric Psychiatric: Change in Appetite, Confusion Past Patient History - Infectious Disease Hx of Infectious Diseases: None - Tetanus Immunizations Tetanus Immunization: Unknown - Past Medical History & Family History Past Medical History?: Yes - Past Social History Smoking Status: Former Smoker Chewing Tobacco Use: No Cigar Use: No Alcohol: None Drugs: Denies Home Situation {Lives}: With Family Domestic Violence: Negative - CARDIAC Hx Cardiac Disorders: Yes Hx Atrial Fibrillation: Yes Hx Cardia Arrhythmia: Yes Hx Congestive Heart Failure: Yes Hx Hypercholesterolemia: Yes Hx Hypertension: Yes - PULMONARY Hx Respiratory Disorders: Yes Hx Emphysema: Yes - NEUROLOGICAL Hx Neurological Disorder: Yes Hx Dementia: Yes - HEENT Hx HEENT Problems: Yes Hx Cataracts: Yes (both eyes) - RENAL Hx Chronic Kidney Disease: No - ENDOCRINE/METABOLIC Hx Endocrine Disorders: No - HEMATOLOGICAL/ONCOLOGICAL Hx Blood Disorders: Yes Hx Anemia: Yes - INTEGUMENTARY Hx Dermatological Problems: No - MUSCULOSKELETAL/RHEUMATOLOGICAL Hx Musculoskeletal Disorders: Yes Hx Falls: Yes Hx Unsteady Gait: Yes - GASTROINTESTINAL Hx Gastrointestinal Disorders: Yes Other/Comment: patient is very anorectic. - GENITOURINARY/GYNECOLOGICAL Hx Genitourinary Disorders: No - PSYCHIATRIC Hx Psychophysiologic Disorder: No Hx Substance Use: No - SURGICAL HISTORY Hx Surgeries: Yes Hx Cataract Extraction: Yes (2013) - ANESTHESIA Hx Anesthesia: Yes Hx Anesthesia Reactions: No Hx Malignant Hyperthermia: No Meds Allergies/Adverse Reactions: Allergies Allergy/AdvReac Type Severity Reaction Status Date / Time No Known Allergies Allergy Verified 06/27/17 15:11 - Medications Medications: Current Medications Cyproheptadine HCl (Periactin) 4 mg PO BIDPC [facility] Last Admin: 06/28/17 17:29 Dose: 4 mg Sodium Chloride (Sodium Chloride 0.9%) 1,000 mls @ 75 mls/hr IV .[id number] [facility] Rivaroxaban (Xarelto) 10 mg PO DAILY [facility] Last Admin: 06/28/17 10:57 Dose: 10 mg Physical Exam - Constitutional Appears: Confused, Cachectic, Chronically Ill - Head Exam Head Exam: NORMAL INSPECTION - Eye Exam Eye Exam: Normal appearance - Neck Exam Additional comments: Increased jugular venous dilatation. - Respiratory Exam Additional comments: Crackles at both bases. - Cardiovascular Exam Cardiovascular Exam: Bradycardia - GI/Abdominal Exam GI & Abdominal Exam: Normal Bowel Sounds, Soft - Rectal Exam Rectal Exam: Deferred - Extremities Exam Extremities exam: Positive for: normal inspection - Back Exam Back exam: NORMAL INSPECTION - Neurological Exam Neurological exam: Altered - Skin Skin Exam: Dry, Intact, Normal Color Results - Vital Signs Recent Vital Signs: Last Vital Signs Temp 98.1 F 06/28/17 16:00 Pulse 97 H 06/28/17 16:00 Resp 20 06/28/17 16:00 BP 122/78 06/28/17 16:00 Pulse Ox 96 06/28/17 16:00 - Labs Result Diagrams: 06/28/17 07:32 06/28/17 07:32 Labs: Laboratory Results - last 24 hr 06/27/17 06/28/17 06/28/17 22:18 07:32 07:32 WBC 5.4 RBC 3.74 L Hgb 10.5 L Hct 32.2 L MCV 85.9 MCH 28.2 MCHC 32.8 L RDW 21.3 H Plt Count 152 MPV 8.4 Neut % (Auto) 81.3 H Lymph % (Auto) 12.1 L [place] % (Auto) 6.3 Eos % (Auto) 0.1 Baso % (Auto) 0.2 Neut # 4.4 Lymph # 0.7 L [place] # 0.3 Eos # 0.0 Baso # 0.0 Sodium 141 Potassium 3.9 Chloride 108 H Carbon Dioxide 23 Anion Gap 14 BUN 139 H* D Creatinine 1.9 H Est GFR ( Amer) 31 Est GFR (Non-Af Amer) 26 Random Glucose 104 Calcium 7.6 L Urine Color Yellow Urine Clarity Turbid Urine pH 5.0 Ur Specific [place] 1.011 Urine Protein 2+ H Urine Glucose (UA) 2+ H Urine Ketones Negative Urine Blood 2+ H Urine Nitrate Negative Urine Bilirubin Negative Urine Urobilinogen Normal Ur Leukocyte Esterase 3+ H Urine WBC (Auto) 4595 H Urine RBC (Auto) 28 H Urine WBC Clumps (Auto) Many H Urine Bacteria Many H Assessment & Plan (1) Dehydration, severe Assessment and Plan: Careful IV hydration. Patient has a cardiomyopathy with a severe systolic dysfunction, and was in respiratory failure last month from an acute CHF. Status: Acute (2) Malnutrition compromising bodily function Status: Acute (3) Advanced dementia Status: Chronic (4) Cardiomyopathy Assessment and Plan: Careful IV hydration. Status: Acute (5) Hypertension Status: Chronic Priority: Low
--- NOTE | 2017-06-29 10:40 | CP.PCM.PN ---
Subjective - Date & Time of Evaluation Date of Evaluation: 06/29/17 Time of Evaluation: 10:40 - Subjective Subjective: Patient is comfortable. Still cries when touched. In feta position all the time. Seen by Nayeli Gutierrez, IV fluids dropped to 75 cc per hourly. Eating very little, but taking the supplements 4x daily. Output is adequate. Afebrile. Objective - Vital Signs/Intake and Output Vital Signs (last 24 hours): Temp Pulse Resp BP Pulse Ox 98.5 F 102 H 20 125/66 95 06/28/17 23:20 06/29/17 08:00 06/28/17 23:20 06/28/17 23:20 06/28/17 23:20 Intake and Output: 06/29/17 06/29/17 06:59 18:59 Output Total 550 Balance -550 - Medications Medications: Current Medications Cyproheptadine HCl (Periactin) 4 mg PO BIDPC [facility] Last Admin: 06/29/17 09:19 Dose: 4 mg Sodium Chloride (Sodium Chloride 0.9%) 1,000 mls @ 75 mls/hr IV .[id number] [facility] Last Admin: 06/28/17 20:00 Dose: 75 mls/hr Rivaroxaban (Xarelto) 10 mg PO DAILY [facility] Last Admin: 06/29/17 09:19 Dose: 10 mg - Labs Labs: 06/28/17 07:32 06/28/17 07:32 - Constitutional Appears: Confused, Chronically Ill - Head Exam Head Exam: ATRAUMATIC, NORMAL INSPECTION, NORMOCEPHALIC - Eye Exam Pupil Exam: PERRL - Neck Exam Neck Exam: Full ROM - Respiratory Exam Respiratory Exam: Prolonged Expiratory Phase - Cardiovascular Exam Cardiovascular Exam: Irregular Rhythm, +S1 - GI/Abdominal Exam GI & Abdominal Exam: Soft, Normal Bowel Sounds - Rectal Exam Rectal Exam: Deferred - Extremities Exam Extremities Exam: Normal Inspection - Neurological Exam Neurological Exam: Altered - Skin Skin Exam: Normal Color Assessment and Plan (1) Weakness Status: Acute (2) Acute renal failure (ARF) Status: Acute (3) Malnutrition compromising bodily function Status: Chronic (4) Advanced dementia Status: Chronic (5) Dehydration, severe Status: Acute (6) Coronary heart disease Status: Chronic - Assessment and Plan (Free Text) Assessment: Assessmenr: Severe dehydration. Acute renal failure-pre renal. Dementia. CAD CHF Intermittent Atrial fibrillation COPD Malnutrition Plan: Plan; Continue IV fluids. Nutritional support. Physical therapy.
[2017-06-29 11:45] LABS: BASO % 0.4 % (0.0-2.0); EOS % 0.3 % (0.0-4.0); HEMATOCRIT 32.1 % (34.0-47.0); LYMPH # 0.9 K/uL (1.0-4.3); LYMPH % 16.7 % (20.0-40.0); MEAN CELL VOLUME 86.3 fL (81.0-99.0); MEAN CORPUSCULAR HGB CONC 32.4 g/dL (33.0-37.0); MEAN PLATELET VOLUME 8.1 fL (7.2-11.7); MONO # 0.3 K/uL (0.0-0.8); MONO % 5.7 % (0.0-10.0); WHITE BLOOD COUNT 5.5 K/uL (4.8-10.8)
[2017-06-29 11:57] LABS: POTASSIUM 4.1 mmol/L (3.6-5.2)
[2017-06-29 11:59] LABS: BILIRUBIN,TOTAL 0.4 mg/dL (0.2-1.3)
[2017-06-29 12:00] LABS: ALB/GLOB RATIO 0.8 (1.0-2.1); CALCIUM 7.7 mg/dl (8.6-10.4); TOTAL PROTEIN 6.3 g/dL (6.3-8.3)
--- NOTE | 2017-06-29 13:11 | RAD ---
HISTORY: CHF COMPARISON: 06/27/2017 FINDINGS: LUNGS: The lungs are hyperinflated and there is peribronchial thickening with chronic changes in both lungs. There is a left retrocardiac opacity. PLEURA: There is blunting of the left costophrenic angle. No significant right pleural effusion identified, no pneumothorax apparent. CARDIOVASCULAR: Normal. OSSEOUS STRUCTURES: No significant abnormalities. VISUALIZED UPPER ABDOMEN: Normal. OTHER FINDINGS: None. IMPRESSION: Suspect left lower lobe pneumonia and small left pleural effusion. Follow-up to resolution is advised. COPD. No radiographic evidence for congestive heart failure.
[2017-06-29] MEDS: Ciprofloxacin 400mg/200ml D5W 400 MG/200 ML BAG IVPB SCH (17:53)
--- NOTE | 2017-06-29 18:14 | CARD ---
APPROVED REPORT EKG Measurement Heart [id number] ID [id number] <Conclusion> Sinus rhythm with premature supraventricular complexes Possible Left atrial enlargement Left axis deviation Anterior infarct, age undetermined Abnormal ECG
[2017-06-29] MEDS ORDERED: Digoxin 125 mcg (0.125 mg) Tab PO STA (21:39)
[2017-06-29] MEDS ORDERED: Metoprolol Succinate 25 mg XL Tab PO STA (21:40)
[2017-06-29] MEDS ORDERED: Metoprolol Succinate 12.5 mg XL PO ONE (21:47)
[2017-06-30 01:06] LABS: RBC URINE 50 /hpf (0-3); URINE BACTERIA MOD (<OCC); URINE BILIRUBIN NEGATIVE (NEGATIVE); URINE BLOOD 2+ (NEGATIVE); URINE COLOR Amber (YELLOW); URINE GLUCOSE (UA) NORMAL (Normal); URINE KETONE NEGATIVE (NEGATIVE); URINE LEUKOCYTE ESTERASE 3+ Leu/uL (Negative); URINE PROTEIN 2+ mg/dL (NEGATIVE); URINE UROBILINOGEN NORMAL mg/dL (0.2-1.0); WBC CLUMPS MANY /hpf; WBC URINE 3923 /hpf (0-5)
[2017-06-30] MEDS: Ciprofloxacin 400mg/200ml D5W 400 MG/200 ML BAG IVPB SCH (05:32)
--- NOTE | 2017-06-30 07:36 | RAD ---
HISTORY: fever and tachycardia COMPARISON: No prior. FINDINGS: LUNGS: In the interval, the right costophrenic sulcus now appears blunted with trace bilateral pleural effusions noted. No definitive infiltrate bilaterally however. Left basilar opacity appears to have cleared. PLEURA: No significant pleural effusion identified, no pneumothorax apparent. Limited biapical pleural thickening again evident. CARDIOVASCULAR: [place] also appears stable. No pulmonary vascular derangement appreciated. OSSEOUS STRUCTURES: No significant abnormalities. VISUALIZED UPPER ABDOMEN: Normal. OTHER FINDINGS: None. IMPRESSION: Trace bilateral pleural effusions identified without definitive infiltrate noted at this time. Prior left basilar density appears to have cleared.
--- NOTE | 2017-06-30 11:16 | CP.PCM.PN ---
Subjective - Date & Time of Evaluation Date of Evaluation: 06/30/17 Time of Evaluation: 11:15 - Subjective Subjective: Patient is co,mfortable today. Had a episode of tachycardia with a rate of 160/min last night. IV fluds was discontinued Patient was given 1 dose of vancomycin and a dose of metorolol 12.5 mgm stat dose. Patient is now in Fibrillation. Chest x-ray showed slight pleural effusion. Patient was givem Merem last night. Objective - Vital Signs/Intake and Output Vital Signs (last 24 hours): Temp Pulse Resp BP Pulse Ox 98.2 F 69 20 112/66 96 06/30/17 07:38 06/30/17 08:00 06/30/17 07:38 06/30/17 07:38 06/30/17 07:38 Intake and Output: 06/30/17 06/30/17 06:59 18:59 Output Total 1550 Balance -1550 - Medications Medications: Current Medications Cyproheptadine HCl (Periactin) 4 mg PO BIDPC [facility] Last Admin: 06/30/17 09:32 Dose: 4 mg Meropenem 500 mg/ Sodium (Chloride) 100 mls @ 100 mls/hr IVPB Q8H [facility] Rivaroxaban (Xarelto) 10 mg PO DAILY [facility] Last Admin: 06/30/17 10:57 Dose: 10 mg - Labs Labs: 06/29/17 11:38 06/29/17 11:38 - Constitutional Appears: No Acute Distress, Chronically Ill - Head Exam Head Exam: ATRAUMATIC, NORMOCEPHALIC - Eye Exam Pupil Exam: PERRL - Neck Exam Neck Exam: Full ROM - Respiratory Exam Respiratory Exam: Prolonged Expiratory Phase - Cardiovascular Exam Cardiovascular Exam: Irregular Rhythm, +S1, +S2 - GI/Abdominal Exam GI & Abdominal Exam: Soft - Rectal Exam Rectal Exam: Deferred - Back Exam Back Exam: NORMAL INSPECTION - Neurological Exam Neurological Exam: Altered - Skin Skin Exam: Dry, Intact, Normal Color Assessment and Plan (1) Weakness Status: Acute (2) Acute renal failure (ARF) Status: Acute (3) Malnutrition compromising bodily function Status: Chronic (4) Advanced dementia Status: Chronic (5) Dehydration, severe Status: Acute (6) Coronary heart disease Status: Chronic - Assessment and Plan (Free Text) Assessment: Assessment: Severe dehydration. Acute renal failure. UTI CAD Atrial fibillation. CHF Malnutrition. Dementia. Plan: Plan Continue IV antibiotics, Hold IV fluids.
[2017-06-30] MEDS: Meropenem 500 MG in Sodium Chloride 0.9% 100 ML IVPB SCH ×2 (11:34→18:48)
--- NOTE | 2017-06-30 15:29 | CP.PCM.CON ---
History of Present Illness - History of Present Illness History of Present Illness: dictated Past Patient History - Infectious Disease Hx of Infectious Diseases: None - Tetanus Immunizations Tetanus Immunization: Unknown - Past Medical History & Family History Past Medical History?: Yes - Past Social History Smoking Status: Former Smoker Chewing Tobacco Use: No Cigar Use: No Alcohol: None Drugs: Denies Home Situation {Lives}: With Family Domestic Violence: Negative - CARDIAC Hx Cardiac Disorders: Yes Hx Congestive Heart Failure: Yes Hx Hypercholesterolemia: Yes Hx Hypertension: Yes - PULMONARY Hx Respiratory Disorders: Yes Hx Emphysema: Yes - NEUROLOGICAL Hx Neurological Disorder: Yes Hx Dementia: Yes - HEENT Hx HEENT Problems: Yes Hx Cataracts: Yes (both eyes) - RENAL Hx Chronic Kidney Disease: No - ENDOCRINE/METABOLIC Hx Endocrine Disorders: No - HEMATOLOGICAL/ONCOLOGICAL Hx Blood Disorders: Yes Hx Anemia: Yes - INTEGUMENTARY Hx Dermatological Problems: No - MUSCULOSKELETAL/RHEUMATOLOGICAL Hx Musculoskeletal Disorders: Yes Hx Falls: Yes Hx Unsteady Gait: Yes - GASTROINTESTINAL Hx Gastrointestinal Disorders: Yes Other/Comment: patient is very anorectic. - GENITOURINARY/GYNECOLOGICAL Hx Genitourinary Disorders: No - PSYCHIATRIC Hx Psychophysiologic Disorder: No Hx Substance Use: No - SURGICAL HISTORY Hx Surgeries: Yes Hx Cataract Extraction: Yes (2013) - ANESTHESIA Hx Anesthesia: Yes Hx Anesthesia Reactions: No Hx Malignant Hyperthermia: No Meds Allergies/Adverse Reactions: Allergies Allergy/AdvReac Type Severity Reaction Status Date / Time No Known Allergies Allergy Verified 06/27/17 15:11 - Medications Medications: Current Medications Cyproheptadine HCl (Periactin) 4 mg PO BIDPC [facility] Last Admin: 06/30/17 09:32 Dose: 4 mg Meropenem 500 mg/ Sodium (Chloride) 100 mls @ 100 mls/hr IVPB Q8H [facility] Last Admin: 06/30/17 11:34 Dose: 100 mls/hr Rivaroxaban (Xarelto) 10 mg PO DAILY [facility] Last Admin: 06/30/17 10:57 Dose: 10 mg Results - Vital Signs Recent Vital Signs: Last Vital Signs Temp 98.2 F 06/30/17 07:38 Pulse 79 06/30/17 12:00 Resp 20 06/30/17 07:38 BP 112/66 06/30/17 07:38 Pulse Ox 96 06/30/17 07:38 - Labs Result Diagrams: 06/29/17 11:38 06/29/17 11:38 Labs: Laboratory Results - last 24 hr 06/30/17 00:52 Urine Color [place] Urine Clarity Turbid Urine pH 5.0 Ur Specific [place] 1.010 Urine Protein 2+ H Urine Glucose (UA) Normal Urine Ketones Negative Urine Blood 2+ H Urine Nitrate Negative Urine Bilirubin Negative Urine Urobilinogen Normal Ur Leukocyte Esterase 3+ H Urine WBC (Auto) 3923 H Urine RBC (Auto) 50 H Urine WBC Clumps (Auto) Many H Urine Bacteria Mod H
--- NOTE | 2017-06-30 18:59 | CARD ---
APPROVED REPORT EKG Measurement Heart [id number] <Conclusion> Sinus rhythm with premature supraventricular complexes Left axis deviation Inferior infarct, age undetermined Anteroseptal infarct, age undetermined Abnormal ECG
--- NOTE | 2017-06-30 19:34 | CP.PCM.PN ---
Subjective - Date & Time of Evaluation Date of Evaluation: 06/30/17 Time of Evaluation: 19:32 - Subjective Subjective: Patient is comfortable, with no complaint. But is confused. Telemetry reveals an RSR with frequent PAC's. Urine culture discloses Klebsiella and the patient was started on Meropenem since last night. Objective - Vital Signs/Intake and Output Vital Signs (last 24 hours): Temp Pulse Resp BP Pulse Ox 97.9 F 109 H 20 139/92 H 98 06/30/17 17:02 06/30/17 17:02 06/30/17 17:02 06/30/17 17:02 06/30/17 17:02 Intake and Output: 06/30/17 07/01/17 18:59 06:59 Output Total 500 Balance -500 - Medications Medications: Current Medications Cyproheptadine HCl (Periactin) 4 mg PO BIDPC [facility] Last Admin: 06/30/17 18:49 Dose: 4 mg Meropenem 500 mg/ Sodium (Chloride) 100 mls @ 100 mls/hr IVPB Q8H [facility] Last Admin: 06/30/17 18:48 Dose: 100 mls/hr Rivaroxaban (Xarelto) 10 mg PO DAILY [facility] Last Admin: 06/30/17 10:57 Dose: 10 mg - Labs Labs: 06/29/17 11:38 06/29/17 11:38 - Constitutional Appears: No Acute Distress, Chronically Ill - Head Exam Head Exam: NORMAL INSPECTION - Eye Exam Eye Exam: Normal appearance - ENT Exam ENT Exam: Normal Exam - Neck Exam Neck Exam: Normal Inspection - Respiratory Exam Additional comments: Few rales heard at the right base. - Cardiovascular Exam Cardiovascular Exam: Irregular Rhythm, Murmur - GI/Abdominal Exam GI & Abdominal Exam: Soft, Normal Bowel Sounds - Rectal Exam Rectal Exam: Deferred - Extremities Exam Extremities Exam: Normal Inspection - Back Exam Back Exam: NORMAL INSPECTION - Neurological Exam Neurological Exam: Alert - Psychiatric Exam Additional comments: Confused. - Skin Skin Exam: Dry, Intact, Normal Color, Warm Assessment and Plan (1) Dehydration, severe Status: Acute (2) Malnutrition compromising bodily function Status: Chronic (3) Advanced dementia Status: Chronic (4) Cardiomyopathy Status: Acute (5) Hypertension Status: Chronic (6) UTI due to Klebsiella species Assessment & Plan: IV antibiotic as per Dr Quiros. Status: Acute
--- NOTE | 2017-07-01 06:32 | CON ---
DATE: 06/30/2017 INFECTIOUS DISEASE CONSULT REQUESTED BY: _Conchis____. This consult was requested of Dr. Ortez and I am covering her. HISTORY OF PRESENT ILLNESS: This is a 72-year-old female. She apparently was not eating for 2 weeks and was not even drinking enough, was very dry and dehydrated, was brought to the emergency room and she is complaining of allover pain. She has dementia. She was also having confusion. In the ER, she was found to be afebrile, pulse was 74, blood pressure 112/67, heart rate was 95. PAST MEDICAL HISTORY: Anemia, atrial fibrillation, dementia, emphysema, hypertension, and hypercholesterolemia. ALLERGIES: SHE IS NOT ALLERGIC TO ANY MEDICINE. SOCIAL HISTORY: Negative for smoking or drinking or any substance abuse. REVIEW OF SYSTEMS: Unable to obtain. Was transferred here because of altered mental status and not eating, not drinking and having survival issues. She had no fever, no cough, no shortness of breath, no nausea, no vomiting, just is in generalized pain. She appears ill. She was started on meropenem by me as there was UTI present. She was on Cipro before and I was wondering if she had ESBL as the culture final results were pending at that time. PHYSICAL EXAMINATION: GENERAL: She appears chronically ill. She is female. Poorly awake, confused, nonverbalizing, unable to communicate. VITAL SIGNS: I find her temperature is 97.9, heart rate is 109, blood pressure 139/92. HEENT: Head is atraumatic, normocephalic. NECK: Supple. LUNGS: Clear. No crackles or rales present. HEART: S1 and S2 are regular. ABDOMEN: Soft and nontender. No guarding. No rigidity present. EXTREMITIES: Have no edema, clubbing, or cyanosis. She seems to be in generalized pain. LABORATORY DATA: Her labs are noted. Labs show white count is 5.5 today, hemoglobin 10.4, hematocrit 32.1, platelet count is 156. Chemistry shows sodium is 144, potassium 4.1, chloride is 111, CO2 is 23, anion gap is 14, BUN is 103 and creatinine is 1.4. She came with a creatinine of 3.1 and BUN of 185. She is being followed by Renal attending. Urinalysis shows 2+ protein, 2+ blood, 3+ leukocytes, so she does have UTI and proteinuria. Digoxin level is 0.7. Labs are noted. Labs show blood culture x2 are negative. Urine culture came out to be Klebsiella but it is ESBL negative, sensitive to Cipro as well as meropenem, and since she is being already started meropenem, we will continue that for now and if she clinically improves well later, will follow. IMp : Patient is elderly female appears chronically ill and has uti and sick looking ,will wait for her to improve before changing Merrem to descalating antibiotics Maribell Quiros MD [facility]
[2017-07-01] MEDS: Meropenem 500 MG in Sodium Chloride 0.9% 100 ML IVPB SCH ×3 (07:43→19:02)
[2017-07-01 08:35] LABS: BASO % 0.6 % (0.0-2.0); EOS % 0.8 % (0.0-4.0); HEMATOCRIT 29.9 % (34.0-47.0); LYMPH # 1.1 K/uL (1.0-4.3); LYMPH % 27.4 % (20.0-40.0); MEAN CELL VOLUME 86.9 fL (81.0-99.0); MEAN CORPUSCULAR HEMOGLOBIN 28.4 pg (27.0-31.0); MEAN CORPUSCULAR HGB CONC 32.7 g/dL (33.0-37.0); MONO # 0.4 K/uL (0.0-0.8); MONO % 9.2 % (0.0-10.0); NRBC % 0.1 % (0.0-2.0); RED CELL DISTRIBUTION WIDTH 22.6 % (11.5-14.5); WHITE BLOOD COUNT 4.2 K/uL (4.8-10.8)
[2017-07-01 08:44] LABS: POTASSIUM 4.4 mmol/L (3.6-5.2)
[2017-07-01 08:46] LABS: ALB/GLOB RATIO 0.7 (1.0-2.1); BILIRUBIN,TOTAL 0.4 mg/dL (0.2-1.3); TOTAL PROTEIN 5.8 g/dL (6.3-8.3)
[2017-07-01 08:47] LABS: CALCIUM 8.3 mg/dl (8.6-10.4)
--- NOTE | 2017-07-01 14:41 | CP.PCM.PN ---
Subjective - Date & Time of Evaluation Date of Evaluation: 07/01/17 Time of Evaluation: 02:40 - Subjective Subjective: Afebrile. BP 100/60 . HR 94. Monitor shows RSR with numerous PACS> Patient is confused and not eating well. Objective - Vital Signs/Intake and Output Vital Signs (last 24 hours): Temp Pulse Resp BP Pulse Ox 98.2 F 81 18 100/63 95 07/01/17 08:00 07/01/17 08:00 07/01/17 08:00 07/01/17 08:00 07/01/17 08:00 Intake and Output: 07/01/17 07/01/17 06:59 18:59 Output Total 300 Balance -300 - Medications Medications: Current Medications Cyproheptadine HCl (Periactin) 4 mg PO BIDPC [facility] Last Admin: 07/01/17 08:57 Dose: 4 mg Digoxin (Lanoxin) 0.125 mg PO DAILY@1800 [facility] Meropenem 500 mg/ Sodium (Chloride) 100 mls @ 100 mls/hr IVPB Q8H [facility] Last Admin: 07/01/17 12:11 Dose: 100 mls/hr Rivaroxaban (Xarelto) 10 mg PO DAILY [facility] Last Admin: 07/01/17 09:51 Dose: 10 mg - Labs Labs: 07/01/17 08:18 07/01/17 08:18 - Constitutional Appears: No Acute Distress, Chronically Ill - Head Exam Head Exam: ATRAUMATIC, NORMAL INSPECTION, NORMOCEPHALIC - Eye Exam Pupil Exam: PERRL - Neck Exam Neck Exam: Full ROM - Respiratory Exam Respiratory Exam: Clear to Ausculation Bilateral, Prolonged Expiratory Phase - Cardiovascular Exam Cardiovascular Exam: Irregular Rhythm, +S1, +S2 - GI/Abdominal Exam GI & Abdominal Exam: Soft, Normal Bowel Sounds - Rectal Exam Rectal Exam: Deferred - Back Exam Back Exam: Full ROM - Neurological Exam Neurological Exam: Altered, Awake - Skin Skin Exam: Dry, Intact, Normal Color, Warm Assessment and Plan (1) Weakness Status: Acute (2) Acute renal failure (ARF) Status: Acute (3) Malnutrition compromising bodily function Status: Chronic (4) Advanced dementia Status: Chronic (5) Dehydration, severe Status: Acute (6) Coronary heart disease Status: Chronic - Assessment and Plan (Free Text) Assessment: Status--- Acute. Assessment: Dehydration. CAD CHF DEmentia. Acute UTI. HTN. Acute renal failure Plan: Plan: Continue cardiac monitoring. Continue IV meperon
[2017-07-01] MEDS: Digoxin 125 mcg (0.125 mg) Tab PO SCH (17:44)
[2017-07-02] MEDS: Meropenem 500 MG in Sodium Chloride 0.9% 100 ML IVPB SCH ×3 (03:34→18:29)
[2017-07-02 09:13] LABS: CHLORIDE 109 mmol/L (98-107); POTASSIUM 4.9 mmol/L (3.6-5.2); SODIUM 148 mmol/L (132-148)
[2017-07-02 09:16] LABS: BLOOD UREA NITROGEN 68 mg/dL (7-17); CALCIUM 8.4 mg/dl (8.6-10.4); CARBON DIOXIDE 34 mmol/L (22-30); GFR AFRICAN-AMERICAN > 60; GLUCOSE,RANDOM 119 mg/dL (65-105)
--- NOTE | 2017-07-02 15:28 | CP.PCM.PN ---
Subjective - Date & Time of Evaluation Date of Evaluation: 07/02/17 Time of Evaluation: 03:20 - Subjective Subjective: Afebrile. Comfortable. Confused. Refuses to eat but will drink the fluids. Bun elevated but creatinine is normal. GFR is 60. Had been on IV Meren x32 days now. Urine output is adequate. Objective - Vital Signs/Intake and Output Vital Signs (last 24 hours): Temp Pulse Resp BP Pulse Ox 98.7 F 77 20 118/79 95 07/02/17 08:06 07/02/17 08:06 07/02/17 08:06 07/02/17 08:06 07/02/17 08:06 Intake and Output: 07/02/17 07/02/17 06:59 18:59 Intake Total 500 Output Total 250 300 Balance 250 -300 - Medications Medications: Current Medications Cyproheptadine HCl (Periactin) 4 mg PO BIDPC [facility] Last Admin: 07/02/17 09:11 Dose: 4 mg Digoxin (Lanoxin) 0.125 mg PO DAILY@1800 [facility] Last Admin: 07/01/17 17:44 Dose: 0.125 mg Meropenem 500 mg/ Sodium (Chloride) 100 mls @ 100 mls/hr IVPB Q8H [facility] Last Admin: 07/02/17 11:09 Dose: 100 mls/hr Rivaroxaban (Xarelto) 10 mg PO DAILY [facility] Last Admin: 07/02/17 09:11 Dose: 10 mg - Labs Labs: 07/01/17 08:18 07/02/17 08:48 - Constitutional Appears: No Acute Distress, Confused, Chronically Ill - Head Exam Head Exam: ATRAUMATIC, NORMAL INSPECTION, NORMOCEPHALIC - Eye Exam Pupil Exam: NORMAL ACCOMODATION - ENT Exam ENT Exam: Mucous Membranes Moist - Neck Exam Neck Exam: Full ROM - Respiratory Exam Respiratory Exam: Clear to Ausculation Bilateral, Prolonged Expiratory Phase - Cardiovascular Exam Cardiovascular Exam: Irregular Rhythm Additional comments: RSR with frequent PACs - GI/Abdominal Exam GI & Abdominal Exam: Normal Bowel Sounds - Rectal Exam Rectal Exam: Deferred - Extremities Exam Extremities Exam: Normal Inspection - Back Exam Back Exam: NORMAL INSPECTION - Neurological Exam Neurological Exam: Altered, Awake - Skin Skin Exam: Intact, Normal Color, Warm Assessment and Plan (1) Weakness Status: Acute (2) Acute renal failure (ARF) Status: Acute (3) Malnutrition compromising bodily function Status: Chronic (4) Advanced dementia Status: Chronic (5) Dehydration, severe Status: Acute (6) Coronary heart disease Status: Chronic - Assessment and Plan (Free Text) Assessment: Assessment: Severe dehydration. Acute renal failure. Acute UTI Dementia. CAD Cardiac arrythmia. Plan: PLAN: Continue IV antibiotics. PO fluids.
[2017-07-02] MEDS: Digoxin 125 mcg (0.125 mg) Tab PO SCH (18:29)
[2017-07-03] MEDS: Meropenem 500 MG in Sodium Chloride 0.9% 100 ML IVPB SCH ×3 (03:08→20:00)
--- NOTE | 2017-07-03 14:27 | CP.PCM.PN ---
Subjective - Date & Time of Evaluation Date of Evaluation: 07/03/17 Time of Evaluation: 02:25 - Subjective Subjective: Confused. Not eating except fluids PO. Vital signs stable. Comfortable. On IV meren for UTI. Objective - Vital Signs/Intake and Output Vital Signs (last 24 hours): Temp Pulse Resp BP Pulse Ox 99 F 95 H 20 117/84 97 07/03/17 08:00 07/03/17 08:00 07/03/17 08:00 07/03/17 08:00 07/03/17 08:00 Intake and Output: 07/03/17 07/03/17 06:59 18:59 Output Total 450 Balance -450 - Medications Medications: Current Medications Cyproheptadine HCl (Periactin) 4 mg PO BIDPC [facility] Last Admin: 07/03/17 08:28 Dose: 4 mg Digoxin (Lanoxin) 0.125 mg PO DAILY@1800 [facility] Last Admin: 07/02/17 18:29 Dose: 0.125 mg Meropenem 500 mg/ Sodium (Chloride) 100 mls @ 100 mls/hr IVPB Q8H [facility] Last Admin: 07/03/17 10:33 Dose: 100 mls/hr Rivaroxaban (Xarelto) 10 mg PO DAILY [facility] Last Admin: 07/03/17 10:33 Dose: 10 mg - Labs Labs: 07/01/17 08:18 07/02/17 08:48 - Constitutional Appears: No Acute Distress, Chronically Ill - Head Exam Head Exam: ATRAUMATIC, NORMAL INSPECTION, NORMOCEPHALIC - Eye Exam Pupil Exam: PERRL - ENT Exam ENT Exam: Normal External Ear Exam - Neck Exam Neck Exam: Full ROM - Respiratory Exam Respiratory Exam: Clear to Ausculation Bilateral, Prolonged Expiratory Phase - Cardiovascular Exam Cardiovascular Exam: Irregular Rhythm - GI/Abdominal Exam GI & Abdominal Exam: Soft, Normal Bowel Sounds - Rectal Exam Rectal Exam: Deferred - Extremities Exam Extremities Exam: Normal Inspection - Back Exam Back Exam: NORMAL INSPECTION - Neurological Exam Neurological Exam: Altered - Skin Skin Exam: Dry, Intact, Normal Color, Warm Assessment and Plan (1) Weakness Status: Acute (2) Acute renal failure (ARF) Status: Acute (3) Malnutrition compromising bodily function Status: Chronic (4) Advanced dementia Status: Chronic (5) Dehydration, severe Status: Acute (6) Coronary heart disease Status: Chronic - Assessment and Plan (Free Text) Assessment: Assessment: Statue acute. Severe dehydration. CAD. Dementia. Acute renal failure Cardiac arrhythmia. Malnutrition. Plan: Plan : Continue CASANDRA ambrosio
[2017-07-03] MEDS: Digoxin 125 mcg (0.125 mg) Tab PO SCH (19:00)
--- NOTE | 2017-07-03 20:08 | CP.PCM.PN ---
Subjective - Date & Time of Evaluation Date of Evaluation: 07/03/17 Time of Evaluation: 16:20 - Subjective Subjective: INFECTIOUS DISEASE CONSULT F/U. HX/LABS REVIEWED. HPI 72 years old Female brought by the family to the ED ON 06/28/17 because of increasing confusion and lethargy. She was found to have a BUN: 183, a creatinine of 3.1 and a K+: 5.8. She was given IV NS at 150 ml/ hr. In April 2017 , she was intubated and put on respirator for an acute respiratory failure due to an acute systolic heart failure. An echocardiogram at that time revealed a marked global hypokinesia of the LV with an LVEF around 30%. She is also known to have a COPD( she is a former cigarette smoker), hypertension and an intermittent atrial fibrillation. PATIENT WAS SEEN BY DR. JUSTICE (ID ) AND STARTED ON iv MERREM FOR UROSEPSIS/ PYELONEPHRITIS. URINE CULTURES +VE KLEIBSIELLA PNEUMONIAE-PANSENSITIVE PATIENT WAS RECENTLY HOSPITALIZED AT [facility] ABOUT 3 MONTHS AGO FOR CHF AND RESPIRATORY FAILURE. PATIENT PRESENTLY HAS A [employer] CATHETER IN PLACE. ALSO PATIENT REFUSING TO EAT OR DRINK PER DAUGHTER WHO IS AT THE BEDSIDE. Medications include Lisinopril, Digoxin, Xarelto, Lasix, Digoxin, Cardizem, Apresoline, Pravastatin. Objective - Vital Signs/Intake and Output Vital Signs (last 24 hours): Temp Pulse Resp BP Pulse Ox 98.7 F 96 H 20 131/77 98 07/03/17 15:10 07/03/17 15:10 07/03/17 15:10 07/03/17 15:10 07/03/17 15:10 Intake and Output: 07/03/17 07/04/17 18:59 06:59 Intake Total 750 Output Total 400 Balance 350 - Medications Medications: Current Medications Cyproheptadine HCl (Periactin) 4 mg PO BIDPC [facility] Last Admin: 07/03/17 19:00 Dose: Not Given Digoxin (Lanoxin) 0.125 mg PO DAILY@1800 [facility] Last Admin: 07/03/17 19:00 Dose: Not Given Meropenem 500 mg/ Sodium (Chloride) 100 mls @ 100 mls/hr IVPB Q8H [facility] Last Admin: 07/03/17 10:33 Dose: 100 mls/hr Rivaroxaban (Xarelto) 10 mg PO DAILY [facility] Last Admin: 07/03/17 10:33 Dose: 10 mg - Labs Labs: 07/01/17 08:18 07/02/17 08:48 - Constitutional Appears: No Acute Distress, Cachectic, Chronically Ill - Head Exam Head Exam: NORMAL INSPECTION - Eye Exam Eye Exam: EOMI, PERRL - ENT Exam ENT Exam: Mucous Membranes Dry, Normal Oropharynx - Neck Exam Neck Exam: Normal Inspection. absent: Meningismus - Respiratory Exam Respiratory Exam: Clear to Ausculation Bilateral. absent: Wheezes - Cardiovascular Exam Cardiovascular Exam: Irregular Rhythm, +S1, +S2 - GI/Abdominal Exam GI & Abdominal Exam: Distended, Tenderness (SUPRAPUBIC.), Normal Bowel Sounds - Extremities Exam Extremities Exam: absent: Calf Tenderness, Pedal Edema - Neurological Exam Neurological Exam: Awake (CONFUSED.), CN II-XII Intact, Reflexes Normal - Psychiatric Exam Psychiatric exam: Flat Affect - Skin Skin Exam: Normal Color Assessment and Plan (1) UTI due to Klebsiella species Status: Acute (2) Acute renal insufficiency Status: Acute (3) Dehydration, severe Status: Acute (4) Hyperkalemia Status: Acute (5) Cardiomyopathy Status: Acute (6) Advanced dementia Status: Chronic - Assessment and Plan (Free Text) Plan: PLAN; REPEAT UA/ URINE CULTURE. CT OF THE ABDOMEN AND PELVIS WITHOUT BY MOUTH OR iv CONTRAST R/O NEPHROLITHIASIS VS MALIGNANCY. CONTINUE iv MERREM 500 MG EVERY 8 HOURLY 06/30/17. IV FLUIDS PER PMD. WATCH FOR THROMBOCYTOPENIA AND LEUKOPENIA. CALORIE COUNT. CEA,CA 19-9. STOOL FOR OB PT WILL NEED PICK LINE PT NOT EATING
[2017-07-03 22:23] LABS: RBC URINE 7 /hpf (0-3); URINE BILIRUBIN NEGATIVE (NEGATIVE); URINE BLOOD NEGATIVE (NEGATIVE); URINE COLOR Yellow (YELLOW); URINE GLUCOSE (UA) 1+ mg/dL (Normal); URINE KETONE NEGATIVE (NEGATIVE); URINE LEUKOCYTE ESTERASE 3+ Leu/uL (Negative); URINE PROTEIN 1+ mg/dL (NEGATIVE); URINE UROBILINOGEN NORMAL mg/dL (0.2-1.0); WBC URINE 233 /hpf (0-5)
[2017-07-04] MEDS: Meropenem 500 MG in Sodium Chloride 0.9% 100 ML IVPB SCH ×3 (02:39→18:03)
[2017-07-04 08:35] LABS: BASO % 0.6 % (0.0-2.0); EOS # 0.1 K/uL (0.0-0.7); EOS % 1.9 % (0.0-4.0); HEMATOCRIT 27.5 % (34.0-47.0); LYMPH # 1.1 K/uL (1.0-4.3); LYMPH % 36.5 % (20.0-40.0); MEAN CELL VOLUME 87.6 fL (81.0-99.0); MEAN CORPUSCULAR HGB CONC 33.1 g/dL (33.0-37.0); MEAN PLATELET VOLUME 8.9 fL (7.2-11.7); MONO # 0.3 K/uL (0.0-0.8); MONO % 11.3 % (0.0-10.0); NRBC % 0.2 % (0.0-2.0); RED CELL DISTRIBUTION WIDTH 23.2 % (11.5-14.5); WHITE BLOOD COUNT 3.1 K/uL (4.8-10.8)
--- NOTE | 2017-07-04 10:26 | CT ---
PROCEDURE: HISTORY: UROSEPSIS/WT LOSS COMPARISON: 04/21/2017 TECHNIQUE: Noncontrast FINDINGS: Heart is enlarged. There are small bilateral pleural effusions. The liver, gallbladder, spleen and pancreas are unremarkable. There is no adrenal mass. There is no renal mass or hydronephrosis. There is a roughly 1 centimeter left lower pole nonobstructive renal calculus as well as punctate calculi in the lower pole of the right kidney. There is no significant retroperitoneal lymphadenopathy or abdominal aortic aneurysm. The bowel loops are unremarkable. There is a calcified leiomyomatous uterus. Brown catheter is in the bladder. There is abundant stool throughout the colon. No pelvic lymphadenopathy, mass or ascites is observed. IMPRESSION: 1 centimeter left lower pole nonobstructive renal calculus with punctate calculi in the lower pole the right kidney. Cardiomegaly with bilateral pleural effusions.
[2017-07-04 10:49] LABS: CHLORIDE 106 mmol/L (98-107)
[2017-07-04 10:51] LABS: SODIUM 149 mmol/L (132-148)
[2017-07-04 10:53] LABS: ALB/GLOB RATIO 0.8 (1.0-2.1); ALKALINE PHOSPHATASE 100 U/L (38-126); ALT/SGPT 56 U/L (9-52); AST/SGOT 50 U/L (14-36); BILIRUBIN,DIRECT 0.4 mg/dL (0.0-0.4); BILIRUBIN,TOTAL 0.5 mg/dL (0.2-1.3); BLOOD UREA NITROGEN 60 mg/dL (7-17); GFR AFRICAN-AMERICAN > 60; GLUCOSE,RANDOM 96 mg/dL (65-105); TOTAL PROTEIN 6.6 g/dL (6.3-8.3)
[2017-07-04 10:54] LABS: CALCIUM 8.7 mg/dl (8.6-10.4)
[2017-07-04 11:18] LABS: POTASSIUM 6.2 mmol/L (3.6-5.2)
[2017-07-04 11:19] LABS: CARBON DIOXIDE 40 mmol/L (22-30)
[2017-07-04] MEDS ORDERED: Sod Polystyrene Sulf 15 gm/60 ml Oral Susp PO STA (11:23)
[2017-07-04 11:28] LABS: CA 19-9 62.4 U/mL (0-37)
--- NOTE | 2017-07-04 11:34 | CP.PCM.PN ---
Subjective - Date & Time of Evaluation Date of Evaluation: 07/04/17 Time of Evaluation: 11:30 - Subjective Subjective: Confused. Not eating but will take fluids PO. Seen by Dr. Oliverio Ortez. She wants patient on Merrem x 1 week more. Will need PICC as we can not access her veins at this time. Patient for CAT scan of the abdomen without contrast. BUN is still elevated But creatinine is now normal. GFR is normal but HGB dropped to 9.1. will do anemia profile. Objective - Vital Signs/Intake and Output Vital Signs (last 24 hours): Temp Pulse Resp BP Pulse Ox 98.4 F 89 20 122/77 95 07/04/17 07:15 07/04/17 09:00 07/04/17 07:15 07/04/17 07:15 07/04/17 07:15 Intake and Output: 07/04/17 07/04/17 06:59 18:59 Intake Total 460 Output Total 1450 Balance -990 - Medications Medications: Current Medications Cyproheptadine HCl (Periactin) 4 mg PO BIDPC [facility] Last Admin: 07/04/17 09:54 Dose: 4 mg Digoxin (Lanoxin) 0.125 mg PO DAILY@1800 [facility] Last Admin: 07/03/17 19:00 Dose: Not Given Meropenem 500 mg/ Sodium (Chloride) 100 mls @ 100 mls/hr IVPB Q8H [facility] Last Admin: 07/04/17 10:55 Dose: 100 mls/hr Rivaroxaban (Xarelto) 10 mg PO DAILY [facility] Last Admin: 07/04/17 09:54 Dose: 10 mg - Labs Labs: 07/04/17 08:19 07/04/17 10:29 - Constitutional Appears: No Acute Distress, Chronically Ill - Head Exam Head Exam: ATRAUMATIC, NORMAL INSPECTION, NORMOCEPHALIC - Eye Exam Pupil Exam: PERRL - Neck Exam Neck Exam: Tenderness - Respiratory Exam Respiratory Exam: Clear to Ausculation Bilateral - Cardiovascular Exam Cardiovascular Exam: Irregular Rhythm, +S1, +S2 - GI/Abdominal Exam GI & Abdominal Exam: Soft, Normal Bowel Sounds - Rectal Exam Rectal Exam: Deferred - Extremities Exam Extremities Exam: Normal Inspection - Back Exam Back Exam: Full ROM, NORMAL INSPECTION - Neurological Exam Neurological Exam: Altered - Skin Skin Exam: Dry, Intact, Warm Assessment and Plan (1) Weakness Status: Acute (2) Acute renal failure (ARF) Status: Acute (3) Malnutrition compromising bodily function Status: Chronic (4) Advanced dementia Status: Chronic (5) Dehydration, severe Status: Acute (6) Coronary heart disease Status: Chronic (7) Anemia Status: Acute - Assessment and Plan (Free Text) Assessment: Assessment: Status Acute. CAD Severe dehydration Anemia. Acute renal failure. Dementia. Malnutrition. Hyperkalemia Plan: Plan: Anemia work-up Kayexalate PO Ensure. Continue IV Merrem.
[2017-07-04 11:35] LABS: CARCINOEMBRYONIC ANTIGEN 5.9 ng/mL (0-3.0)
[2017-07-04 12:06] LABS: RETIC% 0.9 % (0.5-1.5)
[2017-07-04 12:40] LABS: IRON 35 ug/dL (37-170)
[2017-07-04 14:29] LABS: FOLATE 11.1 ng/mL
[2017-07-04] MEDS ORDERED: POLYETHYLENE GLYCOL 3350 17 GM/Dose PACKET PO STA (17:37)
[2017-07-04] MEDS: Digoxin 125 mcg (0.125 mg) Tab PO SCH (17:56)
--- NOTE | 2017-07-04 19:44 | CP.PCM.PN ---
Subjective - Date & Time of Evaluation Date of Evaluation: 07/04/17 Time of Evaluation: 19:44 - Subjective Subjective: afebrile, Awake but confused. Offers no complaints. Very weak and cachectic. Hyperkalemia K 6.2 [address]ALATE[address] PATIENT [address] OF THE ABDOMEN AND PELVIS TODAY. IMPROVING RENAL FUNCTION NA 149 Objective - Vital Signs/Intake and Output Vital Signs (last 24 hours): Temp Pulse Resp BP Pulse Ox 98 F 98 H 20 146/88 94 L 07/04/17 15:44 07/04/17 15:44 07/04/17 15:44 07/04/17 15:44 07/04/17 15:44 Intake and Output: 07/04/17 07/05/17 18:59 06:59 Output Total 500 Balance -500 - Medications Medications: Current Medications Cyproheptadine HCl (Periactin) 4 mg PO BIDPC [facility] Last Admin: 07/04/17 17:56 Dose: 4 mg Digoxin (Lanoxin) 0.125 mg PO DAILY@1800 [facility] Last Admin: 07/04/17 17:56 Dose: 0.125 mg Meropenem 500 mg/ Sodium (Chloride) 100 mls @ 100 mls/hr IVPB Q8H [facility] Last Admin: 07/04/17 18:03 Dose: 100 mls/hr Rivaroxaban (Xarelto) 10 mg PO DAILY [facility] Last Admin: 07/04/17 09:54 Dose: 10 mg - Labs Labs: 07/04/17 08:19 07/04/17 10:29 - Constitutional Appears: Confused, Cachectic, Chronically Ill - Head Exam Head Exam: NORMAL INSPECTION - Eye Exam Eye Exam: EOMI, PERRL. absent: Scleral icterus - ENT Exam ENT Exam: Mucous Membranes Dry, Normal Oropharynx - Neck Exam Neck Exam: Normal Inspection. absent: Meningismus - Respiratory Exam Respiratory Exam: Decreased Breath Sounds - Cardiovascular Exam Cardiovascular Exam: Irregular Rhythm, +S1, +S2 - GI/Abdominal Exam GI & Abdominal Exam: Distended, Hypoactive Bowel Sounds. absent: Guarding, Tenderness, Organomegaly - Extremities Exam Extremities Exam: absent: Calf Tenderness, Pedal Edema - Neurological Exam Neurological Exam: Awake, CN II-XII Intact, Reflexes Normal - Psychiatric Exam Psychiatric exam: Flat Affect - Skin Skin Exam: Dry, Normal Color, Pallor, Warm Assessment and Plan (1) UTI due to Klebsiella species Status: Acute (2) Acute renal insufficiency Status: Acute (3) Dehydration, severe Status: Acute (4) Hyperkalemia Status: Acute (5) Cardiomyopathy Status: Acute (6) Advanced dementia Status: Chronic - Assessment and Plan (Free Text) Plan: WILL CHECK CT OF THE ABDOMEN AND PELVIS WITHOUT BY MOUTH OR iv CONTRAST R/O NEPHROLITHIASIS VS MALIGNANCY. CONTINUE iv MERREM 500 MG EVERY 8 HOURLY 06/30/17 X 1WEEK MORE. F/U URINE CULTURES. IV FLUIDS PER PMD. PATIENT ON kAYEXALATE FOR HYPERKALEMIA. ANEMIA WORKUP IN PROGRESS PER PMD. CASE DISCUSSED WITH DR VICENTE . WILL NEED PICC LINE. HAS VERY POOR VEINS .
[2017-07-05] MEDS: Meropenem 500 MG in Sodium Chloride 0.9% 100 ML IVPB SCH ×3 (02:35→18:17)
--- NOTE | 2017-07-05 11:07 | CP.PCM.PN ---
Subjective - Date & Time of Evaluation Date of Evaluation: 07/05/17 Time of Evaluation: 11:05 - Subjective Subjective: Patient will not eat or take her medications. Will get in touch with daughter to discuss possiblity of a PEG insertion before discharge. Patient had a CAT scan of abdomen which showed nephrolithiasis. No malignancy. Constipated despite Miralax. Objective - Vital Signs/Intake and Output Vital Signs (last 24 hours): Temp Pulse Resp BP Pulse Ox 97.1 F L 88 18 136/79 97 07/05/17 08:05 07/05/17 08:05 07/05/17 08:05 07/05/17 08:05 07/05/17 08:05 Intake and Output: 07/05/17 07/05/17 06:59 18:59 Output Total 1450 Balance -1450 - Medications Medications: Current Medications Cyproheptadine HCl (Periactin) 4 mg PO BIDPC [facility] Last Admin: 07/05/17 09:57 Dose: Not Given Digoxin (Lanoxin) 0.125 mg PO DAILY@1800 [facility] Last Admin: 07/04/17 17:56 Dose: 0.125 mg Meropenem 500 mg/ Sodium (Chloride) 100 mls @ 100 mls/hr IVPB Q8H [facility] Last Admin: 07/05/17 10:00 Dose: 100 mls/hr Rivaroxaban (Xarelto) 10 mg PO DAILY [facility] Last Admin: 07/05/17 09:58 Dose: Not Given - Labs Labs: 07/04/17 08:19 07/04/17 10:29 - Constitutional Appears: Chronically Ill - Head Exam Head Exam: ATRAUMATIC, NORMAL INSPECTION - ENT Exam ENT Exam: Normal External Ear Exam - Respiratory Exam Respiratory Exam: Clear to Ausculation Bilateral, Prolonged Expiratory Phase - Cardiovascular Exam Cardiovascular Exam: REGULAR RHYTHM, +S1, +S2 - GI/Abdominal Exam GI & Abdominal Exam: Soft - Rectal Exam Rectal Exam: Deferred - Extremities Exam Extremities Exam: Normal Inspection - Back Exam Back Exam: NORMAL INSPECTION - Neurological Exam Neurological Exam: Altered - Psychiatric Exam Psychiatric exam: Agitated - Skin Skin Exam: Dry, Intact, Warm Assessment and Plan (1) Weakness Status: Acute (2) Acute renal failure (ARF) Status: Acute (3) Malnutrition compromising bodily function Status: Chronic (4) Advanced dementia Status: Chronic (5) Dehydration, severe Status: Acute (6) Coronary heart disease Status: Chronic (7) Anemia Status: Acute - Assessment and Plan (Free Text) Plan: Plan: Status Acute. Continue IV Merrem Possiblity of PEG insertion will get daughter to give us her consent. Enema and Miralax for her constipation.
[2017-07-05] MEDS ORDERED: Mineral Oil Enema 135 ml RC ONE (11:15)
[2017-07-05] MEDS ORDERED: POLYETHYLENE GLYCOL 3350 17 GM/Dose PACKET PO ONE (11:15)
[2017-07-05 11:58] LABS: BASO % 1.3 % (0.0-2.0); EOS % 1.2 % (0.0-4.0); HEMATOCRIT 30.1 % (34.0-47.0); LYMPH # 1.1 K/uL (1.0-4.3); LYMPH % 31.1 % (20.0-40.0); MEAN CELL VOLUME 87.6 fL (81.0-99.0); MEAN CORPUSCULAR HEMOGLOBIN 28.8 pg (27.0-31.0); MEAN CORPUSCULAR HGB CONC 32.9 g/dL (33.0-37.0); MEAN PLATELET VOLUME 8.5 fL (7.2-11.7); MONO # 0.4 K/uL (0.0-0.8); MONO % 11.2 % (0.0-10.0); NRBC % 0.1 % (0.0-2.0); RED CELL DISTRIBUTION WIDTH 22.8 % (11.5-14.5); WHITE BLOOD COUNT 3.6 K/uL (4.8-10.8)
[2017-07-05 12:12] LABS: ALB/GLOB RATIO 0.8 (1.0-2.1); ALKALINE PHOSPHATASE 161 U/L (38-126); ALT/SGPT 136 U/L (9-52); AST/SGOT 156 U/L (14-36); BILIRUBIN,TOTAL 0.5 mg/dL (0.2-1.3); BLOOD UREA NITROGEN 61 mg/dL (7-17); CALCIUM 8.6 mg/dl (8.6-10.4); CARBON DIOXIDE 39 mmol/L (22-30); CHLORIDE 101 mmol/L (98-107); GFR AFRICAN-AMERICAN > 60; GLUCOSE,RANDOM 174 mg/dL (65-105); POTASSIUM 5.7 mmol/L (3.6-5.2); SODIUM 147 mmol/L (132-148); TOTAL PROTEIN 6.6 g/dL (6.3-8.3)
--- NOTE | 2017-07-05 13:52 | CP.PCM.PN ---
Subjective - Date & Time of Evaluation Date of Evaluation: 07/05/17 Time of Evaluation: 13:52 - Subjective Subjective: AWAKE, RESPONSIVE STILL NOT EATING. WEAK/EMACIATED. CT OF THE ABDOMEN AND PELVIS NOTED NONOBSTRUCTIVE NEPHROLITHIASIS NO MALIGNANCY CALCIFIED LEIOMYOMATOUS UTERUS CONSTIPATION. PATIENT ON mIRAlax. FOR EVAL FOR PEG. Objective - Vital Signs/Intake and Output Vital Signs (last 24 hours): Temp Pulse Resp BP Pulse Ox 97.1 F L 88 18 136/79 97 07/05/17 08:05 07/05/17 08:05 07/05/17 08:05 07/05/17 08:05 07/05/17 08:05 Intake and Output: 07/05/17 07/05/17 06:59 18:59 Output Total 1450 Balance -1450 - Medications Medications: Current Medications Cyproheptadine HCl (Periactin) 4 mg PO BIDPC [facility] Last Admin: 07/05/17 09:57 Dose: Not Given Digoxin (Lanoxin) 0.125 mg PO DAILY@1800 [facility] Last Admin: 07/04/17 17:56 Dose: 0.125 mg Meropenem 500 mg/ Sodium (Chloride) 100 mls @ 100 mls/hr IVPB Q8H [facility] Last Admin: 07/05/17 10:00 Dose: 100 mls/hr Lactulose (Enulose) 20 gm PO DAILY [facility] Rivaroxaban (Xarelto) 10 mg PO DAILY [facility] Last Admin: 07/05/17 09:58 Dose: Not Given Sodium Phosphate (Fleet Enema) 135 ml WA ONCE ONE Stop: 07/05/17 14:01 Last Admin: 07/05/17 13:37 Dose: 135 ml - Labs Labs: 07/05/17 11:55 07/05/17 11:55 - Constitutional Appears: No Acute Distress, Cachectic, Chronically Ill - Eye Exam Eye Exam: EOMI, PERRL. absent: Scleral icterus - ENT Exam ENT Exam: Mucous Membranes Dry, Normal Oropharynx - Neck Exam Neck Exam: Normal Inspection. absent: Lymphadenopathy - Respiratory Exam Respiratory Exam: Clear to Ausculation Bilateral, NORMAL BREATHING PATTERN - Cardiovascular Exam Cardiovascular Exam: Irregular Rhythm, +S1, +S2 - GI/Abdominal Exam GI & Abdominal Exam: Soft, Hypoactive Bowel Sounds. absent: Organomegaly - Neurological Exam Neurological Exam: Awake, CN II-XII Intact - Psychiatric Exam Psychiatric exam: Flat Affect - Skin Skin Exam: Pallor, Warm Assessment and Plan (1) UTI due to Klebsiella species Status: Acute (2) Acute renal insufficiency Status: Acute (3) Dehydration, severe Status: Acute (4) Hyperkalemia Status: Acute (5) Cardiomyopathy Status: Acute (6) Advanced dementia Status: Chronic - Assessment and Plan (Free Text) Plan: CONTINUE iv MERREM 500 MG EVERY 8 HOURLY 06/30/17 X 1WEEK MORE. URINE CULTURES REPEAT NOTED. PATIENT FOR PICC LINE. HAS VERY POOR VEINS . CONTINUE iv FLUIDS FOR HYDRATION. NOTED PER PMD , PATIENT FOR PEG PLACEMENT BEFORE DISCHARGING TO SUBACUTE REHABILITATION
[2017-07-05] MEDS: Digoxin 125 mcg (0.125 mg) Tab PO SCH (18:16)
[2017-07-05 22:07] LABS: CHLORIDE 102 mmol/L (98-107); POTASSIUM 5.7 mmol/L (3.6-5.2); SODIUM 145 mmol/L (132-148)
[2017-07-05 22:10] LABS: CARBON DIOXIDE 37 mmol/L (22-30); GFR AFRICAN-AMERICAN > 60
[2017-07-05 22:11] LABS: BLOOD UREA NITROGEN 60 mg/dL (7-17); CALCIUM 8.1 mg/dl (8.6-10.4); GLUCOSE,RANDOM 203 mg/dL (65-105)
[2017-07-06] MEDS: Meropenem 500 MG in Sodium Chloride 0.9% 100 ML IVPB SCH ×3 (03:12→18:24)
[2017-07-06 07:55] LABS: BASO % 0.9 % (0.0-2.0); EOS % 1.7 % (0.0-4.0); HEMATOCRIT 30.1 % (34.0-47.0); LYMPH % 34.8 % (20.0-40.0); MEAN CELL VOLUME 87.2 fL (81.0-99.0); MEAN CORPUSCULAR HEMOGLOBIN 28.3 pg (27.0-31.0); MEAN CORPUSCULAR HGB CONC 32.4 g/dL (33.0-37.0); MEAN PLATELET VOLUME 8.8 fL (7.2-11.7); MONO # 0.2 K/uL (0.0-0.8); MONO % 7.4 % (0.0-10.0); NRBC % 0.2 % (0.0-2.0); RED CELL DISTRIBUTION WIDTH 23.2 % (11.5-14.5); WHITE BLOOD COUNT 2.7 K/uL (4.8-10.8)
[2017-07-06 08:21] LABS: ALB/GLOB RATIO 0.7 (1.0-2.1); ALKALINE PHOSPHATASE 141 U/L (38-126); ALT/SGPT 98 U/L (9-52); AST/SGOT 74 U/L (14-36); BILIRUBIN,DIRECT 0.3 mg/dL (0.0-0.4); BILIRUBIN,TOTAL 0.4 mg/dL (0.2-1.3); BLOOD UREA NITROGEN 53 mg/dL (7-17); CALCIUM 8.5 mg/dl (8.6-10.4); CARBON DIOXIDE 39 mmol/L (22-30); CHLORIDE 102 mmol/L (98-107); GFR AFRICAN-AMERICAN > 60; GLUCOSE,RANDOM 109 mg/dL (65-105); POTASSIUM 5.2 mmol/L (3.6-5.2); SODIUM 147 mmol/L (132-148); TOTAL PROTEIN 6.2 g/dL (6.3-8.3)
--- NOTE | 2017-07-06 11:14 | CP.PCM.PN ---
Subjective - Date & Time of Evaluation Date of Evaluation: 07/06/17 Time of Evaluation: 11:15 - Subjective Subjective: Voital signs stable. patient seen and examined. Comfortable today. Still eatimng very little. Will have to insert a Peg as soon as the daughter gives me a consent. Objective - Vital Signs/Intake and Output Vital Signs (last 24 hours): Temp Pulse Resp BP Pulse Ox 97.8 F 64 20 130/87 100 07/06/17 07:00 07/06/17 07:00 07/06/17 07:00 07/06/17 07:00 07/06/17 07:00 Intake and Output: 07/06/17 07/06/17 06:59 18:59 Output Total 700 Balance -700 - Medications Medications: Current Medications Cyproheptadine HCl (Periactin) 4 mg PO BIDPC [facility] Last Admin: 07/06/17 09:46 Dose: 4 mg Digoxin (Lanoxin) 0.125 mg PO DAILY@1800 [facility] Last Admin: 07/05/17 18:16 Dose: 0.125 mg Meropenem 500 mg/ Sodium (Chloride) 100 mls @ 100 mls/hr IVPB Q8H [facility] Last Admin: 07/06/17 03:12 Dose: 100 mls/hr Lactulose (Enulose) 20 gm PO DAILY [facility] Last Admin: 07/06/17 09:46 Dose: 20 gm Rivaroxaban (Xarelto) 10 mg PO DAILY [facility] Last Admin: 07/06/17 09:46 Dose: 10 mg - Labs Labs: 07/06/17 07:42 07/06/17 07:42 - Constitutional Appears: No Acute Distress, Chronically Ill - Head Exam Head Exam: ATRAUMATIC, NORMAL INSPECTION, NORMOCEPHALIC - ENT Exam ENT Exam: Normal External Ear Exam - Respiratory Exam Respiratory Exam: Clear to Ausculation Bilateral - Cardiovascular Exam Cardiovascular Exam: Irregular Rhythm, +S1, +S2 - Rectal Exam Rectal Exam: Deferred - Back Exam Back Exam: CVA tenderness (L) - Neurological Exam Neurological Exam: Altered - Psychiatric Exam Psychiatric exam: Agitated - Skin Skin Exam: Dry, Intact, Warm Assessment and Plan (1) Weakness Status: Acute (2) Acute renal failure (ARF) Status: Acute (3) Malnutrition compromising bodily function Status: Chronic (4) Advanced dementia Status: Chronic (5) Dehydration, severe Status: Acute (6) Coronary heart disease Status: Chronic (7) Anemia Status: Acute - Assessment and Plan (Free Text) Plan: Status --Acute Plan: Continue IV antibiotics. Continue laxatives. For PEG insertion.
[2017-07-06] MEDS: Digoxin 125 mcg (0.125 mg) Tab PO SCH (18:24)
--- NOTE | 2017-07-06 18:35 | CP.PCM.CON ---
History of Present Illness - History of Present Illness History of Present Illness: 72 yo AA female with multiple admissions for CHF, renal insufficiency, respiratory failure, sepsis who was admitted with Urosepsis, CHF and was intubated earlier this admission. She has had poor appetite and barely consumes any food drinking only sips of Ensure. She has lost much weight. Asked by Dr Balderrama to see for possible PEG tube placement to meet nutritional needs. Pt is on blood thinner medications. Review of Systems - Review of Systems Systems not reviewed;Unavailable: Dementia Past Patient History - Infectious Disease Hx of Infectious Diseases: None - Tetanus Immunizations Tetanus Immunization: Unknown - Past Medical History & Family History Past Medical History?: Yes - Past Social History Smoking Status: Former Smoker Chewing Tobacco Use: No Cigar Use: No Alcohol: None Drugs: Denies Home Situation {Lives}: With Family Domestic Violence: Negative - CARDIAC Hx Cardiac Disorders: Yes (A.FIB) Hx Congestive Heart Failure: Yes Hx Hypercholesterolemia: Yes Hx Hypertension: Yes - PULMONARY Hx Respiratory Disorders: Yes Hx Emphysema: Yes - NEUROLOGICAL Hx Neurological Disorder: Yes Hx Dementia: Yes - HEENT Hx HEENT Problems: Yes Hx Cataracts: Yes (both eyes) - RENAL Hx Chronic Kidney Disease: No - ENDOCRINE/METABOLIC Hx Endocrine Disorders: No - HEMATOLOGICAL/ONCOLOGICAL Hx Blood Disorders: Yes Hx Anemia: Yes - INTEGUMENTARY Hx Dermatological Problems: No - MUSCULOSKELETAL/RHEUMATOLOGICAL Hx Musculoskeletal Disorders: Yes Hx Falls: Yes Hx Unsteady Gait: Yes - GASTROINTESTINAL Hx Gastrointestinal Disorders: Yes Other/Comment: patient is very anorectic. - GENITOURINARY/GYNECOLOGICAL Hx Genitourinary Disorders: No - PSYCHIATRIC Hx Psychophysiologic Disorder: No Hx Substance Use: No - SURGICAL HISTORY Hx Surgeries: Yes Hx Cataract Extraction: Yes (2013) - ANESTHESIA Hx Anesthesia: Yes Hx Anesthesia Reactions: No Hx Malignant Hyperthermia: No Meds Allergies/Adverse Reactions: Allergies Allergy/AdvReac Type Severity Reaction Status Date / Time No Known Allergies Allergy Verified 06/27/17 15:11 - Medications Medications: Current Medications Cyproheptadine HCl (Periactin) 4 mg PO BIDPC [facility] Last Admin: 07/06/17 18:24 Dose: 4 mg Digoxin (Lanoxin) 0.125 mg PO DAILY@1800 [facility] Last Admin: 07/06/17 18:24 Dose: 0.125 mg Meropenem 500 mg/ Sodium (Chloride) 100 mls @ 100 mls/hr IVPB Q8H [facility] Last Admin: 07/06/17 18:24 Dose: 100 mls/hr Lactulose (Enulose) 20 gm PO DAILY [facility] Last Admin: 07/06/17 09:46 Dose: 20 gm Physical Exam - Constitutional Appears: Cachectic, Chronically Ill - Head Exam Head Exam: ATRAUMATIC, NORMOCEPHALIC - Eye Exam Eye Exam: EOMI, PERRL - Respiratory Exam Respiratory Exam: NORMAL BREATHING PATTERN. absent: Wheezes, Respiratory Distress - Cardiovascular Exam Cardiovascular Exam: REGULAR RHYTHM, +S1 - GI/Abdominal Exam GI & Abdominal Exam: Normal Bowel Sounds, Soft. absent: Distended, Mass, Organomegaly, Rigid, Tenderness Additional comments: thin and with no scars - Rectal Exam Rectal Exam: Deferred - Extremities Exam Extremities exam: Positive for: normal inspection - Neurological Exam Neurological exam: Alert Additional comments: not verbally responsive to questions in appropriate fashion - Skin Skin Exam: Dry, Warm Results - Vital Signs Recent Vital Signs: Last Vital Signs Temp 97.4 F L 07/06/17 15:00 Pulse 96 H 07/06/17 15:00 Resp 20 07/06/17 15:00 BP 111/75 07/06/17 15:00 Pulse Ox 94 L 07/06/17 15:00 - Labs Result Diagrams: 07/06/17 07:42 07/06/17 07:42 Labs: Laboratory Results - last 24 hr 07/05/17 07/06/17 07/06/17 21:54 07:42 07:42 WBC RBC Hgb Hct MCV MCH MCHC RDW Plt Count MPV Neut % (Auto) Lymph % (Auto) Sawyer % (Auto) Eos % (Auto) Baso % (Auto) Neut # Lymph # Sawyer # Eos # Baso # Sodium 145 147 Potassium 5.7 H 5.2 Chloride 102 102 Carbon Dioxide 37 H 39 H Anion Gap 12 11 BUN 60 H 53 H Creatinine 0.8 0.8 Est GFR ( Amer) > 60 > 60 Est GFR (Non-Af Amer) > 60 > 60 Random Glucose 203 H 109 H Calcium 8.1 L 8.5 L Total Bilirubin 0.4 Direct Bilirubin 0.3 AST 74 H D ALT 98 H D Alkaline Phosphatase 141 H Total Protein 6.2 L Albumin 2.6 L Globulin 3.6 Albumin/Globulin Ratio 0.7 L Hepatitis A IgM Ab Negative Hep Bs Antigen Negative Hep B Core IgM Ab Negative Hepatitis C Antibody Negative Negative 07/06/17 07:42 WBC 2.7 L RBC 3.45 L Hgb 9.8 L Hct 30.1 L MCV 87.2 MCH 28.3 MCHC 32.4 L RDW 23.2 H Plt Count 177 MPV 8.8 Neut % (Auto) 55.2 Lymph % (Auto) 34.8 Sawyer % (Auto) 7.4 Eos % (Auto) 1.7 Baso % (Auto) 0.9 Neut # 1.5 L Lymph # 1.0 Sawyer # 0.2 Eos # 0.0 Baso # 0.0 Sodium Potassium Chloride Carbon Dioxide Anion Gap BUN Creatinine Est GFR ( Amer) Est GFR (Non-Af Amer) Random Glucose Calcium Total Bilirubin Direct Bilirubin AST ALT Alkaline Phosphatase Total Protein Albumin Globulin Albumin/Globulin Ratio Hepatitis A IgM Ab Hep Bs Antigen Hep B Core IgM Ab Hepatitis C Antibody Assessment & Plan (1) Acute renal failure (ARF) Assessment and Plan: worsened by dehydration and poor po intake. Would benefit watermaster from alternative means for feedings Status: Acute (2) UTI due to Klebsiella species Assessment and Plan: as per ID. Status: Acute (3) Malnutrition compromising bodily function Assessment and Plan: Poor po intake leading to protein/calorie malnutrition and poor wound healing, muscle strength, etc. Agree with recommendation for PEG tube placement if family is agreeable and consents are signed. Will need to stop all blood thinners and anti-platelet meds for 5 days. Will schedule PEG placement for Monday of next week if consents signed and patient is cleared by Cardiology and ID for procedure. Status: Chronic (4) Cerebral embolism Assessment and Plan: Will need to hold blood thinners to facilitate a PEG placement. May use Heparin or Lovenox as a bridge if needed and stop prior to OR schedule. Status: Chronic (5) Congestive heart failure (CHF) Assessment and Plan: As per CArdiology Status: Acute (6) Dementia Status: Chronic
--- NOTE | 2017-07-06 20:18 | CP.PCM.PN ---
Subjective - Date & Time of Evaluation Date of Evaluation: 07/06/17 Time of Evaluation: 20:18 - Subjective Subjective: afebrile WEAK. CLINICALLY SAME. SEEN BY GI . LFTS WERE HIGH BUT IMPROVING NOW- HEPATITIS WORKUP ORDERED. Objective - Vital Signs/Intake and Output Vital Signs (last 24 hours): Temp Pulse Resp BP Pulse Ox 97.4 F L 90 20 111/75 94 L 07/06/17 15:00 07/06/17 18:00 07/06/17 15:00 07/06/17 15:00 07/06/17 15:00 Intake and Output: 07/06/17 07/07/17 18:59 06:59 Intake Total 780 Output Total 300 Balance 480 - Medications Medications: Current Medications Cyproheptadine HCl (Periactin) 4 mg PO BIDPC [facility] Last Admin: 07/06/17 18:24 Dose: 4 mg Digoxin (Lanoxin) 0.125 mg PO DAILY@1800 [facility] Last Admin: 07/06/17 18:24 Dose: 0.125 mg Meropenem 500 mg/ Sodium (Chloride) 100 mls @ 100 mls/hr IVPB Q8H [facility] Last Admin: 07/06/17 18:24 Dose: 100 mls/hr Lactulose (Enulose) 20 gm PO DAILY [facility] Last Admin: 07/06/17 09:46 Dose: 20 gm - Labs Labs: 07/06/17 07:42 07/06/17 07:42 - Constitutional Appears: No Acute Distress, Cachectic, Chronically Ill - Head Exam Head Exam: NORMAL INSPECTION - Eye Exam Eye Exam: EOMI, PERRL - ENT Exam ENT Exam: Mucous Membranes Dry, Normal Oropharynx - Neck Exam Neck Exam: Normal Inspection - Respiratory Exam Respiratory Exam: Decreased Breath Sounds - Cardiovascular Exam Cardiovascular Exam: Irregular Rhythm, +S1, +S2 - GI/Abdominal Exam GI & Abdominal Exam: Soft, Hypoactive Bowel Sounds. absent: Tenderness - Extremities Exam Extremities Exam: absent: Calf Tenderness, Pedal Edema - Neurological Exam Neurological Exam: Awake, CN II-XII Intact - Psychiatric Exam Psychiatric exam: Flat Affect - Skin Skin Exam: Normal Color, Warm Assessment and Plan (1) UTI due to Klebsiella species Assessment & Plan: BLOOD CULTURES 06/29/17 -VE GROWTH TO DATE uRINE CULTURE REPEAT 07/03/17 -VE GROWTH. CONTINUE iv MERREM 500 MG EVERY 8 HOURLY 06/30/17 X 1WEEK MORE. F/U CBC PATIENT HAS LEUKOPENIA. CHECK HIV 1/2 ANTIBODY SCREEN lYMPHOCYTE SUBSET PANEL. Status: Acute (2) Acute renal insufficiency Assessment & Plan: CREATININE 0.8 bun 53 IMPROVING Status: Acute (3) Dehydration, severe Status: Acute (4) Hyperkalemia Status: Acute (5) Cardiomyopathy Status: Acute (6) Advanced dementia Assessment & Plan: PATIENT HAS MARKED WEIGHT LOSS AND ANOREXIA. DAUGHTER AWARE AND DISCUSSED WITH pmd ABOUT peg INSERTION. Status: Chronic
[2017-07-07] MEDS: Meropenem 500 MG in Sodium Chloride 0.9% 100 ML IVPB SCH ×3 (03:00→19:24)
[2017-07-07 07:48] LABS: ALB/GLOB RATIO 0.7 (1.0-2.1); ALKALINE PHOSPHATASE 129 U/L (38-126); ALT/SGPT 82 U/L (9-52); AST/SGOT 63 U/L (14-36); BILIRUBIN,DIRECT 0.3 mg/dL (0.0-0.4); BILIRUBIN,TOTAL 0.3 mg/dL (0.2-1.3); TOTAL PROTEIN 6.1 g/dL (6.3-8.3)
--- NOTE | 2017-07-07 10:53 | CP.PCM.PN ---
Subjective - Date & Time of Evaluation Date of Evaluation: 07/07/17 Time of Evaluation: 10:50 - Subjective Subjective: Awake but disoriented. Not taking in fluids po. Decision to insert a Peg was advsed by me to the daughter. Patient can not survive this way. Xarelto had been stopped starting today. Objective - Vital Signs/Intake and Output Vital Signs (last 24 hours): Temp Pulse Resp BP Pulse Ox 97.5 F L 60 20 125/69 95 07/07/17 08:30 07/07/17 08:30 07/07/17 08:30 07/07/17 08:30 07/07/17 08:30 Intake and Output: 07/07/17 07/07/17 06:59 18:59 Output Total 600 Balance -600 - Medications Medications: Current Medications Cyproheptadine HCl (Periactin) 4 mg PO BIDPC [facility] Last Admin: 07/07/17 10:19 Dose: Not Given Digoxin (Lanoxin) 0.125 mg PO DAILY@1800 [facility] Last Admin: 07/06/17 18:24 Dose: 0.125 mg Meropenem 500 mg/ Sodium (Chloride) 100 mls @ 100 mls/hr IVPB Q8H [facility] Last Admin: 07/07/17 10:04 Dose: 100 mls/hr Lactulose (Enulose) 20 gm PO DAILY [facility] Last Admin: 07/07/17 10:19 Dose: Not Given - Labs Labs: 07/06/17 07:42 07/06/17 07:42 - Head Exam Head Exam: ATRAUMATIC, NORMAL INSPECTION, NORMOCEPHALIC - Eye Exam Pupil Exam: PERRL - Respiratory Exam Respiratory Exam: Clear to Ausculation Bilateral - Cardiovascular Exam Cardiovascular Exam: Irregular Rhythm, +S1, +S2 - GI/Abdominal Exam GI & Abdominal Exam: Soft - Rectal Exam Rectal Exam: Deferred - Back Exam Back Exam: NORMAL INSPECTION - Neurological Exam Neurological Exam: Alert - Skin Skin Exam: Dry, Intact, Warm Assessment and Plan (1) Weakness Status: Acute (2) Acute renal failure (ARF) Status: Acute (3) Malnutrition compromising bodily function Status: Chronic (4) Advanced dementia Status: Chronic (5) Dehydration, severe Status: Acute (6) Coronary heart disease Status: Chronic (7) Anemia Status: Acute - Assessment and Plan (Free Text) Plan: Status---Acute Plan : For PICC line insertion. For PEG insertion.
[2017-07-07] MEDS: Digoxin 125 mcg (0.125 mg) Tab PO SCH (19:23)
--- NOTE | 2017-07-07 22:46 | CP.PCM.PN ---
Subjective - Date & Time of Evaluation Date of Evaluation: 07/07/17 Time of Evaluation: 22:46 - Subjective Subjective: afebrile Patient very weak and emaciated. As per daughter not eating much. Clinically same awaiting PEG insertion xeralto on hold for the procedure to be done early next week. patient on IV antibiotics for urosepsis. LABS REVIEWED LFTS -IMPROVING HIV -1 AND 2 ANTIBODY NEGATIVE. HEPATITIS SCREEN A,B C NEGATIVE. Objective - Vital Signs/Intake and Output Vital Signs (last 24 hours): Temp Pulse Resp BP Pulse Ox 97.9 F 85 20 121/72 98 07/07/17 15:00 07/07/17 18:00 07/07/17 15:00 07/07/17 15:00 07/07/17 15:00 Intake and Output: 07/07/17 07/08/17 18:59 06:59 Intake Total 540 Output Total 500 Balance 40 - Medications Medications: Current Medications Cyproheptadine HCl (Periactin) 4 mg PO BIDPC [facility] Last Admin: 07/07/17 19:24 Dose: 4 mg Digoxin (Lanoxin) 0.125 mg PO DAILY@1800 [facility] Last Admin: 07/07/17 19:23 Dose: 0.125 mg Meropenem 500 mg/ Sodium (Chloride) 100 mls @ 100 mls/hr IVPB Q8H [facility] Last Admin: 07/07/17 19:24 Dose: 100 mls/hr Lactulose (Enulose) 20 gm PO DAILY [facility] Last Admin: 07/07/17 10:19 Dose: Not Given - Labs Labs: 07/06/17 07:42 07/06/17 07:42 - Constitutional Appears: No Acute Distress, Cachectic, Chronically Ill - Head Exam Head Exam: NORMAL INSPECTION - Eye Exam Eye Exam: EOMI, PERRL - ENT Exam ENT Exam: Mucous Membranes Dry, Normal Oropharynx - Neck Exam Neck Exam: Normal Inspection - Respiratory Exam Respiratory Exam: Decreased Breath Sounds - Cardiovascular Exam Cardiovascular Exam: Irregular Rhythm, +S1, +S2 - GI/Abdominal Exam GI & Abdominal Exam: Soft, Normal Bowel Sounds. absent: Organomegaly - Extremities Exam Extremities Exam: absent: Calf Tenderness, Pedal Edema - Neurological Exam Neurological Exam: Awake (Confused. Conversation not possible.), CN II-XII Intact - Psychiatric Exam Psychiatric exam: Flat Affect - Skin Skin Exam: Normal Color, Warm Assessment and Plan (1) UTI due to Klebsiella species Assessment & Plan: BLOOD CULTURES 06/29/17 -VE GROWTH TO DATE uRINE CULTURE REPEAT 07/03/17 -VE GROWTH. CONTINUE iv MERREM 500 MG EVERY 8 HOURLY 06/30/17 TILL AFTER THE PROCEDURE. F/U CBC PATIENT HAS LEUKOPENIA PATIENT WILL BE CLEARED FOR PEG BY MONDAY FROM ID POINT OF VIEW. Status: Acute (2) Acute renal insufficiency Status: Acute (3) Dehydration, severe Status: Acute (4) Hyperkalemia Status: Acute (5) Cardiomyopathy Status: Acute (6) Advanced dementia Status: Chronic
[2017-07-08] MEDS: Meropenem 500 MG in Sodium Chloride 0.9% 100 ML IVPB SCH ×3 (03:06→19:25)
[2017-07-08 08:35] LABS: CHLORIDE 107 mmol/L (98-107); SODIUM 143 mmol/L (132-148)
[2017-07-08 08:37] LABS: POTASSIUM 5.8 mmol/L (3.6-5.2)
[2017-07-08 08:38] LABS: ALB/GLOB RATIO 0.8 (1.0-2.1); ALKALINE PHOSPHATASE 141 U/L (38-126); ALT/SGPT 98 U/L (9-52); AST/SGOT 80 U/L (14-36); BILIRUBIN,TOTAL 0.4 mg/dL (0.2-1.3); BLOOD UREA NITROGEN 57 mg/dL (7-17); CARBON DIOXIDE 32 mmol/L (22-30); GFR AFRICAN-AMERICAN > 60; GLUCOSE,RANDOM 90 mg/dL (65-105); TOTAL PROTEIN 6.3 g/dL (6.3-8.3)
[2017-07-08 08:39] LABS: CALCIUM 8.5 mg/dl (8.6-10.4)
[2017-07-08 13:20] LABS: BASO % 0.9 % (0.0-2.0); EOS # 0.1 K/uL (0.0-0.7); EOS % 2.1 % (0.0-4.0); HEMATOCRIT 28.7 % (34.0-47.0); LYMPH # 1.1 K/uL (1.0-4.3); LYMPH % 41.9 % (20.0-40.0); MEAN CELL VOLUME 87.9 fL (81.0-99.0); MEAN CORPUSCULAR HEMOGLOBIN 28.3 pg (27.0-31.0); MEAN CORPUSCULAR HGB CONC 32.2 g/dL (33.0-37.0); MEAN PLATELET VOLUME 8.7 fL (7.2-11.7); MONO # 0.2 K/uL (0.0-0.8); MONO % 7.9 % (0.0-10.0); NRBC % 0.1 % (0.0-2.0); RED CELL DISTRIBUTION WIDTH 22.6 % (11.5-14.5); WHITE BLOOD COUNT 2.6 K/uL (4.8-10.8)
--- NOTE | 2017-07-08 13:57 | CP.PCM.PN ---
Subjective - Date & Time of Evaluation Date of Evaluation: 07/08/17 Time of Evaluation: 01:45 - Subjective Subjective: Patient is vegetating. Not eating, afebrile, not in acute distress. For PEG insertion on monday. Objective - Vital Signs/Intake and Output Vital Signs (last 24 hours): Temp Pulse Resp BP Pulse Ox 98.1 F 75 20 125/90 94 L 07/08/17 07:00 07/08/17 07:00 07/08/17 07:00 07/08/17 07:00 07/08/17 07:00 Intake and Output: 07/08/17 07/08/17 06:59 18:59 Output Total 1200 Balance -1200 - Medications Medications: Current Medications Cyproheptadine HCl (Periactin) 4 mg PO BIDPC [facility] Last Admin: 07/08/17 09:34 Dose: 4 mg Digoxin (Lanoxin) 0.125 mg PO DAILY@1800 [facility] Last Admin: 07/07/17 19:23 Dose: 0.125 mg Meropenem 500 mg/ Sodium (Chloride) 100 mls @ 100 mls/hr IVPB Q8H [facility] Last Admin: 07/08/17 11:15 Dose: 100 mls/hr Lactulose (Enulose) 20 gm PO DAILY [facility] Last Admin: 07/08/17 09:34 Dose: 20 gm - Labs Labs: 07/08/17 13:05 07/08/17 07:55 - Constitutional Appears: No Acute Distress - Head Exam Head Exam: ATRAUMATIC, NORMAL INSPECTION, NORMOCEPHALIC - ENT Exam ENT Exam: Normal External Ear Exam - Respiratory Exam Respiratory Exam: Clear to Ausculation Bilateral, NORMAL BREATHING PATTERN - Cardiovascular Exam Cardiovascular Exam: +S1, +S2 - GI/Abdominal Exam GI & Abdominal Exam: Soft - Rectal Exam Rectal Exam: Deferred - Neurological Exam Neurological Exam: Altered - Skin Skin Exam: Dry, Intact Assessment and Plan (1) Weakness Status: Acute (2) Acute renal failure (ARF) Status: Acute (3) Malnutrition compromising bodily function Status: Chronic (4) Advanced dementia Status: Chronic (5) Dehydration, severe Status: Acute (6) Coronary heart disease Status: Chronic (7) Anemia Status: Acute - Assessment and Plan (Free Text) Plan: Status-- Acute. Plan: Continue IV antibiotics. Peg on monday.
[2017-07-08] MEDS: Digoxin 125 mcg (0.125 mg) Tab PO SCH (17:43)
--- NOTE | 2017-07-08 20:35 | CP.PCM.PN ---
Subjective - Date & Time of Evaluation Date of Evaluation: 07/08/17 Time of Evaluation: 20:35 - Subjective Subjective: Clinically same awaiting PEG insertion xeralto on hold for the procedure to be done early next week. patient on IV antibiotics for urosepsis. LABS REVIEWED WBC 2.6 H/H 9.2/28.7 PLT N LFTS; AST 80,ALT 98, AP 141 STILL HIGH ETIOLOGY ?NOT CLEAR ?KEYES. REPEAT CULTURES -VE TO DATE Objective - Vital Signs/Intake and Output Vital Signs (last 24 hours): Temp Pulse Resp BP Pulse Ox 98.1 F 75 20 125/90 94 L 07/08/17 07:00 07/08/17 07:00 07/08/17 07:00 07/08/17 07:00 07/08/17 07:00 - Medications Medications: Current Medications Cyproheptadine HCl (Periactin) 4 mg PO BIDPC [facility] Last Admin: 07/08/17 17:43 Dose: 4 mg Digoxin (Lanoxin) 0.125 mg PO DAILY@1800 [facility] Last Admin: 07/08/17 17:43 Dose: 0.125 mg Meropenem 500 mg/ Sodium (Chloride) 100 mls @ 100 mls/hr IVPB Q8H [facility] Last Admin: 07/08/17 19:25 Dose: 100 mls/hr Lactulose (Enulose) 20 gm PO DAILY [facility] Last Admin: 07/08/17 09:34 Dose: 20 gm - Labs Labs: 07/08/17 13:05 07/08/17 07:55 - Constitutional Appears: No Acute Distress, Cachectic, Chronically Ill - Eye Exam Eye Exam: EOMI, PERRL. absent: Scleral icterus - ENT Exam ENT Exam: Mucous Membranes Dry - Neck Exam Neck Exam: Normal Inspection. absent: Meningismus - Respiratory Exam Respiratory Exam: Decreased Breath Sounds - Cardiovascular Exam Cardiovascular Exam: Irregular Rhythm, +S1, +S2 - GI/Abdominal Exam GI & Abdominal Exam: Soft, Normal Bowel Sounds. absent: Organomegaly - Extremities Exam Extremities Exam: absent: Calf Tenderness, Pedal Edema - Neurological Exam Neurological Exam: Altered, Awake - Psychiatric Exam Psychiatric exam: Normal Mood - Skin Skin Exam: Normal Color, Warm Assessment and Plan (1) UTI due to Klebsiella species Assessment & Plan: BLOOD CULTURES 06/29/17 -VE GROWTH TO DATE uRINE CULTURE REPEAT 07/03/17 -VE GROWTH. CONTINUE iv MERREM 500 MG EVERY 8 HOURLY 06/30/17 TILL AFTER THE PROCEDURE. F/U CBC PATIENT STILL HAS LEUKOPENIA ? MYELODYSPLASTIC SYNDROME. Status: Acute (2) Acute renal insufficiency Status: Acute (3) Dehydration, severe Status: Acute (4) Hyperkalemia Status: Acute (5) Cardiomyopathy Status: Acute (6) Advanced dementia Status: Chronic (7) Transaminitis Assessment & Plan: FLORES, 5.NUCLEOTIDASE, GGT SERUM COPPER, SERUM FERRITIN SHARMILA LEVELS LFTS REPEAT MONDAY Status: Acute
--- NOTE | 2017-07-09 11:02 | CP.PCM.PN ---
Subjective - Date & Time of Evaluation Date of Evaluation: 07/09/17 Time of Evaluation: 11:00 - Subjective Subjective: Patient denies having nausea, vomiting, abdominal pain. She has not had a bowel movement so far today. Objective - Vital Signs/Intake and Output Vital Signs (last 24 hours): Temp Pulse Resp BP Pulse Ox 97.5 F L 92 H 19 132/82 95 07/09/17 08:39 07/09/17 08:39 07/09/17 08:39 07/09/17 08:39 07/09/17 08:39 Intake and Output: 07/09/17 07/09/17 06:59 18:59 Output Total 600 Balance -600 - Medications Medications: Current Medications Cyproheptadine HCl (Periactin) 4 mg PO BIDPC [facility] Last Admin: 07/09/17 10:15 Dose: 4 mg Digoxin (Lanoxin) 0.125 mg PO DAILY@1800 [facility] Last Admin: 07/08/17 17:43 Dose: 0.125 mg Lactulose (Enulose) 20 gm PO DAILY [facility] Last Admin: 07/09/17 10:15 Dose: 20 gm - Labs Labs: 07/08/17 13:05 07/08/17 07:55 - Constitutional Appears: Cachectic, Chronically Ill - Head Exam Head Exam: ATRAUMATIC, NORMOCEPHALIC - Eye Exam Eye Exam: EOMI, PERRL - Neck Exam Neck Exam: absent: Lymphadenopathy, Thyromegaly - Respiratory Exam Respiratory Exam: NORMAL BREATHING PATTERN. absent: Rales, Rhonchi, Wheezes - Cardiovascular Exam Cardiovascular Exam: REGULAR RHYTHM, +S1, +S2. absent: Gallop, Rubs, Murmur - GI/Abdominal Exam GI & Abdominal Exam: Distended, Soft, Normal Bowel Sounds. absent: Tenderness, Mass, Organomegaly - Rectal Exam Rectal Exam: Deferred - Extremities Exam Extremities Exam: absent: Calf Tenderness, Pedal Edema Assessment and Plan (1) Malnutrition compromising bodily function Assessment & Plan: Patient is a suitable candidate for PEG. The procedure has been scheduled for 07/11/17. Status: Chronic
--- NOTE | 2017-07-09 13:50 | US ---
HISTORY: elevated CA 19-9 COMPARISON: None. TECHNIQUE: Sonographic evaluation of the abdomen. FINDINGS: LIVER: Measures 15.3 cm. Increased echogenicity of the liver parenchyma. No mass. No intrahepatic bile duct dilatation. GALLBLADDER: Unremarkable. No gallstones. COMMON BILE DUCT: Measures 2.6 mm. No stones. No dilatation. PANCREAS: Unremarkable as visualized. No mass. No ductal dilatation. RIGHT KIDNEY: Measures 8.8 x 3.2 x 3.5cm. There is a calcification or nonobstructing stone at the lower pole of the right kidney measures 4.4 x 4 x 4 millimeter. There is also suspicious for nonobstructing stone at the midpole of the right kidney measures 3 millimeter. Normal echogenicity. No mass, or hydronephrosis. LEFT KIDNEY: Measures 8.5 x 4.3 x 3.4cm. There is nonobstructing stone at the lower pole of the left kidney measures 7.5 x 6.5 x 8 millimeter. Normal echogenicity. No mass, or hydronephrosis. SPLEEN: Normal in size and contour. No mass. AORTA: No aneurysmal dilatation. IVC: Unremarkable. OTHER FINDINGS: Small ascites seen in the abdomen. IMPRESSION: Bilateral nonobstructing renal calculi. Mild fullness in the collecting system of the left kidney. Heterogeneous and echogenic liver suggestive of hepatic steatosis. Small ascites in the abdomen.
--- NOTE | 2017-07-09 14:38 | CP.PCM.PN ---
Subjective - Date & Time of Evaluation Date of Evaluation: 07/09/17 Time of Evaluation: 02:35 - Subjective Subjective: Patient seen and examined. Vital signs stable. Drinking her ensure today. Able to get the consent foe a PICC line insertion from her daughter. For PEG insertion on monday. Objective - Vital Signs/Intake and Output Vital Signs (last 24 hours): Temp Pulse Resp BP Pulse Ox 97.5 F L 92 H 19 132/82 95 07/09/17 08:39 07/09/17 08:39 07/09/17 08:39 07/09/17 08:39 07/09/17 08:39 Intake and Output: 07/09/17 07/09/17 06:59 18:59 Output Total 600 Balance -600 - Medications Medications: Current Medications Cyproheptadine HCl (Periactin) 4 mg PO BIDPC [facility] Last Admin: 07/09/17 10:15 Dose: 4 mg Digoxin (Lanoxin) 0.125 mg PO DAILY@1800 [facility] Last Admin: 07/08/17 17:43 Dose: 0.125 mg Lactulose (Enulose) 20 gm PO DAILY [facility] Last Admin: 07/09/17 10:15 Dose: 20 gm - Labs Labs: 07/08/17 13:05 07/08/17 07:55 - Constitutional Appears: Chronically Ill - Head Exam Head Exam: ATRAUMATIC, NORMAL INSPECTION, NORMOCEPHALIC - ENT Exam ENT Exam: Mucous Membranes Moist - Respiratory Exam Respiratory Exam: Clear to Ausculation Bilateral, Prolonged Expiratory Phase - Cardiovascular Exam Cardiovascular Exam: Irregular Rhythm, +S1, +S2 - GI/Abdominal Exam GI & Abdominal Exam: Soft, Normal Bowel Sounds - Rectal Exam Rectal Exam: Deferred - Neurological Exam Neurological Exam: Altered - Skin Skin Exam: Dry, Intact Assessment and Plan (1) Weakness Status: Acute (2) Acute renal failure (ARF) Status: Acute (3) Malnutrition compromising bodily function Status: Chronic (4) Advanced dementia Status: Chronic (5) Dehydration, severe Status: Acute (6) Coronary heart disease Status: Chronic (7) Anemia Status: Acute - Assessment and Plan (Free Text) Plan: Status--Acute Plan: Continue supportrive care. IV antibiotics For PEG insertion.
[2017-07-09] MEDS: Digoxin 125 mcg (0.125 mg) Tab PO SCH (18:08)
[2017-07-09] MEDS: Meropenem 500 MG in Sodium Chloride 0.9% 100 ML IVPB SCH (18:08)
[2017-07-10] MEDS: Meropenem 500 MG in Sodium Chloride 0.9% 100 ML IVPB SCH ×3 (00:32→16:19)
[2017-07-10 08:25] LABS: BASO % 0.9 % (0.0-2.0); EOS # 0.1 K/uL (0.0-0.7); EOS % 2.4 % (0.0-4.0); HEMATOCRIT 28.1 % (34.0-47.0); LYMPH # 1.1 K/uL (1.0-4.3); LYMPH % 44.4 % (20.0-40.0); MEAN CELL VOLUME 87.8 fL (81.0-99.0); MEAN CORPUSCULAR HEMOGLOBIN 28.4 pg (27.0-31.0); MEAN CORPUSCULAR HGB CONC 32.4 g/dL (33.0-37.0); MEAN PLATELET VOLUME 8.4 fL (7.2-11.7); MONO # 0.2 K/uL (0.0-0.8); MONO % 9.8 % (0.0-10.0); RED CELL DISTRIBUTION WIDTH 22.6 % (11.5-14.5); WHITE BLOOD COUNT 2.5 K/uL (4.8-10.8)
[2017-07-10 08:31] LABS: INR 0.9
[2017-07-10 09:12] LABS: ALB/GLOB RATIO 0.8 (1.0-2.1); ALKALINE PHOSPHATASE 134 U/L (38-126); ALT/SGPT 77 U/L (9-52); AST/SGOT 48 U/L (14-36); BILIRUBIN,TOTAL 0.3 mg/dL (0.2-1.3); BLOOD UREA NITROGEN 41 mg/dL (7-17); CARBON DIOXIDE 36 mmol/L (22-30); CHLORIDE 101 mmol/L (98-107); GFR AFRICAN-AMERICAN > 60; GLUCOSE,RANDOM 86 mg/dL (65-105); SODIUM 143 mmol/L (132-148); TOTAL PROTEIN 6.5 g/dL (6.3-8.3)
--- NOTE | 2017-07-10 09:30 | CP.PCM.PN ---
Subjective - Date & Time of Evaluation Date of Evaluation: 07/10/17 Time of Evaluation: 09:28 - Subjective Subjective: No consent for PEG tube has been obtained since monday. Message left for family to sign consent. PEG was tentatively scheduled for tomorrow but may now need to be cancelled unless consent is given. Will keep NPO after MN in case PEG may still be facilitated. Unclear as to families desires at this point in time. PICC line consent only obtained. Objective - Vital Signs/Intake and Output Vital Signs (last 24 hours): Temp Pulse Resp BP Pulse Ox 98 F 74 20 146/88 97 07/09/17 23:30 07/09/17 23:40 07/09/17 23:30 07/09/17 23:30 07/09/17 23:30 Intake and Output: 07/10/17 07/10/17 06:59 18:59 Output Total 400 Balance -400 - Medications Medications: Current Medications Cyproheptadine HCl (Periactin) 4 mg PO BIDPC [facility] Last Admin: 07/10/17 09:17 Dose: 4 mg Digoxin (Lanoxin) 0.125 mg PO DAILY@1800 [facility] Last Admin: 07/09/17 18:08 Dose: 0.125 mg Meropenem 500 mg/ Sodium (Chloride) 100 mls @ 100 mls/hr IVPB Q8H [facility] Last Admin: 07/10/17 07:11 Dose: 100 mls/hr Lactulose (Enulose) 20 gm PO DAILY [facility] Last Admin: 07/10/17 09:17 Dose: 20 gm - Labs Labs: 07/10/17 08:15 07/10/17 08:15 PT 10.5 SECONDS (9.7-12.2) 07/10/17 08:15 INR 0.9 07/10/17 08:15 APTT 31 SECONDS (21-34) 07/10/17 08:15 Assessment and Plan (1) Acute renal failure (ARF) Status: Acute (2) UTI due to Klebsiella species Status: Acute (3) Malnutrition compromising bodily function Status: Chronic (4) Cerebral embolism Status: Chronic (5) Congestive heart failure (CHF) Status: Acute (6) Dementia Status: Chronic
[2017-07-10] MEDS ORDERED: Sod Polystyrene Sulf 15 gm/60 ml Oral Susp PO ONE (11:15)
[2017-07-10] MEDS ORDERED: POLYETHYLENE GLYCOL 3350 17 GM/Dose PACKET PO ONE (11:15)
--- NOTE | 2017-07-10 11:27 | CP.PCM.PN ---
Subjective - Date & Time of Evaluation Date of Evaluation: 07/10/17 Time of Evaluation: 11:20 - Subjective Subjective: Patient is very quiet today and comfortable. Still not eating well. For PEG insertion tomorrow. PICC line insertion today. Objective - Vital Signs/Intake and Output Vital Signs (last 24 hours): Temp Pulse Resp BP Pulse Ox 98 F 72 18 148/81 94 L 07/10/17 07:10 07/10/17 07:10 07/10/17 07:10 07/10/17 07:10 07/10/17 07:10 Intake and Output: 07/10/17 07/10/17 06:59 18:59 Output Total 400 Balance -400 - Medications Medications: Current Medications Cyproheptadine HCl (Periactin) 4 mg PO BIDPC [facility] Last Admin: 07/10/17 09:17 Dose: 4 mg Digoxin (Lanoxin) 0.125 mg PO DAILY@1800 [facility] Last Admin: 07/09/17 18:08 Dose: 0.125 mg Meropenem 500 mg/ Sodium (Chloride) 100 mls @ 100 mls/hr IVPB Q8H [facility] Last Admin: 07/10/17 07:11 Dose: 100 mls/hr Lactulose (Enulose) 20 gm PO DAILY [facility] Last Admin: 07/10/17 09:17 Dose: 20 gm - Labs Labs: 07/10/17 08:15 07/10/17 08:15 PT 10.5 SECONDS (9.7-12.2) 07/10/17 08:15 INR 0.9 07/10/17 08:15 APTT 31 SECONDS (21-34) 07/10/17 08:15 - Head Exam Head Exam: ATRAUMATIC, NORMAL INSPECTION, NORMOCEPHALIC - Respiratory Exam Respiratory Exam: Clear to Ausculation Bilateral - Cardiovascular Exam Cardiovascular Exam: Irregular Rhythm, +S1, +S2 - GI/Abdominal Exam GI & Abdominal Exam: Soft - Rectal Exam Rectal Exam: Deferred - Neurological Exam Neurological Exam: Altered - Skin Skin Exam: Dry, Intact Assessment and Plan (1) Weakness Status: Acute (2) Acute renal failure (ARF) Status: Resolved (3) Malnutrition compromising bodily function Status: Chronic (4) Advanced dementia Status: Chronic (5) Dehydration, severe Status: Acute (6) Coronary heart disease Status: Chronic (7) Anemia Status: Acute - Assessment and Plan (Free Text) Plan: Status ---Acute Assessment: Plan: Dehydration Continue IV antibiotics Acute renal failure. For PEG insertion in AM Dementia. Transfuse i unit of PRBC today. CAD Cardiac arrythmia. Malnutrition, Anemia.
--- NOTE | 2017-07-10 13:51 | CP.PCM.PN ---
Subjective - Date & Time of Evaluation Date of Evaluation: 07/10/17 Time of Evaluation: 13:51 - Subjective Subjective: Clinically same s/p CARLIE PICC LINE awaiting PEG insertion xeralto on hold for the procedure to be done early next week. patient on IV antibiotics for urosepsis. SPOKE TO DAUGHTER WAITING AT BEDSIDE FOR SIGNING CONSENT FOR PEG. GUIDED HER TO SPEAK TO THE STAFF TO GET THE CONSENT PER GI. Objective - Vital Signs/Intake and Output Vital Signs (last 24 hours): Temp Pulse Resp BP Pulse Ox 98 F 72 18 148/81 94 L 07/10/17 07:10 07/10/17 07:10 07/10/17 07:10 07/10/17 07:10 07/10/17 07:10 Intake and Output: 07/10/17 07/10/17 06:59 18:59 Output Total 400 Balance -400 - Medications Medications: Current Medications Cyproheptadine HCl (Periactin) 4 mg PO BIDPC [facility] Last Admin: 07/10/17 09:17 Dose: 4 mg Digoxin (Lanoxin) 0.125 mg PO DAILY@1800 [facility] Last Admin: 07/09/17 18:08 Dose: 0.125 mg Furosemide (Lasix) 40 mg IVP DAILY ONE Stop: 07/10/17 14:01 Meropenem 500 mg/ Sodium (Chloride) 100 mls @ 100 mls/hr IVPB Q8H [facility] Last Admin: 07/10/17 07:11 Dose: 100 mls/hr Lactulose (Enulose) 20 gm PO DAILY [facility] Last Admin: 07/10/17 09:17 Dose: 20 gm - Labs Labs: 07/10/17 08:15 07/10/17 08:15 PT 10.5 SECONDS (9.7-12.2) 07/10/17 08:15 INR 0.9 07/10/17 08:15 APTT 31 SECONDS (21-34) 07/10/17 08:15 - Constitutional Appears: No Acute Distress, Cachectic, Chronically Ill - Head Exam Head Exam: NORMAL INSPECTION - Eye Exam Eye Exam: EOMI, PERRL - ENT Exam ENT Exam: Normal Oropharynx - Respiratory Exam Respiratory Exam: Decreased Breath Sounds - Cardiovascular Exam Cardiovascular Exam: Irregular Rhythm, +S1, +S2 - GI/Abdominal Exam GI & Abdominal Exam: Soft, Normal Bowel Sounds. absent: Tenderness - Extremities Exam Extremities Exam: absent: Calf Tenderness, Pedal Edema - Neurological Exam Neurological Exam: Awake, CN II-XII Intact, Reflexes Normal - Psychiatric Exam Psychiatric exam: Normal Mood - Skin Skin Exam: Normal Color, Warm Assessment and Plan (1) UTI due to Klebsiella species Assessment & Plan: BLOOD CULTURES 06/29/17 -VE GROWTH TO DATE uRINE CULTURE REPEAT 07/03/17 -VE GROWTH. CONTINUE iv MERREM 500 MG EVERY 8 HOURLY 06/30/17 TILL AFTER THE PROCEDURE. PATIENT CLEARED FROM ID POINT OF VIEW FOR PEG IN AM . . Status: Acute (2) Acute renal insufficiency Assessment & Plan: PATIENT'S RENAL FUNCTIONS ARE STABLE WITH CREATININE 0.7/bun 41. Status: Acute (3) Dehydration, severe Status: Chronic (4) Hyperkalemia Status: Acute (5) Cardiomyopathy Status: Chronic (6) Advanced dementia Status: Chronic (7) Transaminitis Assessment & Plan: LFTS 07/10/17 ast AND alt IMPROVING. ggt 116 SLIGHTLY HIGH. OVERALL IMPROVEMENT.lftS MOST LIKELY SEC. TO CONGESTION LIVER. Status: Acute
[2017-07-10] MEDS: Digoxin 125 mcg (0.125 mg) Tab PO SCH (18:21)
--- NOTE | 2017-07-10 19:56 | CP.PCM.PN ---
Subjective - Date & Time of Evaluation Date of Evaluation: 07/10/17 Time of Evaluation: 19:44 - Subjective Subjective: Patient is awake, in no respiratory distress. BP: 136/80 HR: 94 irregular. Afebrile. Telemetry reveals an RSR with frequent PAC's. Still on Meropenem for UTI from Klebsiella, and still with no appetite, and only drinking Ensure. BUN: 41 Creatinine 0.8 K+:6.0 Hgb: 9.1. [facility] Patient received Kayexalate today. To recheck CBC , CMP and Digoxin level in Am. Patient is probably hypovolemic. Will reduce Lasix to 20 mg IV mid blood transfusion. Objective - Vital Signs/Intake and Output Vital Signs (last 24 hours): Temp Pulse Resp BP Pulse Ox 97.9 F 99 H 20 139/74 94 L 07/10/17 15:15 07/10/17 18:00 07/10/17 15:15 07/10/17 15:15 07/10/17 07:10 Intake and Output: 07/10/17 07/11/17 18:59 06:59 Output Total 475 Balance -475 - Medications Medications: Current Medications Cyproheptadine HCl (Periactin) 4 mg PO BIDPC [facility] Last Admin: 07/10/17 18:39 Dose: 4 mg Digoxin (Lanoxin) 0.125 mg PO DAILY@1800 [facility] Last Admin: 07/10/17 18:21 Dose: 0.125 mg Hydralazine HCl (Apresoline) 25 mg PO BID [facility] Meropenem 500 mg/ Sodium (Chloride) 100 mls @ 100 mls/hr IVPB Q8H [facility] Last Admin: 07/10/17 16:19 Dose: 100 mls/hr Lactulose (Enulose) 20 gm PO DAILY [facility] Last Admin: 07/10/17 09:17 Dose: 20 gm - Labs Labs: 07/10/17 08:15 07/10/17 08:15 PT 10.5 SECONDS (9.7-12.2) 07/10/17 08:15 INR 0.9 07/10/17 08:15 APTT 31 SECONDS (21-34) 07/10/17 08:15 - Constitutional Appears: No Acute Distress, Chronically Ill - Head Exam Head Exam: NORMAL INSPECTION - Eye Exam Eye Exam: Normal appearance - ENT Exam ENT Exam: Normal Exam - Neck Exam Neck Exam: Normal Inspection - Respiratory Exam Respiratory Exam: Clear to Ausculation Bilateral - Cardiovascular Exam Cardiovascular Exam: Irregular Rhythm - GI/Abdominal Exam GI & Abdominal Exam: Soft, Normal Bowel Sounds - Rectal Exam Rectal Exam: Deferred - Extremities Exam Extremities Exam: Normal Inspection - Back Exam Back Exam: NORMAL INSPECTION - Neurological Exam Neurological Exam: Alert, Awake - Psychiatric Exam Psychiatric exam: Flat Affect - Skin Skin Exam: Dry, Intact, Normal Color, Warm Assessment and Plan (1) Dehydration, severe Status: Chronic (2) Malnutrition compromising bodily function Status: Chronic (3) Advanced dementia Status: Chronic (4) Cardiomyopathy Status: Chronic (5) Hypertension Status: Chronic (6) UTI due to Klebsiella species Status: Acute
[2017-07-11 07:24] LABS: BASO % 0.6 % (0.0-2.0); EOS # 0.1 K/uL (0.0-0.7); EOS % 2.2 % (0.0-4.0); HEMATOCRIT 31.9 % (34.0-47.0); LYMPH # 1.1 K/uL (1.0-4.3); LYMPH % 42.4 % (20.0-40.0); MEAN CELL VOLUME 87.9 fL (81.0-99.0); MEAN CORPUSCULAR HEMOGLOBIN 29.1 pg (27.0-31.0); MEAN CORPUSCULAR HGB CONC 33.1 g/dL (33.0-37.0); MEAN PLATELET VOLUME 8.6 fL (7.2-11.7); MONO # 0.3 K/uL (0.0-0.8); MONO % 10.6 % (0.0-10.0); NRBC % 0.4 % (0.0-2.0); RED CELL DISTRIBUTION WIDTH 20.1 % (11.5-14.5); WHITE BLOOD COUNT 2.6 K/uL (4.8-10.8)
[2017-07-11 07:51] LABS: CHLORIDE 101 mmol/L (98-107); SODIUM 145 mmol/L (132-148)
[2017-07-11 07:52] LABS: POTASSIUM 5.6 mmol/L (3.6-5.2)
[2017-07-11 07:54] LABS: ALB/GLOB RATIO 0.8 (1.0-2.1); ALKALINE PHOSPHATASE 126 U/L (38-126); ALT/SGPT 73 U/L (9-52); AST/SGOT 46 U/L (14-36); BILIRUBIN,TOTAL 0.5 mg/dL (0.2-1.3); BLOOD UREA NITROGEN 42 mg/dL (7-17); GFR AFRICAN-AMERICAN > 60; GLUCOSE,RANDOM 90 mg/dL (65-105); TOTAL PROTEIN 6.7 g/dL (6.3-8.3)
[2017-07-11 07:55] LABS: CALCIUM 8.7 mg/dl (8.6-10.4)
[2017-07-11] MEDS: Meropenem 500 MG in Sodium Chloride 0.9% 100 ML IVPB SCH ×2 (07:55→16:06)
[2017-07-11 08:28] LABS: CARBON DIOXIDE 40 mmol/L (22-30)
[2017-07-11] MEDS ORDERED: Etomidate 20 mg/10ml Inj IV ONE (09:13)
[2017-07-11] MEDS ORDERED: Dextrose 5%/0.9% NS 1,000 ML IV ONE (09:35)
[2017-07-11] MEDS ORDERED: Sod Polystyrene Sulf 15 gm/60 ml Oral Susp PO ONE (10:50)
--- NOTE | 2017-07-11 10:59 | CP.PCM.PN ---
Subjective - Date & Time of Evaluation Date of Evaluation: 07/11/17 Time of Evaluation: 11:00 - Subjective Subjective: Post PEG insertion. Patient tolrated the procedure very well.C/O abdominal pains. Peg can be used tomorrow. Objective - Vital Signs/Intake and Output Vital Signs (last 24 hours): Temp Pulse Resp BP Pulse Ox 97 F L 76 24 172/75 H 100 07/11/17 09:35 07/11/17 10:05 07/11/17 10:05 07/11/17 10:05 07/11/17 10:05 Intake and Output: 07/11/17 07/11/17 06:59 18:59 Intake Total 325 Output Total 300 Balance 25 - Medications Medications: Current Medications Cyproheptadine HCl (Periactin) 4 mg PO BIDPC [facility] Last Admin: 07/11/17 09:44 Dose: Not Given Digoxin (Lanoxin) 0.125 mg PO DAILY@1800 [facility] Last Admin: 07/10/17 18:21 Dose: 0.125 mg Hydralazine HCl (Apresoline) 25 mg PO BID [facility] Last Admin: 07/11/17 09:44 Dose: Not Given Meropenem 500 mg/ Sodium (Chloride) 100 mls @ 100 mls/hr IVPB Q8H [facility] Last Admin: 07/11/17 07:55 Dose: 100 mls/hr Lactulose (Enulose) 20 gm PO DAILY [facility] Last Admin: 07/11/17 09:44 Dose: Not Given - Labs Labs: 07/11/17 07:09 07/11/17 07:09 PT 10.5 SECONDS (9.7-12.2) 07/10/17 08:15 INR 0.9 07/10/17 08:15 APTT 31 SECONDS (21-34) 07/10/17 08:15 - Constitutional Appears: No Acute Distress - Head Exam Head Exam: ATRAUMATIC, NORMAL INSPECTION, NORMOCEPHALIC - ENT Exam ENT Exam: Normal External Ear Exam - Neck Exam Neck Exam: Full ROM - Respiratory Exam Respiratory Exam: Clear to Ausculation Bilateral, Prolonged Expiratory Phase - Cardiovascular Exam Cardiovascular Exam: Irregular Rhythm, +S1, +S2 - GI/Abdominal Exam GI & Abdominal Exam: Tenderness - Rectal Exam Rectal Exam: Deferred - Extremities Exam Extremities Exam: Normal Inspection - Back Exam Back Exam: NORMAL INSPECTION - Psychiatric Exam Psychiatric exam: Anxious - Skin Skin Exam: Dry, Intact Assessment and Plan (1) Weakness Status: Resolved (2) Acute renal failure (ARF) Status: Resolved (3) Malnutrition compromising bodily function Status: Chronic (4) Advanced dementia Status: Chronic (5) Dehydration, severe Status: Chronic (6) Coronary heart disease Status: Chronic (7) Anemia Status: Acute - Assessment and Plan (Free Text) Plan: Status--Acute Plan: Continue IV antibiotics. Start using PEG tomorrow.
--- NOTE | 2017-07-11 15:30 | CP.PCM.PN ---
Subjective - Date & Time of Evaluation Date of Evaluation: 07/11/17 Time of Evaluation: 15:30 - Subjective Subjective: S/P PEG INSERTION TODAY 07/11/17, RN REPORTED FEVER OF 100.8, C/O ABDOMINAL DISCOMFORT. fEEDINGS ON HOLD TILL TOMORROW . pATIENT PULLED OUT HER MIDLINE, BUT PRESENTLY HAS iv ACCESS LEFT UPPER ARM. Objective - Vital Signs/Intake and Output Vital Signs (last 24 hours): Temp Pulse Resp BP Pulse Ox 97.5 F L 68 20 152/71 H 95 07/11/17 11:00 07/11/17 11:00 07/11/17 11:00 07/11/17 11:00 07/11/17 11:00 Intake and Output: 07/11/17 07/11/17 06:59 18:59 Intake Total 325 50 Output Total 300 1200 Balance 25 -1150 - Medications Medications: Current Medications Cyproheptadine HCl (Periactin) 4 mg PO BIDPC [facility] Last Admin: 07/11/17 09:44 Dose: Not Given Digoxin (Lanoxin) 0.125 mg PO DAILY@1800 [facility] Last Admin: 07/10/17 18:21 Dose: 0.125 mg Hydralazine HCl (Apresoline) 25 mg PO BID [facility] Last Admin: 07/11/17 09:44 Dose: Not Given Meropenem 500 mg/ Sodium (Chloride) 100 mls @ 100 mls/hr IVPB Q8H [facility] Last Admin: 07/11/17 07:55 Dose: 100 mls/hr Lactulose (Enulose) 20 gm PO DAILY [facility] Last Admin: 07/11/17 09:44 Dose: Not Given - Labs Labs: 07/11/17 07:09 07/11/17 07:09 PT 10.5 SECONDS (9.7-12.2) 07/10/17 08:15 INR 0.9 07/10/17 08:15 APTT 31 SECONDS (21-34) 07/10/17 08:15 - Constitutional Appears: No Acute Distress, Cachectic, Chronically Ill - Head Exam Head Exam: NORMAL INSPECTION - Eye Exam Eye Exam: PERRL - ENT Exam ENT Exam: Mucous Membranes Dry, Normal Exam - Neck Exam Neck Exam: Normal Inspection - Respiratory Exam Respiratory Exam: Decreased Breath Sounds - Cardiovascular Exam Cardiovascular Exam: Tachycardia, Irregular Rhythm, +S1, +S2 - GI/Abdominal Exam GI & Abdominal Exam: Soft, Tenderness (MILD TENDERNESS AT THE SITE OF INSERTION. ), Hypoactive Bowel Sounds - Extremities Exam Extremities Exam: Pedal Edema. absent: Calf Tenderness - Neurological Exam Neurological Exam: Altered - Psychiatric Exam Psychiatric exam: Flat Affect - Skin Skin Exam: Dry, Warm Assessment and Plan (1) UTI due to Klebsiella species Assessment & Plan: BLOOD CULTURES 2 SETS ORDERED STAT START iv fLAGYL 250 MG EVERY 8 HOURLY.07/11/17 CONTINUE iv MERREM 500 MG EVERY 8 HOURLY 06/30/17 FOR NOW fOLLOW-UP CULTURES TO ADJUST ANTIBIOTICS. . Status: Acute (2) Acute renal insufficiency Assessment & Plan: IMPROVING CREATININE 0.8/bun 42 sODIUM 145. iv FLUIDS PER pmd/CARDIOLOGY. fOLLOW-UP bmp. Status: Acute (3) Dehydration, severe Status: Chronic (4) Hyperkalemia Status: Acute (5) Cardiomyopathy Status: Chronic (6) Advanced dementia Status: Chronic (7) Transaminitis Assessment & Plan: lftS 07/11/17 NOTED ast 46, alt 73, ALKALINE PHOSPHATASE 126. F/U LFTS IN A.M. Status: Acute
[2017-07-11] MEDS: Digoxin 125 mcg (0.125 mg) Tab PO SCH (18:04)
[2017-07-11] MEDS: metroNIDAZOLE IV 500 mg/100 ml 250 MG in Premixed IV 1 EA IVPB SCH (22:00)
[2017-07-12] MEDS: metroNIDAZOLE IV 500 mg/100 ml 250 MG in Premixed IV 1 EA IVPB SCH ×3 (06:50→21:04)
[2017-07-12] MEDS: Meropenem 500 MG in Sodium Chloride 0.9% 100 ML IVPB SCH ×4 (07:54→23:48)
--- NOTE | 2017-07-12 10:03 | CP.PCM.PN ---
Subjective - Date & Time of Evaluation Date of Evaluation: 07/12/17 Time of Evaluation: 10:00 - Subjective Subjective: PEG tube infusing well now at 45cc/hr. Low grade temp noted but patient with prior source of infx. No N/V Objective - Vital Signs/Intake and Output Vital Signs (last 24 hours): Temp Pulse Resp BP Pulse Ox 99.1 F 126 H 20 118/69 100 07/11/17 23:29 07/11/17 23:50 07/11/17 23:29 07/11/17 23:29 07/11/17 23:29 Intake and Output: 07/12/17 07/12/17 06:59 18:59 Intake Total 100 Output Total 100 Balance -100 100 - Medications Medications: Current Medications [facility] Admin: 07/12/17 09:23 Dose: 4 mg Digoxin (Lanoxin) 0.125 mg PO DAILY@1800 [facility] Last Admin: 07/11/17 18:04 Dose: 0.125 mg Hydralazine HCl (Apresoline) 25 mg PO BID [facility] Last Admin: 07/12/17 09:24 Dose: 25 mg Meropenem 500 mg/ Sodium (Chloride) 100 mls @ 100 mls/hr IVPB Q8H [facility] Last Admin: 07/12/17 07:54 Dose: 100 mls/hr Metronidazole 250 mg/ (Miscellaneous) 50 mls @ 100 mls/hr IVPB Q8 [facility] Last Admin: 07/12/17 06:50 Dose: 100 mls/hr Lactulose (Enulose) 20 gm PO DAILY [facility] Last Admin: 07/12/17 09:23 Dose: 20 gm - Labs Labs: 07/11/17 07:09 07/11/17 07:09 PT 10.5 SECONDS (9.7-12.2) 07/10/17 08:15 INR 0.9 07/10/17 08:15 APTT 31 SECONDS (21-34) 07/10/17 08:15 - Constitutional Appears: No Acute Distress - Respiratory Exam Respiratory Exam: NORMAL BREATHING PATTERN - Cardiovascular Exam Cardiovascular Exam: REGULAR RHYTHM - GI/Abdominal Exam GI & Abdominal Exam: Soft, Normal Bowel Sounds. absent: Tenderness Additional comments: Peg site clean and intact. Covered with dressing that was lifted to inspect. Assessment and Plan (1) Acute renal failure (ARF) Status: Resolved (2) UTI due to Klebsiella species Status: Acute (3) Malnutrition compromising bodily function Assessment & Plan: Advance GT feedings to meet needs and supplement po that patient is able to swallow. Aspiration precautions, elevate HOB. Continue wound care protocol and flush tube to keep patent. Will follow as needed. Recall prn. Status: Chronic (4) Cerebral embolism Status: Chronic (5) Congestive heart failure (CHF) Status: Acute (6) Dementia Status: Chronic
--- NOTE | 2017-07-12 10:13 | CP.PCM.PN ---
Subjective - Date & Time of Evaluation Date of Evaluation: 07/12/17 Time of Evaluation: 10:10 - Subjective Subjective: !st day post PEG insertion. Pt. with low grade fever. Started on Flagyl and Merrem continued. Peg is functioning.Running at 45 cc per hourly. Objective - Vital Signs/Intake and Output Vital Signs (last 24 hours): Temp Pulse Resp BP Pulse Ox 99.1 F 126 H 20 118/69 100 07/11/17 23:29 07/11/17 23:50 07/11/17 23:29 07/11/17 23:29 07/11/17 23:29 Intake and Output: 07/12/17 07/12/17 06:59 18:59 Intake Total 100 Output Total 100 Balance -100 100 - Medications Medications: Current Medications [facility] Last Admin: 07/12/17 09:23 Dose: 4 mg Digoxin (Lanoxin) 0.125 mg PO DAILY@1800 [facility] Last Admin: 07/11/17 18:04 Dose: 0.125 mg Hydralazine HCl (Apresoline) 25 mg PO BID [facility] Last Admin: 07/12/17 09:24 Dose: 25 mg Meropenem 500 mg/ Sodium (Chloride) 100 mls @ 100 mls/hr IVPB Q8H [facility] Last Admin: 07/12/17 07:54 Dose: 100 mls/hr Metronidazole 250 mg/ (Miscellaneous) 50 mls @ 100 mls/hr IVPB Q8 [facility] Last Admin: 07/12/17 06:50 Dose: 100 mls/hr Lactulose (Enulose) 20 gm PO DAILY [facility] Last Admin: 07/12/17 09:23 Dose: 20 gm - Labs Labs: 07/11/17 07:09 07/11/17 07:09 PT 10.5 SECONDS (9.7-12.2) 07/10/17 08:15 INR 0.9 07/10/17 08:15 APTT 31 SECONDS (21-34) 07/10/17 08:15 - Constitutional Appears: No Acute Distress - Head Exam Head Exam: ATRAUMATIC, NORMAL INSPECTION, NORMOCEPHALIC - ENT Exam ENT Exam: Normal External Ear Exam - Respiratory Exam Respiratory Exam: Decreased Breath Sounds, Clear to Ausculation Bilateral, Prolonged Expiratory Phase - Cardiovascular Exam Cardiovascular Exam: Tachycardia, +S1, +S2 - GI/Abdominal Exam GI & Abdominal Exam: Normal Bowel Sounds - Rectal Exam Rectal Exam: Deferred - Extremities Exam Extremities Exam: Normal Inspection - Back Exam Back Exam: NORMAL INSPECTION - Neurological Exam Neurological Exam: Altered - Skin Skin Exam: Dry, Intact, Warm Assessment and Plan (1) Weakness Status: Resolved (2) Acute renal failure (ARF) Status: Resolved (3) Malnutrition compromising bodily function Status: Chronic (4) Advanced dementia Status: Chronic (5) Dehydration, severe Status: Chronic (6) Coronary heart disease Status: Chronic (7) Anemia Status: Acute - Assessment and Plan (Free Text) Assessment: Assessment: UTI sepsis. Severe dehydration. Acute renal failure. CAD CHF. Malnutrition. Anemia /Myelodysplasia. Plan: Status: Acute Plan: Continue IV antibiotics. Tube feeding. Will start xarelto in AM.
[2017-07-12 11:43] LABS: BASO % 0.4 % (0.0-2.0); EOS % 0.8 % (0.0-4.0); LYMPH % 27.8 % (20.0-40.0); MEAN CELL VOLUME 88.6 fL (81.0-99.0); MEAN CORPUSCULAR HEMOGLOBIN 29.5 pg (27.0-31.0); MEAN CORPUSCULAR HGB CONC 33.3 g/dL (33.0-37.0); MEAN PLATELET VOLUME 8.6 fL (7.2-11.7); MONO # 0.2 K/uL (0.0-0.8); MONO % 6.3 % (0.0-10.0); NRBC % 0.1 % (0.0-2.0); RED CELL DISTRIBUTION WIDTH 20.6 % (11.5-14.5); WHITE BLOOD COUNT 3.5 K/uL (4.8-10.8)
[2017-07-12 11:53] LABS: CHLORIDE 100 mmol/L (98-107); POTASSIUM 4.2 mmol/L (3.6-5.2); SODIUM 145 mmol/L (132-148)
[2017-07-12 11:55] LABS: GFR AFRICAN-AMERICAN > 60
[2017-07-12 11:56] LABS: ALB/GLOB RATIO 0.8 (1.0-2.1); ALKALINE PHOSPHATASE 134 U/L (38-126); AST/SGOT 36 U/L (14-36); BILIRUBIN,DIRECT 0.4 mg/dL (0.0-0.4); BILIRUBIN,TOTAL 0.6 mg/dL (0.2-1.3); BLOOD UREA NITROGEN 42 mg/dL (7-17); CARBON DIOXIDE 38 mmol/L (22-30); GLUCOSE,RANDOM 161 mg/dL (65-105); TOTAL PROTEIN 7.2 g/dL (6.3-8.3)
[2017-07-12 11:57] LABS: ALT/SGPT 61 U/L (9-52); CALCIUM 8.7 mg/dl (8.6-10.4)
--- NOTE | 2017-07-12 12:37 | RAD ---
HISTORY: chf COMPARISON: Comparison is made to 06/29/2017 FINDINGS: LUNGS: Mild pulmonary vascular congestion is noted. Interval improvement in the right and left lower lobes since the previous exam. No evidence of new infiltrate or consolidation. PLEURA: No significant pleural effusion identified, no pneumothorax apparent. CARDIOVASCULAR: The cardiac silhouette is mildly enlarged. OSSEOUS STRUCTURES: No significant abnormalities. VISUALIZED UPPER ABDOMEN: Normal. OTHER FINDINGS: None. IMPRESSION: Interval improvement in the lower lobes since the previous exam. Otherwise no significant interval change.
--- NOTE | 2017-07-12 16:13 | CP.PCM.PN ---
Subjective - Date & Time of Evaluation Date of Evaluation: 07/12/17 Time of Evaluation: 16:12 - Subjective Subjective: TMAX 100.4 ,NOW 99.0. C/O ABDOMINAL DISCOMFORT PER DAUGHTER ONLY ONCE. PEG FEEDINGS IN PROGRESS WITH NO PROBLEMS. TOLERATING iv fLAGYL/iv mERREM. LABS; REVIEWED Objective - Vital Signs/Intake and Output Vital Signs (last 24 hours): Temp Pulse Resp BP Pulse Ox 99.1 F 115 H 20 117/73 100 07/11/17 23:29 07/12/17 08:00 07/11/17 23:29 07/12/17 14:36 07/11/17 23:29 Intake and Output: 07/12/17 07/12/17 06:59 18:59 Intake Total 100 Output Total 100 20 Balance -100 80 - Medications Medications: Current Medications Cyproheptadine HCl (Periactin) 4 mg PO BIDPC [facility] Last Admin: 07/12/17 09:23 Dose: 4 mg Digoxin (Lanoxin) 0.125 mg PO DAILY@1800 [facility] Last Admin: 07/11/17 18:04 Dose: 0.125 mg Hydralazine HCl (Apresoline) 25 mg PO BID [facility] Last Admin: 07/12/17 09:24 Dose: 25 mg Meropenem 500 mg/ Sodium (Chloride) 100 mls @ 100 mls/hr IVPB Q8H [facility] Last Admin: 07/12/17 16:07 Dose: 100 mls/hr Metronidazole 250 mg/ (Miscellaneous) 50 mls @ 100 mls/hr IVPB Q8 [facility] Last Admin: 07/12/17 13:43 Dose: 100 mls/hr Lactulose (Enulose) 20 gm PO DAILY [facility] Last Admin: 07/12/17 09:23 Dose: 20 gm - Labs Labs: 07/12/17 11:31 07/12/17 11:31 PT 10.5 SECONDS (9.7-12.2) 07/10/17 08:15 INR 0.9 07/10/17 08:15 APTT 31 SECONDS (21-34) 07/10/17 08:15 - Constitutional Appears: No Acute Distress, Cachectic, Chronically Ill - Eye Exam Eye Exam: EOMI, PERRL - ENT Exam ENT Exam: Mucous Membranes Moist - Neck Exam Neck Exam: Normal Inspection - Respiratory Exam Respiratory Exam: Clear to Ausculation Bilateral - Cardiovascular Exam Cardiovascular Exam: Tachycardia, Irregular Rhythm, +S1, +S2 - GI/Abdominal Exam GI & Abdominal Exam: Soft, Tenderness (MILD TENDERNESS AT THE SITE OF INSERTION WITH NO CELLULITIS OR LEAKAGE NOTED.), Hypoactive Bowel Sounds - Extremities Exam Extremities Exam: absent: Calf Tenderness - Neurological Exam Neurological Exam: Alert, Awake, CN II-XII Intact - Psychiatric Exam Psychiatric exam: Normal Mood - Skin Skin Exam: Normal Color, Warm Assessment and Plan (1) Fever and neutropenia Assessment & Plan: septic workup in progress. Patient on IV antibiotics. Follow-up cultures and adjust antibiotics. Status: Acute (2) UTI due to Klebsiella species Assessment & Plan: ON iv fLAGYL 250 MG EVERY 8 HOURLY.07/11/17 CONTINUE iv MERREM 500 MG EVERY 8 HOURLY 06/30/17 FOR NOW fOLLOW-UP CULTURES TO ADJUST ANTIBIOTICS. WILL ALSO REPEAT UA/ URINE CULTURES TO RULE OUT SUPERINFECTION WITH C.ANDIDA Status: Acute (3) Acute renal insufficiency Status: Acute (4) Dehydration, severe Status: Chronic (5) Hyperkalemia Status: Acute (6) Cardiomyopathy Status: Chronic (7) Advanced dementia Status: Chronic (8) Transaminitis Assessment & Plan: MONITOR lftS. Status: Acute
[2017-07-12] MEDS: Digoxin 125 mcg (0.125 mg) Tab PO SCH (19:05)
--- NOTE | 2017-07-12 19:48 | CP.PCM.PN ---
Subjective - Date & Time of Evaluation Date of Evaluation: 07/12/17 Time of Evaluation: 19:44 - Subjective Subjective: Patient says she is slightly short of breath lying in bed. BP: 117/70 HR: 116 Afebrile. Telemetry reveals a sinus tachycardia with frequent PVC's. Auscultation discloses some rales at both lung bases. CXR still with bilateral basilar effusions. Patient is getting feeding at 20ml/hr via PEG. Will add Metoprolol tartrate 12.5 mg PO BID and give a stat dose of Lasix 20 mg IV. Objective - Vital Signs/Intake and Output Vital Signs (last 24 hours): Temp Pulse Resp BP Pulse Ox 98 F 68 20 123/79 95 07/12/17 16:00 07/12/17 16:00 07/12/17 16:00 07/12/17 16:00 07/12/17 16:00 Intake and Output: 07/12/17 07/13/17 18:59 06:59 Intake Total 100 Output Total 20 Balance 80 - Medications Medications: Current Medications Cyproheptadine HCl (Periactin) 4 mg PO BIDPC [facility] Last Admin: 07/12/17 17:33 Dose: 4 mg Digoxin (Lanoxin) 0.125 mg PO DAILY@1800 [facility] Last Admin: 07/12/17 19:05 Dose: 0.125 mg Furosemide (Lasix) 20 mg IVP ONCE ONE Stop: 07/12/17 19:46 Hydralazine HCl (Apresoline) 25 mg PO BID [facility] Last Admin: 07/12/17 17:33 Dose: 25 mg Meropenem 500 mg/ Sodium (Chloride) 100 mls @ 100 mls/hr IVPB Q8H [facility] Last Admin: 07/12/17 16:07 Dose: 100 mls/hr Metronidazole 250 mg/ (Miscellaneous) 50 mls @ 100 mls/hr IVPB Q8 [facility] Last Admin: 07/12/17 13:43 Dose: 100 mls/hr Lactulose (Enulose) 20 gm PO DAILY [facility] Last Admin: 07/12/17 09:23 Dose: 20 gm Metoprolol Tartrate (Lopressor) 12.5 mg PO BID [facility] - Labs Labs: 07/12/17 11:31 07/12/17 11:31 PT 10.5 SECONDS (9.7-12.2) 07/10/17 08:15 INR 0.9 07/10/17 08:15 APTT 31 SECONDS (21-34) 07/10/17 08:15 - Constitutional Appears: No Acute Distress, Chronically Ill - Head Exam Head Exam: NORMAL INSPECTION - Eye Exam Eye Exam: Normal appearance - ENT Exam ENT Exam: Normal Exam - Neck Exam Additional comments: Increased JVD at 45 degree body position. - Respiratory Exam Respiratory Exam: Rales Additional comments: Few rales at both bases. - Cardiovascular Exam Cardiovascular Exam: Irregular Rhythm, Murmur - GI/Abdominal Exam GI & Abdominal Exam: Soft, Normal Bowel Sounds - Rectal Exam Rectal Exam: Deferred - Extremities Exam Extremities Exam: Normal Inspection - Back Exam Back Exam: NORMAL INSPECTION - Neurological Exam Neurological Exam: Alert, Awake - Psychiatric Exam Psychiatric exam: Flat Affect - Skin Skin Exam: Dry, Intact, Normal Color, Warm Assessment and Plan (1) Dehydration, severe Status: Resolved (2) Malnutrition compromising bodily function Status: Chronic (3) Advanced dementia Status: Chronic (4) Cardiomyopathy Status: Chronic (5) Hypertension Status: Chronic (6) UTI due to Klebsiella species Status: Acute
--- NOTE | 2017-07-13 00:58 | CARD ---
APPROVED REPORT EKG Measurement Heart [id number] <Conclusion> MULTIFOCAL ATRIAL RHYTHM WITH VARIABLE P WAVES AND [place] SEGMENTS Left axis deviation Nonspecific T wave abnormality Abnormal ECG
[2017-07-13] MEDS: metroNIDAZOLE IV 500 mg/100 ml 250 MG in Premixed IV 1 EA IVPB SCH (05:57)
[2017-07-13 08:09] LABS: RBC URINE < 1 /hpf (0-3); URINE BACTERIA RARE (<OCC); URINE BILIRUBIN NEGATIVE (NEGATIVE); URINE BLOOD NEGATIVE (NEGATIVE); URINE COLOR Yellow (YELLOW); URINE GLUCOSE (UA) NORMAL (Normal); URINE KETONE NEGATIVE (NEGATIVE); URINE LEUKOCYTE ESTERASE NEG Leu/uL (Negative); URINE PROTEIN 1+ mg/dL (NEGATIVE); WBC URINE 2 /hpf (0-5)
[2017-07-13] MEDS: Meropenem 500 MG in Sodium Chloride 0.9% 100 ML IVPB SCH (08:20)
[2017-07-13 08:26] LABS: BASO % 0.4 % (0.0-2.0); EOS % 1.6 % (0.0-4.0); HEMATOCRIT 29.7 % (34.0-47.0); LYMPH # 1.1 K/uL (1.0-4.3); LYMPH % 36.2 % (20.0-40.0); MEAN CELL VOLUME 88.4 fL (81.0-99.0); MEAN CORPUSCULAR HEMOGLOBIN 29.6 pg (27.0-31.0); MEAN CORPUSCULAR HGB CONC 33.5 g/dL (33.0-37.0); MEAN PLATELET VOLUME 8.4 fL (7.2-11.7); MONO # 0.3 K/uL (0.0-0.8); MONO % 9.1 % (0.0-10.0); NRBC % 0.1 % (0.0-2.0); RED CELL DISTRIBUTION WIDTH 19.6 % (11.5-14.5); WHITE BLOOD COUNT 3.1 K/uL (4.8-10.8)
[2017-07-13 08:50] LABS: CHLORIDE 98 mmol/L (98-107); POTASSIUM 4.4 mmol/L (3.6-5.2); SODIUM 142 mmol/L (132-148)
[2017-07-13 08:52] LABS: ALB/GLOB RATIO 0.8 (1.0-2.1); ALKALINE PHOSPHATASE 100 U/L (38-126); AST/SGOT 30 U/L (14-36); BILIRUBIN,TOTAL 0.5 mg/dL (0.2-1.3); CARBON DIOXIDE 36 mmol/L (22-30); GFR AFRICAN-AMERICAN > 60; TOTAL PROTEIN 6.3 g/dL (6.3-8.3)
[2017-07-13 08:53] LABS: ALT/SGPT 49 U/L (9-52); BLOOD UREA NITROGEN 40 mg/dL (7-17); CALCIUM 8.4 mg/dl (8.6-10.4); GLUCOSE,RANDOM 133 mg/dL (65-105)
--- NOTE | 2017-07-13 11:05 | CP.PCM.PN ---
Objective - Vital Signs/Intake and Output Vital Signs (last 24 hours): Temp Pulse Resp BP Pulse Ox 98.7 F 60 20 124/66 93 L 07/13/17 07:00 07/13/17 07:00 07/13/17 07:00 07/13/17 07:00 07/13/17 07:00 Intake and Output: 07/13/17 07/13/17 06:59 18:59 Intake Total 550 Output Total 350 Balance 200 - Medications Medications: Current Medications Cyproheptadine HCl (Periactin) 4 mg PO BIDPC [facility] Last Admin: 07/13/17 10:04 Dose: 4 mg Digoxin (Lanoxin) 0.125 mg PO DAILY@1800 [facility] Last Admin: 07/12/17 19:05 Dose: 0.125 mg Hydralazine HCl (Apresoline) 25 mg PO BID [facility] Last Admin: 07/13/17 10:04 Dose: 25 mg Meropenem 500 mg/ Sodium (Chloride) 100 mls @ 100 mls/hr IVPB Q8H [facility] Last Admin: 07/13/17 08:20 Dose: 100 mls/hr Metronidazole 250 mg/ (Miscellaneous) 50 mls @ 100 mls/hr IVPB Q8 [facility] Last Admin: 07/13/17 05:57 Dose: 100 mls/hr Lactulose (Enulose) 20 gm PO DAILY [facility] Last Admin: 07/13/17 10:04 Dose: 20 gm Metoprolol Tartrate (Lopressor) 12.5 mg PO BID [facility] Last Admin: 07/13/17 10:05 Dose: 12.5 mg - Labs Labs: 07/13/17 08:14 07/13/17 08:14 PT 10.5 SECONDS (9.7-12.2) 07/10/17 08:15 INR 0.9 07/10/17 08:15 APTT 31 SECONDS (21-34) 07/10/17 08:15 Assessment and Plan (1) Weakness Status: Resolved (2) Acute renal failure (ARF) Status: Resolved (3) Malnutrition compromising bodily function Status: Chronic (4) Advanced dementia Status: Chronic (5) Dehydration, severe Status: Resolved (6) Coronary heart disease Status: Chronic (7) Anemia Status: Acute
--- NOTE | 2017-07-13 11:11 | CP.PCM.PN ---
Subjective - Date & Time of Evaluation Date of Evaluation: 07/13/17 Time of Evaluation: 11:09 - Subjective Subjective: Mild SOB yesterday noted and given Lasix Tolerating tube feedings Objective - Vital Signs/Intake and Output Vital Signs (last 24 hours): Temp Pulse Resp BP Pulse Ox 98.7 F 60 20 124/66 93 L 07/13/17 07:00 07/13/17 07:00 07/13/17 07:00 07/13/17 07:00 07/13/17 07:00 Intake and Output: 07/13/17 07/13/17 06:59 18:59 Intake Total 550 Output Total 350 Balance 200 - Medications Medications: Current Medications [facility] Last Admin: 07/13/17 10:04 Dose: 4 mg Digoxin (Lanoxin) 0.125 mg PO DAILY@1800 [facility] Last Admin: 07/12/17 19:05 Dose: 0.125 mg Hydralazine HCl (Apresoline) 25 mg PO BID [facility] Last Admin: 07/13/17 10:04 Dose: 25 mg Lactulose (Enulose) 20 gm PO DAILY [facility] Last Admin: 07/13/17 10:04 Dose: 20 gm Metoprolol Tartrate (Lopressor) 12.5 mg PO BID [facility] Last Admin: 07/13/17 10:05 Dose: 12.5 mg Metronidazole (Flagyl) 250 mg PO Q8H [facility] Rivaroxaban (Xarelto) 15 mg PO BID [facility] - Labs Labs: 07/13/17 08:14 07/13/17 08:14 PT 10.5 SECONDS (9.7-12.2) 07/10/17 08:15 INR 0.9 07/10/17 08:15 APTT 31 SECONDS (21-34) 07/10/17 08:15 - Constitutional Appears: Cachectic, Chronically Ill - Eye Exam Eye Exam: EOMI, PERRL - Respiratory Exam Respiratory Exam: NORMAL BREATHING PATTERN - Cardiovascular Exam Cardiovascular Exam: REGULAR RHYTHM - GI/Abdominal Exam GI & Abdominal Exam: Soft, Normal Bowel Sounds. absent: Tenderness Additional comments: GT and dressing intact. No leakage. Assessment and Plan (1) Acute renal failure (ARF) Status: Resolved (2) UTI due to Klebsiella species Status: Acute (3) Malnutrition compromising bodily function Assessment & Plan: Continue tube feedings and adjust to meet needs based upon administrative staff supervisor's recommendation. Patient is able to continue to eat/drink po to meet her oral satisfaction as well. Continue to flush tube and regular tube care. Family aware that tube may be removed should patients po intake meet her nutritional needs in the future. Status: Chronic (4) Cerebral embolism Status: Chronic (5) Congestive heart failure (CHF) Status: Acute (6) Dementia Status: Chronic
--- NOTE | 2017-07-13 11:22 | CP.PCM.PN ---
Subjective - Date & Time of Evaluation Date of Evaluation: 07/13/17 Time of Evaluation: 11:22 - Subjective Subjective: afebrile, tolerating PEG FEEDS. NO NEW COMPLAINTS . BLOOD CULTURES 07/11/17 -VE X 24HRS. U/A -VE SO FAR CASE DISCUSSED W PROJECT MANAGEMENT PROFESSIONAL MS MURRELL. PLAN; DC IV MERREM. CHANGE IV FLAGYL TO PO /OR VIA GT 250MG PO TID X 3 DAYS . OK FOR TALI FOR PT /GAIT TRAINING Objective - Vital Signs/Intake and Output Vital Signs (last 24 hours): Temp Pulse Resp BP Pulse Ox 98.7 F 60 20 124/66 93 L 07/13/17 07:00 07/13/17 07:00 07/13/17 07:00 07/13/17 07:00 07/13/17 07:00 Intake and Output: 07/13/17 07/13/17 06:59 18:59 Intake Total 550 Output Total 350 Balance 200 - Medications Medications: Current Medications [facility] Last Admin: 07/13/17 10:04 Dose: 4 mg Digoxin (Lanoxin) 0.125 mg PO DAILY@1800 [facility] Last Admin: 07/12/17 19:05 Dose: 0.125 mg Hydralazine HCl (Apresoline) 25 mg PO BID [facility] Last Admin: 07/13/17 10:04 Dose: 25 mg Lactulose (Enulose) 20 gm PO DAILY [facility] Last Admin: 07/13/17 10:04 Dose: 20 gm Metoprolol Tartrate (Lopressor) 12.5 mg PO BID [facility] Last Admin: 07/13/17 10:05 Dose: 12.5 mg Metronidazole (Flagyl) 250 mg PO Q8H [facility] Rivaroxaban (Xarelto) 15 mg PO DAILY [facility] - Labs Labs: 07/13/17 08:14 07/13/17 08:14 PT 10.5 SECONDS (9.7-12.2) 07/10/17 08:15 INR 0.9 07/10/17 08:15 APTT 31 SECONDS (21-34) 07/10/17 08:15 - Constitutional Appears: No Acute Distress, Cachectic, Chronically Ill - Head Exam Head Exam: NORMAL INSPECTION - Eye Exam Eye Exam: EOMI, PERRL - ENT Exam ENT Exam: Mucous Membranes Moist - Neck Exam Neck Exam: Normal Inspection - Respiratory Exam Respiratory Exam: Decreased Breath Sounds - GI/Abdominal Exam GI & Abdominal Exam: Soft, Normal Bowel Sounds. absent: Tenderness Additional comments: PEG IN .PLACE - Extremities Exam Extremities Exam: absent: Calf Tenderness, Pedal Edema - Neurological Exam Neurological Exam: Awake - Psychiatric Exam Psychiatric exam: Normal Affect - Skin Skin Exam: Dry, Warm Assessment and Plan (1) Fever and neutropenia Assessment & Plan: FEVER DOWN. DC IV MERREM. BY MOUTH fLAGYL 250 3 TIMES A DAY VIA peg FOR 3 DAYS MORE. CASE DISCUSSED WITH PROJECT MANAGEMENT PROFESSIONAL.. Status: Acute (2) UTI due to Klebsiella species Status: Acute (3) Acute renal insufficiency Status: Acute (4) Dehydration, severe Status: Resolved (5) Hyperkalemia Status: Acute (6) Cardiomyopathy Status: Chronic (7) Advanced dementia Status: Chronic (8) Transaminitis Assessment & Plan: RESOLVED. Status: Acute
--- NOTE | 2017-07-13 11:22 | CP.PCM.DIS ---
Provider - Provider Date of Admission: 06/27/17 17:58 Attending physician: Claritza Balderrama MD Time Spent in preparation of Discharge (in minutes): 60 Diagnosis - Discharge Diagnosis (1) Weakness (2) Acute renal failure (ARF) Status: Resolved (3) Malnutrition compromising bodily function Status: Chronic (4) Advanced dementia Status: Chronic (5) Dehydration, severe Status: Resolved (6) Coronary heart disease Status: Chronic (7) Anemia Status: Acute Hospital Course - Lab Results Lab Results: Micro Results 07/11/17 22:30 Blood Blood Culture - Preliminary NO GROWTH AFTER 24 HOURS 07/11/17 22:00 Blood Blood Culture - Preliminary NO GROWTH AFTER 24 HOURS 06/29/17 22:09 Blood Blood Culture - Final NO GROWTH AFTER 5 DAYS 06/29/17 22:09 Blood Gram Stain - Final TEST NOT PERFORMED 06/29/17 22:09 Blood Blood Culture - Final NO GROWTH AFTER 5 DAYS 06/29/17 22:09 Blood Gram Stain - Final 07/03/17 08:30 Urine,Brown Urine Culture - Final No Growth (<1,000 CFU/ML) 06/27/17 15:45 Blood Blood Culture - Final NO GROWTH AFTER 5 DAYS 06/27/17 15:45 Blood Gram Stain - Final TEST NOT PERFORMED 06/27/17 16:15 Blood Blood Culture - Final NO GROWTH AFTER 5 DAYS 06/27/17 16:15 Blood Gram Stain - Final TEST NOT PERFORMED 06/27/17 Unknown Urine,Catheterized Urine Culture - Final Klebsiella Pneumoniae Ssp Pneu Most Recent Lab Values WBC 3.1 K/uL (4.8-10.8) L 07/13/17 08:14 RBC 3.36 Mil/uL (3.80-5.20) L 07/13/17 08:14 Hgb 9.9 g/dL (11.0-16.0) L 07/13/17 08:14 Hct 29.7 % (34.0-47.0) L 07/13/17 08:14 MCV 88.4 fL (81.0-99.0) 07/13/17 08:14 MCH 29.6 pg (27.0-31.0) 07/13/17 08:14 MCHC 33.5 g/dL (33.0-37.0) 07/13/17 08:14 RDW 19.6 % (11.5-14.5) H 07/13/17 08:14 Plt Count 276 K/uL (130-400) 07/13/17 08:14 MPV 8.4 fL (7.2-11.7) 07/13/17 08:14 Neut % (Auto) 52.7 % (50.0-75.0) 07/13/17 08:14 Lymph % (Auto) 36.2 % (20.0-40.0) 07/13/17 08:14 [place] % (Auto) 9.1 % (0.0-10.0) 07/13/17 08:14 Eos % (Auto) 1.6 % (0.0-4.0) 07/13/17 08:14 Baso % (Auto) 0.4 % (0.0-2.0) 07/13/17 08:14 Neut # 1.6 K/uL (1.8-7.0) L 07/13/17 08:14 Lymph # 1.1 K/uL (1.0-4.3) 07/13/17 08:14 [place] # 0.3 K/uL (0.0-0.8) 07/13/17 08:14 Eos # 0.0 K/uL (0.0-0.7) 07/13/17 08:14 Baso # 0.0 K/uL (0.0-0.2) 07/13/17 08:14 Retic Count 0.9 % (0.5-1.5) D 07/04/17 08:19 PT 10.5 SECONDS (9.7-12.2) 07/10/17 08:15 INR 0.9 07/10/17 08:15 APTT 31 SECONDS (21-34) 07/10/17 08:15 Sodium 142 mmol/L (132-148) 07/13/17 08:14 Potassium 4.4 mmol/L (3.6-5.2) 07/13/17 08:14 Chloride 98 mmol/L (98-107) 07/13/17 08:14 Carbon Dioxide 36 mmol/L (22-30) H 07/13/17 08:14 Anion Gap 12 (10-20) 07/13/17 08:14 BUN 40 mg/dL (7-17) H 07/13/17 08:14 Creatinine 0.8 MG/DL (0.7-1.2) 07/13/17 08:14 Est GFR ( Amer) > 60 07/13/17 08:14 Est GFR (Non-Af Amer) > 60 07/13/17 08:14 POC Glucose (mg/dL) 223 mg/dL (65-110) H 07/12/17 12:49 Random Glucose 133 mg/dL (65-105) H 07/13/17 08:14 Calcium 8.4 mg/dl (8.6-10.4) L 07/13/17 08:14 Iron 35 ug/dL (37-170) L 07/04/17 12:05 TIBC 165 ug/dL (250-450) L 07/04/17 12:05 % Saturation 21 (20-55) 07/04/17 12:05 Ferritin 500.0 ng/mL 07/09/17 09:53 Total Bilirubin 0.5 mg/dL (0.2-1.3) 07/13/17 08:14 Direct Bilirubin 0.4 mg/dL (0.0-0.4) 07/12/17 11:31 GGT 116 U/L (8-78) H 07/09/17 09:53 AST 30 U/L (14-36) 07/13/17 08:14 ALT 49 U/L (9-52) 07/13/17 08:14 Alkaline Phosphatase 100 U/L (38-126) 07/13/17 08:14 Troponin I 0.0180 ng/mL (0.00-0.120) 06/27/17 16:18 NT-Pro-B Natriuret Pep 6250 pg/mL (0-900) H 06/29/17 11:38 Total Protein 6.3 g/dL (6.3-8.3) 07/13/17 08:14 Albumin 2.8 g/dL (3.5-5.0) L 07/13/17 08:14 Globulin 3.5 gm/dL (2.2-3.9) 07/13/17 08:14 Albumin/Globulin Ratio 0.8 (1.0-2.1) L 07/13/17 08:14 Lipase 799 U/L (23-300) H 07/08/17 07:55 Carcinoembryonic Ag 5.9 ng/mL (0-3.0) H 07/04/17 10:29 CA 19-9 Antigen 62.4 U/mL (0-37) H 07/04/17 10:29 CA 125 Antigen 85.1 U/mL (0-35) H 07/04/17 10:29 Vitamin B12 430 pg/mL (239-931) 07/04/17 12:05 Folate 11.1 ng/mL 07/04/17 12:05 Urine Color Yellow (YELLOW) 07/13/17 07:19 Urine Clarity Clear (Clear) 07/13/17 07:19 Urine pH 7.0 (5.0-8.0) 07/13/17 07:19 Ur Specific [place] 1.012 (1.003-1.030) 07/13/17 07:19 Urine Protein 1+ mg/dL (NEGATIVE) H 07/13/17 07:19 Urine Glucose (UA) Normal mg/dL (Normal) 07/13/17 07:19 Urine Ketones Negative mg/dL (NEGATIVE) 07/13/17 07:19 Urine Blood Negative (NEGATIVE) 07/13/17 07:19 Urine Nitrate Negative (NEGATIVE) 07/13/17 07:19 Urine Bilirubin Negative (NEGATIVE) 07/13/17 07:19 Urine Urobilinogen 2.0 mg/dL (0.2-1.0) H 07/13/17 07:19 Ur Leukocyte Esterase Neg [place]/uL (Negative) 07/13/17 07:19 Urine WBC (Auto) 2 /hpf (0-5) 07/13/17 07:19 Urine RBC (Auto) < 1 /hpf (0-3) 07/13/17 07:19 Urine WBC Clumps (Auto) Many /hpf (NONE) H 06/30/17 00:52 Ur Squamous Epith Cells < 1 /hpf (0-5) 07/13/17 07:19 Urine Bacteria Rare (<OCC) 07/13/17 07:19 Stool Occult Blood Negative (NEGATIVE) 07/05/17 13:56 Digoxin 1.5 ng/mL (0.8-2.0) 07/11/17 07:09 Digitoxin None detected ng/mL 06/27/17 20:53 Absolute Lymphs (Flow) 1388 Cells/mcL (850-3900) 07/07/17 07:23 % CD4 Cells 41 Percent (30-61) 07/07/17 07:23 Absolute CD4 Count 574 Cells/mcL (490-1740) 07/07/17 07:23 T-Help/Suppress Ratio 0.97 Ratio (0.86-5.00) 07/07/17 07:23 % CD8 Cells 43 Percent (12-42) H 07/07/17 07:23 Absolute CD8 Count 594 Cells/mcL (180-1170) 07/07/17 07:23 Hepatitis A IgM Ab TEST NOT PERFORMED 07/07/17 07:23 Hepatitis A Ab Total Nonreactive (Nonreactive) 07/07/17 07:23 Hep Bs Antigen Negative (NEGATIVE) 07/07/17 07:23 Hep Bs Antibody Negative (NEGATIVE) 07/07/17 07:23 Hep B Core IgM Ab Negative (NEGATIVE) 07/07/17 07:23 Hepatitis C Antibody Negative (NEGATIVE) 07/07/17 07:23 HIV 1&2 Antibody Screen Negative (NEGATIVE) 07/07/17 07:23 Blood Type O POSITIVE 07/10/17 15:23 Antibody Screen Negative 07/10/17 15:23 - Hospital Course Hospital Course: Admitted this 72 years old female from the ER because of severe dehydration and acute renal failure secondary to dehydration. She was also fibrillating at that time and she was in mild congestive heart failure. Patient was given 1000 cc of 0.9 nacl chloride infusion and 150 cc of 0.9 Nacl by IV. patient was also not eating but would drink fluids. Swallowing eval was done and she was able to swallow. Patient was found to be have UTI sepsis and started on Merrem by IVPB. In the hospital she continues not to eat or drink so the decision to insert a PEG was reached. She tjherefore had it done. After the PEG she was slightly febrile X 24 hours and Flagyl was started. 48 hours later she became afebrile and discharged to a subacute rehab. center. - Date & Time of H&P Date of H&P: 07/13/17 Time of H&P: 11:15 Discharge Exam - Head Exam Head Exam: ATRAUMATIC, NORMAL INSPECTION, NORMOCEPHALIC - ENT Exam ENT Exam: Mucous Membranes Moist - Neck Exam Neck exam: Full Rom - Respiratory Exam Respiratory Exam: Clear to PA & Lateral, Prolonged Expiratory Phase - Cardiovascular Exam Cardiovascular Exam: Irregular Rhythm, +S1, +S2 - GI/Abdominal Exam GI & Abdominal Exam: Normal Bowel Sounds - Rectal Exam Rectal Exam: Deferred - Extremities Exam Extremities exam: normal inspection - Back Exam Back exam: NORMAL INSPECTION - Neurological Exam Neurological exam: Altered - Skin Skin Exam: Dry, Intact, Warm Discharge Plan - Follow Up Plan Condition: FAIR Disposition: REHAB FACILITY/REHAB UNIT
[2017-07-13] MEDS: Digoxin 125 mcg (0.125 mg) Tab PO SCH (18:59)
[2017-07-14] MEDS: Digoxin 125 mcg (0.125 mg) Tab PO SCH (18:58)
--- NOTE | 2017-07-14 23:01 | CP.PCM.PN ---
Subjective - Date & Time of Evaluation Date of Evaluation: 07/14/17 Time of Evaluation: 16:00 - Subjective Subjective: afebrile, tolerating PEG FEEDS. NO NEW COMPLAINTS . pATIENT VERY WEAK AND CACHECTIC BLOOD CULTURES 07/11/17 -VE X 24HRS. U/A -VE SO FAR REPEAT URINE CULTURES 07/13/17 -VE GROWTH TO DATE. lABS REVIEWED. PLAN ; ON ANTIBIOTICS VIA PEG X 3 DAYS. CASE DISCUSSED WITH ASSISTANT CONTROLLER CASE DISCUSSED WITH ATTENDING. PATIENT AWAITING FOR SUBACUTE REHABILITATION TRANSFER ACCEPTANCE. ASSISTANT CONTROLLER PRESENTLY WORKING ON IT. Objective - Vital Signs/Intake and Output Vital Signs (last 24 hours): Temp Pulse Resp BP Pulse Ox 97.9 F 84 20 138/69 95 07/14/17 16:34 07/14/17 16:34 07/14/17 16:34 07/14/17 16:34 07/14/17 16:34 Intake and Output: 07/14/17 07/15/17 18:59 06:59 Intake Total 350 Balance 350 - Medications Medications: Current Medications Cyproheptadine HCl (Periactin) 4 mg PO BIDPC [facility] Last Admin: 07/14/17 18:57 Dose: 4 mg Digoxin (Lanoxin) 0.125 mg PO DAILY@1800 [facility] Last Admin: 07/14/17 18:58 Dose: 0.125 mg Hydralazine HCl (Apresoline) 25 mg PO BID [facility] Last Admin: 07/14/17 18:57 Dose: 25 mg Lactulose (Enulose) 20 gm PO DAILY [facility] Last Admin: 07/14/17 10:36 Dose: 20 gm Metoprolol Tartrate (Lopressor) 12.5 mg PO BID [facility] Last Admin: 07/14/17 18:58 Dose: 12.5 mg Metronidazole (Flagyl) 250 mg PO Q8H [facility] Last Admin: 07/14/17 18:57 Dose: 250 mg Rivaroxaban (Xarelto) 15 mg PO DAILY [facility] Last Admin: 07/14/17 10:36 Dose: 15 mg - Labs Labs: 07/13/17 08:14 07/13/17 08:14 PT 10.5 SECONDS (9.7-12.2) 07/10/17 08:15 INR 0.9 07/10/17 08:15 APTT 31 SECONDS (21-34) 07/10/17 08:15 - Constitutional Appears: No Acute Distress, Cachectic, Chronically Ill - Eye Exam Eye Exam: EOMI, PERRL - ENT Exam ENT Exam: Normal Exam - Neck Exam Neck Exam: Normal Inspection - Respiratory Exam Respiratory Exam: Rales (FEW BASILAR RALES.) - Cardiovascular Exam Cardiovascular Exam: Irregular Rhythm, +S1, +S2 - GI/Abdominal Exam GI & Abdominal Exam: Soft, Tenderness (IMPROVED. peg FEEDINGS IN PLACE.), Normal Bowel Sounds - Extremities Exam Extremities Exam: absent: Calf Tenderness, Pedal Edema (MARKED WASTING OF THE MUSCLES, SKIN AND BONES.) - Neurological Exam Neurological Exam: Awake - Psychiatric Exam Psychiatric exam: Flat Affect - Skin Skin Exam: Dry, Warm Assessment and Plan (1) Fever and neutropenia Status: Acute (2) UTI due to Klebsiella species Status: Acute (3) Acute renal insufficiency Status: Acute (4) Dehydration, severe Status: Resolved (5) Hyperkalemia Status: Acute (6) Cardiomyopathy Status: Chronic (7) Advanced dementia Status: Chronic (8) Transaminitis Status: Acute
--- NOTE | 2017-07-15 07:55 | CP.PCM.PN ---
Subjective - Date & Time of Evaluation Date of Evaluation: 07/15/17 Time of Evaluation: 07:00 - Subjective Subjective: Parient still here. Awaiting Insurance approval. patient is comfortable. Vital signs stable . Tolerating the tube feeding very well. Objective - Vital Signs/Intake and Output Vital Signs (last 24 hours): Temp Pulse Resp BP Pulse Ox 98.7 F 90 20 120/59 L 96 07/14/17 23:35 07/14/17 23:40 07/14/17 23:35 07/14/17 23:35 07/14/17 23:35 Intake and Output: 07/15/17 07/15/17 06:59 18:59 Intake Total 340 Balance 340 - Medications Medications: Current Medications Cyproheptadine HCl (Periactin) 4 mg PO BIDPC [facility] Last Admin: 07/14/17 18:57 Dose: 4 mg Digoxin (Lanoxin) 0.125 mg PO DAILY@1800 [facility] Last Admin: 07/14/17 18:58 Dose: 0.125 mg Hydralazine HCl (Apresoline) 25 mg PO BID [facility] Last Admin: 07/14/17 18:57 Dose: 25 mg Lactulose (Enulose) 20 gm PO DAILY [facility] Last Admin: 07/14/17 10:36 Dose: 20 gm Metoprolol Tartrate (Lopressor) 12.5 mg PO BID [facility] Last Admin: 07/14/17 18:58 Dose: 12.5 mg Metronidazole (Flagyl) 250 mg PO Q8H [facility] Last Admin: 07/15/17 04:24 Dose: 250 mg Rivaroxaban (Xarelto) 15 mg PO DAILY [facility] Last Admin: 07/14/17 10:36 Dose: 15 mg - Labs Labs: 07/13/17 08:14 07/13/17 08:14 PT 10.5 SECONDS (9.7-12.2) 07/10/17 08:15 INR 0.9 07/10/17 08:15 APTT 31 SECONDS (21-34) 07/10/17 08:15 - Constitutional Appears: No Acute Distress, Chronically Ill - Head Exam Head Exam: ATRAUMATIC, NORMAL INSPECTION, NORMOCEPHALIC - ENT Exam ENT Exam: Normal External Ear Exam - Respiratory Exam Respiratory Exam: Clear to Ausculation Bilateral, Prolonged Expiratory Phase - Rectal Exam Rectal Exam: Deferred - Extremities Exam Extremities Exam: Normal Inspection - Back Exam Back Exam: NORMAL INSPECTION - Neurological Exam Neurological Exam: Altered - Skin Skin Exam: Dry, Intact, Warm Assessment and Plan (1) Acute renal failure (ARF) Status: Resolved (2) Malnutrition compromising bodily function Status: Chronic (3) Advanced dementia Status: Chronic (4) Dehydration, severe Status: Resolved (5) Coronary heart disease Status: Chronic (6) Anemia Status: Acute - Assessment and Plan (Free Text) Plan: plan: Continue pesent tube feeding. Flagyl po.
--- NOTE | 2017-07-15 13:45 | CP.PCM.PN ---
Subjective - Date & Time of Evaluation Date of Evaluation: 07/15/17 Time of Evaluation: 13:44 - Subjective Subjective: Noted patient still in hospital, awaiting transfer approval Tolerating tube feedings well. Objective - Vital Signs/Intake and Output Vital Signs (last 24 hours): Temp Pulse Resp BP Pulse Ox 97.2 F L 61 18 140/78 96 07/15/17 08:01 07/15/17 08:01 07/15/17 08:01 07/15/17 08:01 07/15/17 08:01 Intake and Output: 07/15/17 07/15/17 06:59 18:59 Intake Total 340 Balance 340 - Medications Medications: Current Medications Cyproheptadine HCl (Periactin) 4 mg PO BIDPC [facility] Last Admin: 07/15/17 11:48 Dose: 4 mg Digoxin (Lanoxin) 0.125 mg PO DAILY@1800 [facility] Last Admin: 07/14/17 18:58 Dose: 0.125 mg Hydralazine HCl (Apresoline) 25 mg PO BID [facility] Last Admin: 07/15/17 11:49 Dose: 25 mg Lactulose (Enulose) 20 gm PO DAILY [facility] Last Admin: 07/15/17 11:47 Dose: 20 gm Metoprolol Tartrate (Lopressor) 12.5 mg PO BID [facility] Last Admin: 07/15/17 11:49 Dose: 12.5 mg Metronidazole (Flagyl) 250 mg PO Q8H [facility] Last Admin: 07/15/17 11:48 Dose: 250 mg Rivaroxaban (Xarelto) 15 mg PO DAILY [facility] Last Admin: 07/15/17 11:48 Dose: 15 mg - Labs Labs: 07/13/17 08:14 07/13/17 08:14 PT 10.5 SECONDS (9.7-12.2) 07/10/17 08:15 INR 0.9 07/10/17 08:15 APTT 31 SECONDS (21-34) 07/10/17 08:15 - Constitutional Appears: Cachectic, Chronically Ill - Head Exam Head Exam: ATRAUMATIC, NORMOCEPHALIC - Respiratory Exam Respiratory Exam: NORMAL BREATHING PATTERN - Cardiovascular Exam Cardiovascular Exam: REGULAR RHYTHM - GI/Abdominal Exam GI & Abdominal Exam: Soft, Tenderness, Normal Bowel Sounds Additional comments: GT intact and infusing well. Assessment and Plan (1) Acute renal failure (ARF) Status: Resolved (2) UTI due to Klebsiella species Status: Acute (3) Malnutrition compromising bodily function Assessment & Plan: Continue GT feedings to meet needs in conjunction with po intake as tolerated. Again will revisit as needed. Continue with proper tube care. Status: Chronic (4) Cerebral embolism Status: Chronic (5) Congestive heart failure (CHF) Status: Acute (6) Dementia Status: Chronic
[2017-07-15] MEDS: Digoxin 125 mcg (0.125 mg) Tab PO SCH (18:10)
--- NOTE | 2017-07-15 21:30 | CP.PCM.PN ---
Subjective - Date & Time of Evaluation Date of Evaluation: 07/15/17 Time of Evaluation: 21:29 - Subjective Subjective: afebrile, tolerating PEG FEEDS. NO NEW COMPLAINTS . pATIENT VERY WEAK AND CACHECTIC. AWAITING [facility] ACCEPTANCE. Objective - Vital Signs/Intake and Output Vital Signs (last 24 hours): Temp Pulse Resp BP Pulse Ox 98.2 F 76 18 116/70 96 07/15/17 17:37 07/15/17 17:37 07/15/17 17:37 07/15/17 17:37 07/15/17 17:37 Intake and Output: 07/15/17 07/16/17 18:59 06:59 Intake Total 470 Balance 470 - Medications Medications: Current Medications Cyproheptadine HCl (Periactin) 4 mg PO BIDPC [facility] Last Admin: 07/15/17 18:10 Dose: 4 mg Digoxin (Lanoxin) 0.125 mg PO DAILY@1800 [facility] Last Admin: 07/15/17 18:10 Dose: 0.125 mg Hydralazine HCl (Apresoline) 25 mg PO BID [facility] Last Admin: 07/15/17 18:10 Dose: 25 mg Lactulose (Enulose) 20 gm PO DAILY [facility] Last Admin: 07/15/17 11:47 Dose: 20 gm Metoprolol Tartrate (Lopressor) 12.5 mg PO BID [facility] Last Admin: 07/15/17 18:10 Dose: 12.5 mg Metronidazole (Flagyl) 250 mg PO Q8H [facility] Last Admin: 07/15/17 18:15 Dose: 250 mg Rivaroxaban (Xarelto) 15 mg PO DAILY [facility] Last Admin: 07/15/17 11:48 Dose: 15 mg - Labs Labs: 07/13/17 08:14 07/13/17 08:14 PT 10.5 SECONDS (9.7-12.2) 07/10/17 08:15 INR 0.9 07/10/17 08:15 APTT 31 SECONDS (21-34) 07/10/17 08:15 - Constitutional Appears: No Acute Distress, Cachectic, Chronically Ill - Head Exam Head Exam: NORMAL INSPECTION - Eye Exam Eye Exam: EOMI, PERRL - ENT Exam ENT Exam: Normal Oropharynx - Neck Exam Neck Exam: Normal Inspection - Respiratory Exam Respiratory Exam: Clear to Ausculation Bilateral - Cardiovascular Exam Cardiovascular Exam: Irregular Rhythm, +S1, +S2 - GI/Abdominal Exam GI & Abdominal Exam: Soft, Normal Bowel Sounds (PEG IN PLACE) - Neurological Exam Neurological Exam: Awake, CN II-XII Intact - Psychiatric Exam Psychiatric exam: Normal Affect - Skin Skin Exam: Normal Color, Warm Assessment and Plan (1) Fever and neutropenia Status: Acute (2) UTI due to Klebsiella species Status: Acute (3) Acute renal insufficiency Status: Acute (4) Dehydration, severe Status: Resolved (5) Hyperkalemia Status: Acute (6) Cardiomyopathy Status: Chronic (7) Advanced dementia Status: Chronic (8) Transaminitis Status: Acute - Assessment and Plan (Free Text) Plan: PLAN ; ON ANTIBIOTICS VIA PEG X 2 DAYS MORE. PATIENT AWAITING FOR SUBACUTE REHABILITATION TRANSFER ACCEPTANCE. 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
--- NOTE | 2017-07-16 09:55 | CP.PCM.PN ---
Subjective - Date & Time of Evaluation Date of Evaluation: 07/16/17 Time of Evaluation: 09:53 - Subjective Subjective: Tolerating tube feedings Antibiotics for 1-2 more days Awaiting Subacute acceptance Objective - Vital Signs/Intake and Output Vital Signs (last 24 hours): Temp Pulse Resp BP Pulse Ox 98.1 F 82 20 116/64 95 07/15/17 23:05 07/15/17 23:30 07/15/17 23:05 07/15/17 23:05 07/15/17 23:05 Intake and Output: 07/16/17 07/16/17 06:59 18:59 Intake Total 560 Balance 560 - Medications Medications: Current Medications Cyproheptadine HCl (Periactin) 4 mg PO BIDPC [facility] Last Admin: 07/15/17 18:10 Dose: 4 mg Digoxin (Lanoxin) 0.125 mg PO DAILY@1800 [facility] Last Admin: 07/15/17 18:10 Dose: 0.125 mg Hydralazine HCl (Apresoline) 25 mg PO BID [facility] Last Admin: 07/15/17 18:10 Dose: 25 mg Lactulose (Enulose) 20 gm PO DAILY [facility] Last Admin: 07/15/17 11:47 Dose: 20 gm Metoprolol Tartrate (Lopressor) 12.5 mg PO BID [facility] Last Admin: 07/15/17 18:10 Dose: 12.5 mg Metronidazole (Flagyl) 250 mg PO Q8H [facility] Last Admin: 07/16/17 03:10 Dose: 250 mg Rivaroxaban (Xarelto) 15 mg PO DAILY [facility] Last Admin: 07/15/17 11:48 Dose: 15 mg - Labs Labs: 07/13/17 08:14 07/13/17 08:14 PT 10.5 SECONDS (9.7-12.2) 07/10/17 08:15 INR 0.9 07/10/17 08:15 APTT 31 SECONDS (21-34) 07/10/17 08:15 - Constitutional Appears: Cachectic, Chronically Ill - Respiratory Exam Respiratory Exam: NORMAL BREATHING PATTERN - Cardiovascular Exam Cardiovascular Exam: REGULAR RHYTHM - GI/Abdominal Exam GI & Abdominal Exam: Soft, Normal Bowel Sounds. 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 Status: Chronic (4) Cerebral embolism Status: Chronic (5) Congestive heart failure (CHF) Status: Acute (6) Dementia Status: Chronic
--- NOTE | 2017-07-16 14:03 | CP.PCM.PN ---
Subjective - Date & Time of Evaluation Date of Evaluation: 07/16/17 Time of Evaluation: 02:00 - Subjective Subjective: Patient clinically is better. Awake and conversant but confused. Vital signs stable.Comfortable. awaiting approval For placement. Objective - Vital Signs/Intake and Output Vital Signs (last 24 hours): Temp Pulse Resp BP Pulse Ox 98.1 F 82 20 116/64 95 07/15/17 23:05 07/15/17 23:30 07/15/17 23:05 07/15/17 23:05 07/15/17 23:05 Intake and Output: 07/16/17 07/16/17 06:59 18:59 Intake Total 560 Balance 560 - Medications Medications: [facility]: 07/16/17 11:26 Dose: 4 mg Digoxin (Lanoxin) 0.125 mg PO DAILY@1800 [facility] Last Admin: 07/15/17 18:10 Dose: 0.125 mg Hydralazine HCl (Apresoline) 25 mg PO BID [facility] Last Admin: 07/16/17 11:25 Dose: 25 mg Insulin Aspart (Novolog) 1 unit SC BID [facility] Lactulose (Enulose) 20 gm PO DAILY [facility] Last Admin: 07/16/17 11:25 Dose: 20 gm Metoprolol Tartrate (Lopressor) 12.5 mg PO BID [facility] Last Admin: 07/16/17 11:25 Dose: 12.5 mg Metronidazole (Flagyl) 250 mg PO Q8H [facility] Last Admin: 07/16/17 11:29 Dose: 250 mg Rivaroxaban (Xarelto) 15 mg PO DAILY [facility] Last Admin: 07/16/17 11:25 Dose: 15 mg - Labs Labs: 07/13/17 08:14 07/13/17 08:14 PT 10.5 SECONDS (9.7-12.2) 07/10/17 08:15 INR 0.9 07/10/17 08:15 APTT 31 SECONDS (21-34) 07/10/17 08:15 - Constitutional Appears: Confused, Chronically Ill - Head Exam Head Exam: ATRAUMATIC, NORMAL INSPECTION, NORMOCEPHALIC - ENT Exam ENT Exam: Mucous Membranes Moist - Respiratory Exam Respiratory Exam: Clear to Ausculation Bilateral, Prolonged Expiratory Phase - Cardiovascular Exam Cardiovascular Exam: Irregular Rhythm, +S1, +S2 - GI/Abdominal Exam GI & Abdominal Exam: Normal Bowel Sounds - Rectal Exam Rectal Exam: Deferred - Back Exam Back Exam: NORMAL INSPECTION - Neurological Exam Neurological Exam: Altered, Awake - Skin Skin Exam: Dry, Intact, Warm Assessment and Plan (1) Acute renal failure (ARF) Status: Resolved (2) Malnutrition compromising bodily function Status: Chronic (3) Advanced dementia Status: Chronic (4) Dehydration, severe Status: Resolved (5) Coronary heart disease Status: Chronic (6) Anemia Status: Acute - Assessment and Plan (Free Text) Plan: Plan: continue tube feeding with longevity. Novolig coverage for blood sugar higher than 150. with 1 unit, subq 2x daily
[2017-07-16] MEDS: (Novolog) Insulin Aspart, Recombinant 100 u/ml 10 ml vial SC SCH (17:39)
[2017-07-16] MEDS: Digoxin 125 mcg (0.125 mg) Tab PO SCH (19:05)
[2017-07-17 08:07] LABS: EOS % 0.5 % (0.0-4.0); LYMPH # 1.4 K/uL (1.0-4.3); MEAN CELL VOLUME 89.7 fL (81.0-99.0); MONO # 0.6 K/uL (0.0-0.8); WHITE BLOOD COUNT 3.9 K/uL (4.8-10.8)
[2017-07-17 08:13] LABS: BASO % 0.3 % (0.0-2.0); HEMATOCRIT 31.8 % (34.0-47.0); LYMPH % 36.5 % (20.0-40.0); MEAN CORPUSCULAR HEMOGLOBIN 29.6 pg (27.0-31.0); MEAN PLATELET VOLUME 8.9 fL (7.2-11.7); MONO % 14.8 % (0.0-10.0); NRBC % 0.1 % (0.0-2.0)
[2017-07-17 08:18] LABS: CHLORIDE 98 mmol/L (98-107); SODIUM 141 mmol/L (132-148)
[2017-07-17 08:21] LABS: ALB/GLOB RATIO 0.8 (1.0-2.1); ALKALINE PHOSPHATASE 124 U/L (38-126); ALT/SGPT 46 U/L (9-52); AST/SGOT 51 U/L (14-36); BILIRUBIN,TOTAL 0.6 mg/dL (0.2-1.3); BLOOD UREA NITROGEN 44 mg/dL (7-17); CARBON DIOXIDE 37 mmol/L (22-30); GFR AFRICAN-AMERICAN > 60; GLUCOSE,RANDOM 143 mg/dL (65-105); TOTAL PROTEIN 7.1 g/dL (6.3-8.3)
[2017-07-17 08:27] LABS: POTASSIUM 5.7 mmol/L (3.6-5.2)
[2017-07-17] MEDS ORDERED: Sod Polystyrene Sulf 15 gm/60 ml Oral Susp PO ONE ×3 (10:11→10:30)
[2017-07-17] MEDS: (Novolog) Insulin Aspart, Recombinant 100 u/ml 10 ml vial SC SCH ×2 (10:24→18:15)
--- NOTE | 2017-07-17 12:20 | CP.PCM.PN ---
Subjective - Date & Time of Evaluation Date of Evaluation: 07/17/17 Time of Evaluation: 12:20 - Subjective Subjective: Awake, more alert but still confused. Patient ablle to tell when she has to urinate and have a bowel movement.Tube feeding now at 50 cc per hourly. Objective - Vital Signs/Intake and Output Vital Signs (last 24 hours): Temp Pulse Resp BP Pulse Ox 98.1 F 88 20 137/71 94 L 07/17/17 08:00 07/17/17 08:00 07/17/17 08:00 07/17/17 08:00 07/17/17 08:00 Intake and Output: 07/17/17 07/17/17 06:59 18:59 Intake Total 400 Balance 400 - Medications Medications: Current Medications Cyproheptadine HCl (Periactin) 4 mg PO BIDPC [facility] Last Admin: 07/17/17 10:24 Dose: 4 mg Digoxin (Lanoxin) 0.125 mg PO DAILY@1800 [facility] Last Admin: 07/16/17 19:05 Dose: 0.125 mg Hydralazine HCl (Apresoline) 25 mg PO BID [facility] Last Admin: 07/17/17 10:24 Dose: 25 mg Insulin Aspart (Novolog) 1 unit SC BID [facility] Last Admin: 07/17/17 10:24 Dose: 1 unit Lactulose (Enulose) 20 gm PO DAILY [facility] Last Admin: 07/17/17 10:24 Dose: 20 gm Metoprolol Tartrate (Lopressor) 12.5 mg PO BID [facility] Last Admin: 07/17/17 10:24 Dose: 12.5 mg Metronidazole (Flagyl) 250 mg PO Q8H [facility] Last Admin: 07/17/17 10:24 Dose: 250 mg Rivaroxaban (Xarelto) 15 mg PO DAILY [facility] Last Admin: 07/17/17 10:24 Dose: 15 mg - Labs Labs: 07/17/17 07:47 07/17/17 07:47 PT 10.5 SECONDS (9.7-12.2) 07/10/17 08:15 INR 0.9 07/10/17 08:15 APTT 31 SECONDS (21-34) 07/10/17 08:15 - Constitutional Appears: Confused, Chronically Ill - Head Exam Head Exam: ATRAUMATIC, NORMAL INSPECTION, NORMOCEPHALIC - Eye Exam Eye Exam: EOMI - ENT Exam ENT Exam: Mucous Membranes Moist - Neck Exam Neck Exam: Normal Inspection - Respiratory Exam Respiratory Exam: Clear to Ausculation Bilateral, Prolonged Expiratory Phase - Cardiovascular Exam Cardiovascular Exam: Irregular Rhythm, +S1, +S2 - GI/Abdominal Exam GI & Abdominal Exam: Soft - Rectal Exam Rectal Exam: Deferred - Extremities Exam Extremities Exam: Normal Inspection - Neurological Exam Neurological Exam: Altered, Awake - Skin Skin Exam: Dry, Normal Color Assessment and Plan (1) Acute renal failure (ARF) Status: Resolved (2) Malnutrition compromising bodily function Status: Chronic (3) Advanced dementia Status: Chronic (4) Dehydration, severe Status: Resolved (5) Coronary heart disease Status: Chronic (6) Anemia Status: Chronic - Assessment and Plan (Free Text) Plan: Plan: Continue tube feding. Kayexalate for K higher than 5.4.
--- NOTE | 2017-07-17 14:25 | CP.PCM.PN ---
Subjective - Date & Time of Evaluation Date of Evaluation: 07/17/17 Time of Evaluation: 14:25 - Subjective Subjective: AFEBRILE. PATIENT OFF AND ON CONFUSED. PATIENT UNABLE TO MANAGE HERSELF FROM DAY-TO-DAY. ON INCREASING PEG FEEDINGS 50 CC AN HOUR. LABS REVIEWED K 5.7 cREATININE 0.7/bun 44. wbc 3.9 H HEMOGLOBIN 10 DAUGHTER /AND SON AT THE BEDSIDE. Objective - Vital Signs/Intake and Output Vital Signs (last 24 hours): Temp Pulse Resp BP Pulse Ox 98.1 F 96 H 20 133/75 94 L 07/17/17 08:00 07/17/17 10:20 07/17/17 08:00 07/17/17 10:20 07/17/17 08:00 Intake and Output: 07/17/17 07/17/17 06:59 18:59 Intake Total 400 Balance 400 - Medications Medications: Current Medications Cyproheptadine HCl (Periactin) 4 mg PO [facility]PC [facility] Last Admin: 07/17/17 10:24 Dose: 4 mg Digoxin (Lanoxin) 0.125 mg PO DAILY@1800 [facility] Last Admin: 07/16/17 19:05 Dose: 0.125 mg Hydralazine HCl (Apresoline) 25 mg PO BID [facility] Last Admin: 07/17/17 10:24 Dose: 25 mg Insulin Aspart (Novolog) 1 unit SC BID [facility] Last Admin: 07/17/17 10:24 Dose: 1 unit Lactulose (Enulose) 20 gm PO DAILY [facility] Last Admin: 07/17/17 10:24 Dose: 20 gm Metoprolol Tartrate (Lopressor) 12.5 mg PO BID [facility] Last Admin: 07/17/17 10:24 Dose: 12.5 mg Metronidazole (Flagyl) 250 mg PO Q8H [facility] Last Admin: 07/17/17 10:24 Dose: 250 mg Rivaroxaban (Xarelto) 15 mg PO DAILY [facility] Last Admin: 07/17/17 10:24 Dose: 15 mg - Labs Labs: 07/17/17 07:47 07/17/17 07:47 PT 10.5 SECONDS (9.7-12.2) 07/10/17 08:15 INR 0.9 07/10/17 08:15 APTT 31 SECONDS (21-34) 07/10/17 08:15 - Constitutional Appears: No Acute Distress, Cachectic, Chronically Ill - Head Exam Head Exam: NORMAL INSPECTION - Eye Exam Eye Exam: PERRL - ENT Exam ENT Exam: Mucous Membranes Moist, Normal Exam - Neck Exam Neck Exam: Normal Inspection - Respiratory Exam Respiratory Exam: Decreased Breath Sounds - Cardiovascular Exam Cardiovascular Exam: Irregular Rhythm, +S1, +S2 - GI/Abdominal Exam GI & Abdominal Exam: Soft, Normal Bowel Sounds. absent: Tenderness, Organomegaly - Extremities Exam Extremities Exam: absent: Calf Tenderness, Pedal Edema - Neurological Exam Neurological Exam: Awake, CN II-XII Intact - Psychiatric Exam Psychiatric exam: Flat Affect - Skin Skin Exam: Dry Assessment and Plan (1) Fever and neutropenia Status: Acute (2) UTI due to Klebsiella species Status: Acute (3) Acute renal insufficiency Status: Acute (4) Dehydration, severe Status: Resolved (5) Hyperkalemia Status: Acute (6) Cardiomyopathy Status: Chronic (7) Advanced dementia Status: Chronic (8) Transaminitis Status: Acute - Assessment and Plan (Free Text) Plan: ON PO fLAGYL 250 TID . DC IN AM AND OBSERVE OFF ANTIBIOTICS ON kAYEXALATE WHEN NECESSARY FOR HYPERKALEMIA. MONITOR BMP PER PMD. PATIENT AWAITING FOR SUBACUTE REHABILITATION TRANSFER ACCEPTANCE. 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
[2017-07-17] MEDS: Digoxin 125 mcg (0.125 mg) Tab PO SCH (18:14)
[2017-07-18] MEDS: (Novolog) Insulin Aspart, Recombinant 100 u/ml 10 ml vial SC SCH ×2 (09:08→17:28)
--- NOTE | 2017-07-18 11:05 | CP.PCM.PN ---
Subjective - Date & Time of Evaluation Date of Evaluation: 07/18/17 Time of Evaluation: 10:50 - Subjective Subjective: Patient is confused on and off . Tolerating the tube feeding very well. Awaiting approval for admission to the senior care. Objective - Vital Signs/Intake and Output Vital Signs (last 24 hours): Temp Pulse Resp BP Pulse Ox 99.1 F 89 18 103/61 97 07/18/17 08:00 07/18/17 08:00 07/18/17 08:00 07/18/17 08:00 07/18/17 08:00 Intake and Output: 07/18/17 07/18/17 06:59 18:59 Intake Total 1230 Balance 1230 - Medications Medications: Current Medic[facility] Admin: 07/18/17 09:08 Dose: 4 mg Digoxin (Lanoxin) 0.125 mg PO DAILY@1800 [facility] Last Admin: 07/17/17 18:14 Dose: 0.125 mg Hydralazine HCl (Apresoline) 25 mg PO BID [facility] Last Admin: 07/18/17 09:05 Dose: 25 mg Insulin Aspart (Novolog) 1 unit SC BID [facility] Last Admin: 07/18/17 09:08 Dose: 1 unit Lactulose (Enulose) 20 gm PO DAILY [facility] Last Admin: 07/18/17 09:03 Dose: 20 gm Metoprolol Tartrate (Lopressor) 12.5 mg PO BID [facility] Last Admin: 07/18/17 09:05 Dose: 12.5 mg Metronidazole (Flagyl) 250 mg PO Q8H [facility] Last Admin: 07/18/17 03:30 Dose: 250 mg Rivaroxaban (Xarelto) 15 mg PO DAILY [facility] Last Admin: 07/17/17 10:24 Dose: 15 mg - Labs Labs: 07/17/17 07:47 07/17/17 07:47 PT 10.5 SECONDS (9.7-12.2) 07/10/17 08:15 INR 0.9 07/10/17 08:15 APTT 31 SECONDS (21-34) 07/10/17 08:15 - Constitutional Appears: Confused, Chronically Ill - Head Exam Head Exam: ATRAUMATIC, NORMAL INSPECTION, NORMOCEPHALIC - Eye Exam Pupil Exam: PERRL - Neck Exam Neck Exam: Full ROM - Respiratory Exam Respiratory Exam: Clear to Ausculation Bilateral, Prolonged Expiratory Phase - Cardiovascular Exam Cardiovascular Exam: Irregular Rhythm, +S1, +S2 - GI/Abdominal Exam GI & Abdominal Exam: Soft, Normal Bowel Sounds - Rectal Exam Rectal Exam: Deferred - Extremities Exam Extremities Exam: Normal Inspection - Neurological Exam Neurological Exam: Altered, Awake - Skin Skin Exam: Dry, Intact Assessment and Plan (1) Acute renal failure (ARF) Status: Resolved (2) Malnutrition compromising bodily function Status: Chronic (3) Advanced dementia Status: Chronic (4) Dehydration, severe Status: Resolved (5) Coronary heart disease Status: Chronic (6) Anemia Status: Chronic - Assessment and Plan (Free Text) Plan: Plan: Patient ready for discjarge if approval is obtained. Continue tube feeding.
[2017-07-18 12:44] LABS: CHLORIDE 94 mmol/L (98-107); POTASSIUM 5.1 mmol/L (3.6-5.2); SODIUM 144 mmol/L (132-148)
[2017-07-18 12:47] LABS: BLOOD UREA NITROGEN 43 mg/dL (7-17); GFR AFRICAN-AMERICAN > 60; GLUCOSE,RANDOM 135 mg/dL (65-105)
[2017-07-18 12:48] LABS: CALCIUM 8.9 mg/dl (8.6-10.4)
[2017-07-18 13:12] LABS: CARBON DIOXIDE 40 mmol/L (22-30)
[2017-07-18] MEDS: Digoxin 125 mcg (0.125 mg) Tab PO SCH (17:28)
--- NOTE | 2017-07-19 11:26 | CP.PCM.PN ---
Subjective - Date & Time of Evaluation Date of Evaluation: 07/19/17 Time of Evaluation: 12:25 - Subjective Subjective: comfortable, confused. Tolerating the tube feeding very well. Vital signs stable. Objective - Vital Signs/Intake and Output Vital Signs (last 24 hours): Temp Pulse Resp BP Pulse Ox 97.5 F L 100 H 20 137/73 95 07/19/17 07:10 07/19/17 07:10 07/19/17 07:10 07/19/17 07:10 07/19/17 07:10 - Medications Medications: Current Medications Cyproheptadine HCl (Periactin) 4 mg PO BIDPC [facility] Last Admin: 07/18/17 17:30 Dose: 4 mg Digoxin (Lanoxin) 0.125 mg PO DAILY@1800 [facility] Last Admin: 07/18/17 17:28 Dose: 0.125 mg Hydralazine HCl (Apresoline) 25 mg PO BID [facility] Last Admin: 07/18/17 17:28 Dose: 25 mg Insulin Aspart (Novolog) 1 unit SC BID [facility] Last Admin: 07/18/17 17:28 Dose: 1 unit Lactulose (Enulose) 20 gm PO DAILY [facility] Last Admin: 07/18/17 09:03 Dose: 20 gm Metoprolol Tartrate (Lopressor) 12.5 mg PO BID [facility] Last Admin: 07/18/17 17:28 Dose: 12.5 mg Rivaroxaban (Xarelto) 15 mg PO DAILY [facility] Last Admin: 07/18/17 10:00 Dose: 15 mg - Labs Labs: 07/17/17 07:47 07/18/17 12:23 PT 10.5 SECONDS (9.7-12.2) 07/10/17 08:15 INR 0.9 07/10/17 08:15 APTT 31 SECONDS (21-34) 07/10/17 08:15 - Constitutional Appears: Confused, Chronically Ill - Head Exam Head Exam: ATRAUMATIC, NORMAL INSPECTION, NORMOCEPHALIC - Respiratory Exam Respiratory Exam: Clear to Ausculation Bilateral, Prolonged Expiratory Phase - Cardiovascular Exam Cardiovascular Exam: Irregular Rhythm, +S1, +S2 - GI/Abdominal Exam GI & Abdominal Exam: Soft, Normal Bowel Sounds - Rectal Exam Rectal Exam: Deferred - Skin Skin Exam: Dry, Intact, Warm Assessment and Plan (1) Acute renal failure (ARF) Status: Resolved (2) Malnutrition compromising bodily function Status: Chronic (3) Advanced dementia Status: Chronic (4) Dehydration, severe Status: Resolved (5) Coronary heart disease Status: Chronic (6) Anemia Status: Chronic - Assessment and Plan (Free Text) Plan: Plan: Continue tube feeding. Awaiting authorization for subacute placement.
[2017-07-19] MEDS: (Novolog) Insulin Aspart, Recombinant 100 u/ml 10 ml vial SC SCH ×2 (11:50→17:55)
[2017-07-19] MEDS: Digoxin 125 mcg (0.125 mg) Tab PO SCH (17:56)
[2017-07-20 07:46] VITALS: TEMP 97.6
[2017-07-20] MEDS: (Novolog) Insulin Aspart, Recombinant 100 u/ml 10 ml vial SC SCH ×2 (09:05→18:32)
[2017-07-20 18:26] VITALS: PULSE 104
[2017-07-20] MEDS: Digoxin 125 mcg (0.125 mg) Tab PO SCH (18:26)
[2017-07-20 18:48] VITALS: BP 117/66; PULSE 102; RESP 20; O2SAT 98
--- NOTE | 2017-07-21 16:56 | PQF MALNUT ---
This form is a permanent part of the medical record Clarification of your documentation is requested to better reflect the severity of illness and intensity of treatment of your patient. PLEASE CLARIFY AND DOCUMENT THE SEVERITY OF 'MALNUTRITION' Indicators present [XX] Cachexia (due to severe malnutrition) [] Albumin < 2.8 [] Decreased Pre-albumin [XX] Dietary Consult [XX] Provider documentation reflects BMI of: []_ [] Low serum proteins [X] Documented weight loss [X] Inability to consume adequate caloric intake [X] Anorexic [] Other: [] Location in the medical record that reflects the above clinical findings: [] Treatment Provided: [PEG] PHYSICIAN'S RESPONSE Based on your medical judgment of the clinical indicators outlined above, are you treating this patient for a known or suspected: Type of Malnutrition Severity [] Mild [] Moderate [] Severe [] Protein calorie [] Mild [] Moderate [] severe [] Other, please indicate: []_ [] If Unable to Determine, please check the box, sign and date. Present On Admission (POA) Indicator: [] Present at the time of admission [] Not present at the time of admission [] Clinically Undetermined In responding to this query, please exercise your independent professional judgment. The fact that a question is asked does not imply that any particular answer is desired or expected. Thank you for your clarification on this documentation. 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 Malnutrition may be described as mild, moderate or severe. There are variations in clinical indicators, lab values and risk factors with each type and degree. When reviewing the nutritional status of the client, the entire clinical picture should be assessed and taken into consideration rather than a focus on a single laboratory value. Mild Malnutrition: patient's weight is noted at 85-95% of normal body weight; BMI 18-18.9; serum albumin 3.0-3.4; total lymphocyte count [id number]. Moderate Malnutrition: patient's weight is noted at 75-85% of normal body weight ; BMI 16-17.9; serum albumin 2.4-3.0; total lymphocyte count 800-1500. Severe Malnutrition: patient's weight is noted at <75% of normal body weight, BMI <16, serum albumin <2.4, total lymphocyte count <800, abnormally low VLDL/ LDL levels, creatinine <0.6, BUN <8, cholesterol <160. Other clinical indicators include: loss of subq fat, muscle wasting of the extremities, skin lesions, decubitus ulcers, hair loss, lethargy, constipation, decreased pulse/ respiratory rates, relative hypotension, hepatomegaly d/t fat infiltration, poor wound healing.~~~~~~ Risk: poor intake d/t food avoidance or NPO status for >7 days, protracted nutritional losses from malabsorption states, hypermetabolic state such as sepsis, prolonged fever, extensive trauma or best, alcohol/drug abuse, advanced age, CKD, trouble chewing or swallowing, some medications, depression/ social isolation, special diets such as low protein Treatment: dietary consultation, protein-calorie dietary supplementation, daily weights, PEG tube, psychiatric consultation, appetite stimulants (Megace). [employer] Principles of Internal Medicine, 17th edition, chapters 9, 72 and 234. The [employer] Curriculum, 2007 MTDD
== END 2017-07-20 19:44 | DRG 682 ==
LOC: C.ER 14:38 → C.9E 17:58 → C.5T 22:06 → C.5S 06-28 09:11
PROVIDERS: ADMIT Legal Medicine; ATTEND Legal Medicine
PROC: 02HV33Z Insertion of Infusion Device into Superior Vena Cava, Percutaneous Approach (ICD-10-PCS; principal; 2017-07-10)
PROC: 0DH63UZ Insertion of Feeding Device into Stomach, Percutaneous Approach (ICD-10-PCS; 2017-07-11)
DX: N17.9 Acute kidney failure, unspecified (principal); E43 Unspecified severe protein-calorie malnutrition; I42.9 Cardiomyopathy, unspecified; I11.0 Hypertensive heart disease with heart failure; I48.91 Unspecified atrial fibrillation; R64 Cachexia; D70.9 Neutropenia, unspecified; F03.90 Unspecified dementia, unspecified severity, without behavioral disturbance, psychotic disturbance, mood disturbance, and anxiety; E87.5 Hyperkalemia; N39.0 Urinary tract infection, site not specified; Z68.1 Body mass index [BMI] 19.9 or less, adult; E86.0 Dehydration; D64.9 Anemia, unspecified; B96.1 Klebsiella pneumoniae [K. pneumoniae] as the cause of diseases classified elsewhere; I25.10 Atherosclerotic heart disease of native coronary artery without angina pectoris; I49.3 Ventricular premature depolarization; K59.00 Constipation, unspecified; Z87.891 Personal history of nicotine dependence; J44.9 Chronic obstructive pulmonary disease, unspecified; E86.1 Hypovolemia; E78.00 Pure hypercholesterolemia, unspecified